=== PATIENT | female | born 1945 | race Caucasian/White ===

== ENCOUNTER 2017-03-13 22:08 | Inpatient (IN) | payer MEDICARE, OTHER ==
--- NOTE | 2017-03-13 22:36 | ED Physician Chart ---
Chief Complaint/HPI - Patient Information Date Seen:: 03/13/17 Time Seen:: 22:20 Chief Complaint:: crying episodes History of Present Illness:: Patient has been having crying episodes recently. She apparently feels somebody might steal her cigarettes. Patient complains of bilateral knee pain. She states she is fallen 71 time over the last 2 weeks Allergies:: Allergies Allergy/AdvReac Type Severity Reaction Status Date / Time Fish Containing Products Allergy Verified 03/13/17 22:13 Penicillins [PCN] Allergy Verified 03/13/17 22:13 Historian:: Patient Review:: Transfer documents Reviewed Review of Systems - Review of Systems General/Constitutional: No fever, No chills Skin: No skin lesions Head: No headache Eyes: No loss of vision ENT: No earache Neck: No neck pain Cardio Vascular: No chest pain, No palpitations Pulmonary: SOB GI: No nausea, No vomiting, No diarrhea G/U: No dysuria, No frequency Musculoskeletal: Bone or joint pain Endocrine: No polyuria, No polydipsia Psychiatric: Prior psych history Hematopoietic: No bruising Allergic/Immuno: No urticaria Neurological: No syncope, No focal symptoms Past Medical History - Past Medical History Past Medical History: HTN, DM, Other (severe sepsis; chronic bronchitis; status post urinary tract infection dementia; schizophrenia; or depression; insomnia; glaucoma; neuralgia) Family History: None Social History: Smoker, Other (states she only smokes 1 cigarette a day) Surgical History: None Psychiatricy History: Depression, Schizophrenia Family Medical History - Family Member Mother History Unknown: Yes Labs/Radiology/EKG Results - Lab Results Results: Laboratory Results - last 24 hr 03/13/17 03/13/17 03/13/17 22:37 22:37 22:37 WBC 3.4 L RBC 3.99 Hgb 11.2 L Hct 33.7 L MCV 84.4 MCH 28.2 MCHC Differential 33.4 RDW 14.2 Plt Count 170 MPV 6.8 Neutrophils % 70.1 Lymphocytes % 18.9 L Monocytes % 10.7 H Eosinophils % 0.1 Basophils % 0.2 Sodium 129 L Potassium 4.7 Chloride 97 L Carbon Dioxide 29.5 Anion Gap 7.2 BUN 26 H Creatinine 0.7 Est GFR ( Amer) TNP Est GFR (Non-Af Amer) TNP BUN/Creatinine Ratio 37.1 Glucose 219 H Whole Bld Lactic Acid 1.78 Calcium 9.2 Total Bilirubin 0.3 AST 13 ALT 16 Alkaline Phosphatase 73 Total Protein 6.6 Albumin 3.6 L Globulin 3.0 Albumin/Globulin Ratio 1.2 Triglycerides 72 Cholesterol 148 LDL Cholesterol Direct 99 HDL Cholesterol 45 - Radiology Results Results: CXR negative - EKG Interpretations Rate & Rhythm: NSR with rate of 87 [place]: normal Comments:: unifocal PVCs ED Septic Shock - . Is Septic Shock (SBP<90, OR Lactate>4 mmol\L) present?: No Reassessment (Disposition) - Reassessment Reassessment Condition:: Unchanged - Diagnosis Diagnosis:: Depression; contusion both knees - Patient Disposition Admitted to:: [facility] Admitting Medical Physician:: Marlon Liu Admitting Psych Physician:: Luna Henry Condition at Disposition:: Stable, Unchanged
[2017-03-13 22:47] LABS: % BASOPHILS 0.2 % (0.0-2.0); % EOSINOPHILS 0.1 % (0.0-5.0); % LYMPHOCYTES 18.9 % (20.0-50.0); % MONOCYTES 10.7 % (2.0-10.0); % NEUTROPHILS 70.1 % (40.0-80.0); HEMATOCRIT 33.7 % (35.0-45.0); HEMOGLOBIN 11.2 gm/dL (11.7-16.1); MEAN CELL VOLUME 84.4 fl (81-100); MEAN CORPUSCULAR HEMOGLOBIN 28.2 pg (27.0-31.0); MEAN CORPUSCULAR HGB CONC 33.4 pg (28.0-36.0); MEAN PLATELET VOLUME 6.8 fl; NEUTROPHILE ABSOLUTE 2.4 Th/cmm (1.8-8.0); PLATELET COUNT 170 Th/cmm (150-400); RED BLOOD COUNT 3.99 Mil/cmm (3.80-5.20); RED CELL DISTRIBUTION WIDTH 14.2 % (11.5-20.0)
[2017-03-13 22:51] LABS: WHITE BLOOD COUNT 3.4 Th/cmm (4.8-10.8)
[2017-03-13 23:07] LABS: ALB/GLOB RATIO 1.2 (1.0-1.8); ALKALINE PHOSPHATASE 73 U/L (34-104); ANION GAP 7.2 (7.0-16.0); BILIRUBIN,TOTAL 0.3 mg/dL (0.3-1.0); BUN - UREA NITROGEN 26 mg/dL (7-25); BUN/CREATININE RATIO 37.1; CALCIUM SERUM 9.2 mg/dL (8.6-10.3); CARBON DIOXIDE 29.5 mEq/L (21.0-31.0); CHLORIDE 97 mEq/L (98-107); CHOLESTEROL 148 mg/dL (<200); CREATININE - SERUM 0.7 mg/dL (0.6-1.2); GLUCOSE 219 mg/dL (70-105); POTASSIUM SERUM 4.7 mEq/L (3.5-5.1); SGOT 13 U/L (13-39); SGPT/ALT 16 U/L (7-52); SODIUM SERUM 129 mEq/L (136-145); TRIGLYCERIDES 72 mg/dL (<150)
[2017-03-14] MEDS ORDERED: Fleet Enema 135 mL RC PRN (00:37)
[2017-03-14] MEDS ORDERED: Magnesium Hydroxide (MOM) 30 mL UDC PO SCH (00:45)
[2017-03-14 00:54] VITALS: BP 130/64
--- NOTE | 2017-03-14 08:24 | Diagnostic Imaging Report ---
CHEST X-RAY: AP view INDICATION: COPD COMPARISON: None FINDINGS: Chronic lung changes are seen. No focal consolidation or effusions. Heart size is normal. There is mild tortuosity of the thoracic aorta. Degenerative changes of the spine are noted. IMPRESSION: Chronic lung changes with no focal consolidation identified.
[2017-03-14] MEDS ORDERED: Non-Formulary Item 1 EA (Cranberry [Cranberry] 450 MG) PO SCH (09:00)
[2017-03-14] MEDS: Multivitamin Tab PO SCH (09:21)
[2017-03-14] MEDS: Aspirin 81mg Chewable Tab PO SCH (09:22)
[2017-03-14] MEDS: Ferrous Sulfate 325 MG TAB PO SCH ×2 (09:22→17:15)
[2017-03-14] MEDS: Magnesium Hydroxide (MOM) 30 mL UDC PO SCH (09:27)
[2017-03-14] MEDS: Polyvinyl Alcohol Ophth Soln 15 mL Bottle EACH EYE SCH ×2 (10:00→17:16)
[2017-03-14] MEDS: Fluticasone Propionate 0.05mg/Actuation 16gm Nasal Spray NS SCH ×2 (10:00→17:16)
[2017-03-14] MEDS: Escitalopram Oxalate 5 mg Tab PO SCH (10:01)
--- NOTE | 2017-03-14 20:46 | Psychosocial Evaluation ---
DATE OF SERVICE: 03/14/2017 CHIEF COMPLAINT: Agitation and outburst. HISTORY OF PRESENT ILLNESS: The patient is a 71-year-old female who was transferred from [facility] because of increased agitation and increased irritability. The patient also has been confused and has been in irritable mood and angry mood at times. The patient also seems to be depressed. Chart reviewed and patient interviewed. The patient said that she has been living in a [facility] and she has been for several years. She said that she has 4 children, but she is not seeing them "because of court order." The patient was not able to elaborate on the reasons for not seeing her children and she was not able to elaborate on what court order that is stopping her from seeing her children. She seems to be anxious and depressed during talking about her children. The patient also has been at times agitated and restless. She has multiple somatic complaints including pain on her right knee and left shoulder. She also has been depressed because she has multiple medical problems and she said that she has issues with her heart and this is one of the reasons that she is not seeing her children. PAST PSYCHIATRIC HISTORY: The patient denies. PAST MEDICAL HISTORY: The patient has bronchial asthma, hypertension, as well as multiple pain in different areas of her body. She also said that she has heart issues, but she was not able to elaborate on what kind of heart problems. CHEMICAL DEPENDENCY HISTORY: The patient denies any alcohol or street drug use, but she said that she smokes only one cigarette a day. FAMILY PSYCHIATRIC HISTORY: The patient denies. SOCIAL HISTORY: The patient lives in [facility]. No known drug use. The patient is . No legal issues and no abuse issues. ALLERGIES: No known allergies. MENTAL STATUS EXAMINATION: The patient appears her stated age. Anxious. In a depressed mood. Sad affect. Thought processes are mainly goal directed. The patient gets agitated at times during the interview. The patient denies auditory or visual hallucinations, but she seems to be slightly confused and slightly paranoid during talking about her children. The patient is alert. The patient denies any suicidal or homicidal ideations. The patient is alert and oriented to time, place, person and situation. She did know where she lives and she did remember today's date, and the name of the president, and also where her children live, and also she remembered today's date and her birthdate. Poor insight and she does not know why she is in the hospital. Poor judgment and she was agitated and had outbursts. She seems to be of average intelligence based on her verbal ability. ASSESSMENT: PRIMARY DIAGNOSIS: Major depression, severe, single episode, with psychotic features. MEDICAL DIAGNOSIS: Hypertension, bronchial asthma. TREATMENT PLAN: We will start the patient on Lexapro 5 mg at bedtime. We will monitor her condition closely for further evaluation. ESTIMATED LENGTH OF STAY: 5-7 days. THE PATIENT'S STRENGTHS AND WEAKNESSES: The patient's strength is not clear at this time. Weaknesses: Her ineffective coping and poor impulse control. AFTER DISCHARGE PLAN: Outpatient treatment and followup as an outpatient and the patient will return to [facility]. CRITERIA FOR DISCHARGE: Will stabilize on psychotropic medications and will establish outpatient treatment plans. [facility]# [id number]
[2017-03-14] MEDS: INSULIN ASPART SLIDING SCALE 100 UNITS/ML UNIT SUBQ SCH (21:59)
[2017-03-15] MEDS: INSULIN ASPART SLIDING SCALE 100 UNITS/ML UNIT SUBQ SCH ×4 (06:43→20:40)
--- NOTE | 2017-03-15 07:53 | History and Physical ---
History of Present Illness - HPI Chief Complaint: psychosis HPI: 71 year old female who presents to [facility] ER from SNF for increased agitation noted by nursing staff. Patient presents with episodes of confusion, agitation which includes bouts of crying. Patient feels that someone is stealing her cigarettes. In addition she has been complaining of bilateral knee pain. She has been having increased episodes of crying as well. Patient had routine labwork in the Er which revealed Na+ 129 and elevation of her BUN Vital Signs: Last Vital Signs Temp 97.7 F 03/15/17 05:38 Pulse 88 03/15/17 05:38 Resp 20 03/15/17 05:38 BP 120/69 03/15/17 05:38 Pulse Ox 96 03/15/17 05:38 Past Medical History Cardiovascular: Report: HTN Pulmonary: Report: Bronchitis [employer]: Report: Other (insomnia, neuralgia) GI: Report: No Pertinent Hx Psych: Report: Depression, Schizophrenia Musculoskeletal: Report: No Pertinent Hx Infectious Disease: Report: Other (Sepsis) Renal/: Report: UTI Endocrine: Report: Diabetes Dermatology: Report: No Pertinent Hx Other History: Glaucoma - Past Surgical History Past Surgical History: No pertinent Hx Family Medical History - Family Member Mother History Unknown: Yes Social History Smoke: <1 pack per day (1 cigarette/day) Alcohol: None Drugs: None Lives: Snf - Medications Home Medications: Home Medication Medication Instructions Recorded Type Acetaminophen [Tylenol] 650 mg PO Q4HR PRN 03/13/17 History Aspirin [Aspirin Chewable] 81 mg PO DAILY 03/13/17 History Benazepril HCl 5 mg PO DAILY 03/13/17 History Bisacodyl [Dulcolax 10 Mg Supp] 10 mg RC DAILY PRN 03/13/17 History Calcium Carbonate [Oyster Shell 500 mg PO BID 03/13/17 History Calcium] Cranberry 450 mg PO BID 03/13/17 History Docusate Sodium [Colace] 100 mg PO DAILY 03/13/17 History Ferrous Sulfate [Iron] 325 mg PO BID 03/13/17 History Fleet Enema [Fleet Enema] 135 ml RC Q48H PRN 03/13/17 History Fluoxetine HCl [Prozac] 40 mg PO QAM 03/13/17 History Fluticasone Propionate Nasal 1 spr NS BID 03/13/17 History [Flonase] Fluticasone/Salmeterol [Advair Hfa] 2 puff IH BID 03/13/17 History Gabapentin 600 mg PO TID 03/13/17 History Glipizide 5 mg PO DAILY 03/13/17 History Ipratropium Bells [Atrovent Hfa] 2 puff INH Q6H 03/13/17 History Magnesium Hydroxide [Milk of 30 ml PO Q72H 03/13/17 History Magnesia] Metformin HCl [Glucophage] 1,000 mg PO BID 03/13/17 History Multivitamin [Multivitamins] 1 cap PO DAILY 03/13/17 History Olopatadine HCl [Pataday] 1 drop EACH EYE BID 03/13/17 History Polyvinyl Alcohol Ophth Soln 1 drop EACH EYE BID 03/13/17 History [Artificial Tears Ophth Soln] Risperidone [Risperdal] 1.5 mg PO HS 03/13/17 History Trazodone HCl 150 mg PO HS 03/13/17 History - Allergies Allergies/Adverse Reactions: Allergies Allergy/AdvReac Type Severity Reaction Status Date / Time Fish Containing Products Allergy Verified 03/13/17 22:13 Penicillins [PCN] Allergy Verified 03/13/17 22:13 Review of Systems - Review of Systems Constitutional: Report: No Significant Eyes: Report: No Significant ENT: Report: No Significant Respiratory: Report: No Significant Cardiovascular: Report: No Significant Gastrointestinal: Report: No Significant Genitourinary: Report: No Significant Musculoskeletal: Report: No Significant Skin: Report: No Significant Neurological: Report: No Significant Physical Exam - Physical Exam HEENT: Report: Ears Nose Throat within normal limits, Pharnyx within normal limits Neck: Report: Within normal limits Cardiovascular Systems: Report: +s1/s2 noted, Regular, Rate and Rhythm Respiratory: Report: Breath Sounds are within normal limits, Clear to Auscultation of lung dominguez Abdomen: Report: Non-tender to palpation Back: Report: Inspection of back is within normal limits. Extremities: Report: Non-tender to palpation. Skin: Report: Color of skin is within normal limits - Lab Results All Lab Results last 24 hours: Laboratory Last Values WBC 3.4 Th/cmm (4.8-10.8) L 03/13/17 22:37 RBC 3.99 Mil/cmm (3.80-5.20) 03/13/17 22:37 Hgb 11.2 gm/dL (11.7-16.1) L 03/13/17 22:37 Hct 33.7 % (35.0-45.0) L 03/13/17 22:37 MCV 84.4 fl (81-100) 03/13/17 22:37 MCH 28.2 pg (27.0-31.0) 03/13/17 22:37 MCHC Differential 33.4 pg (28.0-36.0) 03/13/17 22:37 RDW 14.2 % (11.5-20.0) 03/13/17 22:37 Plt Count 170 Th/cmm (150-400) 03/13/17 22:37 MPV 6.8 fl 03/13/17 22:37 Neutrophils % 70.1 % (40.0-80.0) 03/13/17 22:37 Lymphocytes % 18.9 % (20.0-50.0) L 03/13/17 22:37 Monocytes % 10.7 % (2.0-10.0) H 03/13/17 22:37 Eosinophils % 0.1 % (0.0-5.0) 03/13/17 22:37 Basophils % 0.2 % (0.0-2.0) 03/13/17 22:37 Sodium 129 mEq/L (136-145) L 03/13/17 22:37 Potassium 4.7 mEq/L (3.5-5.1) 03/13/17 22:37 Chloride 97 mEq/L (98-107) L 03/13/17 22:37 Carbon Dioxide 29.5 mEq/L (21.0-31.0) 03/13/17 22:37 Anion Gap 7.2 (7.0-16.0) 03/13/17 22:37 BUN 26 mg/dL (7-25) H 03/13/17 22:37 Creatinine 0.7 mg/dL (0.6-1.2) 03/13/17 22:37 Est GFR ( Amer) TNP 03/13/17 22:37 Est GFR (Non-Af Amer) TNP 03/13/17 22:37 BUN/Creatinine Ratio 37.1 03/13/17 22:37 Glucose 219 mg/dL (70-105) H 03/13/17 22:37 POC Glucose 141 MG/DL (70 - 105) H 03/15/17 06:05 Hemoglobin A1c % 6.7 % (4.0-6.0) H 03/13/17 22:37 Whole Bld Lactic Acid 1.78 mmol/L (0.60-1.99) 03/13/17 22:37 Calcium 9.2 mg/dL (8.6-10.3) 03/13/17 22:37 Total Bilirubin 0.3 mg/dL (0.3-1.0) 03/13/17 22:37 AST 13 U/L (13-39) 03/13/17 22:37 ALT 16 U/L (7-52) 03/13/17 22:37 Alkaline Phosphatase 73 U/L (34-104) 03/13/17 22:37 Total Protein 6.6 gm/dL (6.0-8.3) 03/13/17 22:37 Albumin 3.6 gm/dL (3.7-5.3) L 03/13/17 22:37 Globulin 3.0 gm/dL 03/13/17 22:37 Albumin/Globulin Ratio 1.2 (1.0-1.8) 03/13/17 22:37 Triglycerides 72 mg/dL (<150) 03/13/17 22:37 Cholesterol 148 mg/dL (<200) 03/13/17 22:37 LDL Cholesterol Direct 99 mg/dL (75-193) 03/13/17 22:37 HDL Cholesterol 45 mg/dL (23-92) 03/13/17 22:37 TSH 2.66 uIU/ml (0.34-5.60) 03/13/17 22:37 RPR NONREACTIVE (NONREACTIVE) 03/13/17 22:37 Laboratory Results - last 24 hr 03/14/17 03/14/17 03/14/17 09:20 16:31 21:54 POC Glucose 338 H 343 H 256 H 03/15/17 06:05 POC Glucose 141 H - Assessment Assessment: psychosis,dementia,schizophrenia,insomnia ... admit to geropsyche hyponatremia ... will order repeat BMP hypertension ... controlled. continue current medication. diabetes mellitus not controlled ... will continue SSI, accuhecks QID COPD ... will continue current inhalers s/p UTI ... will order UA if not already ordered by ER glaucoma ... continue current treatment neuralgia ... most likely peripheral diabetic neuropathy ... on neurontin - Plan Plan: psychosis,dementia,schizophrenia,insomnia ... admit to geropsyche hyponatremia ... will order repeat BMP hypertension ... controlled. continue current medication. diabetes mellitus not controlled ... will continue SSI, accuhecks QID COPD ... will continue current inhalers s/p UTI ... will order UA if not already ordered by ER glaucoma ... continue current treatment neuralgia ... most likely peripheral diabetic neuropathy ... on neurontin
[2017-03-15] MEDS: Ferrous Sulfate 325 MG TAB PO SCH ×2 (08:52→17:09)
[2017-03-15] MEDS: Aspirin 81mg Chewable Tab PO SCH (08:52)
[2017-03-15] MEDS: Multivitamin Tab PO SCH (08:52)
[2017-03-15] MEDS: Escitalopram Oxalate 5 mg Tab PO SCH (08:54)
[2017-03-15] MEDS: Fluticasone Propionate 0.05mg/Actuation 16gm Nasal Spray NS SCH ×2 (09:04→17:09)
[2017-03-15] MEDS: Polyvinyl Alcohol Ophth Soln 15 mL Bottle EACH EYE SCH ×2 (09:09→17:15)
[2017-03-15 10:35] LABS: ANION GAP 6.9 (7.0-16.0); BUN - UREA NITROGEN 26 mg/dL (7-25); BUN/CREATININE RATIO 37.1; CALCIUM SERUM 9.5 mg/dL (8.6-10.3); CARBON DIOXIDE 29.9 mEq/L (21.0-31.0); CHLORIDE 96 mEq/L (98-107); CREATININE - SERUM 0.7 mg/dL (0.6-1.2); GLUCOSE 375 mg/dL (70-105); POTASSIUM SERUM 4.8 mEq/L (3.5-5.1); SODIUM SERUM 128 mEq/L (136-145)
--- NOTE | 2017-03-15 22:20 | Progress Notes ---
DATE: 03/15/2017 The patient was seen, chart reviewed, and discussed with staff. The patient continues to be extremely irritable, agitated, confused, and disoriented. Continues to have very difficult time answering questions in a coherent manner. However, she has been compliant with her medications. No observed side effects. PLAN: The patient continues to be very confused and unpredictable, so that she will require ____ treatment. We will monitor the patient on a daily basis for her response to treatment and titrate meds as needed. [facility]# [id number]
[2017-03-16] MEDS: INSULIN ASPART SLIDING SCALE 100 UNITS/ML UNIT SUBQ SCH ×4 (06:34→21:24)
--- NOTE | 2017-03-16 08:01 | General Progress Note ---
Subjective - Review of Systems Service Date: 03/16/17 Subjective: Awake,Alert,Afebrile. No acute distress. Objective - Results Result Diagrams: 03/13/17 22:37 03/15/17 10:00 Recent Labs: Laboratory Last Values WBC 3.4 Th/cmm (4.8-10.8) L 03/13/17 22:37 RBC 3.99 Mil/cmm (3.80-5.20) 03/13/17 22:37 Hgb 11.2 gm/dL (11.7-16.1) L 03/13/17 22:37 Hct 33.7 % (35.0-45.0) L 03/13/17 22:37 MCV 84.4 fl (81-100) 03/13/17 22:37 MCH 28.2 pg (27.0-31.0) 03/13/17 22:37 MCHC Differential 33.4 pg (28.0-36.0) 03/13/17 22:37 RDW 14.2 % (11.5-20.0) 03/13/17 22:37 Plt Count 170 Th/cmm (150-400) 03/13/17 22:37 MPV 6.8 fl 03/13/17 22:37 Neutrophils % 70.1 % (40.0-80.0) 03/13/17 22:37 Lymphocytes % 18.9 % (20.0-50.0) L 03/13/17 22:37 Monocytes % 10.7 % (2.0-10.0) H 03/13/17 22:37 Eosinophils % 0.1 % (0.0-5.0) 03/13/17 22:37 Basophils % 0.2 % (0.0-2.0) 03/13/17 22:37 Sodium 128 mEq/L (136-145) L 03/15/17 10:00 Potassium 4.8 mEq/L (3.5-5.1) 03/15/17 10:00 Chloride 96 mEq/L (98-107) L 03/15/17 10:00 Carbon Dioxide 29.9 mEq/L (21.0-31.0) 03/15/17 10:00 Anion Gap 6.9 (7.0-16.0) L 03/15/17 10:00 BUN 26 mg/dL (7-25) H 03/15/17 10:00 Creatinine 0.7 mg/dL (0.6-1.2) 03/15/17 10:00 Est GFR ( Amer) TNP 03/15/17 10:00 Est GFR (Non-Af Amer) TNP 03/15/17 10:00 BUN/Creatinine Ratio 37.1 03/15/17 10:00 Glucose 375 mg/dL (70-105) H 03/15/17 10:00 POC Glucose 184 MG/DL (70 - 105) H 03/16/17 06:11 Hemoglobin A1c % 6.7 % (4.0-6.0) H 03/13/17 22:37 Whole Bld Lactic Acid 1.78 mmol/L (0.60-1.99) 03/13/17 22:37 Calcium 9.5 mg/dL (8.6-10.3) 03/15/17 10:00 Total Bilirubin 0.3 mg/dL (0.3-1.0) 03/13/17 22:37 AST 13 U/L (13-39) 03/13/17 22:37 ALT 16 U/L (7-52) 03/13/17 22:37 Alkaline Phosphatase 73 U/L (34-104) 03/13/17 22:37 Total Protein 6.6 gm/dL (6.0-8.3) 03/13/17 22:37 Albumin 3.6 gm/dL (3.7-5.3) L 03/13/17 22:37 Globulin 3.0 gm/dL 03/13/17 22:37 Albumin/Globulin Ratio 1.2 (1.0-1.8) 03/13/17 22:37 Triglycerides 72 mg/dL (<150) 03/13/17 22:37 Cholesterol 148 mg/dL (<200) 03/13/17 22:37 LDL Cholesterol Direct 99 mg/dL (75-193) 03/13/17 22:37 HDL Cholesterol 45 mg/dL (23-92) 03/13/17 22:37 TSH 2.66 uIU/ml (0.34-5.60) 03/13/17 22:37 RPR NONREACTIVE (NONREACTIVE) 03/13/17 22:37 - Physical Exam Vitals and I&O: Vital Signs Temp 97.8 F 03/16/17 07:02 Pulse 88 03/16/17 07:02 Resp 20 03/16/17 07:02 BP 132/74 03/16/17 07:02 Pulse Ox 97 03/16/17 07:02 Intake & Output 03/15/17 03/16/17 03/16/17 18:59 06:59 18:59 Intake Total 120 Balance 120 Intake: Oral 120 Other: # Voids 3 # Bowel Movements 1 Active Medications: Current Medications Acetaminophen (Tylenol) 650 mg PO Q4HR PRN PRN Reason: Pain or Fever >101 Stop: 05/13/17 00:36 Last Admin: 03/14/17 17:22 Dose: 650 mg Albuterol Sulfate (Albuterol 2.5mg/3ml Neb Ud) 2.5 mg HHN Q6HRT [facility] Stop: 05/13/17 12:59 Artificial Tears (Artificial Tears Ophth Soln) 1 drop EACH EYE BID REAL Stop: 05/13/17 08:59 Last Admin: 03/15/17 17:15 Dose: 1 drop Aspirin (Aspirin Chewable) 81 mg PO DAILY [facility] Stop: 05/13/17 08:59 Last Admin: 03/15/17 08:52 Dose: 81 mg Benazepril HCl (Lotensin) 5 mg PO DAILY [facility] Stop: 05/13/17 08:59 Last Admin: 03/15/17 08:53 Dose: 5 mg Bisacodyl (Dulcolax 10 Mg Supp) 10 mg RC DAILY PRN PRN Reason: Constipation Stop: 05/13/17 00:36 Budesonide (Pulmicort) 0.5 mg HHN BIDRT [facility] Stop: 05/13/17 08:59 Calcium Carbonate (Os-Ky) 500 mg PO BID REAL Stop: 05/13/17 08:59 Last Admin: 03/15/17 17:07 Dose: 500 mg Docusate Sodium (Colace) 100 mg PO DAILY REAL Stop: 05/13/17 08:59 Last Admin: 03/15/17 08:51 Dose: 100 mg Escitalopram Oxalate (Lexapro) 5 mg PO DAILY REAL PRN Reason: Protocol Stop: 05/13/17 08:59 Last Admin: 03/15/17 08:54 Dose: 5 mg Ferrous Sulfate (Iron) 325 mg PO BID REAL Stop: 05/13/17 08:59 Last Admin: 03/15/17 17:09 Dose: 325 mg Fluoxetine HCl (Prozac) 40 mg PO QAM REAL Stop: 05/13/17 08:59 Last Admin: 03/15/17 20:37 Dose: Not Given Fluticasone Propionate (Flonase) 1 spr NS BID REAL Stop: 05/13/17 08:59 Last Admin: 03/15/17 17:09 Dose: 1 spr Gabapentin (Neurontin) 600 mg PO TID REAL Stop: 05/13/17 08:59 Last Admin: 03/15/17 20:37 Dose: 600 mg Glipizide (Glucotrol) 5 mg PO DAILY [facility] Stop: 05/13/17 08:59 Last Admin: 03/15/17 08:55 Dose: 5 mg Insulin Aspart (Novolog Insulin Sliding Scale) 0 units SUBQ ACHS REAL PRN Reason: Protocol Stop: 05/13/17 20:59 Last Admin: 03/16/17 06:34 Dose: 2 units Ipratropium [place] (Atrovent Neb 0.5mg/2.5ml) 0.5 mg HHN Q6HRT [facility] Stop: 05/13/17 12:59 Ketotifen Fumarate (Zaditor 0.025% Oph Soln) 1 drop EACH EYE BID [facility] Stop: 05/13/17 08:59 Last Admin: 03/15/17 17:15 Dose: 1 drop Lorazepam (Ativan) 0.5 mg PO Q6H PRN; Protocol PRN Reason: Anxiety/Agitation Stop: 05/13/17 02:20 Magnesium Hydroxide (Milk Of Magnesia) 30 ml PO Q72H [facility] Stop: 05/13/17 08:59 Last Admin: 03/14/17 09:27 Dose: Not Given Metformin HCl (Glucophage) 1,000 mg PO BID REAL Stop: 05/13/17 08:59 Last Admin: 03/15/17 17:08 Dose: 1,000 mg Multivitamins/Vitamin C (Theragran) 1 tab PO DAILY REAL Stop: 05/13/17 08:59 Last Admin: 03/15/17 08:52 Dose: 1 tab Risperidone (Risperdal) 1.5 mg PO HS REAL PRN Reason: Protocol Stop: 05/13/17 20:59 Last Admin: 08/12/17 20:37 Dose: 1.5 mg Sodium Phosphate (Fleet Enema) 135 ml RC Q48H PRN PRN Reason: Constipation Stop: 05/13/17 00:36 Trazodone HCl (Desyrel) 150 mg PO HS REAL Stop: 05/13/17 20:59 Last Admin: 03/15/17 20:38 Dose: 150 mg Zolpidem Tartrate (Ambien) 5 mg PO HS PRN PRN Reason: Insomnia Stop: 05/13/17 02:20 Last Admin: 03/15/17 20:38 Dose: 5 mg General: Alert, Oriented x3, No acute distress HEENT: Atraumatic, PERRLA, EOMI Neck: Supple Cardiovascular: Regular rate, Normal S1, Normal S2 Lungs: Clear to auscultation Abdomen: Bowel sounds, Soft Extremities: no Clubbing, no Cyanosis, no Edema Assessment/Plan - Problem List Patient Problems: All Active Problems COPD (chronic obstructive pulmonary disease) (Acute) Dementia (Acute) F03.90 Diabetes mellitus (Acute) E11.9 Glaucoma (Acute) H40.9 Hypertension (Acute) I10 Hyponatremia (Acute) E87.1 Insomnia (Acute) G47.00 Neuralgia (Acute) M79.2 Psychosis (Acute) F29 Schizophrenia (Acute) F20.9 - Assessment Assessment: psychosis,dementia,schizophrenia,insomnia ... admit to geropsyche hyponatremia ... will order repeat BMP hypertension ... controlled. continue current medication. diabetes mellitus not controlled ... will continue SSI, accuhecks QID COPD ... will continue current inhalers s/p UTI ... will order UA if not already ordered by ER glaucoma ... continue current treatment neuralgia ... most likely peripheral diabetic neuropathy ... on neurontin - Plan Plan: psychosis,dementia,schizophrenia,insomnia ... admit to geropsyche hyponatremia ... will order repeat BMP hypertension ... controlled. continue current medication. diabetes mellitus not controlled ... will continue SSI, accuhecks QID COPD ... will continue current inhalers s/p UTI ... will order UA if not already ordered by ER glaucoma ... continue current treatment neuralgia ... most likely peripheral diabetic neuropathy ... on neurontin Nutritional Asmnt/Malnutr-PDOC - Dietary Evaluation Malnutrition Findings (Please click <Entered> for more info): Nutritional Asmnt/Malnutrition Start: 03/14/17 12: 32 Text: Status: Complete Freq: Document 03/14/17 18:06 [facility] (Rec: 03/14/17 18:13 [facility] [id number]) Nutritional Asmnt/Malnutrition Patient General Information Nutritional Screening High Risk Screening Diagnosis Depression (per ER report) Pertinent Medical Hx/Surgical Hx HTN, DM, severe sepsis, chronic bronchitis, s/p UTI, dementia, schizophrenia, depression, insomnia, glaucoma , nerualgia, depression Subjective Information Pt is a 71-year-old female from [facility] admitted with chief complaint of crying episodes. Pt was in the Dining Room, wheelchair bound. Pt is a fair historian. Pt appears well nourished with no signs of muscle or fat depletion. Pt reports food allergies to squash, fish, liver, and barroso beans, which causes her to break out in hives; FNS informed. RD informed pt on current diet and pt had no questions. Pt reports she intentionally lose 4#. Current Diet [facility] Boost GLucose Control at 1000 and 1400 Patient / S.O Can Pertinent Medications Oscal, Colace, Iron, Glipizide , Glucophage, Theragran Pertinent Labs (03/13) Na 129L, Glucose 219H, A1C 6.7H. (03/14) POC Glucose 338H-343H Nutritional Hx/Data Height 1.8 m Height (Calculated Centimeters) 180.3 Current Weight (lbs) 90.718 kg Weight (Calculated Kilograms) 90.7 Weight (Calculated Grams) 93535.5 Usual body Weight (lbs) 200 % Usual Body Weight 100 [place] Body Weight 155 % [place] Body Weight 129 Recent Weight Change Yes Weight Status Overweight GI Symptoms GI Symptoms None Food Allergies No Cultural/Ethnic/Protestant Belief No cultural or confucianism beliefs noted. Usual diet at home [facility] with diabetic snacks at 1000, 1400 x one month Skin Integrity/Comment: Darrell 15. Skin intact. Current %PO Good (75-100%) Estimated Nutritional Goals BEE in Kcals: Using Current wt Calories/Kcals/Kg Based on current wt 90.9 kg with consideration of wheelchair-bound status Kcals Calculated 5630-1464 kcals/day (20-25 kcals/kg) Protein: Using Current wt Protein g/kg: Based on current wt 90.9 kg with consideration of wheelchair-bound status Protein Calculated 91 gm/day (1 gm/kg) Fluid: ml 3816-3024 ml/day (1 ml/kcal) Nutritional Problem 1. Problem Problem Altered nutrition-related laboratory values related to Etiology possible inconsistent carbohydrate intake, DM as evidenced by Signs/Symptoms: admitting glucose 219 mg/dl and POC Glucose 338-343 mg/dl. Malnutrition Alert Protein-Calorie Malnutrition N/A Is there a minimum of two criteria No selected? Query Text:Check all the applicable criteria. A minimum of two criteria are recommended for diagnosis of either severe or non-severe malnutrition. Malnutrition Related to Morbid Obesity Malnutrition related to morbid obesity No Intervention/Recommendation Comments 1. Recommend CCHO-75 GM diet to better meet estimated nutritional needs. 2. Consider discontinuing Boost Glucose Control supplements due to good appetite and to control blood sugar levels. Expected Outcomes/Goals Expected Outcomes/Goals Blood glucose levels will trend towards desired parameters. Physician Parameters for PEM Serum Albumin (g/dl) 3.5 - 5.0 (Normal)
[2017-03-16] MEDS: Polyvinyl Alcohol Ophth Soln 15 mL Bottle EACH EYE SCH ×2 (08:57→17:22)
[2017-03-16] MEDS: Aspirin 81mg Chewable Tab PO SCH (09:00)
[2017-03-16] MEDS: Ferrous Sulfate 325 MG TAB PO SCH ×2 (09:00→17:23)
[2017-03-16] MEDS: Escitalopram Oxalate 5 mg Tab PO SCH (09:01)
[2017-03-16] MEDS: Multivitamin Tab PO SCH (09:01)
[2017-03-16] MEDS: Fluticasone Propionate 0.05mg/Actuation 16gm Nasal Spray NS SCH ×2 (09:03→17:23)
[2017-03-16] MEDS: Ipratropium Neb 0.5 mg/2.5 mL UD HHN SCH ×2 (12:36→19:35)
[2017-03-16] MEDS: Albuterol Nebulizer 2.5mg/3mL HHN SCH ×2 (12:36→19:35)
[2017-03-16] MEDS: Budesonide 0.5 Mg/2 mL Ud HHN SCH ×2 (12:36→19:35)
--- NOTE | 2017-03-16 21:43 | Progress Notes ---
DATE: 03/16/2017 SUBJECTIVE: The patient is a 71-year-old female transferred from [place] due to increased agitation, increased irritability, confusion, diagnosis of depression, intrusive, complaining of some pain. The patient came to the Emergency Room, noted to have more crying episodes, suspicious, multiple falls, not stable from a medical or psychiatric standpoint. On [id number], the patient intrusive, yelling loud upset, depressed, complaining of pain, some confusion noted, disoriented. The patient states she has no idea why she is here, though she does tell me that she lives in a board and care. ASSESSMENT: The patient unpredictable, not safe for discharge. We will monitor and followup. Continue to monitor and titrate medications. [facility]# [id number]
[2017-03-17] MEDS: Ipratropium Neb 0.5 mg/2.5 mL UD HHN SCH ×5 (01:38→21:27)
[2017-03-17] MEDS: Albuterol Nebulizer 2.5mg/3mL HHN SCH ×5 (01:38→21:27)
[2017-03-17] MEDS: INSULIN ASPART SLIDING SCALE 100 UNITS/ML UNIT SUBQ SCH ×4 (06:43→20:46)
[2017-03-17] MEDS: Budesonide 0.5 Mg/2 mL Ud HHN SCH ×2 (06:54→19:56)
--- NOTE | 2017-03-17 08:24 | General Progress Note ---
Subjective - Review of Systems Service Date: 03/17/17 Subjective: Patient complains of left shoulder and right knee pain. Patient also complaining of pain to the lower extremities. Objective - Results Result Diagrams: 03/13/17 22:37 03/15/17 10:00 Recent Labs: Laboratory Last Values WBC 3.4 Th/cmm (4.8-10.8) L 03/13/17 22:37 RBC 3.99 Mil/cmm (3.80-5.20) 03/13/17 22:37 Hgb 11.2 gm/dL (11.7-16.1) L 03/13/17 22:37 Hct 33.7 % (35.0-45.0) L 03/13/17 22:37 MCV 84.4 fl (81-100) 03/13/17 22:37 MCH 28.2 pg (27.0-31.0) 03/13/17 22:37 MCHC Differential 33.4 pg (28.0-36.0) 03/13/17 22:37 RDW 14.2 % (11.5-20.0) 03/13/17 22:37 Plt Count 170 Th/cmm (150-400) 03/13/17 22:37 MPV 6.8 fl 03/13/17 22:37 Neutrophils % 70.1 % (40.0-80.0) 03/13/17 22:37 Lymphocytes % 18.9 % (20.0-50.0) L 03/13/17 22:37 Monocytes % 10.7 % (2.0-10.0) H 03/13/17 22:37 Eosinophils % 0.1 % (0.0-5.0) 03/13/17 22:37 Basophils % 0.2 % (0.0-2.0) 03/13/17 22:37 Sodium 128 mEq/L (136-145) L 03/15/17 10:00 Potassium 4.8 mEq/L (3.5-5.1) 03/15/17 10:00 Chloride 96 mEq/L (98-107) L 03/15/17 10:00 Carbon Dioxide 29.9 mEq/L (21.0-31.0) 03/15/17 10:00 Anion Gap 6.9 (7.0-16.0) L 03/15/17 10:00 BUN 26 mg/dL (7-25) H 03/15/17 10:00 Creatinine 0.7 mg/dL (0.6-1.2) 03/15/17 10:00 Est GFR ( Amer) TNP 03/15/17 10:00 Est GFR (Non-Af Amer) TNP 03/15/17 10:00 BUN/Creatinine Ratio 37.1 03/15/17 10:00 Glucose 375 mg/dL (70-105) H 03/15/17 10:00 POC Glucose 122 MG/DL (70 - 105) H 03/17/17 06:33 Hemoglobin A1c % 6.7 % (4.0-6.0) H 03/13/17 22:37 Whole Bld Lactic Acid 1.78 mmol/L (0.60-1.99) 03/13/17 22:37 Calcium 9.5 mg/dL (8.6-10.3) 03/15/17 10:00 Total Bilirubin 0.3 mg/dL (0.3-1.0) 03/13/17 22:37 AST 13 U/L (13-39) 03/13/17 22:37 ALT 16 U/L (7-52) 03/13/17 22:37 Alkaline Phosphatase 73 U/L (34-104) 03/13/17 22:37 Total Protein 6.6 gm/dL (6.0-8.3) 03/13/17 22:37 Albumin 3.6 gm/dL (3.7-5.3) L 03/13/17 22:37 Globulin 3.0 gm/dL 03/13/17 22:37 Albumin/Globulin Ratio 1.2 (1.0-1.8) 03/13/17 22:37 Triglycerides 72 mg/dL (<150) 03/13/17 22:37 Cholesterol 148 mg/dL (<200) 03/13/17 22:37 LDL Cholesterol Direct 99 mg/dL (75-193) 03/13/17 22:37 HDL Cholesterol 45 mg/dL (23-92) 03/13/17 22:37 TSH 2.66 uIU/ml (0.34-5.60) 03/13/17 22:37 RPR NONREACTIVE (NONREACTIVE) 03/13/17 22:37 - Physical Exam Vitals and I&O: Vital Signs Temp 98.3 F 03/17/17 05:28 Pulse 95 03/17/17 06:56 Resp 18 03/17/17 06:56 BP 124/67 03/17/17 05:28 Pulse Ox 95 03/17/17 06:56 Intake & Output 03/16/17 03/17/17 03/17/17 18:59 06:59 18:59 Intake Total 2520 Balance 2520 Intake: Oral 2520 Other: # Voids 5 2 # Bowel Movements 1 0 Active Medications: Current Medications Acetaminophen (Tylenol) 650 mg PO Q4HR PRN PRN Reason: Pain or Fever >101 Stop: 05/13/17 00:36 Last Admin: 03/16/17 20:59 Dose: 650 mg Albuterol Sulfate (Albuterol 2.5mg/3ml Neb Ud) 2.5 mg HHN Q6HRT REAL Stop: 05/13/17 12:59 Last Admin: 03/17/17 06:53 Dose: 2.5 mg Artificial Tears (Artificial Tears Ophth Soln) 1 drop EACH EYE BID REAL Stop: 05/13/17 08:59 Last Admin: 03/16/17 17:22 Dose: 1 drop Aspirin (Aspirin Chewable) 81 mg PO DAILY REAL Stop: 05/13/17 08:59 Last Admin: 03/16/17 09:00 Dose: 81 mg Benazepril HCl (Lotensin) 5 mg PO DAILY REAL Stop: 05/13/17 08:59 Last Admin: 03/16/17 09:03 Dose: 5 mg Bisacodyl (Dulcolax 10 Mg Supp) 10 mg RC DAILY PRN PRN Reason: Constipation Stop: 05/13/17 00:36 Budesonide (Pulmicort) 0.5 mg HHN BIDRT REAL Stop: 05/13/17 08:59 Last Admin: 03/17/17 06:54 Dose: 0.5 mg Calcium Carbonate (Os-Ky) 500 mg PO BID REAL Stop: 05/13/17 08:59 Last Admin: 03/16/17 17:23 Dose: 500 mg Docusate Sodium (Colace) 100 mg PO DAILY [facility] Stop: 05/13/17 08:59 Last Admin: 03/16/17 09:03 Dose: Not Given Escitalopram Oxalate (Lexapro) 5 mg PO DAILY [facility] PRN Reason: Protocol Stop: 05/13/17 08:59 Last Admin: 03/16/17 09:01 Dose: 5 mg Ferrous Sulfate (Iron) 325 mg PO BID REAL Stop: 05/13/17 08:59 Last Admin: 03/16/17 17:23 Dose: 325 mg Fluoxetine HCl (Prozac) 40 mg PO QAM REAL Stop: 05/13/17 08:59 Last Admin: 03/16/17 08:58 Dose: 40 mg Fluticasone Propionate (Flonase) 1 spr NS BID REAL Stop: 05/13/17 08:59 Last Admin: 03/16/17 17:23 Dose: 1 spr Gabapentin (Neurontin) 600 mg PO TID [facility] Stop: 05/13/17 08:59 Last Admin: 03/16/17 21:00 Dose: 600 mg Glipizide (Glucotrol) 5 mg PO DAILY [facility] Stop: 05/13/17 08:59 Last Admin: 03/16/17 09:03 Dose: 5 mg Insulin Aspart (Novolog Insulin Sliding Scale) 0 units SUBQ ACHS [facility] PRN Reason: Protocol Stop: 05/13/17 20:59 Last Admin: 03/17/17 06:43 Dose: Not Given Ipratropium [place] (Atrovent Neb 0.5mg/2.5ml) 0.5 mg HHN Q6HRT [facility] Stop: 05/13/17 12:59 Last Admin: 03/17/17 06:53 Dose: 0.5 mg Ketotifen Fumarate (Zaditor 0.025% Ophth Soln) 1 drop EACH EYE BID [facility] Stop: 05/13/17 08:59 Last Admin: 03/16/17 17:23 Dose: 1 drop Lorazepam (Ativan) 0.5 mg PO Q6H PRN; Protocol PRN Reason: Anxiety/Agitation Stop: 05/13/17 02:20 Magnesium Hydroxide (Milk Of Magnesia) 30 ml PO Q72H [facility] Stop: 05/13/17 08:59 Last Admin: 03/14/17 09:27 Dose: Not Given Metformin HCl (Glucophage) 1,000 mg PO BID [facility] Stop: 05/13/17 08:59 Last Admin: 03/16/17 17:23 Dose: 1,000 mg Multivitamins/Vitamin C (Theragran) 1 tab PO DAILY REAL Stop: 05/13/17 08:59 Last Admin: 03/16/17 09:01 Dose: 1 tab Risperidone (Risperdal) 1.5 mg PO HS REAL PRN Reason: Protocol Stop: 05/13/17 20:59 Last Admin: 03/16/17 20:43 Dose: 1.5 mg Sodium Phosphate (Fleet Enema) 135 ml RC Q48H PRN PRN Reason: Constipation Stop: 05/13/17 00:36 Trazodone HCl (Desyrel) 150 mg PO HS REAL Stop: 05/13/17 20:59 Last Admin: 03/16/17 20:42 Dose: 150 mg Zolpidem Tartrate (Ambien) 5 mg PO HS PRN PRN Reason: Insomnia Stop: 05/13/17 02:20 Last Admin: 03/15/17 20:38 Dose: 5 mg General: Alert, Oriented x3, No acute distress HEENT: Atraumatic, PERRLA, EOMI Neck: Supple Cardiovascular: Regular rate, Normal S1, Normal S2 Lungs: Clear to auscultation Abdomen: Bowel sounds, Soft Extremities: no Clubbing, no Cyanosis, no Edema Assessment/Plan - Problem List Patient Problems: All Active Problems Arthralgia (Acute) M25.50 COPD (chronic obstructive pulmonary disease) (Acute) Dementia (Acute) F03.90 Diabetes mellitus (Acute) E11.9 Glaucoma (Acute) H40.9 Hypertension (Acute) I10 Hyponatremia (Acute) E87.1 Insomnia (Acute) G47.00 Neuralgia (Acute) M79.2 Psychosis (Acute) F29 Schizophrenia (Acute) F20.9 - Assessment Assessment: psychosis,dementia,schizophrenia,insomnia ... admit to geropsyche hyponatremia ... will order repeat BMP hypertension ... controlled. continue current medication. diabetes mellitus not controlled ... will continue SSI, accuhecks QID COPD ... will continue current inhalers s/p UTI ... will order UA if not already ordered by ER glaucoma ... continue current treatment neuralgia ... most likely peripheral diabetic neuropathy ... on neurontin - Plan Plan: psychosis,dementia,schizophrenia,insomnia ... admit to geropsyche hyponatremia ... will order repeat BMP hypertension ... controlled. continue current medication. diabetes mellitus not controlled ... will continue SSI, accuhecks QID COPD ... will continue current inhalers s/p UTI ... will order UA if not already ordered by ER glaucoma ... continue current treatment neuralgia ... most likely peripheral diabetic neuropathy ... on neurontin left shoulder and right knee pain ... will order xrays. will add tramadol for pain control. Nutritional Asmnt/Malnutr-PDOC - Dietary Evaluation Malnutrition Findings (Please click <Entered> for more info): Nutritional Asmnt/Malnutrition Start: 03/14/17 12: 32 Text: Status: Complete Freq: Document 03/14/17 18:06 [facility] (Rec: 03/14/17 18:13 [facility] [id number]) Nutritional Asmnt/Malnutrition Patient General Information Nutritional Screening High Risk Screening Diagnosis Depression (per ER report) Pertinent Medical Hx/Surgical Hx HTN, DM, severe sepsis, chronic bronchitis, s/p UTI, dementia, schizophrenia, depression, insomnia, glaucoma , nerualgia, depression Subjective Information Pt is a 71-year-old female from [facility] admitted with chief complaint of crying episodes. Pt was in the Dining Room, wheelchair bound. Pt is a fair historian. Pt appears well nourished with no signs of muscle or fat depletion. Pt reports food allergies to squash, fish, liver, and barroso beans, which causes her to break out in hives; FNS informed. RD informed pt on current diet and pt had no questions. Pt reports she intentionally lose 4#. Current Diet Order/ Nutrition Support [place] QUINTERO GLucose Control at 1000 and 1400 Patient / S.O Can Pertinent Medications Oscal, Colace, Iron, Glipizide , Glucophage, Theragran Pertinent Labs (03/13) Na 129L, Glucose 219H, A1C 6.7H. (03/14) POC Glucose 338H-343H Nutritional Hx/Data Height 1.8 m Height (Calculated Centimeters) 180.3 Current Weight (lbs) 90.718 kg Weight (Calculated Kilograms) 90.7 Weight (Calculated Grams) 04328.5 Usual body Weight (lbs) 200 % Usual Body Weight 100 [place] Body Weight 155 % [place] Body Weight 129 Recent Weight Change Yes Weight Status Overweight GI Symptoms GI Symptoms None Food Allergies No Cultural/Ethnic/Presybeterian Belief No cultural or episcopalian beliefs noted. Usual diet at home [facility] with diabetic snacks at 1000, 1400 x one month Skin Integrity/Comment: Darrell [place]. Skin intact. Current %PO Good (75-100%) Estimated Nutritional Goals BEE in Kcals: Using Current wt Calories/Kcals/Kg Based on current wt 90.9 kg with consideration of wheelchair-bound status Kcals Calculated 3276-3245 kcals/day (20-25 kcals/kg) Protein: Using Current wt Protein g/kg: Based on current wt 90.9 kg with consideration of wheelchair-bound status Protein Calculated 91 gm/day (1 gm/kg) Fluid: ml 0841-2636 ml/day (1 ml/kcal) Nutritional Problem 1. Problem Problem Altered nutrition-related laboratory values related to Etiology possible inconsistent carbohydrate intake, DM as evidenced by Signs/Symptoms: admitting glucose 219 mg/dl and POC Glucose 338-343 mg/dl. Malnutrition Alert Protein-Calorie Malnutrition N/A Is there a minimum of two criteria No selected? Query Text:Check all the applicable criteria. A minimum of two criteria are recommended for diagnosis of either severe or non-severe malnutrition. Malnutrition Related to Morbid Obesity Malnutrition related to morbid obesity No Intervention/Recommendation Comments 1. Recommend CCHO-75 GM diet to better meet estimated nutritional needs. 2. Consider discontinuing Boost Glucose Control supplements due to good appetite and to control blood sugar levels. Expected Outcomes/Goals Expected Outcomes/Goals Blood glucose levels will trend towards desired parameters. Physician Parameters for PEM Serum Albumin (g/dl) 3.5 - 5.0 (Normal)
[2017-03-17] MEDS: Ferrous Sulfate 325 MG TAB PO SCH ×2 (09:05→17:31)
[2017-03-17] MEDS: Multivitamin Tab PO SCH (09:05)
[2017-03-17] MEDS: Aspirin 81mg Chewable Tab PO SCH (09:05)
[2017-03-17] MEDS: Escitalopram Oxalate 5 mg Tab PO SCH (09:05)
[2017-03-17] MEDS: Fluticasone Propionate 0.05mg/Actuation 16gm Nasal Spray NS SCH (09:10)
[2017-03-17] MEDS: Magnesium Hydroxide (MOM) 30 mL UDC PO SCH (09:14)
[2017-03-17] MEDS: Polyvinyl Alcohol Ophth Soln 15 mL Bottle EACH EYE SCH (09:15)
--- NOTE | 2017-03-17 10:42 | Diagnostic Imaging Report ---
Right knee 2 views Indication: pain Comparison: none Findings: There are advanced degenerative changes of the right knee with advanced narrowing of the medial knee compartment. Large areas of osteophytic spurring and calcifications are seen greatest along the suprapatellar region. There is also 1.2 cm calcification, likely loose body seen inferior to the patella along the anterior knee joint. A moderate size knee effusion is noted. No evidence of an acute fracture. Atherosclerosis is noted. Osteopenia is noted. Chondrocalcinosis is noted. Impression: No evidence of an acute fracture. Advanced degenerative changes with advanced narrowing of the medial knee compartment and 1.2 cm calcification, likely loose body along the anterior knee joint located inferior to the patella. Moderate size knee effusion. Atherosclerotic vascular disease. Osteopenia. In the setting of trauma, if clinical symptoms persist and there is continued concern for an occult fracture, follow up exams in 5-7 days is suggested.
--- NOTE | 2017-03-17 10:43 | Diagnostic Imaging Report ---
Left shoulder 2 views Indication: pain Comparison: none Findings: Evaluation for dislocation is limited as transscapular Y views were not obtained. Mild/moderate degenerative changes are seen with mild hypertrophic bony spurring of the humeral head. No evidence of an acute fracture. No focal soft tissue swelling. Impression: [id number] degenerative changes. No evidence of an acute fracture. In the setting of trauma, if clinical symptoms persist and there is continued concern for an occult fracture, follow up exams in 5-7 days is suggested.
[2017-03-17 11:10] LABS: ANION GAP 7.6 (7.0-16.0); BUN - UREA NITROGEN 30 mg/dL (7-25); BUN/CREATININE RATIO 37.5; CALCIUM SERUM 9.6 mg/dL (8.6-10.3); CARBON DIOXIDE 31.3 mEq/L (21.0-31.0); CHLORIDE 97 mEq/L (98-107); CREATININE - SERUM 0.8 mg/dL (0.6-1.2); GLUCOSE 321 mg/dL (70-105); POTASSIUM SERUM 4.9 mEq/L (3.5-5.1); SODIUM SERUM 131 mEq/L (136-145)
--- NOTE | 2017-03-17 23:58 | Progress Notes ---
DATE: 03/17/2017 SUBJECTIVE: Chart reviewed and the patient interviewed. Also, discussed the patient's condition with the staff and reviewed records and labs. The patient is still agitated and is still in angry and in irritable mood. The patient also is still having severe anxiety and severe mood swings. The patient also is still restless and still needs lots of redirections. Otherwise, the patient is cooperative with her treatment and she has been compliant with taking her medications with no side effects of medications. ASSESSMENT: The patient is still psychotic and agitated. TREATMENT PLAN: We will continue to monitor behavior and condition closely. Also, continue to work on her agitation and poor impulse control and adjusting psychotropic medications. [facility]# [id number]
[2017-03-18] MEDS: Albuterol Nebulizer 2.5mg/3mL HHN SCH ×4 (01:00→20:01)
[2017-03-18] MEDS: Ipratropium Neb 0.5 mg/2.5 mL UD HHN SCH ×4 (01:00→20:01)
[2017-03-18] MEDS: INSULIN ASPART SLIDING SCALE 100 UNITS/ML UNIT SUBQ SCH ×4 (06:30→20:21)
[2017-03-18] MEDS: Budesonide 0.5 Mg/2 mL Ud HHN SCH (07:12)
--- NOTE | 2017-03-18 08:36 | General Progress Note ---
Subjective - Review of Systems Service Date: 03/18/17 Subjective: Patient complains of left shoulder and right knee pain. Patient also complaining of pain to the lower extremities. Objective - Results Result Diagrams: 03/13/17 22:37 03/17/17 10:08 Recent Labs: Laboratory Last Values WBC 3.4 Th/cmm (4.8-10.8) L 03/13/17 22:37 RBC 3.99 Mil/cmm (3.80-5.20) 03/13/17 22:37 Hgb 11.2 gm/dL (11.7-16.1) L 03/13/17 22:37 Hct 33.7 % (35.0-45.0) L 03/13/17 22:37 MCV 84.4 fl (81-100) 03/13/17 22:37 MCH 28.2 pg (27.0-31.0) 03/13/17 22:37 MCHC Differential 33.4 pg (28.0-36.0) 03/13/17 22:37 RDW 14.2 % (11.5-20.0) 03/13/17 22:37 Plt Count 170 Th/cmm (150-400) 03/13/17 22:37 MPV 6.8 fl 03/13/17 22:37 Neutrophils % 70.1 % (40.0-80.0) 03/13/17 22:37 Lymphocytes % 18.9 % (20.0-50.0) L 03/13/17 22:37 Monocytes % 10.7 % (2.0-10.0) H 03/13/17 22:37 Eosinophils % 0.1 % (0.0-5.0) 03/13/17 22:37 Basophils % 0.2 % (0.0-2.0) 03/13/17 22:37 Sodium 131 mEq/L (136-145) L 03/17/17 10:08 Potassium 4.9 mEq/L (3.5-5.1) 03/17/17 10:08 Chloride 97 mEq/L (98-107) L 03/17/17 10:08 Carbon Dioxide 31.3 mEq/L (21.0-31.0) H 03/17/17 10:08 Anion Gap 7.6 (7.0-16.0) 03/17/17 10:08 BUN 30 mg/dL (7-25) H 03/17/17 10:08 Creatinine 0.8 mg/dL (0.6-1.2) 03/17/17 10:08 Est GFR ( Amer) TNP 03/17/17 10:08 Est GFR (Non-Af Amer) TNP 03/17/17 10:08 BUN/Creatinine Ratio 37.5 03/17/17 10:08 Glucose 321 mg/dL (70-105) H 03/17/17 10:08 POC Glucose 130 MG/DL (70 - 105) H 03/18/17 06:18 Hemoglobin A1c % 6.7 % (4.0-6.0) H 03/13/17 22:37 Whole Bld Lactic Acid 1.78 mmol/L (0.60-1.99) 03/13/17 22:37 Uric Acid 4.8 mg/dL (2.3-6.6) 03/17/17 10:08 Calcium 9.6 mg/dL (8.6-10.3) 03/17/17 10:08 Total Bilirubin 0.3 mg/dL (0.3-1.0) 03/13/17 22:37 AST 13 U/L (13-39) 03/13/17 22:37 ALT 16 U/L (7-52) 03/13/17 22:37 Alkaline Phosphatase 73 U/L (34-104) 03/13/17 22:37 Total Protein 6.6 gm/dL (6.0-8.3) 03/13/17 22:37 Albumin 3.6 gm/dL (3.7-5.3) L 03/13/17 22:37 Globulin 3.0 gm/dL 03/13/17 22:37 Albumin/Globulin Ratio 1.2 (1.0-1.8) 03/13/17 22:37 Triglycerides 72 mg/dL (<150) 03/13/17 22:37 Cholesterol 148 mg/dL (<200) 03/13/17 22:37 LDL Cholesterol Direct 99 mg/dL (75-193) 03/13/17 22:37 HDL Cholesterol 45 mg/dL (23-92) 03/13/17 22:37 TSH 2.66 uIU/ml (0.34-5.60) 03/13/17 22:37 RPR NONREACTIVE (NONREACTIVE) 03/13/17 22:37 - Physical Exam Vitals and I&O: Vital Signs Temp 98.3 F 03/18/17 05:46 Pulse 102 03/18/17 07:12 Resp 18 03/18/17 07:12 BP 111/61 03/18/17 05:46 Pulse Ox 99 03/18/17 07:12 Intake & Output 03/17/17 03/18/17 03/18/17 18:59 06:59 18:59 Intake Total 700 300 Balance 700 300 Intake: Oral 700 300 Other: # Voids 4 2 # Bowel Movements 2 1 Active Medications: Current Medications Acetaminophen (Tylenol) 650 mg PO Q4HR PRN PRN Reason: Pain or Fever >101 Stop: 05/13/17 00:36 Last Admin: 03/17/17 22:20 Dose: 650 mg Albuterol Sulfate (Albuterol 2.5mg/3ml Neb Ud) 2.5 mg HHN Q6HRT [facility] Stop: 05/13/17 12:59 Last Admin: 03/18/17 07:10 Dose: 2.5 mg Artificial Tears (Artificial Tears Ophth Soln) 1 drop EACH EYE BID REAL Stop: 05/13/17 08:59 Last Admin: 03/17/17 09:15 Dose: 1 drop Aspirin (Aspirin Chewable) 81 mg PO DAILY [facility] Stop: 05/13/17 08:59 Last Admin: 03/17/17 09:05 Dose: 81 mg Benazepril HCl (Lotensin) 5 mg PO DAILY REAL Stop: 05/13/17 08:59 Last Admin: 03/17/17 09:06 Dose: 5 mg Bisacodyl (Dulcolax 10 Mg Supp) 10 mg RC DAILY PRN PRN Reason: Constipation Stop: 05/13/17 00:36 Budesonide (Pulmicort) 0.5 mg HHN BIDRT REAL Stop: 05/13/17 08:59 Last Admin: 03/18/17 07:12 Dose: 0.5 mg Calcium Carbonate (Os-Ky) 500 mg PO BID REAL Stop: 05/13/17 08:59 Last Admin: 03/17/17 17:31 Dose: 500 mg Docusate Sodium (Colace) 100 mg PO DAILY [facility] Stop: 05/13/17 08:59 Last Admin: 03/17/17 09:06 Dose: 100 mg Duloxetine HCl (Cymbalta) 30 mg PO DAILY REAL PRN Reason: Protocol Stop: 05/17/17 08:59 Ferrous Sulfate (Iron) 325 mg PO BID REAL Stop: 05/13/17 08:59 Last Admin: 03/17/17 17:31 Dose: 325 mg Fluoxetine HCl (Prozac) 40 mg PO QAM REAL Stop: 05/13/17 08:59 Last Admin: 03/17/17 09:05 Dose: 40 mg Fluticasone Propionate (Flonase) 1 spr NS BID REAL Stop: 05/13/17 08:59 Last Admin: 03/17/17 09:10 Dose: 1 spr Gabapentin (Neurontin) 600 mg PO TID REAL Stop: 05/13/17 08:59 Last Admin: 03/17/17 20:45 Dose: 600 mg Glipizide (Glucotrol) 5 mg PO DAILY REAL Stop: 05/13/17 08:59 Last Admin: 03/17/17 09:05 Dose: 5 mg Insulin Aspart (Novolog Insulin Sliding Scale) 0 units SUBQ ACHS REAL PRN Reason: Protocol Stop: 05/13/17 20:59 Last Admin: 03/18/17 06:30 Dose: Not Given Ipratropium [place] (Atrovent Neb 0.5mg/2.5ml) 0.5 mg HHN Q6HRT [facility] Stop: 05/13/17 12:59 Last Admin: 03/18/17 07:10 Dose: 0.5 mg Ketotifen Fumarate (Zaditor 0.025% [facility] Soln) 1 drop EACH EYE BID [facility] Stop: 05/13/17 08:59 Last Admin: 03/17/17 09:14 Dose: 1 drop Lorazepam (Ativan) 0.5 mg PO Q6H PRN; Protocol PRN Reason: Anxiety/Agitation Stop: 05/13/17 02:20 Magnesium Hydroxide (Milk Of Magnesia) 30 ml PO Q72H [facility] Stop: 05/13/17 08:59 Last Admin: 03/17/17 09:14 Dose: Not Given Metformin HCl (Glucophage) 1,000 mg PO BID [facility] Stop: 05/13/17 08:59 Last Admin: 03/17/17 17:31 Dose: 1,000 mg Multivitamins/Vitamin C (Theragran) 1 tab PO DAILY REAL Stop: 05/13/17 08:59 Last Admin: 03/17/17 09:05 Dose: 1 tab Risperidone (Risperdal) 1.5 mg PO HS REAL PRN Reason: Protocol Stop: 05/13/17 20:59 Last Admin: 03/17/17 20:45 Dose: 1.5 mg Sodium Phosphate (Fleet Enema) 135 ml RC Q48H PRN PRN Reason: Constipation Stop: 05/13/17 00:36 Tramadol HCl (Ultram) 50 mg PO Q6H PRN PRN Reason: arthralgia Stop: 05/16/17 08:23 Trazodone HCl (Desyrel) 150 mg PO HS REAL Stop: 05/13/17 20:59 Last Admin: 03/17/17 20:43 Dose: 150 mg Zolpidem Tartrate (Ambien) 5 mg PO HS PRN PRN Reason: Insomnia Stop: 05/13/17 02:20 Last Admin: 03/17/17 22:21 Dose: 5 mg General: Alert, Oriented x3, No acute distress HEENT: Atraumatic, PERRLA, EOMI Neck: Supple Cardiovascular: Regular rate, Normal S1, Normal S2 Lungs: Clear to auscultation Abdomen: Bowel sounds, Soft Extremities: no Clubbing, no Cyanosis, no Edema Assessment/Plan - Problem List Patient Problems: All Active Problems Arthralgia (Acute) M25.50 COPD (chronic obstructive pulmonary disease) (Acute) Dementia (Acute) F03.90 Diabetes mellitus (Acute) E11.9 Glaucoma (Acute) H40.9 Hypertension (Acute) I10 Hyponatremia (Acute) E87.1 Insomnia (Acute) G47.00 Neuralgia (Acute) M79.2 Psychosis (Acute) F29 Schizophrenia (Acute) F20.9 - Assessment Assessment: psychosis,dementia,schizophrenia,insomnia ... admit to geropsyche hyponatremia ... will order repeat BMP hypertension ... controlled. continue current medication. diabetes mellitus not controlled ... will continue SSI, accuhecks QID COPD ... will continue current inhalers s/p UTI ... will order UA if not already ordered by ER glaucoma ... continue current treatment neuralgia ... most likely peripheral diabetic neuropathy ... on neurontin - Plan Plan: psychosis,dementia,schizophrenia,insomnia ... admit to geropsyche hyponatremia ... improved Na now 131 hypertension ... controlled. continue current medication. diabetes mellitus not controlled ... will continue SSI, accuhecks QID COPD ... will continue current inhalers s/p UTI ... will order UA if not already ordered by ER glaucoma ... continue current treatment neuralgia ... most likely peripheral diabetic neuropathy ... on neurontin left shoulder and right knee pain ... will order xrays. will add tramadol for pain control. Nutritional Asmnt/Malnutr-PDOC - Dietary Evaluation Malnutrition Findings (Please click <Entered> for more info): Nutritional Asmnt/Malnutrition Start: 03/14/17 12: 32 Text: Status: Complete Freq: Document 03/14/17 18:06 [facility] (Rec: 03/14/17 18:13 [facility] [id number]) Nutritional Asmnt/Malnutrition Patient General Information Nutritional Screening High Risk Screening Diagnosis Depression (per ER report) Pertinent Medical Hx/Surgical Hx HTN, DM, severe sepsis, chronic bronchitis, s/p UTI, dementia, schizophrenia, depression, insomnia, glaucoma , nerualgia, depression Subjective Information Pt is a 71-year-old female from [facility] admitted with chief complaint of crying episodes. Pt was in the Dining Room, wheelchair bound. Pt is a fair historian. Pt appears well nourished with no signs of muscle or fat depletion. Pt reports food allergies to squash, fish, liver, and barroso beans, which causes her to break out in hives; FNS informed. RD informed pt on current diet and pt had no questions. Pt reports she intentionally lose 4#. Current Diet Order/ Nutrition Support CCHO, Boost GLucose Control at 1000 and 1400 Patient / S.O Can Pertinent Medications [place], Colace, Iron, Glipizide , Glucophage, Theragran Pertinent Labs (03/13) Na 129L, Glucose 219H, A1C 6.7H. (03/14) POC Glucose 338H-343H Nutritional Hx/Data Height 1.8 m Height (Calculated Centimeters) 180.3 Current Weight (lbs) 90.718 kg Weight (Calculated Kilograms) 90.7 Weight (Calculated Grams) 62098.5 Usual body Weight (lbs) 200 % Usual Body Weight 100 [place] Body Weight 155 % [place] Body Weight 129 Recent Weight Change Yes Weight Status Overweight GI Symptoms GI Symptoms None Food Allergies No Cultural/Ethnic/Samaritan Belief No cultural or sabianist beliefs noted. Usual diet at home CCHO with diabetic snacks at 1000, 1400 x one month Skin Integrity/Comment: Darrell Rebol[place]o. Skin intact. Current %PO Good (75-100%) Estimated Nutritional Goals BEE in Kcals: Using Current wt Calories/Kcals/Kg Based on current wt 90.9 kg with consideration of wheelchair-bound status Kcals Calculated 4268-0137 kcals/day (20-25 kcals/kg) Protein: Using Current wt Protein g/kg: Based on current wt 90.9 kg with consideration of wheelchair-bound status Protein Calculated 91 gm/day (1 gm/kg) Fluid: ml 8764-4976 ml/day (1 ml/kcal) Nutritional Problem 1. Problem Problem Altered nutrition-related laboratory values related to Etiology possible inconsistent carbohydrate intake, DM as evidenced by Signs/Symptoms: admitting glucose 219 mg/dl and POC Glucose 338-343 mg/dl. Malnutrition Alert Protein-Calorie Malnutrition N/A Is there a minimum of two criteria No selected? Query Text:Check all the applicable criteria. A minimum of two criteria are recommended for diagnosis of either severe or non-severe malnutrition. Malnutrition Related to Morbid Obesity Malnutrition related to morbid obesity No Intervention/Recommendation Comments 1. Recommend CCHO-75 GM diet to better meet estimated nutritional needs. 2. Consider discontinuing Boost Glucose Control supplements due to good appetite and to control blood sugar levels. Expected Outcomes/Goals Expected Outcomes/Goals Blood glucose levels will trend towards desired parameters. Physician Parameters for PEM Serum Albumin (g/dl) 3.5 - 5.0 (Normal)
[2017-03-18] MEDS: Multivitamin Tab PO SCH (09:35)
[2017-03-18] MEDS: Ferrous Sulfate 325 MG TAB PO SCH ×2 (09:35→17:56)
[2017-03-18] MEDS: Aspirin 81mg Chewable Tab PO SCH (09:35)
[2017-03-18] MEDS: Polyvinyl Alcohol Ophth Soln 15 mL Bottle EACH EYE SCH ×2 (09:37→17:57)
[2017-03-18] MEDS: Fluticasone Propionate 0.05mg/Actuation 16gm Nasal Spray NS SCH ×2 (09:37→17:57)
--- NOTE | 2017-03-18 19:25 | Progress Notes ---
DATE: 03/18/2017 SUBJECTIVE: Chart reviewed and the patient interviewed. Also discussed the patient's condition with the staff and reviewed records and labs. The patient is still severely depressed. The patient also is complaining of severe pain. She also is still saying that she cannot walk because of pain in her legs and also pain in her shoulder. Also, the patient is still at times demanding and needy and other times wants to be left alone. During interview, the patient is disheveled and depressed. She also is having poor eye contact and low tone and rate of speech. Also, she is feeling hopeless and helpless. ASSESSMENT: The patient is still depressed and is still high risk suicide. TREATMENT PLAN: We will continue monitoring her behavior and her condition closely. Also, continue to work on her ineffective coping. Also, we will discontinue Lexapro and we will start the patient on Cymbalta hopefully that will help with both depression as well as pain. Also, we will work her ineffective coping and will follow up. [facility]# [id number]
[2017-03-19] MEDS: Ipratropium Neb 0.5 mg/2.5 mL UD HHN SCH ×4 (01:00→19:48)
[2017-03-19] MEDS: Albuterol Nebulizer 2.5mg/3mL HHN SCH ×4 (01:00→19:48)
[2017-03-19] MEDS: INSULIN ASPART SLIDING SCALE 100 UNITS/ML UNIT SUBQ SCH ×3 (06:30→20:31)
[2017-03-19] MEDS: Budesonide 0.5 Mg/2 mL Ud HHN SCH ×2 (07:07→19:58)
--- NOTE | 2017-03-19 07:18 | Progress Notes ---
DATE: 03/19/2017 SUBJECTIVE: Chart reviewed and the patient interviewed. Also discussed the patient's condition with the staff and reviewed records and labs. The patient is still extremely depressed and she is still withdrawn. The patient also continues to complain of pain in her leg and on her arm. The patient also is still feeling hopeless and helpless and she is withdrawn and interacting minimally with others. The patient also wants to be left alone. MENTAL STATUS EXAM: The patient is disheveled. Depressed mood. Poor eye contact and low tone and rate of speech. ASSESSMENT: The patient is still severely depressed. TREATMENT PLAN: The patient started on Cymbalta 30 mg every day yesterday. We will continue same dose. Also, we will continue monitoring her behavior and her condition closely. Also, working on her ineffective coping and her hopeless feelings. [facility]# [id number]
--- NOTE | 2017-03-19 08:24 | General Progress Note ---
Subjective - Review of Systems Service Date: 03/19/17 Subjective: Patient complains of left shoulder and right knee pain. Patient also complaining of pain to the lower extremities. Objective - Results Result Diagrams: 03/13/17 22:37 03/17/17 10:08 Recent Labs: Laboratory Last Values WBC 3.4 Th/cmm (4.8-10.8) L 03/13/17 22:37 RBC 3.99 Mil/cmm (3.80-5.20) 03/13/17 22:37 Hgb 11.2 gm/dL (11.7-16.1) L 03/13/17 22:37 Hct 33.7 % (35.0-45.0) L 03/13/17 22:37 MCV 84.4 fl (81-100) 03/13/17 22:37 MCH 28.2 pg (27.0-31.0) 03/13/17 22:37 MCHC Differential 33.4 pg (28.0-36.0) 03/13/17 22:37 RDW 14.2 % (11.5-20.0) 03/13/17 22:37 Plt Count 170 Th/cmm (150-400) 03/13/17 22:37 MPV 6.8 fl 03/13/17 22:37 Neutrophils % 70.1 % (40.0-80.0) 03/13/17 22:37 Lymphocytes % 18.9 % (20.0-50.0) L 03/13/17 22:37 Monocytes % 10.7 % (2.0-10.0) H 03/13/17 22:37 Eosinophils % 0.1 % (0.0-5.0) 03/13/17 22:37 Basophils % 0.2 % (0.0-2.0) 03/13/17 22:37 Sodium 131 mEq/L (136-145) L 03/17/17 10:08 Potassium 4.9 mEq/L (3.5-5.1) 03/17/17 10:08 Chloride 97 mEq/L (98-107) L 03/17/17 10:08 Carbon Dioxide 31.3 mEq/L (21.0-31.0) H 03/17/17 10:08 Anion Gap 7.6 (7.0-16.0) 03/17/17 10:08 BUN 30 mg/dL (7-25) H 03/17/17 10:08 Creatinine 0.8 mg/dL (0.6-1.2) 03/17/17 10:08 Est GFR ( Amer) TNP 03/17/17 10:08 Est GFR (Non-Af Amer) TNP 03/17/17 10:08 BUN/Creatinine Ratio 37.5 03/17/17 10:08 Glucose 321 mg/dL (70-105) H 03/17/17 10:08 POC Glucose 118 MG/DL (70 - 105) H 03/19/17 06:06 Hemoglobin A1c % 6.7 % (4.0-6.0) H 03/13/17 22:37 Whole Bld Lactic Acid 1.78 mmol/L (0.60-1.99) 03/13/17 22:37 Uric Acid 4.8 mg/dL (2.3-6.6) 03/17/17 10:08 Calcium 9.6 mg/dL (8.6-10.3) 03/17/17 10:08 Total Bilirubin 0.3 mg/dL (0.3-1.0) 03/13/17 22:37 AST 13 U/L (13-39) 03/13/17 22:37 ALT 16 U/L (7-52) 03/13/17 22:37 Alkaline Phosphatase 73 U/L (34-104) 03/13/17 22:37 Total Protein 6.6 gm/dL (6.0-8.3) 03/13/17 22:37 Albumin 3.6 gm/dL (3.7-5.3) L 03/13/17 22:37 Globulin 3.0 gm/dL 03/13/17 22:37 Albumin/Globulin Ratio 1.2 (1.0-1.8) 03/13/17 22:37 Triglycerides 72 mg/dL (<150) 03/13/17 22:37 Cholesterol 148 mg/dL (<200) 03/13/17 22:37 LDL Cholesterol Direct 99 mg/dL (75-193) 03/13/17 22:37 HDL Cholesterol 45 mg/dL (23-92) 03/13/17 22:37 TSH 2.66 uIU/ml (0.34-5.60) 03/13/17 22:37 RPR NONREACTIVE (NONREACTIVE) 03/13/17 22:37 - Physical Exam Vitals and I&O: Vital Signs Temp 98.1 F 03/19/17 06:19 Pulse 86 03/19/17 07:24 Resp 18 03/19/17 07:24 BP 115/64 03/19/17 06:19 Pulse Ox 98 03/19/17 07:24 Intake & Output 03/18/17 03/19/17 03/19/17 18:59 06:59 18:59 Intake Total 1000 240 Balance 1000 240 Intake: Oral 1000 240 Other: # Voids 4 3 # Bowel Movements 1 0 Active Medications: Current Medications Acetaminophen (Tylenol) 650 mg PO Q4HR PRN PRN Reason: Pain or Fever >101 Stop: 05/13/17 00:36 Last Admin: 03/17/17 22:20 Dose: 650 mg Albuterol Sulfate (Albuterol 2.5mg/3ml Neb Ud) 2.5 mg HHN Q6HRT [facility] Stop: 05/13/17 12:59 Last Admin: 03/19/17 07:07 Dose: 2.5 mg Artificial Tears (Artificial Tears Ophth Soln) 1 drop EACH EYE BID REAL Stop: 05/13/17 08:59 Last Admin: 03/18/17 17:57 Dose: 1 drop Aspirin (Aspirin Chewable) 81 mg PO DAILY [facility] Stop: 05/13/17 08:59 Last Admin: 03/18/17 09:35 Dose: 81 mg Benazepril HCl (Lotensin) 5 mg PO DAILY [facility] Stop: 05/13/17 08:59 Last Admin: 03/18/17 09:35 Dose: Not Given Bisacodyl (Dulcolax 10 Mg Supp) 10 mg RC DAILY PRN PRN Reason: Constipation Stop: 05/13/17 00:36 Budesonide (Pulmicort) 0.5 mg HHN BIDRT REAL Stop: 05/13/17 08:59 Last Admin: 03/19/17 07:07 Dose: 0.5 mg Calcium Carbonate (Os-Ky) 500 mg PO BID [facility] Stop: 05/13/17 08:59 Last Admin: 03/18/17 18:02 Dose: 500 mg Docusate Sodium (Colace) 100 mg PO DAILY [facility] Stop: 05/13/17 08:59 Last Admin: 03/18/17 09:36 Dose: Not Given Duloxetine HCl (Cymbalta) 30 mg PO DAILY REAL PRN Reason: Protocol Stop: 05/17/17 08:59 Last Admin: 03/18/17 09:34 Dose: 30 mg Ferrous Sulfate (Iron) 325 mg PO BID REAL Stop: 05/13/17 08:59 Last Admin: 03/18/17 17:56 Dose: 325 mg Fluoxetine HCl (Prozac) 40 mg PO QAM REAL Stop: 05/13/17 08:59 Last Admin: 03/18/17 09:35 Dose: 40 mg Fluticasone Propionate (Flonase) 1 spr NS BID REAL Stop: 05/13/17 08:59 Last Admin: 03/18/17 17:57 Dose: 1 spr Gabapentin (Neurontin) 600 mg PO TID REAL Stop: 05/13/17 08:59 Last Admin: 03/18/17 20:19 Dose: 600 mg Glipizide (Glucotrol) 5 mg PO DAILY [facility] Stop: 05/13/17 08:59 Last Admin: 03/18/17 09:35 Dose: 5 mg Insulin Aspart (Novolog Insulin Sliding Scale) 0 units SUBQ ACHS REAL PRN Reason: Protocol Stop: 05/13/17 20:59 Last Admin: 03/19/17 06:30 Dose: Not Given Ipratropium [place] (Atrovent Neb 0.5mg/2.5ml) 0.5 mg HHN Q6HRT [facility] Stop: 05/13/17 12:59 Last Admin: 03/19/17 07:07 Dose: 0.5 mg Ketotifen Fumarate (Zaditor 0.025% Ophth Soln) 1 drop EACH EYE BID [facility] Stop: 05/13/17 08:59 Last Admin: 03/18/17 17:57 Dose: 1 drop Lorazepam (Ativan) 0.5 mg PO Q6H PRN PRN Reason: ANXIETY/AGITATION Stop: 05/18/17 07:55 Magnesium Hydroxide (Milk Of Magnesia) 30 ml PO Q72H [facility] Stop: 05/13/17 08:59 Last Admin: 03/17/17 09:14 Dose: Not Given Metformin HCl (Glucophage) 1,000 mg PO BID [facility] Stop: 05/13/17 08:59 Last Admin: 03/18/17 17:56 Dose: 1,000 mg Multivitamins/Vitamin C (Theragran) 1 tab PO DAILY REAL Stop: 05/13/17 08:59 Last Admin: 03/18/17 09:35 Dose: 1 tab Risperidone (Risperdal) 1.5 mg PO HS REAL PRN Reason: Protocol Stop: 05/13/17 20:59 Last Admin: 03/18/17 20:19 Dose: 1.5 mg Sodium Phosphate (Fleet Enema) 135 ml RC Q48H PRN PRN Reason: Constipation Stop: 05/13/17 00:36 Tramadol HCl (Ultram) 50 mg PO Q6H PRN PRN Reason: arthralgia Stop: 05/16/17 08:23 Last Admin: 03/18/17 20:19 Dose: 50 mg Trazodone HCl (Desyrel) 150 mg PO HS REAL Stop: 05/13/17 20:59 Last Admin: 03/18/17 20:18 Dose: 150 mg Zolpidem Tartrate (Ambien) 5 mg PO HS PRN PRN Reason: Insomnia Stop: 05/13/17 02:20 Last Admin: 03/17/17 22:21 Dose: 5 mg General: Alert, Oriented x3, No acute distress HEENT: Atraumatic, PERRLA, EOMI Neck: Supple Cardiovascular: Regular rate, Normal S1, Normal S2 Lungs: Clear to auscultation Abdomen: Bowel sounds, Soft Extremities: no Clubbing, no Cyanosis, no Edema Assessment/Plan - Problem List Patient Problems: All Active Problems Arthralgia (Acute) M25.50 COPD (chronic obstructive pulmonary disease) (Acute) Dementia (Acute) F03.90 Diabetes mellitus (Acute) E11.9 Glaucoma (Acute) H40.9 Hypertension (Acute) I10 Hyponatremia (Acute) E87.1 Insomnia (Acute) G47.00 Neuralgia (Acute) M79.2 Psychosis (Acute) F29 Schizophrenia (Acute) F20.9 - Assessment Assessment: psychosis,dementia,schizophrenia,insomnia ... admit to geropsyche hyponatremia ... will order repeat BMP hypertension ... controlled. continue current medication. diabetes mellitus not controlled ... will continue SSI, accuhecks QID COPD ... will continue current inhalers s/p UTI ... will order UA if not already ordered by ER glaucoma ... continue current treatment neuralgia ... most likely peripheral diabetic neuropathy ... on neurontin - Plan Plan: psychosis,dementia,schizophrenia,insomnia ... admit to geropsyche hyponatremia ... improved Na now 131 hypertension ... controlled. continue current medication. diabetes mellitus not controlled ... will continue SSI, accuhecks QID COPD ... will continue current inhalers s/p UTI ... will order UA if not already ordered by ER glaucoma ... continue current treatment neuralgia ... most likely peripheral diabetic neuropathy ... on neurontin left shoulder and right knee pain ... will order xrays. will add tramadol for pain control. RA and ERVIN still pending. Nutritional Asmnt/Malnutr-PDOC - Dietary Evaluation Malnutrition Findings (Please click <Entered> for more info): Nutritional Asmnt/Malnutrition Start: 03/14/17 12: 32 Text: Status: Complete Freq: Document 03/14/17 18:06 [facility] (Rec: 03/14/17 18:13 [facility] [id number]) Nutritional Asmnt/Malnutrition Patient General Information Nutritional Screening High Risk Screening Diagnosis Depression (per ER report) Pertinent Medical Hx/Surgical Hx HTN, DM, severe sepsis, chronic bronchitis, s/p UTI, dementia, schizophrenia, depression, insomnia, glaucoma , nerualgia, depression Subjective Information Pt is a 71-year-old female from [facility] admitted with chief complaint of crying episodes. Pt was in the Dining Room, wheelchair bound. Pt is a fair historian. Pt appears well nourished with no signs of muscle or fat depletion. Pt reports food allergies to squash, fish, liver, and barroso beans, which causes her to break out in hives; FNS informed. RD informed pt on current diet and pt had no questions. Pt reports she intentionally lose 4#. Current Diet Order/ Nutrition Support [facility], Boost GLucose Control at 1000 and 1400 Patient / S.O Can Pertinent Medications Oscal, Colace, Iron, Glipizide , Glucophage, Theragran Pertinent Labs (03/13) Na 129L, Glucose 219H, A1C 6.7H. (03/14) POC Glucose 338H-343H Nutritional Hx/Data Height 1.8 m Height (Calculated Centimeters) 180.3 Current Weight (lbs) 90.718 kg Weight (Calculated Kilograms) 90.7 Weight (Calculated Grams) 77397.5 Usual body Weight (lbs) 200 % Usual Body Weight 100 [place] Body Weight 155 % [place] Body Weight 129 Recent Weight Change Yes Weight Status Overweight GI Symptoms GI Symptoms None Food Allergies No Cultural/Ethnic/Islam Belief No cultural or voodoo beliefs noted. Usual diet at home CCHO with diabetic snacks at 1000, 1400 x one month Skin Integrity/Comment: Darrell 15. Skin intact. Current %PO Good (75-100%) Estimated Nutritional Goals BEE in Kcals: Using Current wt Calories/Kcals/Kg Based on current wt 90.9 kg with consideration of wheelchair-bound status Kcals Calculated 0333-8040 kcals/day (20-25 kcals/kg) Protein: Using Current wt Protein g/kg: Based on current wt 90.9 kg with consideration of wheelchair-bound status Protein Calculated 91 gm/day (1 gm/kg) Fluid: ml 9963-3055 ml/day (1 ml/kcal) Nutritional Problem 1. Problem Problem Altered nutrition-related laboratory values related to Etiology possible inconsistent carbohydrate intake, DM as evidenced by Signs/Symptoms: admitting glucose 219 mg/dl and POC Glucose 338-343 mg/dl. Malnutrition Alert Protein-Calorie Malnutrition N/A Is there a minimum of two criteria No selected? Query Text:Check all the applicable criteria. A minimum of two criteria are recommended for diagnosis of either severe or non-severe malnutrition. Malnutrition Related to Morbid Obesity Malnutrition related to morbid obesity No Intervention/Recommendation Comments 1. Recommend CCHO-75 GM diet to better meet estimated nutritional needs. 2. Consider discontinuing Boost Glucose Control supplements due to good appetite and to control blood sugar levels. Expected Outcomes/Goals Expected Outcomes/Goals Blood glucose levels will trend towards desired parameters. Physician Parameters for PEM Serum Albumin (g/dl) 3.5 - 5.0 (Normal)
[2017-03-19] MEDS: Aspirin 81mg Chewable Tab PO SCH (09:33)
[2017-03-19] MEDS: Multivitamin Tab PO SCH (09:36)
[2017-03-19] MEDS: Ferrous Sulfate 325 MG TAB PO SCH ×2 (09:37→18:12)
[2017-03-19] MEDS: Fluticasone Propionate 0.05mg/Actuation 16gm Nasal Spray NS SCH ×2 (09:38→18:11)
[2017-03-19] MEDS: Polyvinyl Alcohol Ophth Soln 15 mL Bottle EACH EYE SCH ×2 (09:38→18:11)
[2017-03-19 10:26] LABS: ANION GAP 8.8 (7.0-16.0); BUN - UREA NITROGEN 24 mg/dL (7-25); BUN/CREATININE RATIO 34.3; CALCIUM SERUM 9.4 mg/dL (8.6-10.3); CARBON DIOXIDE 30.6 mEq/L (21.0-31.0); CHLORIDE 97 mEq/L (98-107); CREATININE - SERUM 0.7 mg/dL (0.6-1.2); GLUCOSE 202 mg/dL (70-105); POTASSIUM SERUM 4.4 mEq/L (3.5-5.1); SODIUM SERUM 132 mEq/L (136-145)
[2017-03-20] MEDS: Albuterol Nebulizer 2.5mg/3mL HHN SCH ×4 (03:41→19:45)
[2017-03-20] MEDS: INSULIN ASPART SLIDING SCALE 100 UNITS/ML UNIT SUBQ SCH ×4 (06:34→20:18)
--- NOTE | 2017-03-20 08:19 | General Progress Note ---
Subjective - Review of Systems Service Date: 03/20/17 Subjective: Patient complains of left shoulder and right knee pain. Patient also complaining of pain to the lower extremities. Objective - Results Result Diagrams: 03/13/17 22:37 03/19/17 09:00 Recent Labs: Laboratory Last Values WBC 3.4 Th/cmm (4.8-10.8) L 03/13/17 22:37 RBC 3.99 Mil/cmm (3.80-5.20) 03/13/17 22:37 Hgb 11.2 gm/dL (11.7-16.1) L 03/13/17 22:37 Hct 33.7 % (35.0-45.0) L 03/13/17 22:37 MCV 84.4 fl (81-100) 03/13/17 22:37 MCH 28.2 pg (27.0-31.0) 03/13/17 22:37 MCHC Differential 33.4 pg (28.0-36.0) 03/13/17 22:37 RDW 14.2 % (11.5-20.0) 03/13/17 22:37 Plt Count 170 Th/cmm (150-400) 03/13/17 22:37 MPV 6.8 fl 03/13/17 22:37 Neutrophils % 70.1 % (40.0-80.0) 03/13/17 22:37 Lymphocytes % 18.9 % (20.0-50.0) L 03/13/17 22:37 Monocytes % 10.7 % (2.0-10.0) H 03/13/17 22:37 Eosinophils % 0.1 % (0.0-5.0) 03/13/17 22:37 Basophils % 0.2 % (0.0-2.0) 03/13/17 22:37 Sodium 132 mEq/L (136-145) L 03/19/17 09:00 Potassium 4.4 mEq/L (3.5-5.1) 03/19/17 09:00 Chloride 97 mEq/L (98-107) L 03/19/17 09:00 Carbon Dioxide 30.6 mEq/L (21.0-31.0) 03/19/17 09:00 Anion Gap 8.8 (7.0-16.0) 03/19/17 09:00 BUN 24 mg/dL (7-25) 03/19/17 09:00 Creatinine 0.7 mg/dL (0.6-1.2) 03/19/17 09:00 Est GFR ( Amer) TNP 03/19/17 09:00 Est GFR (Non-Af Amer) TNP 03/19/17 09:00 BUN/Creatinine Ratio 34.3 03/19/17 09:00 Glucose 202 mg/dL (70-105) H 03/19/17 09:00 POC Glucose 107 MG/DL (70 - 105) H 03/20/17 06:00 Hemoglobin A1c % 6.7 % (4.0-6.0) H 03/13/17 22:37 Whole Bld Lactic Acid 1.78 mmol/L (0.60-1.99) 03/13/17 22:37 Uric Acid 4.8 mg/dL (2.3-6.6) 03/17/17 10:08 Calcium 9.4 mg/dL (8.6-10.3) 03/19/17 09:00 Total Bilirubin 0.3 mg/dL (0.3-1.0) 03/13/17 22:37 AST 13 U/L (13-39) 03/13/17 22:37 ALT 16 U/L (7-52) 03/13/17 22:37 Alkaline Phosphatase 73 U/L (34-104) 03/13/17 22:37 Total Protein 6.6 gm/dL (6.0-8.3) 03/13/17 22:37 Albumin 3.6 gm/dL (3.7-5.3) L 03/13/17 22:37 Globulin 3.0 gm/dL 03/13/17 22:37 Albumin/Globulin Ratio 1.2 (1.0-1.8) 03/13/17 22:37 Triglycerides 72 mg/dL (<150) 03/13/17 22:37 Cholesterol 148 mg/dL (<200) 03/13/17 22:37 LDL Cholesterol Direct 99 mg/dL (75-193) 03/13/17 22:37 HDL Cholesterol 45 mg/dL (23-92) 03/13/17 22:37 TSH 2.66 uIU/ml (0.34-5.60) 03/13/17 22:37 Rheumatoid Factor 41.0 IU/mL (0.0-13.9) H 03/17/17 10:08 ERVIN Screen Negative 03/17/17 10:08 RPR NONREACTIVE (NONREACTIVE) 03/13/17 22:37 - Physical Exam Vitals and I&O: Vital Signs Temp 98.0 F 03/20/17 07:02 Pulse 92 03/20/17 07:02 Resp 18 03/20/17 07:02 BP 137/70 03/20/17 07:02 Pulse Ox 97 03/20/17 01:22 Intake & Output 03/19/17 03/20/17 03/20/17 18:59 06:59 18:59 Intake Total 800 120 Balance 800 120 Intake: Oral 800 120 Other: # Voids 4 3 # Bowel Movements 0 Active Medications: Current Medications Acetaminophen (Tylenol) 650 mg PO Q4HR PRN PRN Reason: Pain or Fever >101 Stop: 05/13/17 00:36 Last Admin: 03/17/17 22:20 Dose: 650 mg Albuterol Sulfate (Albuterol 2.5mg/3ml Neb Ud) 2.5 mg HHN Q6HRT [facility] Stop: 05/13/17 12:59 Last Admin: 03/20/17 03:41 Dose: Not Given Artificial Tears (Artificial Tears Oph Soln) 1 drop EACH EYE BID [facility] Stop: 05/13/17 08:59 Last Admin: 03/19/17 18:11 Dose: 1 drop Aspirin (Aspirin Chewable) 81 mg PO DAILY REAL Stop: 05/13/17 08:59 Last Admin: 03/19/17 09:33 Dose: 81 mg Benazepril HCl (Lotensin) 5 mg PO DAILY REAL Stop: 05/13/17 08:59 Last Admin: 03/19/17 09:33 Dose: 5 mg Bisacodyl (Dulcolax 10 Mg Supp) 10 mg RC DAILY PRN PRN Reason: Constipation Stop: 05/13/17 00:36 Budesonide (Pulmicort) 0.5 mg HHN BIDRT REAL Stop: 05/13/17 08:59 Last Admin: 03/19/17 19:58 Dose: 0.5 mg Calcium Carbonate (Os-Ky) 500 mg PO BID REAL Stop: 05/13/17 08:59 Last Admin: 03/19/17 18:12 Dose: 500 mg Docusate Sodium (Colace) 100 mg PO DAILY [facility] Stop: 05/13/17 08:59 Last Admin: 03/19/17 16:56 Dose: Not Given Duloxetine HCl (Cymbalta) 30 mg PO DAILY REAL PRN Reason: Protocol Stop: 05/17/17 08:59 Last Admin: 03/19/17 09:34 Dose: 30 mg Ferrous Sulfate (Iron) 325 mg PO BID REAL Stop: 05/13/17 08:59 Last Admin: 03/19/17 18:12 Dose: 325 mg Fluoxetine HCl (Prozac) 40 mg PO QAM REAL Stop: 05/13/17 08:59 Last Admin: 03/19/17 09:37 Dose: 40 mg Fluticasone Propionate (Flonase) 1 spr NS BID REAL Stop: 05/13/17 08:59 Last Admin: 03/19/17 18:11 Dose: 1 spr Gabapentin (Neurontin) 600 mg PO TID [facility] Stop: 05/13/17 08:59 Last Admin: 03/19/17 20:55 Dose: 600 mg Glipizide (Glucotrol) 5 mg PO DAILY [facility] Stop: 05/13/17 08:59 Last Admin: 03/19/17 09:36 Dose: 5 mg Insulin Aspart (Novolog Insulin Sliding Scale) 0 units SUBQ ACHS [facility] PRN Reason: Protocol Stop: 05/13/17 20:59 Last Admin: 03/20/17 06:34 Dose: Not Given Ipratropium [place] (Atrovent Neb 0.5mg/2.5ml) 0.5 mg HHN Q6HRT [facility] Stop: 05/13/17 12:59 Last Admin: 03/19/17 19:48 Dose: 0.5 mg Ketotifen Fumarate (Zaditor 0.025% Ophth Soln) 1 drop EACH EYE BID [facility] Stop: 05/13/17 08:59 Last Admin: 03/19/17 18:11 Dose: 1 drop Lorazepam (Ativan) 0.5 mg PO Q6H PRN PRN Reason: ANXIETY/AGITATION Stop: 05/18/17 07:55 Magnesium Hydroxide (Milk Of Magnesia) 30 ml PO Q72H [facility] Stop: 05/13/17 08:59 Last Admin: 03/17/17 09:14 Dose: Not Given Metformin HCl (Glucophage) 1,000 mg PO BID REAL Stop: 05/13/17 08:59 Last Admin: 03/19/17 18:12 Dose: 1,000 mg Multivitamins/Vitamin C (Theragran) 1 tab PO DAILY REAL Stop: 05/13/17 08:59 Last Admin: 03/19/17 09:36 Dose: 1 tab Risperidone (Risperdal) 1.5 mg PO HS REAL PRN Reason: Protocol Stop: 05/13/17 20:59 Last Admin: 03/19/17 20:57 Dose: 1.5 mg Sodium Phosphate (Fleet Enema) 135 ml RC Q48H PRN PRN Reason: Constipation Stop: 05/13/17 00:36 Tramadol HCl (Ultram) 50 mg PO Q6H PRN PRN Reason: arthralgia Stop: 05/16/17 08:23 Last Admin: 03/20/17 07:34 Dose: 50 mg Trazodone HCl (Desyrel) 150 mg PO HS REAL Stop: 05/13/17 20:59 Last Admin: 03/19/17 20:56 Dose: 150 mg Zolpidem Tartrate (Ambien) 5 mg PO HS PRN PRN Reason: Insomnia Stop: 05/13/17 02:20 Last Admin: 03/17/17 22:21 Dose: 5 mg General: Alert, Oriented x3, No acute distress HEENT: Atraumatic, PERRLA, EOMI Neck: Supple Cardiovascular: Regular rate, Normal S1, Normal S2 Lungs: Clear to auscultation Abdomen: Bowel sounds, Soft Extremities: no Clubbing, no Cyanosis, no Edema Assessment/Plan - Problem List Patient Problems: All Active Problems Arthralgia (Acute) M25.50 COPD (chronic obstructive pulmonary disease) (Acute) Dementia (Acute) F03.90 Diabetes mellitus (Acute) E11.9 Glaucoma (Acute) H40.9 Hypertension (Acute) I10 Hyponatremia (Acute) E87.1 Insomnia (Acute) G47.00 Neuralgia (Acute) M79.2 Psychosis (Acute) F29 Rheumatoid arthritis (Acute) M06.9 Schizophrenia (Acute) F20.9 - Assessment Assessment: psychosis,dementia,schizophrenia,insomnia ... admit to geropsyche hyponatremia ... will order repeat BMP hypertension ... controlled. continue current medication. diabetes mellitus not controlled ... will continue SSI, accuhecks QID COPD ... will continue current inhalers s/p UTI ... will order UA if not already ordered by ER glaucoma ... continue current treatment neuralgia ... most likely peripheral diabetic neuropathy ... on neurontin rheumatoid arthritis .... consistent with elevated RA factor. - Plan Plan: psychosis,dementia,schizophrenia,insomnia ... admit to geropsyche hyponatremia ... improved Na now 131 hypertension ... controlled. continue current medication. diabetes mellitus not controlled ... will continue SSI, accuhecks QID COPD ... will continue current inhalers s/p UTI ... will order UA if not already ordered by ER glaucoma ... continue current treatment neuralgia ... most likely peripheral diabetic neuropathy ... on neurontin left shoulder and right knee pain most likely Rheumatoid Arthritis ... will order xrays. will add tramadol for pain control. RA factor elevated. Nutritional Asmnt/Malnutr-PDOC - Dietary Evaluation Malnutrition Findings (Please click <Entered> for more info): Nutritional Asmnt/Malnutrition Start: 03/14/17 12: 32 Text: Status: Complete Freq: Document 03/14/17 18:06 [facility] (Rec: 03/14/17 18:13 [facility] [id number]) Nutritional Asmnt/Malnutrition Patient General Information Nutritional Screening High Risk Screening Diagnosis Depression (per ER report) Pertinent Medical Hx/Surgical Hx HTN, DM, severe sepsis, chronic bronchitis, s/p UTI, dementia, schizophrenia, depression, insomnia, glaucoma , nerualgia, depression Subjective Information Pt is a 71-year-old female from [facility] admitted with chief complaint of crying episodes. Pt was in the Dining Room, wheelchair bound. Pt is a fair historian. Pt appears well nourished with no signs of muscle or fat depletion. Pt reports food allergies to squash, fish, liver, and barroso beans, which causes her to break out in hives; FNS informed. RD informed pt on current diet and pt had no questions. Pt reports she intentionally lose 4#. Current [facility] GLucose Control at 1000 and 1400 Patient / S.O Can Pertinent Medications Oscal, Colace, Iron, Glipizide , Glucophage, Theragran Pertinent Labs (03/13) Na 129L, Glucose 219H, A1C 6.7H. (03/14) POC Glucose 338H-343H Nutritional Hx/Data Height 1.8 m Height (Calculated Centimeters) 180.3 Current Weight (lbs) 90.718 kg Weight (Calculated Kilograms) 90.7 Weight (Calculated Grams) 64390.5 Usual body Weight (lbs) 200 % Usual Body Weight 100 [place] Body Weight 155 % [place] Body Weight 129 Recent Weight Change Yes Weight Status Overweight GI Symptoms GI Symptoms None Food Allergies No Cultural/Ethnic/Jain Belief No cultural or shinto beliefs noted. Usual diet at home CCHO with diabetic snacks at 1000, 1400 x one month Skin Integrity/Comment: Darrell 15. Skin intact. Current %PO Good (75-100%) Estimated Nutritional Goals BEE in Kcals: Using Current wt Calories/Kcals/Kg Based on current wt 90.9 kg with consideration of wheelchair-bound status Kcals Calculated 1799-3744 kcals/day (20-25 kcals/kg) Protein: Using Current wt Protein g/kg: Based on current wt 90.9 kg with consideration of wheelchair-bound status Protein Calculated 91 gm/day (1 gm/kg) Fluid: ml 0090-1665 ml/day (1 ml/kcal) Nutritional Problem 1. Problem Problem Altered nutrition-related laboratory values related to Etiology possible inconsistent carbohydrate intake, DM as evidenced by Signs/Symptoms: admitting glucose 219 mg/dl and POC Glucose 338-343 mg/dl. Malnutrition Alert Protein-Calorie Malnutrition N/A Is there a minimum of two criteria No selected? Query Text:Check all the applicable criteria. A minimum of two criteria are recommended for diagnosis of either severe or non-severe malnutrition. Malnutrition Related to Morbid Obesity Malnutrition related to morbid obesity No Intervention/Recommendation Comments 1. Recommend CCHO-75 GM diet to better meet estimated nutritional needs. 2. Consider discontinuing Boost Glucose Control supplements due to good appetite and to control blood sugar levels. Expected Outcomes/Goals Expected Outcomes/Goals Blood glucose levels will trend towards desired parameters. Physician Parameters for PEM Serum Albumin (g/dl) 3.5 - 5.0 (Normal)
[2017-03-20] MEDS: Aspirin 81mg Chewable Tab PO SCH (08:40)
[2017-03-20] MEDS: Ferrous Sulfate 325 MG TAB PO SCH ×2 (08:41→17:32)
[2017-03-20] MEDS: Multivitamin Tab PO SCH (08:44)
[2017-03-20] MEDS: Polyvinyl Alcohol Ophth Soln 15 mL Bottle EACH EYE SCH ×2 (08:44→17:31)
[2017-03-20] MEDS: Magnesium Hydroxide (MOM) 30 mL UDC PO SCH (08:44)
[2017-03-20] MEDS: Budesonide 0.5 Mg/2 mL Ud HHN SCH ×2 (08:52→19:46)
[2017-03-20] MEDS: Ipratropium Neb 0.5 mg/2.5 mL UD HHN SCH ×3 (08:52→19:45)
[2017-03-20] MEDS: Fluticasone Propionate 0.05mg/Actuation 16gm Nasal Spray NS SCH ×2 (09:27→17:31)
--- NOTE | 2017-03-20 09:41 | Progress Notes ---
DATE: 03/20/2017 SUBJECTIVE: Chart reviewed and the patient interviewed. Also discussed the patient's condition with the staff and reviewed records and labs. The patient continued to be withdrawn and is still in a depressed mood. The patient also is still having episodes of yelling and screaming for no reason. She also wants to be left alone. The patient also is showing lack of motivation and lack of energy. Also, her interaction with others is minimum. During interview, the patient has poor eye contact and has low tone and rate of speech at times and labile and other times she gets anxious and loud. She is also guarded. She also seems to be preoccupied. ASSESSMENT: The patient is still depressed and psychotic. TREATMENT PLAN: We will continue Cymbalta same dose. Also, continue monitoring her behavior and her condition closely. Also, working with social media developer in regard to placement issue and also in regards to discharge plans. JOB# [id number]
[2017-03-21] MEDS: Albuterol Nebulizer 2.5mg/3mL HHN SCH ×4 (01:21→19:34)
[2017-03-21] MEDS: Ipratropium Neb 0.5 mg/2.5 mL UD HHN SCH ×4 (01:22→19:34)
[2017-03-21] MEDS: INSULIN ASPART SLIDING SCALE 100 UNITS/ML UNIT SUBQ SCH ×4 (06:40→21:43)
--- NOTE | 2017-03-21 08:22 | General Progress Note ---
Subjective - Review of Systems Service Date: 03/21/17 Subjective: Patient complains of left shoulder and right knee pain. complains of a rash Objective - Results Result Diagrams: 03/13/17 22:37 03/19/17 09:00 Recent Labs: Laboratory Last Values WBC 3.4 Th/cmm (4.8-10.8) L 03/13/17 22:37 RBC 3.99 Mil/cmm (3.80-5.20) 03/13/17 22:37 Hgb 11.2 gm/dL (11.7-16.1) L 03/13/17 22:37 Hct 33.7 % (35.0-45.0) L 03/13/17 22:37 MCV 84.4 fl (81-100) 03/13/17 22:37 MCH 28.2 pg (27.0-31.0) 03/13/17 22:37 MCHC Differential 33.4 pg (28.0-36.0) 03/13/17 22:37 RDW 14.2 % (11.5-20.0) 03/13/17 22:37 Plt Count 170 Th/cmm (150-400) 03/13/17 22:37 MPV 6.8 fl 03/13/17 22:37 Neutrophils % 70.1 % (40.0-80.0) 03/13/17 22:37 Lymphocytes % 18.9 % (20.0-50.0) L 03/13/17 22:37 Monocytes % 10.7 % (2.0-10.0) H 03/13/17 22:37 Eosinophils % 0.1 % (0.0-5.0) 03/13/17 22:37 Basophils % 0.2 % (0.0-2.0) 03/13/17 22:37 Sodium 132 mEq/L (136-145) L 03/19/17 09:00 Potassium 4.4 mEq/L (3.5-5.1) 03/19/17 09:00 Chloride 97 mEq/L (98-107) L 03/19/17 09:00 Carbon Dioxide 30.6 mEq/L (21.0-31.0) 03/19/17 09:00 Anion Gap 8.8 (7.0-16.0) 03/19/17 09:00 BUN 24 mg/dL (7-25) 03/19/17 09:00 Creatinine 0.7 mg/dL (0.6-1.2) 03/19/17 09:00 Est GFR ( Amer) TNP 03/19/17 09:00 Est GFR (Non-Af Amer) TNP 03/19/17 09:00 BUN/Creatinine Ratio 34.3 03/19/17 09:00 Glucose 202 mg/dL (70-105) H 03/19/17 09:00 POC Glucose 224 MG/DL (70 - 105) H 03/20/17 20:08 Hemoglobin A1c % 6.7 % (4.0-6.0) H 03/13/17 22:37 Whole Bld Lactic Acid 1.78 mmol/L (0.60-1.99) 03/13/17 22:37 Uric Acid 4.8 mg/dL (2.3-6.6) 03/17/17 10:08 Calcium 9.4 mg/dL (8.6-10.3) 03/19/17 09:00 Total Bilirubin 0.3 mg/dL (0.3-1.0) 03/13/17 22:37 AST 13 U/L (13-39) 03/13/17 22:37 ALT 16 U/L (7-52) 03/13/17 22:37 Alkaline Phosphatase 73 U/L (34-104) 03/13/17 22:37 Total Protein 6.6 gm/dL (6.0-8.3) 03/13/17 22:37 Albumin 3.6 gm/dL (3.7-5.3) L 03/13/17 22:37 Globulin 3.0 gm/dL 03/13/17 22:37 Albumin/Globulin Ratio 1.2 (1.0-1.8) 03/13/17 22:37 Triglycerides 72 mg/dL (<150) 03/13/17 22:37 Cholesterol 148 mg/dL (<200) 03/13/17 22:37 LDL Cholesterol Direct 99 mg/dL (75-193) 03/13/17 22:37 HDL Cholesterol 45 mg/dL (23-92) 03/13/17 22:37 TSH 2.66 uIU/ml (0.34-5.60) 03/13/17 22:37 Rheumatoid Factor 41.0 IU/mL (0.0-13.9) H 03/17/17 10:08 ERVIN Screen Negative 03/17/17 10:08 RPR NONREACTIVE (NONREACTIVE) 03/13/17 22:37 - Physical Exam Vitals and I&O: Vital Signs Temp 97.8 F 03/21/17 06:41 Pulse 62 03/21/17 06:41 Resp 18 03/21/17 06:41 BP 120/66 03/21/17 06:41 Pulse Ox 96 03/21/17 06:41 Intake & Output 03/20/17 03/21/17 03/21/17 18:59 06:59 18:59 Intake Total 1920 120 Balance 1920 120 Intake: Oral 1920 120 Other: # Voids 4 3 # Bowel Movements 0 1 Active Medications: Current Medications Acetaminophen (Tylenol) 650 mg PO Q4HR PRN PRN Reason: Pain or Fever >101 Stop: 05/13/17 00:36 Last Admin: 03/17/17 22:20 Dose: 650 mg Albuterol Sulfate (Albuterol 2.5mg/3ml Neb Ud) 2.5 mg HHN Q6HRT [facility] Stop: 05/13/17 12:59 Last Admin: 03/21/17 01:21 Dose: Not Given Artificial Tears (Artificial Tears Ophth Soln) 1 drop EACH EYE BID [facility] Stop: 05/13/17 08:59 Last Admin: 03/20/17 17:31 Dose: 1 drop Aspirin (Aspirin Chewable) 81 mg PO DAILY REAL Stop: 05/13/17 08:59 Last Admin: 03/20/17 08:40 Dose: 81 mg Benazepril HCl (Lotensin) 5 mg PO DAILY [facility] Stop: 05/13/17 08:59 Last Admin: 03/20/17 08:43 Dose: 5 mg Bisacodyl (Dulcolax 10 Mg Supp) 10 mg RC DAILY PRN PRN Reason: Constipation Stop: 05/13/17 00:36 Budesonide (Pulmicort) 0.5 mg HHN BIDRT [facility] Stop: 05/13/17 08:59 Last Admin: 03/20/17 19:46 Dose: 0.5 mg Calcium Carbonate (Os-Ky) 500 mg PO BID [facility] Stop: 05/13/17 08:59 Last Admin: 03/20/17 17:32 Dose: 500 mg Docusate Sodium (Colace) 100 mg PO DAILY REAL Stop: 05/13/17 08:59 Last Admin: 03/20/17 08:39 Dose: Not Given Duloxetine HCl (Cymbalta) 30 mg PO DAILY REAL PRN Reason: Protocol Stop: 05/17/17 08:59 Last Admin: 03/20/17 08:39 Dose: 30 mg Ferrous Sulfate (Iron) 325 mg PO BID REAL Stop: 05/13/17 08:59 Last Admin: 03/20/17 17:32 Dose: 325 mg Fluoxetine HCl (Prozac) 40 mg PO QAM REAL Stop: 05/13/17 08:59 Last Admin: 03/20/17 08:41 Dose: 40 mg Fluticasone Propionate (Flonase) 1 spr NS BID REAL Stop: 05/13/17 08:59 Last Admin: 03/20/17 17:31 Dose: 1 spr Gabapentin (Neurontin) 600 mg PO TID [facility] Stop: 05/13/17 08:59 Last Admin: 03/20/17 20:44 Dose: 600 mg Glipizide (Glucotrol) 5 mg PO DAILY [facility] Stop: 05/13/17 08:59 Last Admin: 03/20/17 08:39 Dose: 5 mg Insulin Aspart (Novolog Insulin Sliding Scale) 0 units SUBQ ACHS [facility] PRN Reason: Protocol Stop: 05/13/17 20:59 Last Admin: 03/21/17 06:40 Dose: 2 units Ipratropium [place] (Atrovent Neb 0.5mg/2.5ml) 0.5 mg HHN Q6HRT [facility] Stop: 05/13/17 12:59 Last Admin: 03/21/17 01:22 Dose: Not Given Ketotifen Fumarate (Zaditor 0.025% Ophth Soln) 1 drop EACH EYE BID [facility] Stop: 05/13/17 08:59 Last Admin: 03/20/17 17:31 Dose: 1 drop Lorazepam (Ativan) 0.5 mg PO Q6H PRN PRN Reason: ANXIETY/AGITATION Stop: 05/18/17 07:55 Magnesium Hydroxide (Milk Of Magnesia) 30 ml PO Q72H [facility] Stop: 05/13/17 08:59 Last Admin: 03/20/17 08:44 Dose: Not Given Metformin HCl (Glucophage) 1,000 mg PO BID REAL Stop: 05/13/17 08:59 Last Admin: 03/20/17 17:32 Dose: 1,000 mg Methylprednisolone (Medrol) 4 mg PO DAILY PRN PRN Reason: arthralgia Stop: 05/19/17 08:16 Multivitamins/Vitamin C (Theragran) 1 tab PO DAILY REAL Stop: 05/13/17 08:59 Last Admin: 03/20/17 08:44 Dose: 1 tab Risperidone (Risperdal) 1.5 mg PO HS REAL PRN Reason: Protocol Stop: 05/13/17 20:59 Last Admin: 03/20/17 20:44 Dose: 1.5 mg Sodium Phosphate (Fleet Enema) 135 ml RC Q48H PRN PRN Reason: Constipation Stop: 05/13/17 00:36 Tramadol HCl (Ultram) 50 mg PO Q6H PRN PRN Reason: arthralgia Stop: 05/16/17 08:23 Last Admin: 03/20/17 07:34 Dose: 50 mg Trazodone HCl (Desyrel) 150 mg PO HS REAL Stop: 05/13/17 20:59 Last Admin: 03/20/17 20:45 Dose: 150 mg Zolpidem Tartrate (Ambien) 5 mg PO HS PRN PRN Reason: Insomnia Stop: 05/13/17 02:20 Last Admin: 03/17/17 22:21 Dose: 5 mg General: Alert, Oriented x3, No acute distress HEENT: Atraumatic, PERRLA, EOMI Neck: Supple Cardiovascular: Regular rate, Normal S1, Normal S2 Lungs: Clear to auscultation Abdomen: Bowel sounds, Soft Extremities: no Clubbing, no Cyanosis, no Edema Skin: Rash (redness present) Assessment/Plan - Problem List Patient Problems: All Active Problems Arthralgia (Acute) M25.50 COPD (chronic obstructive pulmonary disease) (Acute) Dementia (Acute) F03.90 Dermatitis (Acute) L30.9 Diabetes mellitus (Acute) E11.9 Glaucoma (Acute) H40.9 Hypertension (Acute) I10 Hyponatremia (Acute) E87.1 Insomnia (Acute) G47.00 Neuralgia (Acute) M79.2 Psychosis (Acute) F29 Rheumatoid arthritis (Acute) M06.9 Schizophrenia (Acute) F20.9 - Assessment Assessment: psychosis,dementia,schizophrenia,insomnia ... admit to geropsyche hyponatremia ... will order repeat BMP hypertension ... controlled. continue current medication. diabetes mellitus not controlled ... will continue SSI, accuhecks QID COPD ... will continue current inhalers s/p UTI ... will order UA if not already ordered by ER glaucoma ... continue current treatment neuralgia ... most likely peripheral diabetic neuropathy ... on neurontin rheumatoid arthritis .... consistent with elevated RA factor. dermatitis ... will order calmoseptine - Plan Plan: psychosis,dementia,schizophrenia,insomnia ... admit to geropsyche hyponatremia ... improved Na now 132 ... will repeat bmp hypertension ... controlled. continue current medication. diabetes mellitus not controlled ... will continue SSI, accuhecks QID COPD ... will continue current inhalers s/p UTI ... will order UA if not already ordered by ER glaucoma ... continue current treatment neuralgia ... most likely peripheral diabetic neuropathy ... on neurontin left shoulder and right knee pain most likely Rheumatoid Arthritis ... will order xrays. will add tramadol for pain control. RA factor elevated. Nutritional Asmnt/Malnutr-PDOC - Dietary Evaluation Malnutrition Findings (Please click <Entered> for more info): Nutritional Asmnt/Malnutrition Start: 03/14/17 12: 32 Text: Status: Complete Freq: Document 03/14/17 18:06 [facility] (Rec: 03/14/17 18:13 [facility] [id number]) Nutritional Asmnt/Malnutrition Patient General Information Nutritional Screening High Risk Screening Diagnosis Depression (per ER report) Pertinent Medical Hx/Surgical Hx HTN, DM, severe sepsis, chronic bronchitis, s/p UTI, dementia, schizophrenia, depression, insomnia, glaucoma , nerualgia, depression Subjective Information Pt is a 71-year-old female from [facility] admitted with chief complaint of crying episodes. Pt was in the Dining Room, wheelchair bound. Pt is a fair historian. Pt appears well nourished with no signs of muscle or fat depletion. Pt reports food allergies to squash, fish, liver, and barroso beans, which causes her to break out in hives; FNS informed. RD informed pt on current diet and pt had no questions. Pt reports she intentionally lose 4#. Current Diet Order/ Nutrition Support CCHO, Boost GLucose Control at 1000 and 1400 Patient / S.O Can Pertinent Medications [place], Colace, Iron, Glipizide , Glucophage, Theragran Pertinent Labs (03/13) Na 129L, Glucose 219H, A1C 6.7H. (03/14) POC Glucose 338H-343H Nutritional Hx/Data Height 1.8 m Height (Calculated Centimeters) 180.3 Current Weight (lbs) 90.718 kg Weight (Calculated Kilograms) 90.7 Weight (Calculated Grams) 27392.5 Usual body Weight (lbs) 200 % Usual Body Weight 100 [place] Body Weight 155 % [place] Body Weight 129 Recent Weight Change Yes Weight Status Overweight GI Symptoms GI Symptoms None Food Allergies No Cultural/Ethnic/Yazdanism Belief No cultural or congregational beliefs noted. Usual diet at home CCHO with diabetic snacks at 1000, 1400 x one month Skin Integrity/Comment: Darrell 15. Skin intact. Current %PO Good (75-100%) Estimated Nutritional Goals BEE in Kcals: Using Current wt Calories/Kcals/Kg Based on current wt 90.9 kg with consideration of wheelchair-bound status Kcals Calculated 9569-9450 kcals/day (20-25 kcals/kg) Protein: Using Current wt Protein g/kg: Based on current wt 90.9 kg with consideration of wheelchair-bound status Protein Calculated 91 gm/day (1 gm/kg) Fluid: ml 2570-7334 ml/day (1 ml/kcal) Nutritional Problem 1. Problem Problem Altered nutrition-related laboratory values related to Etiology possible inconsistent carbohydrate intake, DM as evidenced by Signs/Symptoms: admitting glucose 219 mg/dl and POC Glucose 338-343 mg/dl. Malnutrition Alert Protein-Calorie Malnutrition N/A Is there a minimum of two criteria No selected? Query Text:Check all the applicable criteria. A minimum of two criteria are recommended for diagnosis of either severe or non-severe malnutrition. Malnutrition Related to Morbid Obesity Malnutrition related to morbid obesity No Intervention/Recommendation Comments 1. Recommend CCHO-75 GM diet to better meet estimated nutritional needs. 2. Consider discontinuing Boost Glucose Control supplements due to good appetite and to control blood sugar levels. Expected Outcomes/Goals Expected Outcomes/Goals Blood glucose levels will trend towards desired parameters. Physician Parameters for PEM Serum Albumin (g/dl) 3.5 - 5.0 (Normal)
[2017-03-21] MEDS: Budesonide 0.5 Mg/2 mL Ud HHN SCH ×2 (08:41→19:34)
[2017-03-21] MEDS: Multivitamin Tab PO SCH (09:13)
[2017-03-21] MEDS: Ferrous Sulfate 325 MG TAB PO SCH ×2 (09:13→17:03)
[2017-03-21] MEDS: Aspirin 81mg Chewable Tab PO SCH (09:14)
[2017-03-21] MEDS: Polyvinyl Alcohol Ophth Soln 15 mL Bottle EACH EYE SCH ×2 (09:15→17:04)
[2017-03-21] MEDS: Fluticasone Propionate 0.05mg/Actuation 16gm Nasal Spray NS SCH ×2 (09:15→17:04)
[2017-03-21 11:30] LABS: ANION GAP 8.7 (7.0-16.0); BUN - UREA NITROGEN 36 mg/dL (7-25); CALCIUM SERUM 9.7 mg/dL (8.6-10.3); CARBON DIOXIDE 30.5 mEq/L (21.0-31.0); CHLORIDE 99 mEq/L (98-107); CREATININE - SERUM 0.8 mg/dL (0.6-1.2); GLUCOSE 258 mg/dL (70-105); POTASSIUM SERUM 4.2 mEq/L (3.5-5.1); SODIUM SERUM 134 mEq/L (136-145)
--- NOTE | 2017-03-21 12:23 | Progress Notes ---
DATE: 03/21/2017 SUBJECTIVE: Chart reviewed and the patient interviewed. Also discussed the patient's condition with the staff and reviewed records and labs. The patient is still agitated and she is in angry and in irritable mood. The patient also is still having mood swings and anxiety. She also is still disheveled and personal hygiene is poor. The patient also is asking for pain medications and she is still complaining of pain from her knee and shoulder. Otherwise, the patient is compliant with taking her medications with no side effects of medications. During interview, the patient is disheveled. She is restless. Also, personal hygiene is still poor. She also seems to be preoccupied and responding. She also is still complaining of severe depression. ASSESSMENT: The patient is still psychotic and is still agitated. TREATMENT PLAN: The patient was started on Cymbalta a dose of 30 mg everyday. We will increase Cymbalta to 60 mg everyday and we will continue to follow up closely. [facility]# [id number]
[2017-03-22] MEDS: Albuterol Nebulizer 2.5mg/3mL HHN SCH ×4 (00:54→19:45)
[2017-03-22] MEDS: Ipratropium Neb 0.5 mg/2.5 mL UD HHN SCH ×4 (00:55→19:45)
--- NOTE | 2017-03-22 05:50 | General Progress Note ---
Subjective - Review of Systems Service Date: 03/22/17 Subjective: Patient complains of left shoulder and right knee pain. complains of a rash. Blood sugars elevated. Objective - Results Result Diagrams: 03/13/17 22:37 03/21/17 11:04 Recent Labs: Laboratory Last Values WBC 3.4 Th/cmm (4.8-10.8) L 03/13/17 22:37 RBC 3.99 Mil/cmm (3.80-5.20) 03/13/17 22:37 Hgb 11.2 gm/dL (11.7-16.1) L 03/13/17 22:37 Hct 33.7 % (35.0-45.0) L 03/13/17 22:37 MCV 84.4 fl (81-100) 03/13/17 22:37 MCH 28.2 pg (27.0-31.0) 03/13/17 22:37 MCHC Differential 33.4 pg (28.0-36.0) 03/13/17 22:37 RDW 14.2 % (11.5-20.0) 03/13/17 22:37 Plt Count 170 Th/cmm (150-400) 03/13/17 22:37 MPV 6.8 fl 03/13/17 22:37 Neutrophils % 70.1 % (40.0-80.0) 03/13/17 22:37 Lymphocytes % 18.9 % (20.0-50.0) L 03/13/17 22:37 Monocytes % 10.7 % (2.0-10.0) H 03/13/17 22:37 Eosinophils % 0.1 % (0.0-5.0) 03/13/17 22:37 Basophils % 0.2 % (0.0-2.0) 03/13/17 22:37 Sodium 134 mEq/L (136-145) L 03/21/17 11:04 Potassium 4.2 mEq/L (3.5-5.1) 03/21/17 11:04 Chloride 99 mEq/L (98-107) 03/21/17 11:04 Carbon Dioxide 30.5 mEq/L (21.0-31.0) 03/21/17 11:04 Anion Gap 8.7 (7.0-16.0) 03/21/17 11:04 BUN 36 mg/dL (7-25) H 03/21/17 11:04 Creatinine 0.8 mg/dL (0.6-1.2) 03/21/17 11:04 Est GFR ( Amer) TNP 03/21/17 11:04 Est GFR (Non-Af Amer) TNP 03/21/17 11:04 BUN/Creatinine Ratio 45.0 03/21/17 11:04 Glucose 258 mg/dL (70-105) H 03/21/17 11:04 POC Glucose 224 MG/DL (70 - 105) H 03/20/17 20:08 Hemoglobin A1c % 6.7 % (4.0-6.0) H 03/13/17 22:37 Whole Bld Lactic Acid 1.78 mmol/L (0.60-1.99) 03/13/17 22:37 Uric Acid 4.8 mg/dL (2.3-6.6) 03/17/17 10:08 Calcium 9.7 mg/dL (8.6-10.3) 03/21/17 11:04 Total Bilirubin 0.3 mg/dL (0.3-1.0) 03/13/17 22:37 AST 13 U/L (13-39) 03/13/17 22:37 ALT 16 U/L (7-52) 03/13/17 22:37 Alkaline Phosphatase 73 U/L (34-104) 03/13/17 22:37 Total Protein 6.6 gm/dL (6.0-8.3) 03/13/17 22:37 Albumin 3.6 gm/dL (3.7-5.3) L 03/13/17 22:37 Globulin 3.0 gm/dL 03/13/17 22:37 Albumin/Globulin Ratio 1.2 (1.0-1.8) 03/13/17 22:37 Triglycerides 72 mg/dL (<150) 03/13/17 22:37 Cholesterol 148 mg/dL (<200) 03/13/17 22:37 LDL Cholesterol Direct 99 mg/dL (75-193) 03/13/17 22:37 HDL Cholesterol 45 mg/dL (23-92) 03/13/17 22:37 TSH 2.66 uIU/ml (0.34-5.60) 03/13/17 22:37 Rheumatoid Factor 41.0 IU/mL (0.0-13.9) H 03/17/17 10:08 ERVIN Screen Negative 03/17/17 10:08 RPR NONREACTIVE (NONREACTIVE) 03/13/17 22:37 - Physical Exam Vitals and I&O: Vital Signs Temp 97.8 F 03/21/17 21:18 Pulse 85 03/22/17 00:55 Resp 17 03/22/17 00:55 BP 102/49 03/21/17 21:18 Pulse Ox 98 03/22/17 00:55 Intake & Output 03/21/17 03/21/17 03/22/17 06:59 18:59 06:59 Intake Total 120 900 Balance 120 900 Intake: Oral 120 900 Other: # Voids 3 3 # Bowel Movements 1 0 Stool Characteristics Soft Soft Formed Formed Active Medications: Current Medications Acetaminophen (Tylenol) 650 mg PO Q4HR PRN PRN Reason: Pain or Fever >101 Stop: 05/13/17 00:36 Last Admin: 03/21/17 13:43 Dose: 650 mg Albuterol Sulfate (Albuterol 2.5mg/3ml Neb Ud) 2.5 mg HHN Q6HRT [facility] Stop: 05/13/17 12:59 Last Admin: 03/22/17 00:54 Dose: Not Given Artificial Tears (Artificial Tears Ophth Soln) 1 drop EACH EYE BID [facility] Stop: 05/13/17 08:59 Last Admin: 03/21/17 17:04 Dose: 1 drop Aspirin (Aspirin Chewable) 81 mg PO DAILY [facility] Stop: 05/13/17 08:59 Last Admin: 03/21/17 09:14 Dose: 81 mg Benazepril HCl (Lotensin) 5 mg PO DAILY [facility] Stop: 05/13/17 08:59 Last Admin: 03/21/17 09:16 Dose: 5 mg Bisacodyl (Dulcolax 10 Mg Supp) 10 mg RC DAILY PRN PRN Reason: Constipation Stop: 05/13/17 00:36 Budesonide (Pulmicort) 0.5 mg HHN BIDRT [facility] Stop: 05/13/17 08:59 Last Admin: 03/21/17 19:34 Dose: 0.5 mg Calamine/Phenol (Calmoseptine) 1 appl TP DAILY PRN PRN Reason: infection Stop: 05/20/17 08:59 Calcium Carbonate (Os-Ky) 500 mg PO BID REAL Stop: 05/13/17 08:59 Last Admin: 03/21/17 17:03 Dose: 500 mg Docusate Sodium (Colace) 100 mg PO DAILY [facility] Stop: 05/13/17 08:59 Last Admin: 03/21/17 09:17 Dose: 100 mg Duloxetine HCl (Cymbalta) 60 mg PO DAILY REAL PRN Reason: Protocol Stop: 05/21/17 08:59 Ferrous Sulfate (Iron) 325 mg PO BID REAL Stop: 05/13/17 08:59 Last Admin: 03/21/17 17:03 Dose: 325 mg Fluoxetine HCl (Prozac) 40 mg PO QAM [facility] Stop: 05/13/17 08:59 Last Admin: 03/21/17 09:13 Dose: 40 mg Fluticasone Propionate (Flonase) 1 spr NS BID REAL Stop: 05/13/17 08:59 Last Admin: 03/21/17 17:04 Dose: 1 spr Gabapentin (Neurontin) 600 mg PO TID REAL Stop: 05/13/17 08:59 Last Admin: 03/21/17 21:41 Dose: 600 mg Glipizide (Glucotrol) 5 mg PO DAILY [facility] Stop: 05/13/17 08:59 Last Admin: 03/21/17 09:14 Dose: 5 mg Insulin Aspart (Novolog Insulin Sliding Scale) 0 units SUBQ ACHS REAL PRN Reason: Protocol Stop: 05/13/17 20:59 Last Admin: 03/21/17 21:43 Dose: 2 units Ipratropium [place] (Atrovent Neb 0.5mg/2.5ml) 0.5 mg HHN Q6HRT [facility] Stop: 05/13/17 12:59 Last Admin: 03/22/17 00:55 Dose: Not Given Ketotifen Fumarate (Zaditor 0.025% Ophth Soln) 1 drop EACH EYE BID [facility] Stop: 05/13/17 08:59 Last Admin: 03/21/17 17:04 Dose: 1 drop Lorazepam (Ativan) 0.5 mg PO Q6H PRN PRN Reason: ANXIETY/AGITATION Stop: 05/18/17 07:55 Magnesium Hydroxide (Milk Of Magnesia) 30 ml PO Q72H REAL Stop: 05/13/17 08:59 Last Admin: 03/20/17 08:44 Dose: Not Given Metformin HCl (Glucophage) 1,000 mg PO BID REAL Stop: 05/13/17 08:59 Last Admin: 03/21/17 17:03 Dose: 1,000 mg Methylprednisolone (Medrol) 4 mg PO DAILY PRN PRN Reason: arthralgia Stop: 05/19/17 08:16 Multivitamins/Vitamin C (Theragran) 1 tab PO DAILY [facility] Stop: 05/13/17 08:59 Last Admin: 03/21/17 09:13 Dose: 1 tab Risperidone (Risperdal) 1.5 mg PO HS REAL PRN Reason: Protocol Stop: 05/13/17 20:59 Last Admin: 03/21/17 21:41 Dose: 1.5 mg Sodium Phosphate (Fleet Enema) 135 ml RC Q48H PRN PRN Reason: Constipation Stop: 05/13/17 00:36 Tramadol HCl (Ultram) 50 mg PO Q6H PRN PRN Reason: arthralgia Stop: 05/16/17 08:23 Last Admin: 03/20/17 07:34 Dose: 50 mg Trazodone HCl (Desyrel) 150 mg PO HS REAL Stop: 05/13/17 20:59 Last Admin: 03/21/17 21:42 Dose: 150 mg Zolpidem Tartrate (Ambien) 5 mg PO HS PRN PRN Reason: Insomnia Stop: 05/13/17 02:20 Last Admin: 03/17/17 22:21 Dose: 5 mg General: Alert, Oriented x3, No acute distress HEENT: Atraumatic, PERRLA, EOMI Neck: Supple Cardiovascular: Regular rate, Normal S1, Normal S2 Lungs: Clear to auscultation Abdomen: Bowel sounds, Soft Extremities: no Clubbing, no Cyanosis, no Edema Skin: Rash (redness present) Assessment/Plan - Problem List Patient Problems: All Active Problems Arthralgia (Acute) M25.50 COPD (chronic obstructive pulmonary disease) (Acute) Dementia (Acute) F03.90 Dermatitis (Acute) L30.9 Diabetes mellitus (Acute) E11.9 Glaucoma (Acute) H40.9 Hypertension (Acute) I10 Hyponatremia (Acute) E87.1 Insomnia (Acute) G47.00 Neuralgia (Acute) M79.2 Psychosis (Acute) F29 Rheumatoid arthritis (Acute) M06.9 Schizophrenia (Acute) F20.9 - Assessment Assessment: psychosis,dementia,schizophrenia,insomnia ... admit to geropsyche hyponatremia ... will order repeat BMP hypertension ... controlled. continue current medication. diabetes mellitus not controlled ... will continue SSI, accuhecks QID. Will increase Glipizide from 5mg to 10mg. Continue Metformin 1000mg PO bID. COPD ... will continue current inhalers s/p UTI ... will order UA if not already ordered by ER glaucoma ... continue current treatment neuralgia ... most likely peripheral diabetic neuropathy ... on neurontin rheumatoid arthritis .... consistent with elevated RA factor. course of oral prednisone dermatitis ... will order calmoseptine - Plan Plan: psychosis,dementia,schizophrenia,insomnia ... admit to geropsyche hyponatremia ... will order repeat BMP hypertension ... controlled. continue current medication. diabetes mellitus not controlled ... will continue SSI, accuhecks QID. Will increase Glipizide from 5mg to 10mg. Continue Metformin 1000mg PO bID. COPD ... will continue current inhalers s/p UTI ... will order UA if not already ordered by ER glaucoma ... continue current treatment neuralgia ... most likely peripheral diabetic neuropathy ... on neurontin rheumatoid arthritis .... consistent with elevated RA factor. course of oral prednisone dermatitis ... will order calmoseptine Nutritional Asmnt/Malnutr-PDOC - Dietary Evaluation Malnutrition Findings (Please click <Entered> for more info): Nutritional Asmnt/Malnutrition Start: 03/14/17 12: 32 Text: Status: Complete Freq: Document 03/14/17 18:06 [facility] (Rec: 03/14/17 18:13 [facility] [id number]) Nutritional Asmnt/Malnutrition Patient General Information Nutritional Screening High Risk Screening Diagnosis Depression (per ER report) Pertinent Medical Hx/Surgical Hx HTN, DM, severe sepsis, chronic bronchitis, s/p UTI, dementia, schizophrenia, depression, insomnia, glaucoma , nerualgia, depression Subjective Information Pt is a 71-year-old female from [facility] admitted with chief complaint of crying episodes. Pt was in the Dining Room, wheelchair bound. Pt is a fair historian. Pt appears well nourished with no signs of muscle or fat depletion. Pt reports food allergies to squash, fish, liver, and barroso beans, which causes her to break out in hives; FNS informed. RD informed pt on current diet and pt had no questions. Pt reports she intentionally lose 4#. Current Diet Order/ Nutrition Support [facility], [facility] GLucose Control at 1000 and 1400 Patient / S.O Can Pertinent Medications Oscal, Colace, Iron, Glipizide , Glucophage, Theragran Pertinent Labs (03/13) Na 129L, Glucose 219H, A1C 6.7H. (03/14) POC Glucose 338H-343H Nutritional Hx/Data Height 1.8 m Height (Calculated Centimeters) 180.3 Current Weight (lbs) 90.718 kg Weight (Calculated Kilograms) 90.7 Weight (Calculated Grams) 53578.5 Usual body Weight (lbs) 200 % Usual Body Weight 100 [place] Body Weight 155 % Emerson Body Weight 129 Recent Weight Change Yes Weight Status Overweight GI Symptoms GI Symptoms None Food Allergies No Cultural/Ethnic/Jew Belief No cultural or sabianism beliefs noted. Usual diet at home CCHO with diabetic snacks at 1000, 1400 x one month Skin Integrity/Comment: Darrell 15. Skin intact. Current %PO Good (75-100%) Estimated Nutritional Goals BEE in Kcals: Using Current wt Calories/Kcals/Kg Based on current wt 90.9 kg with consideration of wheelchair-bound status Kcals Calculated 7408-7189 kcals/day (20-25 kcals/kg) Protein: Using Current wt Protein g/kg: Based on current wt 90.9 kg with consideration of wheelchair-bound status Protein Calculated 91 gm/day (1 gm/kg) Fluid: ml 5281-5190 ml/day (1 ml/kcal) Nutritional Problem 1. Problem Problem Altered nutrition-related laboratory values related to Etiology possible inconsistent carbohydrate intake, DM as evidenced by Signs/Symptoms: admitting glucose 219 mg/dl and POC Glucose 338-343 mg/dl. Malnutrition Alert Protein-Calorie Malnutrition N/A Is there a minimum of two criteria No selected? Query Text:Check all the applicable criteria. A minimum of two criteria are recommended for diagnosis of either severe or non-severe malnutrition. Malnutrition Related to Morbid Obesity Malnutrition related to morbid obesity No Intervention/Recommendation Comments 1. Recommend CCHO-75 GM diet to better meet estimated nutritional needs. 2. Consider discontinuing Boost Glucose Control supplements due to good appetite and to control blood sugar levels. Expected Outcomes/Goals Expected Outcomes/Goals Blood glucose levels will trend towards desired parameters. Physician Parameters for PEM Serum Albumin (g/dl) 3.5 - 5.0 (Normal)
[2017-03-22] MEDS: INSULIN ASPART SLIDING SCALE 100 UNITS/ML UNIT SUBQ SCH ×4 (06:36→21:19)
[2017-03-22] MEDS: Budesonide 0.5 Mg/2 mL Ud HHN SCH ×2 (07:09→19:55)
[2017-03-22] MEDS: Fluticasone Propionate 0.05mg/Actuation 16gm Nasal Spray NS SCH ×2 (08:27→16:11)
[2017-03-22] MEDS: Ferrous Sulfate 325 MG TAB PO SCH ×2 (08:28→16:10)
[2017-03-22] MEDS: Aspirin 81mg Chewable Tab PO SCH (08:29)
[2017-03-22] MEDS: Multivitamin Tab PO SCH (08:30)
[2017-03-22] MEDS: Polyvinyl Alcohol Ophth Soln 15 mL Bottle EACH EYE SCH ×2 (08:33→16:11)
--- NOTE | 2017-03-22 19:49 | Progress Notes ---
DATE: 03/22/2017 SUBJECTIVE: Chart reviewed and the patient interviewed. Also discussed the patient's condition with the staff and reviewed records and labs. The patient is still severely anxious and still has multiple somatic complaints. The patient also is still slightly confused and agitated. She also is still in a depressed mood. The patient also still tends to isolate herself and interacting minimally with others. She denies any suicidal or homicidal ideation. She also is still restless. ASSESSMENT: The patient is still depressed. TREATMENT PLAN: Continue monitoring her behavior and her condition closely. Also, continue to work on adjusting psychotropic medications and followup. JOB# [id number]
[2017-03-23] MEDS: INSULIN ASPART SLIDING SCALE 100 UNITS/ML UNIT SUBQ SCH ×4 (06:41→20:57)
--- NOTE | 2017-03-23 06:52 | General Progress Note ---
Subjective - Review of Systems Service Date: 03/23/17 Subjective: Patient complains of left shoulder and right knee pain. complains of a rash. Blood sugars elevated. Objective - Results Result Diagrams: 03/13/17 22:37 03/21/17 11:04 Recent Labs: Laboratory Last Values WBC 3.4 Th/cmm (4.8-10.8) L 03/13/17 22:37 RBC 3.99 Mil/cmm (3.80-5.20) 03/13/17 22:37 Hgb 11.2 gm/dL (11.7-16.1) L 03/13/17 22:37 Hct 33.7 % (35.0-45.0) L 03/13/17 22:37 MCV 84.4 fl (81-100) 03/13/17 22:37 MCH 28.2 pg (27.0-31.0) 03/13/17 22:37 MCHC Differential 33.4 pg (28.0-36.0) 03/13/17 22:37 RDW 14.2 % (11.5-20.0) 03/13/17 22:37 Plt Count 170 Th/cmm (150-400) 03/13/17 22:37 MPV 6.8 fl 03/13/17 22:37 Neutrophils % 70.1 % (40.0-80.0) 03/13/17 22:37 Lymphocytes % 18.9 % (20.0-50.0) L 03/13/17 22:37 Monocytes % 10.7 % (2.0-10.0) H 03/13/17 22:37 Eosinophils % 0.1 % (0.0-5.0) 03/13/17 22:37 Basophils % 0.2 % (0.0-2.0) 03/13/17 22:37 Sodium 134 mEq/L (136-145) L 03/21/17 11:04 Potassium 4.2 mEq/L (3.5-5.1) 03/21/17 11:04 Chloride 99 mEq/L (98-107) 03/21/17 11:04 Carbon Dioxide 30.5 mEq/L (21.0-31.0) 03/21/17 11:04 Anion Gap 8.7 (7.0-16.0) 03/21/17 11:04 BUN 36 mg/dL (7-25) H 03/21/17 11:04 Creatinine 0.8 mg/dL (0.6-1.2) 03/21/17 11:04 Est GFR ( Amer) TNP 03/21/17 11:04 Est GFR (Non-Af Amer) TNP 03/21/17 11:04 BUN/Creatinine Ratio 45.0 03/21/17 11:04 Glucose 258 mg/dL (70-105) H 03/21/17 11:04 POC Glucose 249 MG/DL (70 - 105) H 03/22/17 16:02 Hemoglobin A1c % 6.7 % (4.0-6.0) H 03/13/17 22:37 Whole Bld Lactic Acid 1.78 mmol/L (0.60-1.99) 03/13/17 22:37 Uric Acid 4.8 mg/dL (2.3-6.6) 03/17/17 10:08 Calcium 9.7 mg/dL (8.6-10.3) 03/21/17 11:04 Total Bilirubin 0.3 mg/dL (0.3-1.0) 03/13/17 22:37 AST 13 U/L (13-39) 03/13/17 22:37 ALT 16 U/L (7-52) 03/13/17 22:37 Alkaline Phosphatase 73 U/L (34-104) 03/13/17 22:37 Total Protein 6.6 gm/dL (6.0-8.3) 03/13/17 22:37 Albumin 3.6 gm/dL (3.7-5.3) L 03/13/17 22:37 Globulin 3.0 gm/dL 03/13/17 22:37 Albumin/Globulin Ratio 1.2 (1.0-1.8) 03/13/17 22:37 Triglycerides 72 mg/dL (<150) 03/13/17 22:37 Cholesterol 148 mg/dL (<200) 03/13/17 22:37 LDL Cholesterol Direct 99 mg/dL (75-193) 03/13/17 22:37 HDL Cholesterol 45 mg/dL (23-92) 03/13/17 22:37 TSH 2.66 uIU/ml (0.34-5.60) 03/13/17 22:37 Rheumatoid Factor 41.0 IU/mL (0.0-13.9) H 03/17/17 10:08 ERVIN Screen Negative 03/17/17 10:08 RPR NONREACTIVE (NONREACTIVE) 03/13/17 22:37 - Physical Exam Vitals and I&O: Vital Signs Temp 97.5 F 03/22/17 20:51 Pulse 98 03/22/17 22:29 Resp 18 03/22/17 22:29 BP 115/67 03/22/17 20:51 Pulse Ox 98 03/22/17 22:29 Intake & Output 03/22/17 03/22/17 03/23/17 06:59 18:59 06:59 Intake Total 800 Output Total 1 Balance -1 800 Intake: Oral 800 Output: Urine/Stool Mix 1 Other: # Voids 3 # Bowel Movements 1 Stool Characteristics Soft Soft Soft Formed Formed Formed Active Medications: Current Medications Acetaminophen (Tylenol) 650 mg PO Q4HR PRN PRN Reason: Pain or Fever >101 Stop: 05/13/17 00:36 Last Admin: 03/21/17 13:43 Dose: 650 mg Albuterol Sulfate (Albuterol 2.5mg/3ml Neb Ud) 2.5 mg HHN Q6HRT [facility] Stop: 05/13/17 12:59 Last Admin: 03/22/17 19:45 Dose: 2.5 mg Artificial Tears (Artificial Tears Ophth Soln) 1 drop EACH EYE BID REAL Stop: 05/13/17 08:59 Last Admin: 03/22/17 16:11 Dose: 1 drop Aspirin (Aspirin Chewable) 81 mg PO DAILY RAEL Stop: 05/13/17 08:59 Last Admin: 03/22/17 08:29 Dose: 81 mg Benazepril HCl (Lotensin) 5 mg PO DAILY REAL Stop: 05/13/17 08:59 Last Admin: 03/22/17 08:28 Dose: 5 mg Bisacodyl (Dulcolax 10 Mg Supp) 10 mg RC DAILY PRN PRN Reason: Constipation Stop: 05/13/17 00:36 Budesonide (Pulmicort) 0.5 mg HHN BIDRT REAL Stop: 05/13/17 08:59 Last Admin: 03/22/17 19:55 Dose: 0.5 mg Calamine/Phenol (Calmoseptine) 1 appl TP DAILY PRN PRN Reason: infection Stop: 05/20/17 08:59 Calcium Carbonate (Os-Ky) 500 mg PO BID REAL Stop: 05/13/17 08:59 Last Admin: 03/22/17 16:10 Dose: 500 mg Docusate Sodium (Colace) 100 mg PO DAILY REAL Stop: 05/13/17 08:59 Last Admin: 03/22/17 08:30 Dose: 100 mg Duloxetine HCl (Cymbalta) 60 mg PO DAILY REAL PRN Reason: Protocol Stop: 05/21/17 08:59 Last Admin: 03/22/17 08:30 Dose: 60 mg Ferrous Sulfate (Iron) 325 mg PO BID [facility] Stop: 05/13/17 08:59 Last Admin: 03/22/17 16:10 Dose: 325 mg Fluoxetine HCl (Prozac) 40 mg PO QAM REAL Stop: 05/13/17 08:59 Last Admin: 03/22/17 08:30 Dose: 40 mg Fluticasone Propionate (Flonase) 1 spr NS BID REAL Stop: 05/13/17 08:59 Last Admin: 03/22/17 16:11 Dose: 1 spr Gabapentin (Neurontin) 600 mg PO TID [facility] Stop: 05/13/17 08:59 Last Admin: 03/22/17 21:19 Dose: 600 mg Glipizide (Glucotrol) 10 mg PO DAILY [facility] Stop: 05/21/17 08:59 Last Admin: 03/22/17 08:38 Dose: 10 mg Insulin Aspart (Novolog Insulin Sliding Scale) 0 units SUBQ ACHS REAL PRN Reason: Protocol Stop: 05/13/17 20:59 Last Admin: 03/23/17 06:41 Dose: Not Given Ipratropium [place] (Atrovent Neb 0.5mg/2.5ml) 0.5 mg HHN Q6HRT [facility] Stop: 05/13/17 12:59 Last Admin: 03/22/17 19:45 Dose: 0.5 mg Ketotifen Fumarate (Zaditor 0.025% Ophth Soln) 1 drop EACH EYE BID [facility] Stop: 05/13/17 08:59 Last Admin: 03/22/17 16:11 Dose: 1 drop Lorazepam (Ativan) 0.5 mg PO Q6H PRN PRN Reason: ANXIETY/AGITATION Stop: 05/18/17 07:55 Magnesium Hydroxide (Milk Of Magnesia) 30 ml PO Q72H REAL Stop: 05/13/17 08:59 Last Admin: 03/20/17 08:44 Dose: Not Given Metformin HCl (Glucophage) 1,000 mg PO BID REAL Stop: 05/13/17 08:59 Last Admin: 03/22/17 16:10 Dose: 1,000 mg Methylprednisolone (Medrol) 4 mg PO DAILY PRN PRN Reason: arthralgia Stop: 05/19/17 08:16 Multivitamins/Vitamin C (Theragran) 1 tab PO DAILY REAL Stop: 05/13/17 08:59 Last Admin: 03/22/17 08:30 Dose: 1 tab Risperidone (Risperdal) 1.5 mg PO HS REAL PRN Reason: Protocol Stop: 05/13/17 20:59 Last Admin: 03/22/17 21:20 Dose: 1.5 mg Sodium Phosphate (Fleet Enema) 135 ml RC Q48H PRN PRN Reason: Constipation Stop: 05/13/17 00:36 Tramadol HCl (Ultram) 50 mg PO Q6H PRN PRN Reason: arthralgia Stop: 05/16/17 08:23 Last Admin: 03/22/17 06:07 Dose: 50 mg Trazodone HCl (Desyrel) 150 mg PO HS REAL Stop: 05/13/17 20:59 Last Admin: 03/22/17 21:21 Dose: 150 mg Zolpidem Tartrate (Ambien) 5 mg PO HS PRN PRN Reason: Insomnia Stop: 05/13/17 02:20 Last Admin: 03/17/17 22:21 Dose: 5 mg General: Alert, Oriented x3, No acute distress HEENT: Atraumatic, PERRLA, EOMI Neck: Supple Cardiovascular: Regular rate, Normal S1, Normal S2 Lungs: Clear to auscultation Abdomen: Bowel sounds, Soft Extremities: no Clubbing, no Cyanosis, no Edema Skin: Rash (redness present) Assessment/Plan - Problem List Patient Problems: All Active Problems Arthralgia (Acute) M25.50 COPD (chronic obstructive pulmonary disease) (Acute) Dementia (Acute) F03.90 Dermatitis (Acute) L30.9 Diabetes mellitus (Acute) E11.9 Glaucoma (Acute) H40.9 Hypertension (Acute) I10 Hyponatremia (Acute) E87.1 Insomnia (Acute) G47.00 Neuralgia (Acute) M79.2 Psychosis (Acute) F29 Rheumatoid arthritis (Acute) M06.9 Schizophrenia (Acute) F20.9 - Assessment Assessment: psychosis,dementia,schizophrenia,insomnia ... admit to geropsyche hyponatremia ... will order repeat BMP hypertension ... controlled. continue current medication. diabetes mellitus not controlled ... will continue SSI, accuhecks QID. Will increase Glipizide from 5mg to 10mg. Continue Metformin 1000mg PO bID. COPD ... will continue current inhalers s/p UTI ... will order UA if not already ordered by ER glaucoma ... continue current treatment neuralgia ... most likely peripheral diabetic neuropathy ... on neurontin rheumatoid arthritis .... consistent with elevated RA factor. course of oral prednisone dermatitis ... will order calmoseptine - Plan Plan: psychosis,dementia,schizophrenia,insomnia ... admit to geropsyche hyponatremia ... will order repeat BMP hypertension ... controlled. continue current medication. diabetes mellitus not controlled ... will continue SSI, accuhecks QID. Will increase Glipizide from 5mg to 10mg. Continue Metformin 1000mg PO bID. COPD ... will continue current inhalers s/p UTI ... will order UA if not already ordered by ER glaucoma ... continue current treatment neuralgia ... most likely peripheral diabetic neuropathy ... on neurontin rheumatoid arthritis .... consistent with elevated RA factor. course of oral prednisone dermatitis ... will order calmoseptine Nutritional Asmnt/Malnutr-PDOC - Dietary Evaluation Malnutrition Findings (Please click <Entered> for more info): Nutritional Asmnt/Malnutrition Start: 03/14/17 12: 32 Text: Status: Complete Freq: Document 03/14/17 18:06 [facility] (Rec: 03/14/17 18:13 [facility] [id number]) Nutritional Asmnt/Malnutrition Patient General Information Nutritional Screening High Risk Screening Diagnosis Depression (per ER report) Pertinent Medical Hx/Surgical Hx HTN, DM, severe sepsis, chronic bronchitis, s/p UTI, dementia, schizophrenia, depression, insomnia, glaucoma , nerualgia, depression Subjective Information Pt is a 71-year-old female from [facility] admitted with chief complaint of crying episodes. Pt was in the Dining Room, wheelchair bound. Pt is a fair historian. Pt appears well nourished with no signs of muscle or fat depletion. Pt reports food allergies to squash, fish, liver, and barroso beans, which causes her to break out in hives; FNS informed. RD informed pt on current diet and pt had no questions. Pt reports she intentionally lose 4#. Current Diet Order/ Nutrition Support [facility], Boost GLucose Control at 1000 and 1400 Patient / S.O Can Pertinent Medications [place], Colace, Iron, Glipizide , Glucophage, Theragran Pertinent Labs (03/13) Na 129L, Glucose 219H, A1C 6.7H. (03/14) POC Glucose 338H-343H Nutritional Hx/Data Height 1.8 m Height (Calculated Centimeters) 180.3 Current Weight (lbs) 90.718 kg Weight (Calculated Kilograms) 90.7 Weight (Calculated Grams) 05127.5 Usual body Weight (lbs) 200 % Usual Body Weight 100 [place] Body Weight 155 % [place] Body Weight 129 Recent Weight Change Yes Weight Status Overweight GI Symptoms GI Symptoms None Food Allergies No Cultural/Ethnic/Orthodox Belief No cultural or rastafari beliefs noted. Usual diet at home [facility] with diabetic snacks at 1000, 1400 x one month Skin Integrity/Comment: Darrell 15. Skin intact. Current %PO Good (75-100%) Estimated Nutritional Goals BEE in Kcals: Using Current wt Calories/Kcals/Kg Based on current wt 90.9 kg with consideration of wheelchair-bound status Kcals Calculated 9835-0934 kcals/day (20-25 kcals/kg) Protein: Using Current wt Protein g/kg: Based on current wt 90.9 kg with consideration of wheelchair-bound status Protein Calculated 91 gm/day (1 gm/kg) Fluid: ml 1239-5382 ml/day (1 ml/kcal) Nutritional Problem 1. Problem Problem Altered nutrition-related laboratory values related to Etiology possible inconsistent carbohydrate intake, DM as evidenced by Signs/Symptoms: admitting glucose 219 mg/dl and POC Glucose 338-343 mg/dl. Malnutrition Alert Protein-Calorie Malnutrition N/A Is there a minimum of two criteria No selected? Query Text:Check all the applicable criteria. A minimum of two criteria are recommended for diagnosis of either severe or non-severe malnutrition. Malnutrition Related to Morbid Obesity Malnutrition related to morbid obesity No Intervention/Recommendation Comments 1. Recommend CCHO-75 GM diet to better meet estimated nutritional needs. 2. Consider discontinuing Boost Glucose Control supplements due to good appetite and to control blood sugar levels. Expected Outcomes/Goals Expected Outcomes/Goals Blood glucose levels will trend towards desired parameters. Physician Parameters for PEM Serum Albumin (g/dl) 3.5 - 5.0 (Normal)
[2017-03-23] MEDS: Ipratropium Neb 0.5 mg/2.5 mL UD HHN SCH ×3 (07:06→19:17)
[2017-03-23] MEDS: Albuterol Nebulizer 2.5mg/3mL HHN SCH ×3 (07:06→19:17)
[2017-03-23] MEDS: Budesonide 0.5 Mg/2 mL Ud HHN SCH ×2 (07:14→19:17)
[2017-03-23] MEDS: Polyvinyl Alcohol Ophth Soln 15 mL Bottle EACH EYE SCH ×2 (09:06→16:32)
[2017-03-23] MEDS: Menthol/Zinc Oxide Oint 113gm Tube TP PRN (09:06)
[2017-03-23] MEDS: Fluticasone Propionate 0.05mg/Actuation 16gm Nasal Spray NS SCH ×2 (09:07→16:32)
[2017-03-23] MEDS: Aspirin 81mg Chewable Tab PO SCH (09:08)
[2017-03-23] MEDS: Multivitamin Tab PO SCH (09:10)
[2017-03-23] MEDS: Magnesium Hydroxide (MOM) 30 mL UDC PO SCH (09:10)
[2017-03-23] MEDS: Ferrous Sulfate 325 MG TAB PO SCH ×2 (09:11→16:29)
--- NOTE | 2017-03-23 19:33 | Progress Notes ---
DATE: 03/23/2017 SUBJECTIVE: Chart reviewed and the patient interviewed. Also discussed the patient's condition with the staff and reviewed records and labs. The patient continued to be extremely irritable and extremely anxious. She also is still in a depressed mood, but easier to redirect her. The patient still has multiple somatic complaints and she is still complaining of pain in right knee and left shoulder. The patient also is still confused, hopeless and helpless. Otherwise, the patient is cooperative with treatment and easier to redirect her. She also denies any side effects of Cymbalta. ASSESSMENT: The patient is still depressed and needs close monitoring. TREATMENT PLAN: Continue to monitor her behavior and her condition closely and continue to follow up. JOB# [id number]
[2017-03-24] MEDS: Albuterol Nebulizer 2.5mg/3mL HHN SCH ×4 (01:07→18:57)
[2017-03-24] MEDS: Ipratropium Neb 0.5 mg/2.5 mL UD HHN SCH ×4 (01:08→18:58)
[2017-03-24] MEDS: INSULIN ASPART SLIDING SCALE 100 UNITS/ML UNIT SUBQ SCH ×4 (06:54→20:58)
[2017-03-24] MEDS: Budesonide 0.5 Mg/2 mL Ud HHN SCH ×2 (07:23→18:58)
[2017-03-24] MEDS: Aspirin 81mg Chewable Tab PO SCH (08:13)
[2017-03-24] MEDS: Polyvinyl Alcohol Ophth Soln 15 mL Bottle EACH EYE SCH ×2 (08:13→17:06)
[2017-03-24] MEDS: Multivitamin Tab PO SCH (08:14)
[2017-03-24] MEDS: Ferrous Sulfate 325 MG TAB PO SCH ×2 (08:14→17:07)
[2017-03-24] MEDS: Fluticasone Propionate 0.05mg/Actuation 16gm Nasal Spray NS SCH (08:14)
--- NOTE | 2017-03-24 08:40 | General Progress Note ---
Subjective - Review of Systems Service Date: 03/24/17 Subjective: Patient complains of left shoulder and right knee pain. complains of a rash. Blood sugars better today Objective - Results Result Diagrams: 03/13/17 22:37 03/21/17 11:04 Recent Labs: Laboratory Last Values WBC 3.4 Th/cmm (4.8-10.8) L 03/13/17 22:37 RBC 3.99 Mil/cmm (3.80-5.20) 03/13/17 22:37 Hgb 11.2 gm/dL (11.7-16.1) L 03/13/17 22:37 Hct 33.7 % (35.0-45.0) L 03/13/17 22:37 MCV 84.4 fl (81-100) 03/13/17 22:37 MCH 28.2 pg (27.0-31.0) 03/13/17 22:37 MCHC Differential 33.4 pg (28.0-36.0) 03/13/17 22:37 RDW 14.2 % (11.5-20.0) 03/13/17 22:37 Plt Count 170 Th/cmm (150-400) 03/13/17 22:37 MPV 6.8 fl 03/13/17 22:37 Neutrophils % 70.1 % (40.0-80.0) 03/13/17 22:37 Lymphocytes % 18.9 % (20.0-50.0) L 03/13/17 22:37 Monocytes % 10.7 % (2.0-10.0) H 03/13/17 22:37 Eosinophils % 0.1 % (0.0-5.0) 03/13/17 22:37 Basophils % 0.2 % (0.0-2.0) 03/13/17 22:37 Sodium 134 mEq/L (136-145) L 03/21/17 11:04 Potassium 4.2 mEq/L (3.5-5.1) 03/21/17 11:04 Chloride 99 mEq/L (98-107) 03/21/17 11:04 Carbon Dioxide 30.5 mEq/L (21.0-31.0) 03/21/17 11:04 Anion Gap 8.7 (7.0-16.0) 03/21/17 11:04 BUN 36 mg/dL (7-25) H 03/21/17 11:04 Creatinine 0.8 mg/dL (0.6-1.2) 03/21/17 11:04 Est GFR ( Amer) TNP 03/21/17 11:04 Est GFR (Non-Af Amer) TNP 03/21/17 11:04 BUN/Creatinine Ratio 45.0 03/21/17 11:04 Glucose 258 mg/dL (70-105) H 03/21/17 11:04 POC Glucose 107 MG/DL (70 - 105) H 03/24/17 06:48 Hemoglobin A1c % 6.7 % (4.0-6.0) H 03/13/17 22:37 Whole Bld Lactic Acid 1.78 mmol/L (0.60-1.99) 03/13/17 22:37 Uric Acid 4.8 mg/dL (2.3-6.6) 03/17/17 10:08 Calcium 9.7 mg/dL (8.6-10.3) 03/21/17 11:04 Total Bilirubin 0.3 mg/dL (0.3-1.0) 03/13/17 22:37 AST 13 U/L (13-39) 03/13/17 22:37 ALT 16 U/L (7-52) 03/13/17 22:37 Alkaline Phosphatase 73 U/L (34-104) 03/13/17 22:37 Total Protein 6.6 gm/dL (6.0-8.3) 03/13/17 22:37 Albumin 3.6 gm/dL (3.7-5.3) L 03/13/17 22:37 Globulin 3.0 gm/dL 03/13/17 22:37 Albumin/Globulin Ratio 1.2 (1.0-1.8) 03/13/17 22:37 Triglycerides 72 mg/dL (<150) 03/13/17 22:37 Cholesterol 148 mg/dL (<200) 03/13/17 22:37 LDL Cholesterol Direct 99 mg/dL (75-193) 03/13/17 22:37 HDL Cholesterol 45 mg/dL (23-92) 03/13/17 22:37 TSH 2.66 uIU/ml (0.34-5.60) 03/13/17 22:37 Rheumatoid Factor 41.0 IU/mL (0.0-13.9) H 03/17/17 10:08 ERVIN Screen Negative 03/17/17 10:08 RPR NONREACTIVE (NONREACTIVE) 03/13/17 22:37 - Physical Exam Vitals and I&O: Vital Signs Temp 97.7 F 03/24/17 06:27 Pulse 97 03/24/17 08:12 Resp 16 03/24/17 07:44 BP 110/71 03/24/17 08:12 Pulse Ox 98 03/24/17 07:44 Intake & Output 03/23/17 03/24/17 03/24/17 18:59 06:59 18:59 Intake Total 1400 Balance 1400 Intake: Oral 1400 Other: # Voids 5 # Bowel Movements 0 Stool Characteristics Soft Formed Active Medications: Current Medications Acetaminophen (Tylenol) 650 mg PO Q4HR PRN PRN Reason: Pain or Fever >101 Stop: 05/13/17 00:36 Last Admin: 03/21/17 13:43 Dose: 650 mg Albuterol Sulfate (Albuterol 2.5mg/3ml Neb Ud) 2.5 mg HHN Q6HRT [facility] Stop: 05/13/17 12:59 Last Admin: 03/24/17 07:23 Dose: 2.5 mg Artificial Tears (Artificial Tears Ophth Soln) 1 drop EACH EYE BID [facility] Stop: 05/13/17 08:59 Last Admin: 03/24/17 08:13 Dose: 1 drop Aspirin (Aspirin Chewable) 81 mg PO DAILY [facility] Stop: 05/13/17 08:59 Last Admin: 03/24/17 08:13 Dose: 81 mg Benazepril HCl (Lotensin) 5 mg PO DAILY [facility] Stop: 05/13/17 08:59 Last Admin: 03/24/17 08:12 Dose: 5 mg Bisacodyl (Dulcolax 10 Mg Supp) 10 mg RC DAILY PRN PRN Reason: Constipation Stop: 05/13/17 00:36 Budesonide (Pulmicort) 0.5 mg HHN BIDRT [facility] Stop: 05/13/17 08:59 Last Admin: 03/24/17 07:23 Dose: 0.5 mg Calamine/Phenol (Calmoseptine) 1 appl TP DAILY PRN PRN Reason: infection Stop: 10/17/17 08:59 Last Admin: 03/23/17 09:06 Dose: 1 appl Calcium Carbonate (Os-Ky) 500 mg PO BID REAL Stop: 05/13/17 08:59 Last Admin: 03/24/17 08:14 Dose: 500 mg Docusate Sodium (Colace) 100 mg PO DAILY REAL Stop: 05/13/17 08:59 Last Admin: 03/24/17 08:13 Dose: 100 mg Duloxetine HCl (Cymbalta) 60 mg PO DAILY REAL PRN Reason: Protocol Stop: 05/21/17 08:59 Last Admin: 03/24/17 08:13 Dose: 60 mg Ferrous Sulfate (Iron) 325 mg PO BID [facility] Stop: 05/13/17 08:59 Last Admin: 03/24/17 08:14 Dose: 325 mg Fluoxetine HCl (Prozac) 40 mg PO QAM REAL Stop: 05/13/17 08:59 Last Admin: 03/24/17 08:12 Dose: 40 mg Fluticasone Propionate (Flonase) 1 spr NS BID REAL Stop: 05/13/17 08:59 Last Admin: 03/24/17 08:14 Dose: 1 spr Gabapentin (Neurontin) 600 mg PO TID REAL Stop: 05/13/17 08:59 Last Admin: 03/24/17 08:13 Dose: 600 mg Glipizide (Glucotrol) 10 mg PO DAILY [facility] Stop: 05/21/17 08:59 Last Admin: 03/24/17 08:13 Dose: 10 mg Insulin Aspart (Novolog Insulin Sliding Scale) 0 units SUBQ ACHS [facility] PRN Reason: Protocol Stop: 05/13/17 20:59 Last Admin: 03/24/17 06:54 Dose: Not Given Ipratropium [place] (Atrovent Neb 0.5mg/2.5ml) 0.5 mg HHN Q6HRT [facility] Stop: 05/13/17 12:59 Last Admin: 03/24/17 07:23 Dose: 0.5 mg Ketotifen Fumarate (Zaditor 0.025% Ophth Soln) 1 drop EACH EYE BID [facility] Stop: 05/13/17 08:59 Last Admin: 03/24/17 08:13 Dose: 1 drop Lorazepam (Ativan) 0.5 mg PO Q6H PRN PRN Reason: ANXIETY/AGITATION Stop: 05/18/17 07:55 Magnesium Hydroxide (Milk Of Magnesia) 30 ml PO Q72H REAL Stop: 05/13/17 08:59 Last Admin: 03/23/17 09:10 Dose: 30 ml Metformin HCl (Glucophage) 1,000 mg PO BID REAL Stop: 05/13/17 08:59 Last Admin: 03/24/17 08:12 Dose: 1,000 mg Methylprednisolone (Medrol) 4 mg PO DAILY PRN PRN Reason: arthralgia Stop: 05/19/17 08:16 Multivitamins/Vitamin C (Theragran) 1 tab PO DAILY REAL Stop: 05/13/17 08:59 Last Admin: 03/24/17 08:14 Dose: 1 tab Risperidone (Risperdal) 1.5 mg PO HS REAL PRN Reason: Protocol Stop: 05/13/17 20:59 Last Admin: 03/23/17 20:53 Dose: 1.5 mg Sodium Phosphate (Fleet Enema) 135 ml RC Q48H PRN PRN Reason: Constipation Stop: 05/13/17 00:36 Tramadol HCl (Ultram) 50 mg PO Q6H PRN PRN Reason: arthralgia Stop: 05/16/17 08:23 Last Admin: 03/23/17 20:55 Dose: 50 mg Trazodone HCl (Desyrel) 150 mg PO HS REAL Stop: 05/13/17 20:59 Last Admin: 03/23/17 20:55 Dose: 150 mg Zolpidem Tartrate (Ambien) 5 mg PO HS PRN PRN Reason: Insomnia Stop: 05/13/17 02:20 Last Admin: 03/17/17 22:21 Dose: 5 mg General: Alert, Oriented x3, No acute distress HEENT: Atraumatic, PERRLA, EOMI Neck: Supple Cardiovascular: Regular rate, Normal S1, Normal S2 Lungs: Clear to auscultation Abdomen: Bowel sounds, Soft Extremities: no Clubbing, no Cyanosis, no Edema Skin: Rash (redness present) Assessment/Plan - Problem List Patient Problems: All Active Problems Arthralgia (Acute) M25.50 COPD (chronic obstructive pulmonary disease) (Acute) Dementia (Acute) F03.90 Dermatitis (Acute) L30.9 Diabetes mellitus (Acute) E11.9 Glaucoma (Acute) H40.9 Hypertension (Acute) I10 Hyponatremia (Acute) E87.1 Insomnia (Acute) G47.00 Neuralgia (Acute) M79.2 Psychosis (Acute) F29 Rheumatoid arthritis (Acute) M06.9 Schizophrenia (Acute) F20.9 - Assessment Assessment: psychosis,dementia,schizophrenia,insomnia ... admit to geropsyche hyponatremia ... will order repeat BMP hypertension ... controlled. continue current medication. diabetes mellitus not controlled ... will continue SSI, accuhecks QID. Will increase Glipizide from 5mg to 10mg. Continue Metformin 1000mg PO bID. COPD ... will continue current inhalers s/p UTI ... will order UA if not already ordered by ER glaucoma ... continue current treatment neuralgia ... most likely peripheral diabetic neuropathy ... on neurontin rheumatoid arthritis .... consistent with elevated RA factor. course of oral prednisone dermatitis ... will order calmoseptine - Plan Plan: psychosis,dementia,schizophrenia,insomnia ... admit to geropsyche hyponatremia ... will order repeat BMP hypertension ... controlled. continue current medication. diabetes mellitus not controlled ... will continue SSI, accuhecks QID. Will increase Glipizide from 5mg to 10mg. Continue Metformin 1000mg PO bID. COPD ... will continue current inhalers s/p UTI ... will order UA if not already ordered by ER glaucoma ... continue current treatment neuralgia ... most likely peripheral diabetic neuropathy ... on neurontin rheumatoid arthritis .... consistent with elevated RA factor. course of oral prednisone dermatitis ... will order calmoseptine Nutritional Asmnt/Malnutr-PDOC - Dietary Evaluation Malnutrition Findings (Please click <Entered> for more info): Nutritional Asmnt/Malnutrition Start: 03/14/17 12: 32 Text: Status: Complete Freq: Document 03/14/17 18:06 [facility] (Rec: 03/14/17 18:13 [facility] [id number]) Nutritional Asmnt/Malnutrition Patient General Information Nutritional Screening High Risk Screening Diagnosis Depression (per ER report) Pertinent Medical Hx/Surgical Hx HTN, DM, severe sepsis, chronic bronchitis, s/p UTI, dementia, schizophrenia, depression, insomnia, glaucoma , nerualgia, depression Subjective Information Pt is a 71-year-old female from [facility] admitted with chief complaint of crying episodes. Pt was in the Dining Room, wheelchair bound. Pt is a fair historian. Pt appears well nourished with no signs of muscle or fat depletion. Pt reports food allergies to squash, fish, liver, and barroso beans, which causes her to break out in hives; FNS informed. RD informed pt on current diet and pt had no questions. Pt reports she intentionally lose 4#. Current Diet Order/ [facility], Boost GLucose Control at 1000 and 1400 Patient / S.O Can Pertinent Medications [place], Colace, Iron, Glipizide , Glucophage, Theragran Pertinent Labs (03/13) Na 129L, Glucose 219H, A1C 6.7H. (03/14) POC Glucose 338H-343H Nutritional Hx/Data Height 1.8 m Height (Calculated Centimeters) 180.3 Current Weight (lbs) 90.718 kg Weight (Calculated Kilograms) 90.7 Weight (Calculated Grams) 05236.5 Usual body Weight (lbs) 200 % Usual Body Weight 100 [place] Body Weight 155 % [place] Body Weight 129 Recent Weight Change Yes Weight Status Overweight GI Symptoms GI Symptoms None Food Allergies No Cultural/Ethnic/Yarsani Belief No cultural or pentecostal beliefs noted. Usual diet at home [facility] with diabetic snacks at 1000, 1400 x one month Skin Integrity/Comment: Darrell 15. Skin intact. Current %PO Good (75-100%) Estimated Nutritional Goals BEE in Kcals: Using Current wt Calories/Kcals/Kg Based on current wt 90.9 kg with consideration of wheelchair-bound status Kcals Calculated 6490-7326 kcals/day (20-25 kcals/kg) Protein: Using Current wt Protein g/kg: Based on current wt 90.9 kg with consideration of wheelchair-bound status Protein Calculated 91 gm/day (1 gm/kg) Fluid: ml 8095-9253 ml/day (1 ml/kcal) Nutritional Problem 1. Problem Problem Altered nutrition-related laboratory values related to Etiology possible inconsistent carbohydrate intake, DM as evidenced by Signs/Symptoms: admitting glucose 219 mg/dl and POC Glucose 338-343 mg/dl. Malnutrition Alert Protein-Calorie Malnutrition N/A Is there a minimum of two criteria No selected? Query Text:Check all the applicable criteria. A minimum of two criteria are recommended for diagnosis of either severe or non-severe malnutrition. Malnutrition Related to Morbid Obesity Malnutrition related to morbid obesity No Intervention/Recommendation Comments 1. Recommend CCHO-75 GM diet to better meet estimated nutritional needs. 2. Consider discontinuing Boost Glucose Control supplements due to good appetite and to control blood sugar levels. Expected Outcomes/Goals Expected Outcomes/Goals Blood glucose levels will trend towards desired parameters. Physician Parameters for PEM Serum Albumin (g/dl) 3.5 - 5.0 (Normal)
--- NOTE | 2017-03-25 01:42 | Progress Notes ---
DATE: 03/24/2017 COVERING FOR: Dr. Henry. Case was discussed with staff of the patient, reviewed records. This is a 71-year-old female who was admitted on 03/13/2017 because of agitation and psychosis. The patient is a poor historian, unable to make safe plan for self-care. She was in a convalescent hospital and has been for several years. She has four children, but she has not seen them because of court order. She has not been able to elaborate and the reasons for not seeing her children was an elaborate court order that is stopping her from seeing her children. She is anxious, depressed, talking about the children. She has been at times agitated and restless, multiple somatic complaints including pain. The patient was diagnosed with depression, single episode with psychotic features, and Dr. Henry ordered her to be on Cymbalta 60 mg daily, Prozac 40 mg daily, Risperdal 1.5 mg at bedtime with no side effects, no sedation, no nausea, no extrapyramidal symptoms, still depressed, overwhelmed. No side effects with the medication. No sedation. No nausea. We will continue to work with the patient in group therapy, milieu therapy, adjust the medication as needed. JOB# [id number]
[2017-03-25] MEDS: INSULIN ASPART SLIDING SCALE 100 UNITS/ML UNIT SUBQ SCH ×4 (06:36→20:48)
[2017-03-25] MEDS: Albuterol Nebulizer 2.5mg/3mL HHN SCH ×3 (06:44→19:03)
[2017-03-25] MEDS: Budesonide 0.5 Mg/2 mL Ud HHN SCH ×2 (06:44→19:03)
[2017-03-25] MEDS: Ipratropium Neb 0.5 mg/2.5 mL UD HHN SCH ×3 (06:44→19:03)
--- NOTE | 2017-03-25 08:20 | General Progress Note ---
Subjective - Review of Systems Service Date: 03/25/17 Subjective: No new complaints. Has chronic arthritis most likely due to Rheumatoid. Has been having coughing most likely d/t Chronic Bronchitis. wants cough syrup. Objective - Results Result Diagrams: 03/13/17 22:37 03/21/17 11:04 Recent Labs: Laboratory Last Values WBC 3.4 Th/cmm (4.8-10.8) L 03/13/17 22:37 RBC 3.99 Mil/cmm (3.80-5.20) 03/13/17 22:37 Hgb 11.2 gm/dL (11.7-16.1) L 03/13/17 22:37 Hct 33.7 % (35.0-45.0) L 03/13/17 22:37 MCV 84.4 fl (81-100) 03/13/17 22:37 MCH 28.2 pg (27.0-31.0) 03/13/17 22:37 MCHC Differential 33.4 pg (28.0-36.0) 03/13/17 22:37 RDW 14.2 % (11.5-20.0) 03/13/17 22:37 Plt Count 170 Th/cmm (150-400) 03/13/17 22:37 MPV 6.8 fl 03/13/17 22:37 Neutrophils % 70.1 % (40.0-80.0) 03/13/17 22:37 Lymphocytes % 18.9 % (20.0-50.0) L 03/13/17 22:37 Monocytes % 10.7 % (2.0-10.0) H 03/13/17 22:37 Eosinophils % 0.1 % (0.0-5.0) 03/13/17 22:37 Basophils % 0.2 % (0.0-2.0) 03/13/17 22:37 Sodium 134 mEq/L (136-145) L 03/21/17 11:04 Potassium 4.2 mEq/L (3.5-5.1) 03/21/17 11:04 Chloride 99 mEq/L (98-107) 03/21/17 11:04 Carbon Dioxide 30.5 mEq/L (21.0-31.0) 03/21/17 11:04 Anion Gap 8.7 (7.0-16.0) 03/21/17 11:04 BUN 36 mg/dL (7-25) H 03/21/17 11:04 Creatinine 0.8 mg/dL (0.6-1.2) 03/21/17 11:04 Est GFR ( Amer) TNP 03/21/17 11:04 Est GFR (Non-Af Amer) TNP 03/21/17 11:04 BUN/Creatinine Ratio 45.0 03/21/17 11:04 Glucose 258 mg/dL (70-105) H 03/21/17 11:04 POC Glucose 104 MG/DL (70 - 105) 03/25/17 06:05 Hemoglobin A1c % 6.7 % (4.0-6.0) H 03/13/17 22:37 Whole Bld Lactic Acid 1.78 mmol/L (0.60-1.99) 03/13/17 22:37 Uric Acid 4.8 mg/dL (2.3-6.6) 03/17/17 10:08 Calcium 9.7 mg/dL (8.6-10.3) 03/21/17 11:04 Total Bilirubin 0.3 mg/dL (0.3-1.0) 03/13/17 22:37 AST 13 U/L (13-39) 03/13/17 22:37 ALT 16 U/L (7-52) 03/13/17 22:37 Alkaline Phosphatase 73 U/L (34-104) 03/13/17 22:37 Total Protein 6.6 gm/dL (6.0-8.3) 03/13/17 22:37 Albumin 3.6 gm/dL (3.7-5.3) L 03/13/17 22:37 Globulin 3.0 gm/dL 03/13/17 22:37 Albumin/Globulin Ratio 1.2 (1.0-1.8) 03/13/17 22:37 Triglycerides 72 mg/dL (<150) 03/13/17 22:37 Cholesterol 148 mg/dL (<200) 03/13/17 22:37 LDL Cholesterol Direct 99 mg/dL (75-193) 03/13/17 22:37 HDL Cholesterol 45 mg/dL (23-92) 03/13/17 22:37 TSH 2.66 uIU/ml (0.34-5.60) 03/13/17 22:37 Rheumatoid Factor 41.0 IU/mL (0.0-13.9) H 03/17/17 10:08 ERVIN Screen Negative 03/17/17 10:08 RPR NONREACTIVE (NONREACTIVE) 03/13/17 22:37 - Physical Exam Vitals and I&O: Vital Signs Temp 98.5 F 03/25/17 06:29 Pulse 91 03/25/17 07:01 Resp 16 03/25/17 07:01 BP 121/65 03/25/17 06:29 Pulse Ox 100 03/25/17 07:01 Intake & Output 03/24/17 03/25/17 03/25/17 18:59 06:59 18:59 Intake Total 1800 240 Balance 1800 240 Intake: Oral 1800 240 Other: # Voids 4 3 # Bowel Movements 1 0 Stool Characteristics Soft Formed Active Medications: Current Medications Acetaminophen (Tylenol) 650 mg PO Q4HR PRN PRN Reason: Pain or Fever >101 Stop: 05/13/17 00:36 Last Admin: 03/21/17 13:43 Dose: 650 mg Albuterol Sulfate (Albuterol 2.5mg/3ml Neb Ud) 2.5 mg HHN Q6HRT [facility] Stop: 05/13/17 12:59 Last Admin: 03/25/17 06:44 Dose: 2.5 mg Artificial Tears (Artificial Tears Ophth Soln) 1 drop EACH EYE BID REAL Stop: 05/13/17 08:59 Last Admin: 03/24/17 17:06 Dose: 1 drop Aspirin (Aspirin Chewable) 81 mg PO DAILY REAL Stop: 05/13/17 08:59 Last Admin: 03/24/17 08:13 Dose: 81 mg Benazepril HCl (Lotensin) 5 mg PO DAILY REAL Stop: 05/13/17 08:59 Last Admin: 03/24/17 08:12 Dose: 5 mg Bisacodyl (Dulcolax 10 Mg Supp) 10 mg RC DAILY PRN PRN Reason: Constipation Stop: 05/13/17 00:36 Budesonide (Pulmicort) 0.5 mg HHN BIDRT REAL Stop: 05/13/17 08:59 Last Admin: 03/25/17 06:44 Dose: 0.5 mg Calamine/Phenol (Calmoseptine) 1 appl TP DAILY PRN PRN Reason: infection Stop: 05/20/17 08:59 Last Admin: 03/23/17 09:06 Dose: 1 appl Calcium Carbonate (Os-Ky) 500 mg PO BID REAL Stop: 05/13/17 08:59 Last Admin: 03/24/17 17:07 Dose: 500 mg Docusate Sodium (Colace) 100 mg PO DAILY REAL Stop: 05/13/17 08:59 Last Admin: 03/24/17 08:13 Dose: 100 mg Duloxetine HCl (Cymbalta) 60 mg PO DAILY REAL PRN Reason: Protocol Stop: 05/21/17 08:59 Last Admin: 03/24/17 08:13 Dose: 60 mg Ferrous Sulfate (Iron) 325 mg PO BID [facility] Stop: 05/13/17 08:59 Last Admin: 03/24/17 17:07 Dose: 325 mg Fluoxetine HCl (Prozac) 40 mg PO QAM REAL Stop: 05/13/17 08:59 Last Admin: 03/24/17 08:12 Dose: 40 mg Fluticasone Propionate (Flonase) 1 spr NS BID REAL Stop: 05/13/17 08:59 Last Admin: 03/24/17 08:14 Dose: 1 spr Gabapentin (Neurontin) 600 mg PO TID [facility] Stop: 05/13/17 08:59 Last Admin: 03/24/17 20:56 Dose: 600 mg Glipizide (Glucotrol) 10 mg PO DAILY [facility] Stop: 05/21/17 08:59 Last Admin: 03/24/17 08:13 Dose: 10 mg Insulin Aspart (Novolog Insulin Sliding Scale) 0 units SUBQ ACHS [facility] PRN Reason: Protocol Stop: 05/13/17 20:59 Last Admin: 03/25/17 06:36 Dose: Not Given Ipratropium [place] (Atrovent Neb 0.5mg/2.5ml) 0.5 mg HHN Q6HRT [facility] Stop: 05/13/17 12:59 Last Admin: 03/25/17 06:44 Dose: 0.5 mg Ketotifen Fumarate (Zaditor 0.025% Ophth Soln) 1 drop EACH EYE BID [facility] Stop: 05/13/17 08:59 Last Admin: 03/24/17 17:07 Dose: 1 drop Lorazepam (Ativan) 0.5 mg PO Q6H PRN PRN Reason: ANXIETY/AGITATION Stop: 05/18/17 07:55 Magnesium Hydroxide (Milk Of Magnesia) 30 ml PO Q72H REAL Stop: 05/13/17 08:59 Last Admin: 03/23/17 09:10 Dose: 30 ml Metformin HCl (Glucophage) 1,000 mg PO BID REAL Stop: 05/13/17 08:59 Last Admin: 03/24/17 17:07 Dose: 1,000 mg Methylprednisolone (Medrol) 4 mg PO DAILY PRN PRN Reason: arthralgia Stop: 05/19/17 08:16 Multivitamins/Vitamin C (Theragran) 1 tab PO DAILY REAL Stop: 05/13/17 08:59 Last Admin: 03/24/17 08:14 Dose: 1 tab Risperidone (Risperdal) 1.5 mg PO HS REAL PRN Reason: Protocol Stop: 05/13/17 20:59 Last Admin: 03/24/17 20:55 Dose: 1.5 mg Sodium Phosphate (Fleet Enema) 135 ml RC Q48H PRN PRN Reason: Constipation Stop: 05/13/17 00:36 Tramadol HCl (Ultram) 50 mg PO Q6H PRN PRN Reason: arthralgia Stop: 05/16/17 08:23 Last Admin: 03/23/17 20:55 Dose: 50 mg Trazodone HCl (Desyrel) 150 mg PO HS REAL Stop: 05/13/17 20:59 Last Admin: 03/24/17 20:55 Dose: 150 mg Zolpidem Tartrate (Ambien) 5 mg PO HS PRN PRN Reason: Insomnia Stop: 05/13/17 02:20 Last Admin: 03/17/17 22:21 Dose: 5 mg General: Alert, Oriented x3, No acute distress HEENT: Atraumatic, PERRLA, EOMI Neck: Supple Cardiovascular: Regular rate, Normal S1, Normal S2 Lungs: Clear to auscultation Abdomen: Bowel sounds, Soft Extremities: no Clubbing, no Cyanosis, no Edema Skin: Rash (redness present) Assessment/Plan - Problem List Patient Problems: All Active Problems Arthralgia (Acute) M25.50 COPD (chronic obstructive pulmonary disease) (Acute) Dementia (Acute) F03.90 Dermatitis (Acute) L30.9 Diabetes mellitus (Acute) E11.9 Glaucoma (Acute) H40.9 Hypertension (Acute) I10 Hyponatremia (Acute) E87.1 Insomnia (Acute) G47.00 Neuralgia (Acute) M79.2 Psychosis (Acute) F29 Rheumatoid arthritis (Acute) M06.9 Schizophrenia (Acute) F20.9 - Assessment Assessment: psychosis,dementia,schizophrenia,insomnia ... admit to geropsyche hyponatremia ... will order repeat BMP hypertension ... controlled. continue current medication. diabetes mellitus not controlled ... will continue SSI, accuhecks QID. Will increase Glipizide from 5mg to 10mg. Continue Metformin 1000mg PO bID. COPD ... will continue current inhalers, will add cough syrup. s/p UTI ... will order UA if not already ordered by ER glaucoma ... continue current treatment neuralgia ... most likely peripheral diabetic neuropathy ... on neurontin rheumatoid arthritis .... consistent with elevated RA factor. course of oral prednisone dermatitis ... will order calmoseptine - Plan Plan: psychosis,dementia,schizophrenia,insomnia ... admit to geropsyche hyponatremia ... will order repeat BMP hypertension ... controlled. continue current medication. diabetes mellitus not controlled ... will continue SSI, accuhecks QID. Will increase Glipizide from 5mg to 10mg. Continue Metformin 1000mg PO bID. COPD ... will continue current inhalers and will add promethazine with DM for cough. s/p UTI ... will order UA if not already ordered by ER glaucoma ... continue current treatment neuralgia ... most likely peripheral diabetic neuropathy ... on neurontin rheumatoid arthritis .... consistent with elevated RA factor. course of oral prednisone dermatitis ... will order calmoseptine Nutritional Asmnt/Malnutr-PDOC - Dietary Evaluation Malnutrition Findings (Please click <Entered> for more info): Nutritional Asmnt/Malnutrition Start: 03/14/17 12: 32 Text: Status: Complete Freq: Document 03/14/17 18:06 [facility] (Rec: 03/14/17 18:13 [facility] [id number]) Nutritional Asmnt/Malnutrition Patient General Information Nutritional Screening High Risk Screening Diagnosis Depression (per ER report) Pertinent Medical Hx/Surgical Hx HTN, DM, severe sepsis, chronic bronchitis, s/p UTI, dementia, schizophrenia, depression, insomnia, glaucoma , nerualgia, depression Subjective Information Pt is a 71-year-old female from [facility] admitted with chief complaint of crying episodes. Pt was in the Dining Room, wheelchair bound. Pt is a fair historian. Pt appears well nourished with no signs of muscle or fat depletion. Pt reports food allergies to squash, fish, liver, and barroso beans, which causes her to break out in hives; FNS informed. RD informed pt on current diet and pt had no questions. Pt reports she intentionally lose 4#. Current Diet Order/ Nutrition Support [facility], Boost GLucose Control at 1000 and 1400 Patient / S.O Can Pertinent Medications [place], Colace, Iron, Glipizide , Glucophage, Theragran Pertinent Labs (03/13) Na 129L, Glucose 219H, A1C 6.7H. (03/14) POC Glucose 338H-343H Nutritional Hx/Data Height 1.8 m Height (Calculated Centimeters) 180.3 Current Weight (lbs) 90.718 kg Weight (Calculated Kilograms) 90.7 Weight (Calculated Grams) 79795.5 Usual body Weight (lbs) 200 % Usual Body Weight 100 [place] Body Weight 155 % [place] Body Weight 129 Recent Weight Change Yes Weight Status Overweight GI Symptoms GI Symptoms None Food Allergies No Cultural/Ethnic/Mosque Belief No cultural or buddhism beliefs noted. Usual diet at home CCHO with diabetic snacks at 1000, 1400 x one month Skin Integrity/Comment: Darrell 15. Skin intact. Current %PO Good (75-100%) Estimated Nutritional Goals BEE in Kcals: Using Current wt Calories/Kcals/Kg Based on current wt 90.9 kg with consideration of wheelchair-bound status Kcals Calculated 9914-3363 kcals/day (20-25 kcals/kg) Protein: Using Current wt Protein g/kg: Based on current wt 90.9 kg with consideration of wheelchair-bound status Protein Calculated 91 gm/day (1 gm/kg) Fluid: ml 8917-3125 ml/day (1 ml/kcal) Nutritional Problem 1. Problem Problem Altered nutrition-related laboratory values related to Etiology possible inconsistent carbohydrate intake, DM as evidenced by Signs/Symptoms: admitting glucose 219 mg/dl and POC Glucose 338-343 mg/dl. Malnutrition Alert Protein-Calorie Malnutrition N/A Is there a minimum of two criteria No selected? Query Text:Check all the applicable criteria. A minimum of two criteria are recommended for diagnosis of either severe or non-severe malnutrition. Malnutrition Related to Morbid Obesity Malnutrition related to morbid obesity No Intervention/Recommendation Comments 1. Recommend CCHO-75 GM diet to better meet estimated nutritional needs. 2. Consider discontinuing Boost Glucose Control supplements due to good appetite and to control blood sugar levels. Expected Outcomes/Goals Expected Outcomes/Goals Blood glucose levels will trend towards desired parameters. Physician Parameters for PEM Serum Albumin (g/dl) 3.5 - 5.0 (Normal)
[2017-03-25] MEDS: Menthol/Zinc Oxide Oint 113gm Tube TP PRN (08:23)
[2017-03-25] MEDS: Polyvinyl Alcohol Ophth Soln 15 mL Bottle EACH EYE SCH ×2 (08:24→16:25)
[2017-03-25] MEDS: Fluticasone Propionate 0.05mg/Actuation 16gm Nasal Spray NS SCH ×2 (08:25→16:18)
[2017-03-25] MEDS: Ferrous Sulfate 325 MG TAB PO SCH ×2 (08:26→16:20)
[2017-03-25] MEDS: Multivitamin Tab PO SCH (08:27)
[2017-03-25] MEDS: Aspirin 81mg Chewable Tab PO SCH (08:31)
--- NOTE | 2017-03-25 15:24 | Progress Notes ---
DATE: 03/25/2017 Case was discussed with staff of the patient, reviewed records. The patient continues to look disheveled. Continues to appear to be depressed. Continues to be unable to make safe plan for self-care. Continues to have poor insight. She is unpredictable, impulsive. No side effects with the medication, no sedation, no nausea, no extrapyramidal symptoms. She is on Cymbalta 60 mg daily, Prozac 40 mg a day, Neurontin 600 mg 3 times a day and Risperdal 1.5 mg at bedtime, trazodone 150 mg at bedtime and we will continue to work with the patient in group therapy, milieu therapy, adjust the medication as needed. JOB# [id number]
[2017-03-26] MEDS: Ipratropium Neb 0.5 mg/2.5 mL UD HHN SCH ×4 (00:49→19:01)
[2017-03-26] MEDS: Albuterol Nebulizer 2.5mg/3mL HHN SCH ×4 (00:49→19:01)
[2017-03-26] MEDS: INSULIN ASPART SLIDING SCALE 100 UNITS/ML UNIT SUBQ SCH ×4 (06:31→20:18)
[2017-03-26] MEDS: Budesonide 0.5 Mg/2 mL Ud HHN SCH ×2 (07:08→19:01)
--- NOTE | 2017-03-26 08:11 | General Progress Note ---
Subjective - Review of Systems Service Date: 03/26/17 Subjective: No new complaints. Has chronic arthritis most likely due to Rheumatoid. Has been having coughing most likely d/t Chronic Bronchitis. wants cough syrup. Objective - Results Result Diagrams: 03/13/17 22:37 03/21/17 11:04 Recent Labs: Laboratory Last Values WBC 3.4 Th/cmm (4.8-10.8) L 03/13/17 22:37 RBC 3.99 Mil/cmm (3.80-5.20) 03/13/17 22:37 Hgb 11.2 gm/dL (11.7-16.1) L 03/13/17 22:37 Hct 33.7 % (35.0-45.0) L 03/13/17 22:37 MCV 84.4 fl (81-100) 03/13/17 22:37 MCH 28.2 pg (27.0-31.0) 03/13/17 22:37 MCHC Differential 33.4 pg (28.0-36.0) 03/13/17 22:37 RDW 14.2 % (11.5-20.0) 03/13/17 22:37 Plt Count 170 Th/cmm (150-400) 03/13/17 22:37 MPV 6.8 fl 03/13/17 22:37 Neutrophils % 70.1 % (40.0-80.0) 03/13/17 22:37 Lymphocytes % 18.9 % (20.0-50.0) L 03/13/17 22:37 Monocytes % 10.7 % (2.0-10.0) H 03/13/17 22:37 Eosinophils % 0.1 % (0.0-5.0) 03/13/17 22:37 Basophils % 0.2 % (0.0-2.0) 03/13/17 22:37 Sodium 134 mEq/L (136-145) L 03/21/17 11:04 Potassium 4.2 mEq/L (3.5-5.1) 03/21/17 11:04 Chloride 99 mEq/L (98-107) 03/21/17 11:04 Carbon Dioxide 30.5 mEq/L (21.0-31.0) 03/21/17 11:04 Anion Gap 8.7 (7.0-16.0) 03/21/17 11:04 BUN 36 mg/dL (7-25) H 03/21/17 11:04 Creatinine 0.8 mg/dL (0.6-1.2) 03/21/17 11:04 Est GFR ( Amer) TNP 03/21/17 11:04 Est GFR (Non-Af Amer) TNP 03/21/17 11:04 BUN/Creatinine Ratio 45.0 03/21/17 11:04 Glucose 258 mg/dL (70-105) H 03/21/17 11:04 POC Glucose 102 MG/DL (70 - 105) 03/26/17 06:26 Hemoglobin A1c % 6.7 % (4.0-6.0) H 03/13/17 22:37 Whole Bld Lactic Acid 1.78 mmol/L (0.60-1.99) 03/13/17 22:37 Uric Acid 4.8 mg/dL (2.3-6.6) 03/17/17 10:08 Calcium 9.7 mg/dL (8.6-10.3) 03/21/17 11:04 Total Bilirubin 0.3 mg/dL (0.3-1.0) 03/13/17 22:37 AST 13 U/L (13-39) 03/13/17 22:37 ALT 16 U/L (7-52) 03/13/17 22:37 Alkaline Phosphatase 73 U/L (34-104) 03/13/17 22:37 Total Protein 6.6 gm/dL (6.0-8.3) 03/13/17 22:37 Albumin 3.6 gm/dL (3.7-5.3) L 03/13/17 22:37 Globulin 3.0 gm/dL 03/13/17 22:37 Albumin/Globulin Ratio 1.2 (1.0-1.8) 03/13/17 22:37 Triglycerides 72 mg/dL (<150) 03/13/17 22:37 Cholesterol 148 mg/dL (<200) 03/13/17 22:37 LDL Cholesterol Direct 99 mg/dL (75-193) 03/13/17 22:37 HDL Cholesterol 45 mg/dL (23-92) 03/13/17 22:37 TSH 2.66 uIU/ml (0.34-5.60) 03/13/17 22:37 Rheumatoid Factor 41.0 IU/mL (0.0-13.9) H 03/17/17 10:08 ERVIN Screen Negative 03/17/17 10:08 RPR NONREACTIVE (NONREACTIVE) 03/13/17 22:37 - Physical Exam Vitals and I&O: Vital Signs Temp 97.6 F 03/26/17 05:13 Pulse 95 03/26/17 07:24 Resp 20 03/26/17 07:24 BP 117/64 03/26/17 05:13 Pulse Ox 96 03/26/17 07:24 Intake & Output 03/25/17 03/26/17 03/26/17 18:59 06:59 18:59 Intake Total 2200 Balance 2200 Intake: Oral 2200 Other: # Voids 4 3 # Bowel Movements 0 0 Stool Characteristics Soft Formed Active Medications: Current Medications Acetaminophen (Tylenol) 650 mg PO Q4HR PRN PRN Reason: Pain or Fever >101 Stop: 05/13/17 00:36 Last Admin: 03/21/17 13:43 Dose: 650 mg Albuterol Sulfate (Albuterol 2.5mg/3ml Neb Ud) 2.5 mg HHN Q6HRT [facility] Stop: 05/13/17 12:59 Last Admin: 03/26/17 07:08 Dose: 2.5 mg Artificial Tears (Artificial Tears Ophth Soln) 1 drop EACH EYE BID REAL Stop: 05/13/17 08:59 Last Admin: 03/25/17 16:25 Dose: 1 drop Aspirin (Aspirin Chewable) 81 mg PO DAILY REAL Stop: 05/13/17 08:59 Last Admin: 03/25/17 08:31 Dose: 81 mg Benazepril HCl (Lotensin) 5 mg PO DAILY REAL Stop: 05/13/17 08:59 Last Admin: 03/25/17 08:27 Dose: 5 mg Bisacodyl (Dulcolax 10 Mg Supp) 10 mg RC DAILY PRN PRN Reason: Constipation Stop: 05/13/17 00:36 Budesonide (Pulmicort) 0.5 mg HHN BIDRT REAL Stop: 05/13/17 08:59 Last Admin: 03/26/17 07:08 Dose: 0.5 mg Calamine/Phenol (Calmoseptine) 1 appl TP DAILY PRN PRN Reason: infection Stop: 05/20/17 08:59 Last Admin: 03/25/17 08:23 Dose: 1 appl Calcium Carbonate (Os-Ky) 500 mg PO BID REAL Stop: 05/13/17 08:59 Last Admin: 03/25/17 16:19 Dose: 500 mg Docusate Sodium (Colace) 100 mg PO DAILY REAL Stop: 05/13/17 08:59 Last Admin: 03/25/17 08:32 Dose: Not Given Duloxetine HCl (Cymbalta) 60 mg PO DAILY REAL PRN Reason: Protocol Stop: 05/21/17 08:59 Last Admin: 03/25/17 08:26 Dose: 60 mg Ferrous Sulfate (Iron) 325 mg PO BID [facility] Stop: 05/13/17 08:59 Last Admin: 03/25/17 16:20 Dose: 325 mg Fluoxetine HCl (Prozac) 40 mg PO QAM REAL Stop: 05/13/17 08:59 Last Admin: 03/25/17 08:26 Dose: 40 mg Fluticasone Propionate (Flonase) 1 spr NS BID REAL Stop: 05/13/17 08:59 Last Admin: 03/25/17 16:18 Dose: 1 spr Gabapentin (Neurontin) 600 mg PO TID [facility] Stop: 05/13/17 08:59 Last Admin: 03/25/17 20:45 Dose: 600 mg Glipizide (Glucotrol) 10 mg PO DAILY REAL Stop: 05/21/17 08:59 Last Admin: 03/25/17 08:31 Dose: 10 mg Insulin Aspart (Novolog Insulin Sliding Scale) 0 units SUBQ ACHS [facility] PRN Reason: Protocol Stop: 05/13/17 20:59 Last Admin: 03/26/17 06:31 Dose: Not Given Ipratropium [place] (Atrovent Neb 0.5mg/2.5ml) 0.5 mg HHN Q6HRT [facility] Stop: 05/13/17 12:59 Last Admin: 03/26/17 07:09 Dose: 0.5 mg Ketotifen Fumarate (Zaditor 0.025% Ophth Soln) 1 drop EACH EYE BID REAL Stop: 05/13/17 08:59 Last Admin: 03/25/17 16:20 Dose: 1 drop Lorazepam (Ativan) 0.5 mg PO Q6H PRN PRN Reason: ANXIETY/AGITATION Stop: 05/18/17 07:55 Magnesium Hydroxide (Milk Of Magnesia) 30 ml PO Q72H REAL Stop: 05/13/17 08:59 Last Admin: 03/23/17 09:10 Dose: 30 ml Metformin HCl (Glucophage) 1,000 mg PO BID REAL Stop: 05/13/17 08:59 Last Admin: 03/25/17 16:19 Dose: 1,000 mg Methylprednisolone (Medrol) 4 mg PO DAILY PRN PRN Reason: arthralgia Stop: 05/19/17 08:16 Multivitamins/Vitamin C (Theragran) 1 tab PO DAILY REAL Stop: 05/13/17 08:59 Last Admin: 03/25/17 08:27 Dose: 1 tab Promethazine HCl/Dextromethorphan (Phenergan Dm 6.25/15mg-5 Ml) 5 ml PO TID PRN PRN Reason: Cough Stop: 05/24/17 08:16 Risperidone (Risperdal) 1.5 mg PO HS REAL PRN Reason: Protocol Stop: 05/13/17 20:59 Last Admin: 03/25/17 20:44 Dose: 1.5 mg Sodium Phosphate (Fleet Enema) 135 ml RC Q48H PRN PRN Reason: Constipation Stop: 05/13/17 00:36 Tramadol HCl (Ultram) 50 mg PO Q6H PRN PRN Reason: arthralgia Stop: 05/16/17 08:23 Last Admin: 03/23/17 20:55 Dose: 50 mg Trazodone HCl (Desyrel) 150 mg PO HS REAL Stop: 05/13/17 20:59 Last Admin: 03/25/17 20:45 Dose: 150 mg Zolpidem Tartrate (Ambien) 5 mg PO HS PRN PRN Reason: Insomnia Stop: 05/13/17 02:20 Last Admin: 03/17/17 22:21 Dose: 5 mg General: Alert, Oriented x3, No acute distress HEENT: Atraumatic, PERRLA, EOMI Neck: Supple Cardiovascular: Regular rate, Normal S1, Normal S2 Lungs: Clear to auscultation Abdomen: Bowel sounds, Soft Extremities: no Clubbing, no Cyanosis, no Edema Skin: Rash (redness present) Assessment/Plan - Problem List Patient Problems: All Active Problems Arthralgia (Acute) M25.50 COPD (chronic obstructive pulmonary disease) (Acute) Dementia (Acute) F03.90 Dermatitis (Acute) L30.9 Diabetes mellitus (Acute) E11.9 Glaucoma (Acute) H40.9 Hypertension (Acute) I10 Hyponatremia (Acute) E87.1 Insomnia (Acute) G47.00 Neuralgia (Acute) M79.2 Psychosis (Acute) F29 Rheumatoid arthritis (Acute) M06.9 Schizophrenia (Acute) F20.9 - Assessment Assessment: psychosis,dementia,schizophrenia,insomnia ... admit to geropsyche hyponatremia ... will order repeat BMP hypertension ... controlled. continue current medication. diabetes mellitus not controlled ... will continue SSI, accuhecks QID. Will increase Glipizide from 5mg to 10mg. Continue Metformin 1000mg PO bID. COPD ... will continue current inhalers, will add cough syrup. s/p UTI ... will order UA if not already ordered by ER glaucoma ... continue current treatment neuralgia ... most likely peripheral diabetic neuropathy ... on neurontin rheumatoid arthritis .... consistent with elevated RA factor. course of oral prednisone dermatitis ... will order calmoseptine - Plan Plan: psychosis,dementia,schizophrenia,insomnia ... admit to geropsyche hyponatremia ... will order repeat BMP hypertension ... controlled. continue current medication. diabetes mellitus not controlled ... will continue SSI, accuhecks QID. Will increase Glipizide from 5mg to 10mg. Continue Metformin 1000mg PO bID. COPD ... will continue current inhalers and will add promethazine with DM for cough. s/p UTI ... will order UA if not already ordered by ER glaucoma ... continue current treatment neuralgia ... most likely peripheral diabetic neuropathy ... on neurontin rheumatoid arthritis .... consistent with elevated RA factor. course of oral prednisone dermatitis ... will order calmoseptine Nutritional Asmnt/Malnutr-PDOC - Dietary Evaluation Malnutrition Findings (Please click <Entered> for more info): Nutritional Asmnt/Malnutrition Start: 03/14/17 12: 32 Text: Status: Complete Freq: Document 03/14/17 18:06 [facility] (Rec: 03/14/17 18:13 [facility] [id number]) Nutritional Asmnt/Malnutrition Patient General Information Nutritional Screening High Risk Screening Diagnosis Depression (per ER report) Pertinent Medical Hx/Surgical Hx HTN, DM, severe sepsis, chronic bronchitis, s/p UTI, dementia, schizophrenia, depression, insomnia, glaucoma , nerualgia, depression Subjective Information Pt is a 71-year-old female from [facility] admitted with chief complaint of crying episodes. Pt was in the Dining Room, wheelchair bound. Pt is a fair historian. Pt appears well nourished with no signs of muscle or fat depletion. Pt reports food allergies to squash, fish, liver, and barroso beans, which causes her to break out in hives; FNS informed. RD informed pt on current diet and pt had no questions. Pt reports she intentionally lose 4#. Current Diet Order/ Nutrition Support CCHO, Boost GLucose Control at 1000 and 1400 Patient / S.O Can Pertinent Medications [place], Colace, Iron, Glipizide , Glucophage, Theragran Pertinent Labs (03/13) Na 129L, Glucose 219H, A1C 6.7H. (03/14) POC Glucose 338H-343H Nutritional Hx/Data Height 1.8 m Height (Calculated Centimeters) 180.3 Current Weight (lbs) 90.718 kg Weight (Calculated Kilograms) 90.7 Weight (Calculated Grams) 12593.5 Usual body Weight (lbs) 200 % Usual Body Weight 100 [place] Body Weight 155 % [place] Body Weight 129 Recent Weight Change Yes Weight Status Overweight GI Symptoms GI Symptoms None Food Allergies No Cultural/Ethnic/Yazidi Belief No cultural or sikhism beliefs noted. Usual diet at home CCHO with diabetic snacks at 1000, 1400 x one month Skin Integrity/Comment: Darrell 15. Skin intact. Current %PO Good (75-100%) Estimated Nutritional Goals BEE in Kcals: Using Current wt Calories/Kcals/Kg Based on current wt 90.9 kg with consideration of wheelchair-bound status Kcals Calculated 9390-6634 kcals/day (20-25 kcals/kg) Protein: Using Current wt Protein g/kg: Based on current wt 90.9 kg with consideration of wheelchair-bound status Protein Calculated 91 gm/day (1 gm/kg) Fluid: ml 3762-3160 ml/day (1 ml/kcal) Nutritional Problem 1. Problem Problem Altered nutrition-related laboratory values related to Etiology possible inconsistent carbohydrate intake, DM as evidenced by Signs/Symptoms: admitting glucose 219 mg/dl and POC Glucose 338-343 mg/dl. Malnutrition Alert Protein-Calorie Malnutrition N/A Is there a minimum of two criteria No selected? Query Text:Check all the applicable criteria. A minimum of two criteria are recommended for diagnosis of either severe or non-severe malnutrition. Malnutrition Related to Morbid Obesity Malnutrition related to morbid obesity No Intervention/Recommendation Comments 1. Recommend CCHO-75 GM diet to better meet estimated nutritional needs. 2. Consider discontinuing Boost Glucose Control supplements due to good appetite and to control blood sugar levels. Expected Outcomes/Goals Expected Outcomes/Goals Blood glucose levels will trend towards desired parameters. Physician Parameters for PEM Serum Albumin (g/dl) 3.5 - 5.0 (Normal)
[2017-03-26] MEDS: Multivitamin Tab PO SCH (08:38)
[2017-03-26] MEDS: Ferrous Sulfate 325 MG TAB PO SCH ×2 (08:39→16:38)
[2017-03-26] MEDS: Aspirin 81mg Chewable Tab PO SCH (08:41)
[2017-03-26] MEDS: Fluticasone Propionate 0.05mg/Actuation 16gm Nasal Spray NS SCH ×2 (08:42→16:37)
[2017-03-26] MEDS: Magnesium Hydroxide (MOM) 30 mL UDC PO SCH (08:42)
[2017-03-26] MEDS: Polyvinyl Alcohol Ophth Soln 15 mL Bottle EACH EYE SCH ×2 (08:42→16:39)
[2017-03-26] MEDS: Menthol/Zinc Oxide Oint 113gm Tube TP PRN (08:43)
--- NOTE | 2017-03-26 12:43 | Progress Notes ---
DATE: 03/26/2017 SUBJECTIVE: Chart reviewed and the patient interviewed. Also discussed the patient's condition with the staff and reviewed records and labs. The patient continued to have multiple somatic complaints. The patient also is still anxious and depressed and interacting minimally with others. She also still has episodes of irritability and anger, but less than before. She also is feeling hopeless and helpless. ASSESSMENT: The patient is still depressed and agitated. TREATMENT PLAN: We will continue monitoring her behavior and her condition closely. Also, continue working on adjusting psychotropic medications and followup. JOB# [id number]
[2017-03-27] MEDS: Albuterol Nebulizer 2.5mg/3mL HHN SCH ×4 (01:03→19:48)
[2017-03-27] MEDS: Ipratropium Neb 0.5 mg/2.5 mL UD HHN SCH ×4 (01:03→19:48)
[2017-03-27] MEDS: Budesonide 0.5 Mg/2 mL Ud HHN SCH ×2 (06:48→19:48)
[2017-03-27] MEDS: INSULIN ASPART SLIDING SCALE 100 UNITS/ML UNIT SUBQ SCH ×3 (06:49→21:23)
--- NOTE | 2017-03-27 08:05 | General Progress Note ---
Subjective - Review of Systems Service Date: 03/27/17 Subjective: No new complaints. Has chronic arthritis most likely due to Rheumatoid. Has been having coughing most likely d/t Chronic Bronchitis. wants cough syrup. Objective - Results Result Diagrams: 03/13/17 22:37 03/21/17 11:04 Recent Labs: Laboratory Last Values WBC 3.4 Th/cmm (4.8-10.8) L 03/13/17 22:37 RBC 3.99 Mil/cmm (3.80-5.20) 03/13/17 22:37 Hgb 11.2 gm/dL (11.7-16.1) L 03/13/17 22:37 Hct 33.7 % (35.0-45.0) L 03/13/17 22:37 MCV 84.4 fl (81-100) 03/13/17 22:37 MCH 28.2 pg (27.0-31.0) 03/13/17 22:37 MCHC Differential 33.4 pg (28.0-36.0) 03/13/17 22:37 RDW 14.2 % (11.5-20.0) 03/13/17 22:37 Plt Count 170 Th/cmm (150-400) 03/13/17 22:37 MPV 6.8 fl 03/13/17 22:37 Neutrophils % 70.1 % (40.0-80.0) 03/13/17 22:37 Lymphocytes % 18.9 % (20.0-50.0) L 03/13/17 22:37 Monocytes % 10.7 % (2.0-10.0) H 03/13/17 22:37 Eosinophils % 0.1 % (0.0-5.0) 03/13/17 22:37 Basophils % 0.2 % (0.0-2.0) 03/13/17 22:37 Sodium 134 mEq/L (136-145) L 03/21/17 11:04 Potassium 4.2 mEq/L (3.5-5.1) 03/21/17 11:04 Chloride 99 mEq/L (98-107) 03/21/17 11:04 Carbon Dioxide 30.5 mEq/L (21.0-31.0) 03/21/17 11:04 Anion Gap 8.7 (7.0-16.0) 03/21/17 11:04 BUN 36 mg/dL (7-25) H 03/21/17 11:04 Creatinine 0.8 mg/dL (0.6-1.2) 03/21/17 11:04 Est GFR ( Amer) TNP 03/21/17 11:04 Est GFR (Non-Af Amer) TNP 03/21/17 11:04 BUN/Creatinine Ratio 45.0 03/21/17 11:04 Glucose 258 mg/dL (70-105) H 03/21/17 11:04 POC Glucose 179 MG/DL (70 - 105) H 03/26/17 20:06 Hemoglobin A1c % 6.7 % (4.0-6.0) H 03/13/17 22:37 Whole Bld Lactic Acid 1.78 mmol/L (0.60-1.99) 03/13/17 22:37 Uric Acid 4.8 mg/dL (2.3-6.6) 03/17/17 10:08 Calcium 9.7 mg/dL (8.6-10.3) 03/21/17 11:04 Total Bilirubin 0.3 mg/dL (0.3-1.0) 03/13/17 22:37 AST 13 U/L (13-39) 03/13/17 22:37 ALT 16 U/L (7-52) 03/13/17 22:37 Alkaline Phosphatase 73 U/L (34-104) 03/13/17 22:37 Total Protein 6.6 gm/dL (6.0-8.3) 03/13/17 22:37 Albumin 3.6 gm/dL (3.7-5.3) L 03/13/17 22:37 Globulin 3.0 gm/dL 03/13/17 22:37 Albumin/Globulin Ratio 1.2 (1.0-1.8) 03/13/17 22:37 Triglycerides 72 mg/dL (<150) 03/13/17 22:37 Cholesterol 148 mg/dL (<200) 03/13/17 22:37 LDL Cholesterol Direct 99 mg/dL (75-193) 03/13/17 22:37 HDL Cholesterol 45 mg/dL (23-92) 03/13/17 22:37 TSH 2.66 uIU/ml (0.34-5.60) 03/13/17 22:37 Rheumatoid Factor 41.0 IU/mL (0.0-13.9) H 03/17/17 10:08 ERVIN Screen Negative 03/17/17 10:08 RPR NONREACTIVE (NONREACTIVE) 03/13/17 22:37 - Physical Exam Vitals and I&O: Vital Signs Temp 97.4 F 03/27/17 06:45 Pulse 90 03/27/17 06:56 Resp 20 03/27/17 06:56 BP 128/67 03/27/17 06:45 Pulse Ox 97 03/27/17 06:56 Intake & Output 03/26/17 03/27/17 03/27/17 18:59 06:59 18:59 Intake Total 1200 120 Balance 1200 120 Intake: Oral 1200 120 Other: # Voids 3 # Bowel Movements 1 Active Medications: Current Medications Acetaminophen (Tylenol) 650 mg PO Q4HR PRN PRN Reason: Pain or Fever >101 Stop: 05/13/17 00:36 Last Admin: 03/21/17 13:43 Dose: 650 mg Albuterol Sulfate (Albuterol 2.5mg/3ml Neb Ud) 2.5 mg HHN Q6HRT [facility] Stop: 05/13/17 12:59 Last Admin: 03/27/17 06:48 Dose: 2.5 mg Artificial Tears (Artificial Tears Ophth Soln) 1 drop EACH EYE BID [facility] Stop: 05/13/17 08:59 Last Admin: 03/26/17 16:39 Dose: 1 drop Aspirin (Aspirin Chewable) 81 mg PO DAILY [facility] Stop: 05/13/17 08:59 Last Admin: 03/26/17 08:41 Dose: 81 mg Benazepril HCl (Lotensin) 5 mg PO DAILY REAL Stop: 05/13/17 08:59 Last Admin: 03/26/17 08:49 Dose: 5 mg Bisacodyl (Dulcolax 10 Mg Supp) 10 mg RC DAILY PRN PRN Reason: Constipation Stop: 05/13/17 00:36 Budesonide (Pulmicort) 0.5 mg HHN BIDRT [facility] Stop: 05/13/17 08:59 Last Admin: 03/27/17 06:48 Dose: 0.5 mg Calamine/Phenol (Calmoseptine) 1 appl TP DAILY PRN PRN Reason: infection Stop: 05/20/17 08:59 Last Admin: 03/26/17 08:43 Dose: 1 appl Calcium Carbonate (Os-Ky) 500 mg PO BID [facility] Stop: 05/13/17 08:59 Last Admin: 03/26/17 16:38 Dose: 500 mg Docusate Sodium (Colace) 100 mg PO DAILY [facility] Stop: 05/13/17 08:59 Last Admin: 03/26/17 08:42 Dose: Not Given Duloxetine HCl (Cymbalta) 60 mg PO DAILY [facility] PRN Reason: Protocol Stop: 05/21/17 08:59 Last Admin: 03/26/17 08:39 Dose: 60 mg Ferrous Sulfate (Iron) 325 mg PO BID [facility] Stop: 05/13/17 08:59 Last Admin: 03/26/17 16:38 Dose: 325 mg Fluoxetine HCl (Prozac) 40 mg PO QAM [facility] Stop: 05/13/17 08:59 Last Admin: 03/26/17 08:40 Dose: 40 mg Fluticasone Propionate (Flonase) 1 spr NS BID [facility] Stop: 05/13/17 08:59 Last Admin: 03/26/17 16:37 Dose: 1 spr Gabapentin (Neurontin) 600 mg PO TID [facility] Stop: 05/13/17 08:59 Last Admin: 03/26/17 20:30 Dose: 600 mg Glipizide (Glucotrol) 10 mg PO DAILY [facility] Stop: 05/21/17 08:59 Last Admin: 03/26/17 08:41 Dose: 10 mg Insulin Aspart (Novolog Insulin Sliding Scale) 0 units SUBQ ACHS [facility] PRN Reason: Protocol Stop: 05/13/17 20:59 Last Admin: 03/27/17 06:49 Dose: Not Given Ipratropium [place] (Atrovent Neb 0.5mg/2.5ml) 0.5 mg HHN Q6HRT [facility] Stop: 05/13/17 12:59 Last Admin: 03/27/17 06:48 Dose: 0.5 mg Ketotifen Fumarate (Zaditor 0.025% Ophth Soln) 1 drop EACH EYE BID [facility] Stop: 05/13/17 08:59 Last Admin: 03/26/17 16:39 Dose: 1 drop Lorazepam (Ativan) 0.5 mg PO Q6H PRN PRN Reason: ANXIETY/AGITATION Stop: 05/18/17 07:55 Magnesium Hydroxide (Milk Of Magnesia) 30 ml PO Q72H REAL Stop: 05/13/17 08:59 Last Admin: 03/26/17 08:42 Dose: Not Given Metformin HCl (Glucophage) 1,000 mg PO BID REAL Stop: 05/13/17 08:59 Last Admin: 03/26/17 16:38 Dose: 1,000 mg Methylprednisolone (Medrol) 4 mg PO DAILY PRN PRN Reason: arthralgia Stop: 05/19/17 08:16 Multivitamins/Vitamin C (Theragran) 1 tab PO DAILY REAL Stop: 05/13/17 08:59 Last Admin: 03/26/17 08:38 Dose: 1 tab Promethazine HCl/Dextromethorphan (Phenergan Dm 6.25/15mg-5 Ml) 5 ml PO TID PRN PRN Reason: Cough Stop: 05/24/17 08:16 Risperidone (Risperdal) 1.5 mg PO HS REAL PRN Reason: Protocol Stop: 05/13/17 20:59 Last Admin: 03/26/17 20:30 Dose: 1.5 mg Sodium Phosphate (Fleet Enema) 135 ml RC Q48H PRN PRN Reason: Constipation Stop: 05/13/17 00:36 Tramadol HCl (Ultram) 50 mg PO Q6H PRN PRN Reason: arthralgia Stop: 05/16/17 08:23 Last Admin: 03/23/17 20:55 Dose: 50 mg Trazodone HCl (Desyrel) 150 mg PO HS REAL Stop: 05/13/17 20:59 Last Admin: 03/26/17 20:30 Dose: 150 mg Zolpidem Tartrate (Ambien) 5 mg PO HS PRN PRN Reason: Insomnia Stop: 05/13/17 02:20 Last Admin: 03/17/17 22:21 Dose: 5 mg General: Alert, Oriented x3, No acute distress HEENT: Atraumatic, PERRLA, EOMI Neck: Supple Cardiovascular: Regular rate, Normal S1, Normal S2 Lungs: Clear to auscultation Abdomen: Bowel sounds, Soft Extremities: no Clubbing, no Cyanosis, no Edema Skin: Rash (redness present) Assessment/Plan - Problem List Patient Problems: All Active Problems Arthralgia (Acute) M25.50 COPD (chronic obstructive pulmonary disease) (Acute) Dementia (Acute) F03.90 Dermatitis (Acute) L30.9 Diabetes mellitus (Acute) E11.9 Glaucoma (Acute) H40.9 Hypertension (Acute) I10 Hyponatremia (Acute) E87.1 Insomnia (Acute) G47.00 Neuralgia (Acute) M79.2 Psychosis (Acute) F29 Rheumatoid arthritis (Acute) M06.9 Schizophrenia (Acute) F20.9 - Assessment Assessment: psychosis,dementia,schizophrenia,insomnia ... admit to geropsyche hyponatremia ... will order repeat BMP hypertension ... controlled. continue current medication. diabetes mellitus not controlled ... will continue SSI, accuhecks QID. Will increase Glipizide from 5mg to 10mg. Continue Metformin 1000mg PO bID. COPD ... will continue current inhalers, will add cough syrup. s/p UTI ... will order UA if not already ordered by ER glaucoma ... continue current treatment neuralgia ... most likely peripheral diabetic neuropathy ... on neurontin rheumatoid arthritis .... consistent with elevated RA factor. course of oral prednisone dermatitis ... will order calmoseptine - Plan Plan: psychosis,dementia,schizophrenia,insomnia ... admit to geropsyche hyponatremia ... will order repeat BMP hypertension ... controlled. continue current medication. diabetes mellitus not controlled ... will continue SSI, accuhecks QID. Will increase Glipizide from 5mg to 10mg. Continue Metformin 1000mg PO bID. COPD ... will continue current inhalers and will add promethazine with DM for cough. s/p UTI ... will order UA if not already ordered by ER glaucoma ... continue current treatment neuralgia ... most likely peripheral diabetic neuropathy ... on neurontin rheumatoid arthritis .... consistent with elevated RA factor. course of oral prednisone dermatitis ... will order calmoseptine Nutritional Asmnt/Malnutr-PDOC - Dietary Evaluation Malnutrition Findings (Please click <Entered> for more info): Nutritional Asmnt/Malnutrition Start: 03/14/17 12: 32 Text: Status: Complete Freq: Document 03/14/17 18:06 [facility] (Rec: 03/14/17 18:13 [facility] [id number]) Nutritional Asmnt/Malnutrition Patient General Information Nutritional Screening High Risk Screening Diagnosis Depression (per ER report) Pertinent Medical Hx/Surgical Hx HTN, DM, severe sepsis, chronic bronchitis, s/p UTI, dementia, schizophrenia, depression, insomnia, glaucoma , nerualgia, depression Subjective Information Pt is a 71-year-old female from [facility] admitted with chief complaint of crying episodes. Pt was in the Dining Room, wheelchair bound. Pt is a fair historian. Pt appears well nourished with no signs of muscle or fat depletion. Pt reports food allergies to squash, fish, liver, and barroso beans, which causes her to break out in hives; FNS informed. RD informed pt on current diet and pt had no questions. Pt reports she intentionally lose 4#. Current Diet Order/ Nutrition Support CCHO, Boost GLucose Control at 1000 and 1400 Patient / S.O Can Pertinent Medications [place], Colace, Iron, Glipizide , Glucophage, Theragran Pertinent Labs (03/13) Na 129L, Glucose 219H, A1C 6.7H. (03/14) POC Glucose 338H-343H Nutritional Hx/Data Height 1.8 m Height (Calculated Centimeters) 180.3 Current Weight (lbs) 90.718 kg Weight (Calculated Kilograms) 90.7 Weight (Calculated Grams) 93063.5 Usual body Weight (lbs) 200 % Usual Body Weight 100 [place] Body Weight 155 % [place] Body Weight 129 Recent Weight Change Yes Weight Status Overweight GI Symptoms GI Symptoms None Food Allergies No Cultural/Ethnic/Jain Belief No cultural or presybeterian beliefs noted. Usual diet at home CCHO with diabetic snacks at 1000, 1400 x one month Skin Integrity/Comment: Darrell 15. Skin intact. Current %PO Good (75-100%) Estimated Nutritional Goals BEE in Kcals: Using Current wt Calories/Kcals/Kg Based on current wt 90.9 kg with consideration of wheelchair-bound status Kcals Calculated 0346-6899 kcals/day (20-25 kcals/kg) Protein: Using Current wt Protein g/kg: Based on current wt 90.9 kg with consideration of wheelchair-bound status Protein Calculated 91 gm/day (1 gm/kg) Fluid: ml 2763-8907 ml/day (1 ml/kcal) Nutritional Problem 1. Problem Problem Altered nutrition-related laboratory values related to Etiology possible inconsistent carbohydrate intake, DM as evidenced by Signs/Symptoms: admitting glucose 219 mg/dl and POC Glucose 338-343 mg/dl. Malnutrition Alert Protein-Calorie Malnutrition N/A Is there a minimum of two criteria No selected? Query Text:Check all the applicable criteria. A minimum of two criteria are recommended for diagnosis of either severe or non-severe malnutrition. Malnutrition Related to Morbid Obesity Malnutrition related to morbid obesity No Intervention/Recommendation Comments 1. Recommend CCHO-75 GM diet to better meet estimated nutritional needs. 2. Consider discontinuing Boost Glucose Control supplements due to good appetite and to control blood sugar levels. Expected Outcomes/Goals Expected Outcomes/Goals Blood glucose levels will trend towards desired parameters. Physician Parameters for PEM Serum Albumin (g/dl) 3.5 - 5.0 (Normal)
[2017-03-27] MEDS: Fluticasone Propionate 0.05mg/Actuation 16gm Nasal Spray NS SCH ×2 (08:13→16:15)
[2017-03-27] MEDS: Aspirin 81mg Chewable Tab PO SCH (08:13)
[2017-03-27] MEDS: Ferrous Sulfate 325 MG TAB PO SCH ×2 (08:16→16:15)
[2017-03-27] MEDS: Polyvinyl Alcohol Ophth Soln 15 mL Bottle EACH EYE SCH ×2 (08:17→16:16)
[2017-03-27] MEDS: Multivitamin Tab PO SCH (08:17)
[2017-03-27] MEDS: Menthol/Zinc Oxide Oint 113gm Tube TP PRN (08:17)
[2017-03-27] MEDS: Promethazine DM 6.25/15mg-5mL 5 ML SYR PO PRN ×2 (13:38→21:22)
[2017-03-28] MEDS: Albuterol Nebulizer 2.5mg/3mL HHN SCH ×4 (00:58→18:50)
[2017-03-28] MEDS: Ipratropium Neb 0.5 mg/2.5 mL UD HHN SCH ×4 (00:59→18:50)
--- NOTE | 2017-03-28 04:40 | Progress Notes ---
DATE: 03/26/[address] Henry. Case was discussed with staff of the patient, reviewed records. This is a well-known case to me as I had seen her a few days ago covering for Dr. Henry. The patient continues to have multiple somatic complaints. She complains of anxiety and depression. She is, however, now in the group and interacting more, continues to be, however, depressed at times. She is compliant with the medication with no side effects, no sedation and no nausea. The staff reports that she is medication seeking more for pain medications. She is on Cymbalta that was increased to ____ daily on 03/22/2017, with no side effects, no sedation and no nausea. We may have to increase the dose and we will continue to work with the patient in group therapy, milieu therapy and adjust the medication as needed. JOB# [id number]
[2017-03-28] MEDS: INSULIN ASPART SLIDING SCALE 100 UNITS/ML UNIT SUBQ SCH ×5 (06:47→20:02)
[2017-03-28] MEDS: Budesonide 0.5 Mg/2 mL Ud HHN SCH ×2 (07:01→18:50)
--- NOTE | 2017-03-28 08:03 | General Progress Note ---
Subjective - Review of Systems Service Date: 03/28/17 Subjective: No new complaints. . Objective - Results Result Diagrams: 03/13/17 22:37 03/21/17 11:04 Recent Labs: Laboratory Last Values WBC 3.4 Th/cmm (4.8-10.8) L 03/13/17 22:37 RBC 3.99 Mil/cmm (3.80-5.20) 03/13/17 22:37 Hgb 11.2 gm/dL (11.7-16.1) L 03/13/17 22:37 Hct 33.7 % (35.0-45.0) L 03/13/17 22:37 MCV 84.4 fl (81-100) 03/13/17 22:37 MCH 28.2 pg (27.0-31.0) 03/13/17 22:37 MCHC Differential 33.4 pg (28.0-36.0) 03/13/17 22:37 RDW 14.2 % (11.5-20.0) 03/13/17 22:37 Plt Count 170 Th/cmm (150-400) 03/13/17 22:37 MPV 6.8 fl 03/13/17 22:37 Neutrophils % 70.1 % (40.0-80.0) 03/13/17 22:37 Lymphocytes % 18.9 % (20.0-50.0) L 03/13/17 22:37 Monocytes % 10.7 % (2.0-10.0) H 03/13/17 22:37 Eosinophils % 0.1 % (0.0-5.0) 03/13/17 22:37 Basophils % 0.2 % (0.0-2.0) 03/13/17 22:37 Sodium 134 mEq/L (136-145) L 03/21/17 11:04 Potassium 4.2 mEq/L (3.5-5.1) 03/21/17 11:04 Chloride 99 mEq/L (98-107) 03/21/17 11:04 Carbon Dioxide 30.5 mEq/L (21.0-31.0) 03/21/17 11:04 Anion Gap 8.7 (7.0-16.0) 03/21/17 11:04 BUN 36 mg/dL (7-25) H 03/21/17 11:04 Creatinine 0.8 mg/dL (0.6-1.2) 03/21/17 11:04 Est GFR ( Amer) TNP 03/21/17 11:04 Est GFR (Non-Af Amer) TNP 03/21/17 11:04 BUN/Creatinine Ratio 45.0 03/21/17 11:04 Glucose 258 mg/dL (70-105) H 03/21/17 11:04 POC Glucose 134 MG/DL (70 - 105) H 03/28/17 06:01 Hemoglobin A1c % 6.7 % (4.0-6.0) H 03/13/17 22:37 Whole Bld Lactic Acid 1.78 mmol/L (0.60-1.99) 03/13/17 22:37 Uric Acid 4.8 mg/dL (2.3-6.6) 03/17/17 10:08 Calcium 9.7 mg/dL (8.6-10.3) 03/21/17 11:04 Total Bilirubin 0.3 mg/dL (0.3-1.0) 03/13/17 22:37 AST 13 U/L (13-39) 03/13/17 22:37 ALT 16 U/L (7-52) 03/13/17 22:37 Alkaline Phosphatase 73 U/L (34-104) 03/13/17 22:37 Total Protein 6.6 gm/dL (6.0-8.3) 03/13/17 22:37 Albumin 3.6 gm/dL (3.7-5.3) L 03/13/17 22:37 Globulin 3.0 gm/dL 03/13/17 22:37 Albumin/Globulin Ratio 1.2 (1.0-1.8) 03/13/17 22:37 Triglycerides 72 mg/dL (<150) 03/13/17 22:37 Cholesterol 148 mg/dL (<200) 03/13/17 22:37 LDL Cholesterol Direct 99 mg/dL (75-193) 03/13/17 22:37 HDL Cholesterol 45 mg/dL (23-92) 03/13/17 22:37 TSH 2.66 uIU/ml (0.34-5.60) 03/13/17 22:37 Rheumatoid Factor 41.0 IU/mL (0.0-13.9) H 03/17/17 10:08 ERVIN Screen Negative 03/17/17 10:08 RPR NONREACTIVE (NONREACTIVE) 03/13/17 22:37 - Physical Exam Vitals and I&O: Vital Signs Temp 97.9 F 03/27/17 18:17 Pulse 92 03/28/17 07:16 Resp 18 03/28/17 07:16 BP 110/59 03/27/17 18:17 Pulse Ox 98 03/28/17 07:16 Intake & Output 03/27/17 03/28/17 03/28/17 18:59 06:59 18:59 Intake Total 800 Balance 800 Intake: Oral 800 Other: # Voids 2 # Bowel Movements 1 Stool Characteristics Soft Formed Active Medications: Current Medications Acetaminophen (Tylenol) 650 mg PO Q4HR PRN PRN Reason: Pain or Fever >101 Stop: 05/13/17 00:36 Last Admin: 03/21/17 13:43 Dose: 650 mg Albuterol Sulfate (Albuterol 2.5mg/3ml Neb Ud) 2.5 mg HHN Q6HRT [facility] Stop: 05/13/17 12:59 Last Admin: 03/28/17 07:01 Dose: 2.5 mg Artificial Tears (Artificial Tears Ophth Soln) 1 drop EACH EYE BID [facility] Stop: 05/13/17 08:59 Last Admin: 03/27/17 16:16 Dose: 1 drop Aspirin (Aspirin Chewable) 81 mg PO DAILY [facility] Stop: 05/13/17 08:59 Last Admin: 03/27/17 08:13 Dose: 81 mg Benazepril HCl (Lotensin) 5 mg PO DAILY [facility] Stop: 05/13/17 08:59 Last Admin: 03/27/17 08:14 Dose: 5 mg Bisacodyl (Dulcolax 10 Mg Supp) 10 mg RC DAILY PRN PRN Reason: Constipation Stop: 05/13/17 00:36 Budesonide (Pulmicort) 0.5 mg HHN BIDRT [facility] Stop: 05/13/17 08:59 Last Admin: 03/28/17 07:01 Dose: 0.5 mg Calamine/Phenol (Calmoseptine) 1 appl TP DAILY PRN PRN Reason: infection Stop: 05/20/17 08:59 Last Admin: 03/27/17 08:17 Dose: 1 appl Calcium Carbonate (Os-Ky) 500 mg PO BID REAL Stop: 05/13/17 08:59 Last Admin: 03/27/17 16:15 Dose: 500 mg Docusate Sodium (Colace) 100 mg PO DAILY REAL Stop: 05/13/17 08:59 Last Admin: 03/27/17 08:27 Dose: Not Given Duloxetine HCl (Cymbalta) 60 mg PO DAILY [facility] PRN Reason: Protocol Stop: 05/21/17 08:59 Last Admin: 03/27/17 08:16 Dose: 60 mg Ferrous Sulfate (Iron) 325 mg PO BID REAL Stop: 05/13/17 08:59 Last Admin: 03/27/17 16:15 Dose: 325 mg Fluoxetine HCl (Prozac) 40 mg PO QAM [facility] Stop: 05/13/17 08:59 Last Admin: 03/27/17 08:16 Dose: 40 mg Fluticasone Propionate (Flonase) 1 spr NS BID REAL Stop: 05/13/17 08:59 Last Admin: 03/27/17 16:15 Dose: 1 spr Gabapentin (Neurontin) 600 mg PO TID REAL Stop: 05/13/17 08:59 Last Admin: 03/27/17 21:22 Dose: 600 mg Glipizide (Glucotrol) 10 mg PO DAILY [facility] Stop: 05/21/17 08:59 Last Admin: 03/27/17 08:16 Dose: 10 mg Insulin Aspart (Novolog Insulin Sliding Scale) 0 units SUBQ ACHS REAL PRN Reason: Protocol Stop: 05/13/17 20:59 Last Admin: 03/28/17 06:47 Dose: Not Given Ipratropium [place] (Atrovent Neb 0.5mg/2.5ml) 0.5 mg HHN Q6HRT [facility] Stop: 05/13/17 12:59 Last Admin: 03/28/17 07:01 Dose: 0.5 mg Ketotifen Fumarate (Zaditor 0.025% Ophth Soln) 1 drop EACH EYE BID [facility] Stop: 05/13/17 08:59 Last Admin: 03/27/17 16:15 Dose: 1 drop Lorazepam (Ativan) 0.5 mg PO Q6H PRN PRN Reason: ANXIETY/AGITATION Stop: 05/18/17 07:55 Magnesium Hydroxide (Milk Of Magnesia) 30 ml PO Q72H REAL Stop: 05/13/17 08:59 Last Admin: 03/26/17 08:42 Dose: Not Given Metformin HCl (Glucophage) 1,000 mg PO BID REAL Stop: 05/13/17 08:59 Last Admin: 03/27/17 16:15 Dose: 1,000 mg Methylprednisolone (Medrol) 4 mg PO DAILY PRN PRN Reason: arthralgia Stop: 05/19/17 08:16 Multivitamins/Vitamin C (Theragran) 1 tab PO DAILY REAL Stop: 05/13/17 08:59 Last Admin: 03/27/17 08:17 Dose: 1 tab Promethazine HCl/Dextromethorphan (Phenergan Dm 6.25/15mg-5 Ml) 5 ml PO TID PRN PRN Reason: Cough Stop: 05/24/17 08:16 Last Admin: 03/27/17 21:22 Dose: 5 ml Risperidone (Risperdal) 1.5 mg PO HS REAL PRN Reason: Protocol Stop: 05/13/17 20:59 Last Admin: 03/27/17 21:22 Dose: 1.5 mg Sodium Phosphate (Fleet Enema) 135 ml RC Q48H PRN PRN Reason: Constipation Stop: 05/13/17 00:36 Tramadol HCl (Ultram) 50 mg PO Q6H PRN PRN Reason: arthralgia Stop: 05/16/17 08:23 Last Admin: 03/23/17 20:55 Dose: 50 mg Trazodone HCl (Desyrel) 150 mg PO HS REAL Stop: 05/13/17 20:59 Last Admin: 03/27/17 21:21 Dose: 150 mg Zolpidem Tartrate (Ambien) 5 mg PO HS PRN PRN Reason: Insomnia Stop: 05/13/17 02:20 Last Admin: 03/17/17 22:21 Dose: 5 mg General: Alert, Oriented x3, No acute distress HEENT: Atraumatic, PERRLA, EOMI Neck: Supple Cardiovascular: Regular rate, Normal S1, Normal S2 Lungs: Clear to auscultation Abdomen: Bowel sounds, Soft Extremities: no Clubbing, no Cyanosis, no Edema Skin: Rash (redness present) Assessment/Plan - Problem List Patient Problems: All Active Problems Arthralgia (Acute) M25.50 COPD (chronic obstructive pulmonary disease) (Acute) Dementia (Acute) F03.90 Dermatitis (Acute) L30.9 Diabetes mellitus (Acute) E11.9 Glaucoma (Acute) H40.9 Hypertension (Acute) I10 Hyponatremia (Acute) E87.1 Insomnia (Acute) G47.00 Neuralgia (Acute) M79.2 Psychosis (Acute) F29 Rheumatoid arthritis (Acute) M06.9 Schizophrenia (Acute) F20.9 - Assessment Assessment: psychosis,dementia,schizophrenia,insomnia ... admit to geropsyche hyponatremia ... will order repeat BMP hypertension ... controlled. continue current medication. diabetes mellitus not controlled ... will continue SSI, accuhecks QID. Will increase Glipizide from 5mg to 10mg. Continue Metformin 1000mg PO bID. COPD ... will continue current inhalers, will add cough syrup. s/p UTI ... will order UA if not already ordered by ER glaucoma ... continue current treatment neuralgia ... most likely peripheral diabetic neuropathy ... on neurontin rheumatoid arthritis .... consistent with elevated RA factor. course of oral prednisone dermatitis ... will order calmoseptine - Plan Plan: psychosis,dementia,schizophrenia,insomnia ... admit to geropsyche hyponatremia ... will order repeat BMP hypertension ... controlled. continue current medication. diabetes mellitus not controlled ... will continue SSI, accuhecks QID. Will increase Glipizide from 5mg to 10mg. Continue Metformin 1000mg PO bID. COPD ... will continue current inhalers and will add promethazine with DM for cough. s/p UTI ... will order UA if not already ordered by ER glaucoma ... continue current treatment neuralgia ... most likely peripheral diabetic neuropathy ... on neurontin rheumatoid arthritis .... consistent with elevated RA factor. course of oral prednisone dermatitis ... will order calmoseptine Nutritional Asmnt/Malnutr-PDOC - Dietary Evaluation Malnutrition Findings (Please click <Entered> for more info): Nutritional Asmnt/Malnutrition Start: 03/14/17 12: 32 Text: Status: Complete Freq: Document 03/14/17 18:06 MARGARITA (Rec: 03/14/17 18:13 [facility] [id number]) Nutritional Asmnt/Malnutrition Patient General Information Nutritional Screening High Risk Screening Diagnosis Depression (per ER report) Pertinent Medical Hx/Surgical Hx HTN, DM, severe sepsis, chronic bronchitis, s/p UTI, dementia, schizophrenia, depression, insomnia, glaucoma , nerualgia, depression Subjective Information Pt is a 71-year-old female from [facility] admitted with chief complaint of crying episodes. Pt was in the Dining Room, wheelchair bound. Pt is a fair historian. Pt appears well nourished with no signs of muscle or fat depletion. Pt reports food allergies to squash, fish, liver, and barroso beans, which causes her to break out in hives; FNS informed. RD informed pt on current diet and pt had no questions. Pt reports she intentionally lose 4#. Current Diet [facility]/ [facility] Boost GLucose Control at 1000 and 1400 Patient / S.O Can Pertinent Medications [place], Colace, Iron, Glipizide , Glucophage, Theragran Pertinent Labs (03/13) Na 129L, Glucose 219H, A1C 6.7H. (03/14) POC Glucose 338H-343H Nutritional Hx/Data Height 1.8 m Height (Calculated Centimeters) 180.3 Current Weight (lbs) 90.718 kg Weight (Calculated Kilograms) 90.7 Weight (Calculated Grams) 35220.5 Usual body Weight (lbs) 200 % Usual Body Weight 100 [place] Body Weight 155 % [place] Body Weight 129 Recent Weight Change Yes Weight Status Overweight GI Symptoms GI Symptoms None Food Allergies No Cultural/Ethnic/Church Belief No cultural or cheondoism beliefs noted. Usual diet at home CCHO with diabetic snacks at 1000, 1400 x one month Skin Integrity/Comment: Darrell 15. Skin intact. Current %PO Good (75-100%) Estimated Nutritional Goals BEE in Kcals: Using Current wt Calories/Kcals/Kg Based on current wt 90.9 kg with consideration of wheelchair-bound status Kcals Calculated 7332-1360 kcals/day (20-25 kcals/kg) Protein: Using Current wt Protein g/kg: Based on current wt 90.9 kg with consideration of wheelchair-bound status Protein Calculated 91 gm/day (1 gm/kg) Fluid: ml 5334-5362 ml/day (1 ml/kcal) Nutritional Problem 1. Problem Problem Altered nutrition-related laboratory values related to Etiology possible inconsistent carbohydrate intake, DM as evidenced by Signs/Symptoms: admitting glucose 219 mg/dl and POC Glucose 338-343 mg/dl. Malnutrition Alert Protein-Calorie Malnutrition N/A Is there a minimum of two criteria No selected? Query Text:Check all the applicable criteria. A minimum of two criteria are recommended for diagnosis of either severe or non-severe malnutrition. Malnutrition Related to Morbid Obesity Malnutrition related to morbid obesity No Intervention/Recommendation Comments 1. Recommend CCHO-75 GM diet to better meet estimated nutritional needs. 2. Consider discontinuing Boost Glucose Control supplements due to good appetite and to control blood sugar levels. Expected Outcomes/Goals Expected Outcomes/Goals Blood glucose levels will trend towards desired parameters. Physician Parameters for PEM Serum Albumin (g/dl) 3.5 - 5.0 (Normal)
[2017-03-28] MEDS: Ferrous Sulfate 325 MG TAB PO SCH ×2 (08:24→16:40)
[2017-03-28] MEDS: Fluticasone Propionate 0.05mg/Actuation 16gm Nasal Spray NS SCH ×2 (08:26→16:40)
[2017-03-28] MEDS: Multivitamin Tab PO SCH (08:27)
[2017-03-28] MEDS: Polyvinyl Alcohol Ophth Soln 15 mL Bottle EACH EYE SCH ×2 (08:28→16:40)
[2017-03-28] MEDS: Aspirin 81mg Chewable Tab PO SCH (08:29)
[2017-03-28] MEDS: Promethazine DM 6.25/15mg-5mL 5 ML SYR PO PRN (08:43)
[2017-03-29] MEDS: INSULIN ASPART SLIDING SCALE 100 UNITS/ML UNIT SUBQ SCH ×4 (06:30→20:22)
--- NOTE | 2017-03-29 06:43 | General Progress Note ---
Subjective - Review of Systems Service Date: 03/29/17 Subjective: No new complaints. . Objective - Results Result Diagrams: 03/13/17 22:37 03/21/17 11:04 Recent Labs: Laboratory Last Values WBC 3.4 Th/cmm (4.8-10.8) L 03/13/17 22:37 RBC 3.99 Mil/cmm (3.80-5.20) 03/13/17 22:37 Hgb 11.2 gm/dL (11.7-16.1) L 03/13/17 22:37 Hct 33.7 % (35.0-45.0) L 03/13/17 22:37 MCV 84.4 fl (81-100) 03/13/17 22:37 MCH 28.2 pg (27.0-31.0) 03/13/17 22:37 MCHC Differential 33.4 pg (28.0-36.0) 03/13/17 22:37 RDW 14.2 % (11.5-20.0) 03/13/17 22:37 Plt Count 170 Th/cmm (150-400) 03/13/17 22:37 MPV 6.8 fl 03/13/17 22:37 Neutrophils % 70.1 % (40.0-80.0) 03/13/17 22:37 Lymphocytes % 18.9 % (20.0-50.0) L 03/13/17 22:37 Monocytes % 10.7 % (2.0-10.0) H 03/13/17 22:37 Eosinophils % 0.1 % (0.0-5.0) 03/13/17 22:37 Basophils % 0.2 % (0.0-2.0) 03/13/17 22:37 Sodium 134 mEq/L (136-145) L 03/21/17 11:04 Potassium 4.2 mEq/L (3.5-5.1) 03/21/17 11:04 Chloride 99 mEq/L (98-107) 03/21/17 11:04 Carbon Dioxide 30.5 mEq/L (21.0-31.0) 03/21/17 11:04 Anion Gap 8.7 (7.0-16.0) 03/21/17 11:04 BUN 36 mg/dL (7-25) H 03/21/17 11:04 Creatinine 0.8 mg/dL (0.6-1.2) 03/21/17 11:04 Est GFR ( Amer) TNP 03/21/17 11:04 Est GFR (Non-Af Amer) TNP 03/21/17 11:04 BUN/Creatinine Ratio 45.0 03/21/17 11:04 Glucose 258 mg/dL (70-105) H 03/21/17 11:04 POC Glucose 121 MG/DL (70 - 105) H 03/29/17 06:19 Hemoglobin A1c % 6.7 % (4.0-6.0) H 03/13/17 22:37 Whole Bld Lactic Acid 1.78 mmol/L (0.60-1.99) 03/13/17 22:37 Uric Acid 4.8 mg/dL (2.3-6.6) 03/17/17 10:08 Calcium 9.7 mg/dL (8.6-10.3) 03/21/17 11:04 Total Bilirubin 0.3 mg/dL (0.3-1.0) 03/13/17 22:37 AST 13 U/L (13-39) 03/13/17 22:37 ALT 16 U/L (7-52) 03/13/17 22:37 Alkaline Phosphatase 73 U/L (34-104) 03/13/17 22:37 Total Protein 6.6 gm/dL (6.0-8.3) 03/13/17 22:37 Albumin 3.6 gm/dL (3.7-5.3) L 03/13/17 22:37 Globulin 3.0 gm/dL 03/13/17 22:37 Albumin/Globulin Ratio 1.2 (1.0-1.8) 03/13/17 22:37 Triglycerides 72 mg/dL (<150) 03/13/17 22:37 Cholesterol 148 mg/dL (<200) 03/13/17 22:37 LDL Cholesterol Direct 99 mg/dL (75-193) 03/13/17 22:37 HDL Cholesterol 45 mg/dL (23-92) 03/13/17 22:37 TSH 2.66 uIU/ml (0.34-5.60) 03/13/17 22:37 Rheumatoid Factor 41.0 IU/mL (0.0-13.9) H 03/17/17 10:08 ERVIN Screen Negative 03/17/17 10:08 RPR NONREACTIVE (NONREACTIVE) 03/13/17 22:37 - Physical Exam Vitals and I&O: Vital Signs Temp 98 F 03/28/17 20:25 Pulse 99 03/28/17 20:25 Resp 18 03/28/17 20:25 BP 103/62 03/28/17 20:25 Pulse Ox 96 03/28/17 20:25 Intake & Output 03/28/17 03/28/17 03/29/17 06:59 18:59 06:59 Intake Total 1200 240 Balance 1200 240 Intake: Oral 1200 240 Other: # Voids 1 # Bowel Movements 1 Stool Characteristics Soft Soft Formed Formed Active Medications: Current Medications Acetaminophen (Tylenol) 650 mg PO Q4HR PRN PRN Reason: Pain or Fever >101 Stop: 05/13/17 00:36 Last Admin: 03/21/17 13:43 Dose: 650 mg Albuterol Sulfate (Albuterol 2.5mg/3ml Neb Ud) 2.5 mg HHN Q6HRT [facility] Stop: 05/13/17 12:59 Last Admin: 03/28/17 18:50 Dose: 2.5 mg Artificial Tears (Artificial Tears Ophth Soln) 1 drop EACH EYE BID [facility] Stop: 05/13/17 08:59 Last Admin: 03/28/17 16:40 Dose: 1 drop Aspirin (Aspirin Chewable) 81 mg PO DAILY [facility] Stop: 05/13/17 08:59 Last Admin: 03/28/17 08:29 Dose: 81 mg Benazepril HCl (Lotensin) 5 mg PO DAILY [facility] Stop: 05/13/17 08:59 Last Admin: 03/28/17 08:29 Dose: Not Given Bisacodyl (Dulcolax 10 Mg Supp) 10 mg RC DAILY PRN PRN Reason: Constipation Stop: 05/13/17 00:36 Budesonide (Pulmicort) 0.5 mg HHN BIDRT [facility] Stop: 05/13/17 08:59 Last Admin: 03/28/17 18:50 Dose: 0.5 mg Calamine/Phenol (Calmoseptine) 1 appl TP DAILY PRN PRN Reason: infection Stop: 05/20/17 08:59 Last Admin: 03/27/17 08:17 Dose: 1 appl Calcium Carbonate (Os-Ky) 500 mg PO BID [facility] Stop: 05/13/17 08:59 Last Admin: 03/28/17 16:39 Dose: 500 mg Docusate Sodium (Colace) 100 mg PO DAILY [facility] Stop: 05/13/17 08:59 Last Admin: 03/28/17 08:31 Dose: Not Given Duloxetine HCl (Cymbalta) 60 mg PO DAILY [facility] PRN Reason: Protocol Stop: 05/21/17 08:59 Last Admin: 03/28/17 08:24 Dose: 60 mg Ferrous Sulfate (Iron) 325 mg PO BID [facility] Stop: 05/13/17 08:59 Last Admin: 03/28/17 16:40 Dose: 325 mg Fluoxetine HCl (Prozac) 40 mg PO QAM [facility] Stop: 05/13/17 08:59 Last Admin: 03/28/17 08:26 Dose: 40 mg Fluticasone Propionate (Flonase) 1 spr NS BID REAL Stop: 05/13/17 08:59 Last Admin: 03/28/17 16:40 Dose: 1 spr Gabapentin (Neurontin) 600 mg PO TID [facility] Stop: 05/13/17 08:59 Last Admin: 03/28/17 20:16 Dose: 600 mg Glipizide (Glucotrol) 10 mg PO DAILY [facility] Stop: 05/21/17 08:59 Last Admin: 03/28/17 08:26 Dose: 10 mg Insulin Aspart (Novolog Insulin Sliding Scale) 0 units SUBQ ACHS [facility] PRN Reason: Protocol Stop: 05/13/17 20:59 Last Admin: 03/29/17 06:30 Dose: Not Given Ipratropium [place] (Atrovent Neb 0.5mg/2.5ml) 0.5 mg HHN Q6HRT [facility] Stop: 05/13/17 12:59 Last Admin: 03/28/17 18:50 Dose: 0.5 mg Ketotifen Fumarate (Zaditor 0.025% Ophth Soln) 1 drop EACH EYE BID [facility] Stop: 05/13/17 08:59 Last Admin: 03/28/17 16:40 Dose: 1 drop Lorazepam (Ativan) 0.5 mg PO Q6H PRN PRN Reason: ANXIETY/AGITATION Stop: 05/18/17 07:55 Magnesium Hydroxide (Milk Of Magnesia) 30 ml PO Q72H REAL Stop: 05/13/17 08:59 Last Admin: 03/26/17 08:42 Dose: Not Given Metformin HCl (Glucophage) 1,000 mg PO BID REAL Stop: 05/13/17 08:59 Last Admin: 03/28/17 16:39 Dose: 1,000 mg Methylprednisolone (Medrol) 4 mg PO DAILY PRN PRN Reason: arthralgia Stop: 05/19/17 08:16 Multivitamins/Vitamin C (Theragran) 1 tab PO DAILY REAL Stop: 05/13/17 08:59 Last Admin: 03/28/17 08:27 Dose: 1 tab Promethazine HCl/Dextromethorphan (Phenergan Dm 6.25/15mg-5 Ml) 5 ml PO TID PRN PRN Reason: Cough Stop: 05/24/17 08:16 Last Admin: 03/28/17 08:43 Dose: 5 ml Risperidone (Risperdal) 1.5 mg PO HS REAL PRN Reason: Protocol Stop: 05/13/17 20:59 Last Admin: 03/28/17 20:16 Dose: 1.5 mg Sodium Phosphate (Fleet Enema) 135 ml RC Q48H PRN PRN Reason: Constipation Stop: 05/13/17 00:36 Tramadol HCl (Ultram) 50 mg PO Q6H PRN PRN Reason: arthralgia Stop: 05/16/17 08:23 Last Admin: 03/23/17 20:55 Dose: 50 mg Trazodone HCl (Desyrel) 150 mg PO HS REAL Stop: 05/13/17 20:59 Last Admin: 03/28/17 20:16 Dose: 150 mg Zolpidem Tartrate (Ambien) 5 mg PO HS PRN PRN Reason: Insomnia Stop: 05/13/17 02:20 Last Admin: 03/17/17 22:21 Dose: 5 mg General: Alert, Oriented x3, No acute distress HEENT: Atraumatic, PERRLA, EOMI Neck: Supple Cardiovascular: Regular rate, Normal S1, Normal S2 Lungs: Clear to auscultation Abdomen: Bowel sounds, Soft Extremities: no Clubbing, no Cyanosis, no Edema Skin: Rash (redness present) Assessment/Plan - Problem List Patient Problems: All Active Problems Arthralgia (Acute) M25.50 COPD (chronic obstructive pulmonary disease) (Acute) Dementia (Acute) F03.90 Dermatitis (Acute) L30.9 Diabetes mellitus (Acute) E11.9 Glaucoma (Acute) H40.9 Hypertension (Acute) I10 Hyponatremia (Acute) E87.1 Insomnia (Acute) G47.00 Neuralgia (Acute) M79.2 Psychosis (Acute) F29 Rheumatoid arthritis (Acute) M06.9 Schizophrenia (Acute) F20.9 - Assessment Assessment: psychosis,dementia,schizophrenia,insomnia ... admit to geropsyche hyponatremia ... will order repeat BMP hypertension ... controlled. continue current medication. diabetes mellitus not controlled ... will continue SSI, accuhecks QID. Will increase Glipizide from 5mg to 10mg. Continue Metformin 1000mg PO bID. COPD ... will continue current inhalers, will add cough syrup. s/p UTI ... will order UA if not already ordered by ER glaucoma ... continue current treatment neuralgia ... most likely peripheral diabetic neuropathy ... on neurontin rheumatoid arthritis .... consistent with elevated RA factor. course of oral prednisone dermatitis ... will order calmoseptine - Plan Plan: psychosis,dementia,schizophrenia,insomnia ... admit to geropsyche hyponatremia ... will order repeat BMP hypertension ... controlled. continue current medication. diabetes mellitus not controlled ... will continue SSI, accuhecks QID. Will increase Glipizide from 5mg to 10mg. Continue Metformin 1000mg PO bID. COPD ... will continue current inhalers and will add promethazine with DM for cough. s/p UTI ... will order UA if not already ordered by ER glaucoma ... continue current treatment neuralgia ... most likely peripheral diabetic neuropathy ... on neurontin rheumatoid arthritis .... consistent with elevated RA factor. course of oral prednisone dermatitis ... will order calmoseptine Nutritional Asmnt/Malnutr-PDOC - Dietary Evaluation Malnutrition Findings (Please click <Entered> for more info): Nutritional Asmnt/Malnutrition Start: 03/14/17 12: 32 Text: Status: Complete Freq: Document 03/14/17 18:06 [facility] (Rec: 03/14/17 18:13 [facility] [id number]) Nutritional Asmnt/Malnutrition Patient General Information Nutritional Screening High Risk Screening Diagnosis Depression (per ER report) Pertinent Medical Hx/Surgical Hx HTN, DM, severe sepsis, chronic bronchitis, s/p UTI, dementia, schizophrenia, depression, insomnia, glaucoma , nerualgia, depression Subjective Information Pt is a 71-year-old female from [facility] admitted with chief complaint of crying episodes. Pt was in the Dining Room, wheelchair bound. Pt is a fair historian. Pt appears well nourished with no signs of muscle or fat depletion. Pt reports food allergies to squash, fish, liver, and barroso beans, which causes her to break out in hives; FNS informed. RD informed pt on current diet and pt had no questions. Pt reports she intentionally lose 4#. Current Diet Order/ [facility], Boost GLucose Control at 1000 and 1400 Patient / S.O Can Pertinent Medications Oscal, Colace, Iron, Glipizide , Glucophage, Theragran Pertinent Labs (03/13) Na 129L, Glucose 219H, A1C 6.7H. (03/14) POC Glucose 338H-343H Nutritional Hx/Data Height 1.8 m Height (Calculated Centimeters) 180.3 Current Weight (lbs) 90.718 kg Weight (Calculated Kilograms) 90.7 Weight (Calculated Grams) 69346.5 Usual body Weight (lbs) 200 % Usual Body Weight 100 [place] Body Weight 155 % [place] Body Weight 129 Recent Weight Change Yes Weight Status Overweight GI Symptoms GI Symptoms None Food Allergies No Cultural/Ethnic/Druze Belief No cultural or yarsani beliefs noted. Usual diet at home CCHO with diabetic snacks at 1000, 1400 x one month Skin Integrity/Comment: Darrell 15. Skin intact. Current %PO Good (75-100%) Estimated Nutritional Goals BEE in Kcals: Using Current wt Calories/Kcals/Kg Based on current wt 90.9 kg with consideration of wheelchair-bound status Kcals Calculated 1021-8780 kcals/day (20-25 kcals/kg) Protein: Using Current wt Protein g/kg: Based on current wt 90.9 kg with consideration of wheelchair-bound status Protein Calculated 91 gm/day (1 gm/kg) Fluid: ml 6277-5129 ml/day (1 ml/kcal) Nutritional Problem 1. Problem Problem Altered nutrition-related laboratory values related to Etiology possible inconsistent carbohydrate intake, DM as evidenced by Signs/Symptoms: admitting glucose 219 mg/dl and POC Glucose 338-343 mg/dl. Malnutrition Alert Protein-Calorie Malnutrition N/A Is there a minimum of two criteria No selected? Query Text:Check all the applicable criteria. A minimum of two criteria are recommended for diagnosis of either severe or non-severe malnutrition. Malnutrition Related to Morbid Obesity Malnutrition related to morbid obesity No Intervention/Recommendation Comments 1. Recommend CCHO-75 GM diet to better meet estimated nutritional needs. 2. Consider discontinuing Boost Glucose Control supplements due to good appetite and to control blood sugar levels. Expected Outcomes/Goals Expected Outcomes/Goals Blood glucose levels will trend towards desired parameters. Physician Parameters for PEM Serum Albumin (g/dl) 3.5 - 5.0 (Normal)
[2017-03-29] MEDS: Ipratropium Neb 0.5 mg/2.5 mL UD HHN SCH ×3 (07:25→19:36)
[2017-03-29] MEDS: Albuterol Nebulizer 2.5mg/3mL HHN SCH ×3 (07:25→19:36)
[2017-03-29] MEDS: Budesonide 0.5 Mg/2 mL Ud HHN SCH ×2 (07:26→19:37)
[2017-03-29] MEDS: Magnesium Hydroxide (MOM) 30 mL UDC PO SCH (08:19)
[2017-03-29] MEDS: Polyvinyl Alcohol Ophth Soln 15 mL Bottle EACH EYE SCH ×2 (08:26→17:25)
[2017-03-29] MEDS: Fluticasone Propionate 0.05mg/Actuation 16gm Nasal Spray NS SCH ×2 (08:27→17:25)
[2017-03-29] MEDS: Ferrous Sulfate 325 MG TAB PO SCH ×2 (08:28→17:25)
[2017-03-29] MEDS: Aspirin 81mg Chewable Tab PO SCH (08:29)
[2017-03-29] MEDS: Multivitamin Tab PO SCH (08:30)
[2017-03-29] MEDS: Promethazine DM 6.25/15mg-5mL 5 ML SYR PO PRN ×2 (10:14→20:48)
--- NOTE | 2017-03-29 11:08 | Progress Notes ---
DATE: Covering for Dr. Henry. Case was discussed with staff of the patient, reviewed records. The patient continues to have multiple somatic complaints. Continues to be anxious, depressed, hopeless, ____ stability, anger, but she has shown some progress. She is more visible on the unit. She is sleeping better, eating better. She is compliant with the medication with no side effects. No sedation, no nausea, no extrapyramidal symptoms. She is on Cymbalta 60 mg daily ____ 03/22/2017 and Prozac 60 mg a day and Neurontin 600 mg 3 times a day, Risperdal 1.5 mg at bedtime, trazodone 150 mg at bedtime with no side effects, no sedation, no nausea, no extrapyramidal symptoms. We will continue to work with the patient in group therapy, milieu therapy, and adjust medication as needed. JOB# [id number]
[2017-03-30] MEDS: Albuterol Nebulizer 2.5mg/3mL HHN SCH ×4 (00:37→19:28)
[2017-03-30] MEDS: Ipratropium Neb 0.5 mg/2.5 mL UD HHN SCH ×4 (00:38→19:28)
--- NOTE | 2017-03-30 03:08 | Progress Notes ---
DATE: 03/29/2017 COVERING FOR: Dr. Henry. Case was discussed with staff of the patient, reviewed records. The patient continues to look disheveled, disorganized, internally preoccupied, and needing redirection. Continues to have poor insight. She is sleeping better, eating better. She continues to appear to be depressed. No side effects with the medication, no sedation, no nausea, no extrapyramidal symptoms. We will continue the patient in group therapy, milieu therapy, and adjust the medication as needed. JOB# [id number]
[2017-03-30] MEDS: INSULIN ASPART SLIDING SCALE 100 UNITS/ML UNIT SUBQ SCH ×4 (06:52→20:11)
[2017-03-30] MEDS: Budesonide 0.5 Mg/2 mL Ud HHN SCH ×2 (07:26→19:28)
--- NOTE | 2017-03-30 07:27 | General Progress Note ---
Subjective - Review of Systems Service Date: 03/30/17 Subjective: Awake, alert, afebrile Objective - Results Result Diagrams: 03/13/17 22:37 03/21/17 11:04 Recent Labs: Laboratory Last Values WBC 3.4 Th/cmm (4.8-10.8) L 03/13/17 22:37 RBC 3.99 Mil/cmm (3.80-5.20) 03/13/17 22:37 Hgb 11.2 gm/dL (11.7-16.1) L 03/13/17 22:37 Hct 33.7 % (35.0-45.0) L 03/13/17 22:37 MCV 84.4 fl (81-100) 03/13/17 22:37 MCH 28.2 pg (27.0-31.0) 03/13/17 22:37 MCHC Differential 33.4 pg (28.0-36.0) 03/13/17 22:37 RDW 14.2 % (11.5-20.0) 03/13/17 22:37 Plt Count 170 Th/cmm (150-400) 03/13/17 22:37 MPV 6.8 fl 03/13/17 22:37 Neutrophils % 70.1 % (40.0-80.0) 03/13/17 22:37 Lymphocytes % 18.9 % (20.0-50.0) L 03/13/17 22:37 Monocytes % 10.7 % (2.0-10.0) H 03/13/17 22:37 Eosinophils % 0.1 % (0.0-5.0) 03/13/17 22:37 Basophils % 0.2 % (0.0-2.0) 03/13/17 22:37 Sodium 134 mEq/L (136-145) L 03/21/17 11:04 Potassium 4.2 mEq/L (3.5-5.1) 03/21/17 11:04 Chloride 99 mEq/L (98-107) 03/21/17 11:04 Carbon Dioxide 30.5 mEq/L (21.0-31.0) 03/21/17 11:04 Anion Gap 8.7 (7.0-16.0) 03/21/17 11:04 BUN 36 mg/dL (7-25) H 03/21/17 11:04 Creatinine 0.8 mg/dL (0.6-1.2) 03/21/17 11:04 Est GFR ( Amer) TNP 03/21/17 11:04 Est GFR (Non-Af Amer) TNP 03/21/17 11:04 BUN/Creatinine Ratio 45.0 03/21/17 11:04 Glucose 258 mg/dL (70-105) H 03/21/17 11:04 POC Glucose 121 MG/DL (70 - 105) H 03/29/17 06:19 Hemoglobin A1c % 6.7 % (4.0-6.0) H 03/13/17 22:37 Whole Bld Lactic Acid 1.78 mmol/L (0.60-1.99) 03/13/17 22:37 Uric Acid 4.8 mg/dL (2.3-6.6) 03/17/17 10:08 Calcium 9.7 mg/dL (8.6-10.3) 03/21/17 11:04 Total Bilirubin 0.3 mg/dL (0.3-1.0) 03/13/17 22:37 AST 13 U/L (13-39) 03/13/17 22:37 ALT 16 U/L (7-52) 03/13/17 22:37 Alkaline Phosphatase 73 U/L (34-104) 03/13/17 22:37 Total Protein 6.6 gm/dL (6.0-8.3) 03/13/17 22:37 Albumin 3.6 gm/dL (3.7-5.3) L 03/13/17 22:37 Globulin 3.0 gm/dL 03/13/17 22:37 Albumin/Globulin Ratio 1.2 (1.0-1.8) 03/13/17 22:37 Triglycerides 72 mg/dL (<150) 03/13/17 22:37 Cholesterol 148 mg/dL (<200) 03/13/17 22:37 LDL Cholesterol Direct 99 mg/dL (75-193) 03/13/17 22:37 HDL Cholesterol 45 mg/dL (23-92) 03/13/17 22:37 TSH 2.66 uIU/ml (0.34-5.60) 03/13/17 22:37 Rheumatoid Factor 41.0 IU/mL (0.0-13.9) H 03/17/17 10:08 ERVIN Screen Negative 03/17/17 10:08 RPR NONREACTIVE (NONREACTIVE) 03/13/17 22:37 - Physical Exam Vitals and I&O: Vital Signs Temp 98.1 F 03/30/17 06:32 Pulse 84 03/30/17 06:32 Resp 18 03/30/17 06:32 BP 138/72 03/30/17 06:32 Pulse Ox 96 03/30/17 06:32 Intake & Output 03/29/17 03/30/17 03/30/17 18:59 06:59 18:59 Intake Total 2400 120 Balance 2400 120 Intake: Oral 2400 120 Other: # Voids 4 3 # Bowel Movements 0 Active Medications: Current Medications Acetaminophen (Tylenol) 650 mg PO Q4HR PRN PRN Reason: Pain or Fever >101 Stop: 05/13/17 00:36 Last Admin: 03/21/17 13:43 Dose: 650 mg Albuterol Sulfate (Albuterol 2.5mg/3ml Neb Ud) 2.5 mg HHN Q6HRT [facility] Stop: 05/13/17 12:59 Last Admin: 03/30/17 00:37 Dose: 2.5 mg Artificial Tears (Artificial Tears Ophth Soln) 1 drop EACH EYE BID [facility] Stop: 05/13/17 08:59 Last Admin: 03/29/17 17:25 Dose: 1 drop Aspirin (Aspirin Chewable) 81 mg PO DAILY [facility] Stop: 05/13/17 08:59 Last Admin: 03/29/17 08:29 Dose: 81 mg Benazepril HCl (Lotensin) 5 mg PO DAILY [facility] Stop: 05/13/17 08:59 Last Admin: 03/29/17 08:28 Dose: 5 mg Bisacodyl (Dulcolax 10 Mg Supp) 10 mg RC DAILY PRN PRN Reason: Constipation Stop: 05/13/17 00:36 Budesonide (Pulmicort) 0.5 mg HHN BIDRT [facility] Stop: 05/13/17 08:59 Last Admin: 03/29/17 19:37 Dose: 0.5 mg Calamine/Phenol (Calmoseptine) 1 appl TP DAILY PRN PRN Reason: infection Stop: 05/20/17 08:59 Last Admin: 03/27/17 08:17 Dose: 1 appl Calcium Carbonate (Os-Ky) 500 mg PO BID [facility] Stop: 05/13/17 08:59 Last Admin: 03/29/17 17:25 Dose: 500 mg Docusate Sodium (Colace) 100 mg PO DAILY [facility] Stop: 05/13/17 08:59 Last Admin: 03/29/17 08:19 Dose: Not Given Duloxetine HCl (Cymbalta) 60 mg PO DAILY [facility] PRN Reason: Protocol Stop: 05/21/17 08:59 Last Admin: 03/29/17 08:29 Dose: 60 mg Ferrous Sulfate (Iron) 325 mg PO BID [facility] Stop: 05/13/17 08:59 Last Admin: 03/29/17 17:25 Dose: 325 mg Fluoxetine HCl (Prozac) 40 mg PO QAM [facility] Stop: 05/13/17 08:59 Last Admin: 03/29/17 08:29 Dose: 40 mg Fluticasone Propionate (Flonase) 1 spr NS BID [facility] Stop: 05/13/17 08:59 Last Admin: 03/29/17 17:25 Dose: 1 spr Gabapentin (Neurontin) 600 mg PO TID [facility] Stop: 05/13/17 08:59 Last Admin: 03/29/17 20:19 Dose: 600 mg Glipizide (Glucotrol) 10 mg PO DAILY [facility] Stop: 05/21/17 08:59 Last Admin: 03/29/17 08:27 Dose: 10 mg Insulin Aspart (Novolog Insulin Sliding Scale) 0 units SUBQ ACHS [facility] PRN Reason: Protocol Stop: 05/13/17 20:59 Last Admin: 03/30/17 06:52 Dose: Not Given Ipratropium Free Soil (Atrovent Neb 0.5mg/2.5ml) 0.5 mg HHN Q6HRT [facility] Stop: 05/13/17 12:59 Last Admin: 03/30/17 00:38 Dose: 0.5 mg Ketotifen Fumarate (Zaditor 0.025% Ophth Soln) 1 drop EACH EYE BID [facility] Stop: 05/13/17 08:59 Last Admin: 03/29/17 17:25 Dose: 1 drop Lorazepam (Ativan) 0.5 mg PO Q6H PRN PRN Reason: ANXIETY/AGITATION Stop: 05/18/17 07:55 Magnesium Hydroxide (Milk Of Magnesia) 30 ml PO Q72H [facility] Stop: 05/13/17 08:59 Last Admin: 03/29/17 08:19 Dose: Not Given Metformin HCl (Glucophage) 1,000 mg PO BID [facility] Stop: 05/13/17 08:59 Last Admin: 03/29/17 17:25 Dose: 1,000 mg Methylprednisolone (Medrol) 4 mg PO DAILY PRN PRN Reason: arthralgia Stop: 05/19/17 08:16 Multivitamins/Vitamin C (Theragran) 1 tab PO DAILY [facility] Stop: 05/13/17 08:59 Last Admin: 03/29/17 08:30 Dose: 1 tab Promethazine HCl/Dextromethorphan (Phenergan Dm 6.25/15mg-5 Ml) 5 ml PO TID PRN PRN Reason: Cough Stop: 05/24/17 08:16 Last Admin: 03/29/17 20:48 Dose: 5 ml Risperidone (Risperdal) 1.5 mg PO HS REAL PRN Reason: Protocol Stop: 05/13/17 20:59 Last Admin: 03/29/17 20:19 Dose: 1.5 mg Sodium Phosphate (Fleet Enema) 135 ml RC Q48H PRN PRN Reason: Constipation Stop: 05/13/17 00:36 Tramadol HCl (Ultram) 50 mg PO Q6H PRN PRN Reason: arthralgia Stop: 05/16/17 08:23 Last Admin: 03/23/17 20:55 Dose: 50 mg Trazodone HCl (Desyrel) 150 mg PO HS REAL Stop: 05/13/17 20:59 Last Admin: 03/29/17 20:19 Dose: 150 mg Zolpidem Tartrate (Ambien) 5 mg PO HS PRN PRN Reason: Insomnia Stop: 05/13/17 02:20 Last Admin: 03/17/17 22:21 Dose: 5 mg General: Alert, Oriented x3, No acute distress HEENT: Atraumatic, PERRLA, EOMI Neck: Supple Cardiovascular: Regular rate, Normal S1, Normal S2 Lungs: Clear to auscultation Abdomen: Bowel sounds, Soft Extremities: no Clubbing, no Cyanosis, no Edema Skin: Rash (redness present) Assessment/Plan - Problem List Patient Problems: All Active Problems Arthralgia (Acute) M25.50 COPD (chronic obstructive pulmonary disease) (Acute) Dementia (Acute) F03.90 Dermatitis (Acute) L30.9 Diabetes mellitus (Acute) E11.9 Glaucoma (Acute) H40.9 Hypertension (Acute) I10 Hyponatremia (Acute) E87.1 Insomnia (Acute) G47.00 Neuralgia (Acute) M79.2 Psychosis (Acute) F29 Rheumatoid arthritis (Acute) M06.9 Schizophrenia (Acute) F20.9 - Assessment Assessment: psychosis,dementia,schizophrenia,insomnia ... admit to geropsyche hyponatremia ... will order repeat BMP hypertension ... controlled. continue current medication. diabetes mellitus not controlled ... will continue SSI, accuhecks QID. Will increase Glipizide from 5mg to 10mg. Continue Metformin 1000mg PO bID. COPD ... will continue current inhalers, will add cough syrup. s/p UTI ... will order UA if not already ordered by ER glaucoma ... continue current treatment neuralgia ... most likely peripheral diabetic neuropathy ... on neurontin rheumatoid arthritis .... consistent with elevated RA factor. course of oral prednisone dermatitis ... will order calmoseptine - Plan Plan: psychosis,dementia,schizophrenia,insomnia ... admit to geropsyche hyponatremia ... will order repeat BMP hypertension ... controlled. continue current medication. diabetes mellitus not controlled ... will continue SSI, accuhecks QID. Will increase Glipizide from 5mg to 10mg. Continue Metformin 1000mg PO bID. COPD ... will continue current inhalers and will add promethazine with DM for cough. s/p UTI ... will order UA if not already ordered by ER glaucoma ... continue current treatment neuralgia ... most likely peripheral diabetic neuropathy ... on neurontin rheumatoid arthritis .... consistent with elevated RA factor. course of oral prednisone dermatitis ... will order calmoseptine Nutritional Asmnt/Malnutr-PDOC - Dietary Evaluation Malnutrition Findings (Please click <Entered> for more info): Nutritional Asmnt/Malnutrition Start: 03/14/17 12: 32 Text: Status: Complete Freq: Document 03/14/17 18:06 [facility] (Rec: 03/14/17 18:13 [facility] [id number]) Nutritional Asmnt/Malnutrition Patient General Information Nutritional Screening High Risk Screening Diagnosis Depression (per ER report) Pertinent Medical Hx/Surgical Hx HTN, DM, severe sepsis, chronic bronchitis, s/p UTI, dementia, schizophrenia, depression, insomnia, glaucoma , nerualgia, depression Subjective Information Pt is a 71-year-old female from [facility] admitted with chief complaint of crying episodes. Pt was in the Dining Room, wheelchair bound. Pt is a fair historian. Pt appears well nourished with no signs of muscle or fat depletion. Pt reports food allergies to squash, fish, liver, and barroso beans, which causes her to break out in hives; FNS informed. RD informed pt on current diet and pt had no questions. Pt reports she intentionally lose 4#. Current Diet Order/ Nutrition Support CCHO, Boost GLucose Control at 1000 and 1400 Patient / S.O Can Pertinent Medications Oscal, Colace, Iron, Glipizide , Glucophage, Theragran Pertinent Labs (03/13) Na 129L, Glucose 219H, A1C 6.7H. (03/14) POC Glucose 338H-343H Nutritional Hx/Data Height 1.8 m Height (Calculated Centimeters) 180.3 Current Weight (lbs) 90.718 kg Weight (Calculated Kilograms) 90.7 Weight (Calculated Grams) 33753.5 Usual body Weight (lbs) 200 % Usual Body Weight 100 [place] Body Weight 155 % [place] Body Weight 129 Recent Weight Change Yes Weight Status Overweight GI Symptoms GI Symptoms None Food Allergies No Cultural/Ethnic/Voodoo Belief No cultural or sabianism beliefs noted. Usual diet at home CCHO with diabetic snacks at 1000, 1400 x one month Skin Integrity/Comment: Darrell 15. Skin intact. Current %PO Good (75-100%) Estimated Nutritional Goals BEE in Kcals: Using Current wt Calories/Kcals/Kg Based on current wt 90.9 kg with consideration of wheelchair-bound status Kcals Calculated 7271-1237 kcals/day (20-25 kcals/kg) Protein: Using Current wt Protein g/kg: Based on current wt 90.9 kg with consideration of wheelchair-bound status Protein Calculated 91 gm/day (1 gm/kg) Fluid: ml 8853-7164 ml/day (1 ml/kcal) Nutritional Problem 1. Problem Problem Altered nutrition-related laboratory values related to Etiology possible inconsistent carbohydrate intake, DM as evidenced by Signs/Symptoms: admitting glucose 219 mg/dl and POC Glucose 338-343 mg/dl. Malnutrition Alert Protein-Calorie Malnutrition N/A Is there a minimum of two criteria No selected? Query Text:Check all the applicable criteria. A minimum of two criteria are recommended for diagnosis of either severe or non-severe malnutrition. Malnutrition Related to Morbid Obesity Malnutrition related to morbid obesity No Intervention/Recommendation Comments 1. Recommend CCHO-75 GM diet to better meet estimated nutritional needs. 2. Consider discontinuing Boost Glucose Control supplements due to good appetite and to control blood sugar levels. Expected Outcomes/Goals Expected Outcomes/Goals Blood glucose levels will trend towards desired parameters. Physician Parameters for PEM Serum Albumin (g/dl) 3.5 - 5.0 (Normal)
[2017-03-30] MEDS: methylPREDNISolone 4 MG TAB PO PRN (07:37)
[2017-03-30] MEDS: Aspirin 81mg Chewable Tab PO SCH (08:30)
[2017-03-30] MEDS: Polyvinyl Alcohol Ophth Soln 15 mL Bottle EACH EYE SCH ×2 (08:30→16:43)
[2017-03-30] MEDS: Ferrous Sulfate 325 MG TAB PO SCH ×2 (08:30→16:44)
[2017-03-30] MEDS: Fluticasone Propionate 0.05mg/Actuation 16gm Nasal Spray NS SCH ×2 (08:30→16:44)
[2017-03-30] MEDS: Multivitamin Tab PO SCH (08:31)
--- NOTE | 2017-03-30 19:31 | Progress Notes ---
DATE: 03/30/2017 Case was discussed with staff of the patient, reviewed records. The patient continues to be unpredictable, impulsive, looking disheveled. Continues to have poor insight. Unable to make safe plan for her self-care. She has been compliant with the medication with no side effects, no sedation, no nausea, no extrapyramidal symptoms. She is on both Prozac and ____ with no side effects, no sedation, no nausea, no extrapyramidal symptoms. Also, she is also on Risperdal 1.5 mg at bedtime, working with discharge plan. We will continue the patient in group therapy, milieu therapy, adjust medication as needed. JOB# [id number]
[2017-03-30] MEDS: Promethazine DM 6.25/15mg-5mL 5 ML SYR PO PRN (20:35)
[2017-03-31] MEDS: Ipratropium Neb 0.5 mg/2.5 mL UD HHN SCH ×4 (00:57→19:04)
[2017-03-31] MEDS: Albuterol Nebulizer 2.5mg/3mL HHN SCH ×4 (00:57→19:04)
[2017-03-31] MEDS: Budesonide 0.5 Mg/2 mL Ud HHN SCH ×2 (06:58→19:04)
--- NOTE | 2017-03-31 08:06 | General Progress Note ---
Subjective - Review of Systems Service Date: 03/31/17 Subjective: Awake, alert, afebrile Objective - Results Result Diagrams: 03/13/17 22:37 03/21/17 11:04 Recent Labs: Laboratory Last Values WBC 3.4 Th/cmm (4.8-10.8) L 03/13/17 22:37 RBC 3.99 Mil/cmm (3.80-5.20) 03/13/17 22:37 Hgb 11.2 gm/dL (11.7-16.1) L 03/13/17 22:37 Hct 33.7 % (35.0-45.0) L 03/13/17 22:37 MCV 84.4 fl (81-100) 03/13/17 22:37 MCH 28.2 pg (27.0-31.0) 03/13/17 22:37 MCHC Differential 33.4 pg (28.0-36.0) 03/13/17 22:37 RDW 14.2 % (11.5-20.0) 03/13/17 22:37 Plt Count 170 Th/cmm (150-400) 03/13/17 22:37 MPV 6.8 fl 03/13/17 22:37 Neutrophils % 70.1 % (40.0-80.0) 03/13/17 22:37 Lymphocytes % 18.9 % (20.0-50.0) L 03/13/17 22:37 Monocytes % 10.7 % (2.0-10.0) H 03/13/17 22:37 Eosinophils % 0.1 % (0.0-5.0) 03/13/17 22:37 Basophils % 0.2 % (0.0-2.0) 03/13/17 22:37 Sodium 134 mEq/L (136-145) L 03/21/17 11:04 Potassium 4.2 mEq/L (3.5-5.1) 03/21/17 11:04 Chloride 99 mEq/L (98-107) 03/21/17 11:04 Carbon Dioxide 30.5 mEq/L (21.0-31.0) 03/21/17 11:04 Anion Gap 8.7 (7.0-16.0) 03/21/17 11:04 BUN 36 mg/dL (7-25) H 03/21/17 11:04 Creatinine 0.8 mg/dL (0.6-1.2) 03/21/17 11:04 Est GFR ( Amer) TNP 03/21/17 11:04 Est GFR (Non-Af Amer) TNP 03/21/17 11:04 BUN/Creatinine Ratio 45.0 03/21/17 11:04 Glucose 258 mg/dL (70-105) H 03/21/17 11:04 POC Glucose 121 MG/DL (70 - 105) H 03/29/17 06:19 Hemoglobin A1c % 6.7 % (4.0-6.0) H 03/13/17 22:37 Whole Bld Lactic Acid 1.78 mmol/L (0.60-1.99) 03/13/17 22:37 Uric Acid 4.8 mg/dL (2.3-6.6) 03/17/17 10:08 Calcium 9.7 mg/dL (8.6-10.3) 03/21/17 11:04 Total Bilirubin 0.3 mg/dL (0.3-1.0) 03/13/17 22:37 AST 13 U/L (13-39) 03/13/17 22:37 ALT 16 U/L (7-52) 03/13/17 22:37 Alkaline Phosphatase 73 U/L (34-104) 03/13/17 22:37 Total Protein 6.6 gm/dL (6.0-8.3) 03/13/17 22:37 Albumin 3.6 gm/dL (3.7-5.3) L 03/13/17 22:37 Globulin 3.0 gm/dL 03/13/17 22:37 Albumin/Globulin Ratio 1.2 (1.0-1.8) 03/13/17 22:37 Triglycerides 72 mg/dL (<150) 03/13/17 22:37 Cholesterol 148 mg/dL (<200) 03/13/17 22:37 LDL Cholesterol Direct 99 mg/dL (75-193) 03/13/17 22:37 HDL Cholesterol 45 mg/dL (23-92) 03/13/17 22:37 TSH 2.66 uIU/ml (0.34-5.60) 03/13/17 22:37 Rheumatoid Factor 41.0 IU/mL (0.0-13.9) H 03/17/17 10:08 ERVIN Screen Negative 03/17/17 10:08 RPR NONREACTIVE (NONREACTIVE) 03/13/17 22:37 - Physical Exam Vitals and I&O: Vital Signs Temp 97.8 F 03/31/17 06:21 Pulse 95 03/31/17 07:01 Resp 16 03/31/17 07:01 BP 140/62 03/31/17 06:21 Pulse Ox 99 03/31/17 07:01 Intake & Output 03/30/17 03/31/17 03/31/17 18:59 06:59 18:59 Intake Total 120 Balance 120 Intake: Oral 120 Other: # Voids 3 # Bowel Movements 0 Active Medications: Current Medications Acetaminophen (Tylenol) 650 mg PO Q4HR PRN PRN Reason: Pain or Fever >101 Stop: 05/13/17 00:36 Last Admin: 03/30/17 07:37 Dose: 650 mg Albuterol Sulfate (Albuterol 2.5mg/3ml Neb Ud) 2.5 mg HHN Q6HRT [facility] Stop: 05/13/17 12:59 Last Admin: 03/31/17 06:58 Dose: 2.5 mg Artificial Tears (Artificial Tears Ophth Soln) 1 drop EACH EYE BID [facility] Stop: 05/13/17 08:59 Last Admin: 03/30/17 16:43 Dose: 1 drop Aspirin (Aspirin Chewable) 81 mg PO DAILY [facility] Stop: 05/13/17 08:59 Last Admin: 03/30/17 08:30 Dose: 81 mg Benazepril HCl (Lotensin) 5 mg PO DAILY [facility] Stop: 05/13/17 08:59 Last Admin: 03/30/17 08:31 Dose: 5 mg Bisacodyl (Dulcolax 10 Mg Supp) 10 mg RC DAILY PRN PRN Reason: Constipation Stop: 05/13/17 00:36 Budesonide (Pulmicort) 0.5 mg HHN BIDRT [facility] Stop: 05/13/17 08:59 Last Admin: 03/31/17 06:58 Dose: 0.5 mg Calamine/Phenol (Calmoseptine) 1 appl TP DAILY PRN PRN Reason: infection Stop: 05/20/17 08:59 Last Admin: 03/27/17 08:17 Dose: 1 appl Calcium Carbonate (Os-Ky) 500 mg PO BID [facility] Stop: 05/13/17 08:59 Last Admin: 03/30/17 16:44 Dose: 500 mg Docusate Sodium (Colace) 100 mg PO DAILY REAL Stop: 05/13/17 08:59 Last Admin: 03/30/17 08:30 Dose: 100 mg Duloxetine HCl (Cymbalta) 60 mg PO DAILY REAL PRN Reason: Protocol Stop: 05/21/17 08:59 Last Admin: 03/30/17 08:31 Dose: 60 mg Ferrous Sulfate (Iron) 325 mg PO BID [facility] Stop: 05/13/17 08:59 Last Admin: 03/30/17 16:44 Dose: 325 mg Fluoxetine HCl (Prozac) 40 mg PO QAM [facility] Stop: 05/13/17 08:59 Last Admin: 03/30/17 08:31 Dose: 40 mg Fluticasone Propionate (Flonase) 1 spr NS BID REAL Stop: 05/13/17 08:59 Last Admin: 03/30/17 16:44 Dose: 1 spr Gabapentin (Neurontin) 600 mg PO TID [facility] Stop: 05/13/17 08:59 Last Admin: 03/30/17 20:29 Dose: 600 mg Glipizide (Glucotrol) 10 mg PO DAILY [facility] Stop: 05/21/17 08:59 Last Admin: 03/30/17 08:30 Dose: 10 mg Insulin Aspart (Novolog Insulin Sliding Scale) 0 units SUBQ ACHS REAL PRN Reason: Protocol Stop: 05/13/17 20:59 Last Admin: 03/30/17 20:11 Dose: 2 units Ipratropium [place] (Atrovent Neb 0.5mg/2.5ml) 0.5 mg HHN Q6HRT [facility] Stop: 05/13/17 12:59 Last Admin: 03/31/17 06:58 Dose: 0.5 mg Ketotifen Fumarate (Zaditor 0.025% Ophth Soln) 1 drop EACH EYE BID [facility] Stop: 05/13/17 08:59 Last Admin: 03/30/17 16:44 Dose: 1 drop Lorazepam (Ativan) 0.5 mg PO Q6H PRN PRN Reason: ANXIETY/AGITATION Stop: 05/18/17 07:55 Last Admin: 03/30/17 16:44 Dose: 0.5 mg Magnesium Hydroxide (Milk Of Magnesia) 30 ml PO Q72H REAL Stop: 05/13/17 08:59 Last Admin: 03/29/17 08:19 Dose: Not Given Metformin HCl (Glucophage) 1,000 mg PO BID REAL Stop: 05/13/17 08:59 Last Admin: 03/30/17 16:44 Dose: 1,000 mg Methylprednisolone (Medrol) 4 mg PO DAILY PRN PRN Reason: arthralgia Stop: 05/19/17 08:16 Last Admin: 03/30/17 07:37 Dose: 4 mg Multivitamins/Vitamin C (Theragran) 1 tab PO DAILY REAL Stop: 05/13/17 08:59 Last Admin: 03/30/17 08:31 Dose: 1 tab Promethazine HCl/Dextromethorphan (Phenergan Dm 6.25/15mg-5 Ml) 5 ml PO TID PRN PRN Reason: Cough Stop: 05/24/17 08:16 Last Admin: 03/30/17 20:35 Dose: 5 ml Risperidone (Risperdal) 1.5 mg PO HS REAL PRN Reason: Protocol Stop: 05/13/17 20:59 Last Admin: 03/30/17 20:29 Dose: 1.5 mg Sodium Phosphate (Fleet Enema) 135 ml RC Q48H PRN PRN Reason: Constipation Stop: 05/13/17 00:36 Tramadol HCl (Ultram) 50 mg PO Q6H PRN PRN Reason: arthralgia Stop: 05/16/17 08:23 Last Admin: 03/23/17 20:55 Dose: 50 mg Trazodone HCl (Desyrel) 150 mg PO HS REAL Stop: 05/13/17 20:59 Last Admin: 03/30/17 20:29 Dose: 150 mg Zolpidem Tartrate (Ambien) 5 mg PO HS PRN PRN Reason: Insomnia Stop: 05/13/17 02:20 Last Admin: 03/17/17 22:21 Dose: 5 mg General: Alert, Oriented x3, No acute distress HEENT: Atraumatic, PERRLA, EOMI Neck: Supple Cardiovascular: Regular rate, Normal S1, Normal S2 Lungs: Clear to auscultation Abdomen: Bowel sounds, Soft Extremities: no Clubbing, no Cyanosis, no Edema Skin: Rash (redness present) Assessment/Plan - Problem List Patient Problems: All Active Problems Arthralgia (Acute) M25.50 COPD (chronic obstructive pulmonary disease) (Acute) Dementia (Acute) F03.90 Dermatitis (Acute) L30.9 Diabetes mellitus (Acute) E11.9 Glaucoma (Acute) H40.9 Hypertension (Acute) I10 Hyponatremia (Acute) E87.1 Insomnia (Acute) G47.00 Neuralgia (Acute) M79.2 Psychosis (Acute) F29 Rheumatoid arthritis (Acute) M06.9 Schizophrenia (Acute) F20.9 - Assessment Assessment: psychosis,dementia,schizophrenia,insomnia ... admit to geropsyche hyponatremia ... will order repeat BMP hypertension ... controlled. continue current medication. diabetes mellitus not controlled ... will continue SSI, accuhecks QID. Will increase Glipizide from 5mg to 10mg. Continue Metformin 1000mg PO bID. COPD ... will continue current inhalers, will add cough syrup. s/p UTI ... will order UA if not already ordered by ER glaucoma ... continue current treatment neuralgia ... most likely peripheral diabetic neuropathy ... on neurontin rheumatoid arthritis .... consistent with elevated RA factor. course of oral prednisone dermatitis ... will order calmoseptine - Plan Plan: psychosis,dementia,schizophrenia,insomnia ... admit to geropsyche hyponatremia ... will order repeat BMP hypertension ... controlled. continue current medication. diabetes mellitus not controlled ... will continue SSI, accuhecks QID. Will increase Glipizide from 5mg to 10mg. Continue Metformin 1000mg PO bID. COPD ... will continue current inhalers and will add promethazine with DM for cough. s/p UTI ... will order UA if not already ordered by ER glaucoma ... continue current treatment neuralgia ... most likely peripheral diabetic neuropathy ... on neurontin rheumatoid arthritis .... consistent with elevated RA factor. course of oral prednisone dermatitis ... will order calmoseptine Nutritional Asmnt/Malnutr-PDOC - Dietary Evaluation Malnutrition Findings (Please click <Entered> for more info): Nutritional Asmnt/Malnutrition Start: 03/14/17 12: 32 Text: Status: Complete Freq: Document 03/14/17 18:06 [facility] (Rec: 03/14/17 18:13 [facility] [id number]) Nutritional Asmnt/Malnutrition Patient General Information Nutritional Screening High Risk Screening Diagnosis Depression (per ER report) Pertinent Medical Hx/Surgical Hx HTN, DM, severe sepsis, chronic bronchitis, s/p UTI, dementia, schizophrenia, depression, insomnia, glaucoma , nerualgia, depression Subjective Information Pt is a 71-year-old female from [place] admitted with chief complaint of crying episodes. Pt was in the Dining Room, wheelchair bound. Pt is a fair historian. Pt appears well nourished with no signs of muscle or fat depletion. Pt reports food allergies to squash, fish, liver, and barroso beans, which causes her to break out in hives; FNS informed. RD informed pt on current diet and pt had no questions. Pt reports she intentionally lose 4#. Current Diet Order/ Nutrition [facility], Boost GLucose Control at 1000 and 1400 Patient / S.O Can Pertinent Medications [place], Colace, Iron, Glipizide , Glucophage, Theragran Pertinent Labs (03/13) Na 129L, Glucose 219H, A1C 6.7H. (03/14) POC Glucose 338H-343H Nutritional Hx/Data Height 1.8 m Height (Calculated Centimeters) 180.3 Current Weight (lbs) 90.718 kg Weight (Calculated Kilograms) 90.7 Weight (Calculated Grams) 99960.5 Usual body Weight (lbs) 200 % Usual Body Weight 100 [place] Body Weight 155 % [place] Body Weight 129 Recent Weight Change Yes Weight Status Overweight GI Symptoms GI Symptoms None Food Allergies No Cultural/Ethnic/Scientology Belief No cultural or methodist beliefs noted. Usual diet at home CCHO with diabetic snacks at 1000, 1400 x one month Skin Integrity/Comment: Darrell 15. Skin intact. Current %PO Good (75-100%) Estimated Nutritional Goals BEE in Kcals: Using Current wt Calories/Kcals/Kg Based on current wt 90.9 kg with consideration of wheelchair-bound status Kcals Calculated 1341-7668 kcals/day (20-25 kcals/kg) Protein: Using Current wt Protein g/kg: Based on current wt 90.9 kg with consideration of wheelchair-bound status Protein Calculated 91 gm/day (1 gm/kg) Fluid: ml 9167-2411 ml/day (1 ml/kcal) Nutritional Problem 1. Problem Problem Altered nutrition-related laboratory values related to Etiology possible inconsistent carbohydrate intake, DM as evidenced by Signs/Symptoms: admitting glucose 219 mg/dl and POC Glucose 338-343 mg/dl. Malnutrition Alert Protein-Calorie Malnutrition N/A Is there a minimum of two criteria No selected? Query Text:Check all the applicable criteria. A minimum of two criteria are recommended for diagnosis of either severe or non-severe malnutrition. Malnutrition Related to Morbid Obesity Malnutrition related to morbid obesity No Intervention/Recommendation Comments 1. Recommend CCHO-75 GM diet to better meet estimated nutritional needs. 2. Consider discontinuing Boost Glucose Control supplements due to good appetite and to control blood sugar levels. Expected Outcomes/Goals Expected Outcomes/Goals Blood glucose levels will trend towards desired parameters. Physician Parameters for PEM Serum Albumin (g/dl) 3.5 - 5.0 (Normal)
[2017-03-31] MEDS: Promethazine DM 6.25/15mg-5mL 5 ML SYR PO PRN ×2 (09:32→22:07)
[2017-03-31] MEDS: Ferrous Sulfate 325 MG TAB PO SCH ×2 (09:32→17:41)
[2017-03-31] MEDS: methylPREDNISolone 4 MG TAB PO PRN (09:33)
[2017-03-31] MEDS: Aspirin 81mg Chewable Tab PO SCH (09:33)
[2017-03-31] MEDS: Multivitamin Tab PO SCH (09:35)
[2017-03-31] MEDS: Fluticasone Propionate 0.05mg/Actuation 16gm Nasal Spray NS SCH ×2 (10:30→17:30)
[2017-03-31] MEDS: Polyvinyl Alcohol Ophth Soln 15 mL Bottle EACH EYE SCH ×2 (10:30→17:31)
[2017-03-31] MEDS: INSULIN ASPART SLIDING SCALE 100 UNITS/ML UNIT SUBQ SCH ×4 (17:26→21:09)
[2017-04-01] MEDS: Albuterol Nebulizer 2.5mg/3mL HHN SCH ×3 (00:19→14:04)
[2017-04-01] MEDS: Ipratropium Neb 0.5 mg/2.5 mL UD HHN SCH ×3 (00:20→14:05)
--- NOTE | 2017-04-01 04:16 | Progress Notes ---
DATE: 03/31/2017 Case was discussed with staff of the patient, reviewed records. The patient is doing well, sleeping well, eating well. No suicidal ideation. No homicidal ideation. No paranoia. She did have an x-ray of the right knee 2-views and it shows no evidence of acute fracture, advanced degenerative changes and advanced narrowing of the medial knee compartment, calcification and moderate-sized knee effusion, atherosclerotic vascular disease, osteopenia for which I will be consulting, I will leave that decision up to Dr. Liu. I asked the staff to call him today to make a decision on this prior to discharge. As I was planning to discharge her today, but I would have to get Dr. Liu to get ____. Meanwhile the patient denies any intent to harm herself or anyone, denies any auditory or visual hallucination or paranoia, no side effects. We will continue to work with the patient in group therapy, milieu therapy, adjust medication as needed. JOB# [id number]
[2017-04-01] MEDS: Budesonide 0.5 Mg/2 mL Ud HHN SCH (07:48)
--- NOTE | 2017-04-01 09:23 | General Progress Note ---
Subjective - Review of Systems Service Date: 04/01/17 Subjective: Awake, alert, afebrile Objective - Results Result Diagrams: 03/13/17 22:37 03/21/17 11:04 Recent Labs: Laboratory Last Values WBC 3.4 Th/cmm (4.8-10.8) L 03/13/17 22:37 RBC 3.99 Mil/cmm (3.80-5.20) 03/13/17 22:37 Hgb 11.2 gm/dL (11.7-16.1) L 03/13/17 22:37 Hct 33.7 % (35.0-45.0) L 03/13/17 22:37 MCV 84.4 fl (81-100) 03/13/17 22:37 MCH 28.2 pg (27.0-31.0) 03/13/17 22:37 MCHC Differential 33.4 pg (28.0-36.0) 03/13/17 22:37 RDW 14.2 % (11.5-20.0) 03/13/17 22:37 Plt Count 170 Th/cmm (150-400) 03/13/17 22:37 MPV 6.8 fl 03/13/17 22:37 Neutrophils % 70.1 % (40.0-80.0) 03/13/17 22:37 Lymphocytes % 18.9 % (20.0-50.0) L 03/13/17 22:37 Monocytes % 10.7 % (2.0-10.0) H 03/13/17 22:37 Eosinophils % 0.1 % (0.0-5.0) 03/13/17 22:37 Basophils % 0.2 % (0.0-2.0) 03/13/17 22:37 Sodium 134 mEq/L (136-145) L 03/21/17 11:04 Potassium 4.2 mEq/L (3.5-5.1) 03/21/17 11:04 Chloride 99 mEq/L (98-107) 03/21/17 11:04 Carbon Dioxide 30.5 mEq/L (21.0-31.0) 03/21/17 11:04 Anion Gap 8.7 (7.0-16.0) 03/21/17 11:04 BUN 36 mg/dL (7-25) H 03/21/17 11:04 Creatinine 0.8 mg/dL (0.6-1.2) 03/21/17 11:04 Est GFR ( Amer) TNP 03/21/17 11:04 Est GFR (Non-Af Amer) TNP 03/21/17 11:04 BUN/Creatinine Ratio 45.0 03/21/17 11:04 Glucose 258 mg/dL (70-105) H 03/21/17 11:04 POC Glucose 95 MG/DL (70 - 105) 04/01/17 06:27 Hemoglobin A1c % 6.7 % (4.0-6.0) H 03/13/17 22:37 Whole Bld Lactic Acid 1.78 mmol/L (0.60-1.99) 03/13/17 22:37 Uric Acid 4.8 mg/dL (2.3-6.6) 03/17/17 10:08 Calcium 9.7 mg/dL (8.6-10.3) 03/21/17 11:04 Total Bilirubin 0.3 mg/dL (0.3-1.0) 03/13/17 22:37 AST 13 U/L (13-39) 03/13/17 22:37 ALT 16 U/L (7-52) 03/13/17 22:37 Alkaline Phosphatase 73 U/L (34-104) 03/13/17 22:37 Total Protein 6.6 gm/dL (6.0-8.3) 03/13/17 22:37 Albumin 3.6 gm/dL (3.7-5.3) L 03/13/17 22:37 Globulin 3.0 gm/dL 03/13/17 22:37 Albumin/Globulin Ratio 1.2 (1.0-1.8) 03/13/17 22:37 Triglycerides 72 mg/dL (<150) 03/13/17 22:37 Cholesterol 148 mg/dL (<200) 03/13/17 22:37 LDL Cholesterol Direct 99 mg/dL (75-193) 03/13/17 22:37 HDL Cholesterol 45 mg/dL (23-92) 03/13/17 22:37 TSH 2.66 uIU/ml (0.34-5.60) 03/13/17 22:37 Rheumatoid Factor 41.0 IU/mL (0.0-13.9) H 03/17/17 10:08 ERVIN Screen Negative 03/17/17 10:08 RPR NONREACTIVE (NONREACTIVE) 03/13/17 22:37 - Physical Exam Vitals and I&O: Vital Signs Temp 98.2 F 04/01/17 06:21 Pulse 95 04/01/17 07:30 Resp 14 04/01/17 07:30 BP 131/69 04/01/17 06:21 Pulse Ox 97 04/01/17 07:30 Intake & Output 03/31/17 04/01/17 04/01/17 18:59 06:59 18:59 Intake Total 600 Balance 600 Intake: Oral 600 Other: # Voids 2 # Bowel Movements 1 Active Medications: Current Medications Acetaminophen (Tylenol) 650 mg PO Q4HR PRN PRN Reason: Pain or Fever >101 Stop: 05/13/17 00:36 Last Admin: 03/30/17 07:37 Dose: 650 mg Albuterol Sulfate (Albuterol 2.5mg/3ml Neb Ud) 2.5 mg HHN Q6HRT [facility] Stop: 05/13/17 12:59 Last Admin: 04/01/17 07:48 Dose: 2.5 mg Artificial Tears (Artificial Tears Ophth Soln) 1 drop EACH EYE BID [facility] Stop: 05/13/17 08:59 Last Admin: 03/31/17 17:31 Dose: 1 drop Aspirin (Aspirin Chewable) 81 mg PO DAILY [facility] Stop: 05/13/17 08:59 Last Admin: 03/31/17 09:33 Dose: 81 mg Benazepril HCl (Lotensin) 5 mg PO DAILY REAL Stop: 05/13/17 08:59 Last Admin: 03/31/17 09:33 Dose: 5 mg Bisacodyl (Dulcolax 10 Mg Supp) 10 mg RC DAILY PRN PRN Reason: Constipation Stop: 05/13/17 00:36 Budesonide (Pulmicort) 0.5 mg HHN BIDRT [facility] Stop: 05/13/17 08:59 Last Admin: 04/01/17 07:48 Dose: 0.5 mg Calamine/Phenol (Calmoseptine) 1 appl TP DAILY PRN PRN Reason: infection Stop: 05/20/17 08:59 Last Admin: 03/27/17 08:17 Dose: 1 appl Calcium Carbonate (Os-Ky) 500 mg PO BID [facility] Stop: 05/13/17 08:59 Last Admin: 03/31/17 17:41 Dose: 500 mg Docusate Sodium (Colace) 100 mg PO DAILY REAL Stop: 05/13/17 08:59 Last Admin: 03/31/17 17:27 Dose: Not Given Duloxetine HCl (Cymbalta) 60 mg PO DAILY [facility] PRN Reason: Protocol Stop: 05/21/17 08:59 Last Admin: 03/31/17 09:33 Dose: 60 mg Ferrous Sulfate (Iron) 325 mg PO BID [facility] Stop: 05/13/17 08:59 Last Admin: 03/31/17 17:41 Dose: 325 mg Fluoxetine HCl (Prozac) 40 mg PO QAM [facility] Stop: 05/13/17 08:59 Last Admin: 03/31/17 09:33 Dose: 40 mg Fluticasone Propionate (Flonase) 1 spr NS BID REAL Stop: 05/13/17 08:59 Last Admin: 03/31/17 17:30 Dose: 1 spr Gabapentin (Neurontin) 600 mg PO TID [facility] Stop: 05/13/17 08:59 Last Admin: 03/31/17 20:45 Dose: 600 mg Glipizide (Glucotrol) 10 mg PO DAILY [facility] Stop: 05/21/17 08:59 Last Admin: 03/31/17 09:33 Dose: 10 mg Insulin Aspart (Novolog Insulin Sliding Scale) 0 units SUBQ ACHS REAL PRN Reason: Protocol Stop: 05/13/17 20:59 Last Admin: 03/31/17 21:09 Dose: 4 units Ipratropium [place] (Atrovent Neb 0.5mg/2.5ml) 0.5 mg HHN Q6HRT [facility] Stop: 05/13/17 12:59 Last Admin: 04/01/17 07:48 Dose: 0.5 mg Ketotifen Fumarate (Zaditor 0.025% Ophth Soln) 1 drop EACH EYE BID [facility] Stop: 05/13/17 08:59 Last Admin: 03/31/17 17:31 Dose: 1 drop Lorazepam (Ativan) 0.5 mg PO Q6H PRN PRN Reason: ANXIETY/AGITATION Stop: 05/18/17 07:55 Last Admin: 03/30/17 16:44 Dose: 0.5 mg Magnesium Hydroxide (Milk Of Magnesia) 30 ml PO Q72H REAL Stop: 05/13/17 08:59 Last Admin: 03/29/17 08:19 Dose: Not Given Metformin HCl (Glucophage) 1,000 mg PO BID REAL Stop: 05/13/17 08:59 Last Admin: 03/31/17 17:41 Dose: 1,000 mg Methylprednisolone (Medrol) 4 mg PO DAILY PRN PRN Reason: arthralgia Stop: 05/19/17 08:16 Last Admin: 03/31/17 09:33 Dose: 4 mg Multivitamins/Vitamin C (Theragran) 1 tab PO DAILY REAL Stop: 05/13/17 08:59 Last Admin: 03/31/17 09:35 Dose: 1 tab Promethazine HCl/Dextromethorphan (Phenergan Dm 6.25/15mg-5 Ml) 5 ml PO TID PRN PRN Reason: Cough Stop: 05/24/17 08:16 Last Admin: 03/31/17 22:07 Dose: 5 ml Risperidone (Risperdal) 1.5 mg PO HS REAL PRN Reason: Protocol Stop: 05/13/17 20:59 Last Admin: 03/31/17 20:44 Dose: 1.5 mg Sodium Phosphate (Fleet Enema) 135 ml RC Q48H PRN PRN Reason: Constipation Stop: 05/13/17 00:36 Tramadol HCl (Ultram) 50 mg PO Q6H PRN PRN Reason: arthralgia Stop: 05/16/17 08:23 Last Admin: 03/31/17 09:35 Dose: 50 mg Trazodone HCl (Desyrel) 150 mg PO HS REAL Stop: 05/13/17 20:59 Last Admin: 03/31/17 20:45 Dose: 150 mg Zolpidem Tartrate (Ambien) 5 mg PO HS PRN PRN Reason: Insomnia Stop: 05/13/17 02:20 Last Admin: 03/17/17 22:21 Dose: 5 mg General: Alert, Oriented x3, No acute distress HEENT: Atraumatic, PERRLA, EOMI Neck: Supple Cardiovascular: Regular rate, Normal S1, Normal S2 Lungs: Clear to auscultation Abdomen: Bowel sounds, Soft Extremities: no Clubbing, no Cyanosis, no Edema Skin: Rash (redness present) Assessment/Plan - Problem List Patient Problems: All Active Problems Arthralgia (Acute) M25.50 COPD (chronic obstructive pulmonary disease) (Acute) Dementia (Acute) F03.90 Dermatitis (Acute) L30.9 Diabetes mellitus (Acute) E11.9 Glaucoma (Acute) H40.9 Hypertension (Acute) I10 Hyponatremia (Acute) E87.1 Insomnia (Acute) G47.00 Neuralgia (Acute) M79.2 Psychosis (Acute) F29 Rheumatoid arthritis (Acute) M06.9 Schizophrenia (Acute) F20.9 - Assessment Assessment: psychosis,dementia,schizophrenia,insomnia ... admit to geropsyche hyponatremia ... will order repeat BMP hypertension ... controlled. continue current medication. diabetes mellitus not controlled ... will continue SSI, accuhecks QID. Will increase Glipizide from 5mg to 10mg. Continue Metformin 1000mg PO bID. COPD ... will continue current inhalers, will add cough syrup. s/p UTI ... will order UA if not already ordered by ER glaucoma ... continue current treatment neuralgia ... most likely peripheral diabetic neuropathy ... on neurontin rheumatoid arthritis .... consistent with elevated RA factor. course of oral prednisone. May be follow up with ortho as outpatient. dermatitis ... will order calmoseptine - Plan Plan: psychosis,dementia,schizophrenia,insomnia ... admit to geropsyche hyponatremia ... will order repeat BMP hypertension ... controlled. continue current medication. diabetes mellitus not controlled ... will continue SSI, accuhecks QID. Will increase Glipizide from 5mg to 10mg. Continue Metformin 1000mg PO bID. COPD ... will continue current inhalers and will add promethazine with DM for cough. s/p UTI ... will order UA if not already ordered by ER glaucoma ... continue current treatment neuralgia ... most likely peripheral diabetic neuropathy ... on neurontin rheumatoid arthritis .... consistent with elevated RA factor. course of oral prednisone dermatitis ... will order calmoseptine Nutritional Asmnt/Malnutr-PDOC - Dietary Evaluation Malnutrition Findings (Please click <Entered> for more info): Nutritional Asmnt/Malnutrition Start: 03/14/17 12: 32 Text: Status: Complete Freq: Document 03/14/17 18:06 [facility] (Rec: 03/14/17 18:13 [facility] [id number]) Nutritional Asmnt/Malnutrition Patient General Information Nutritional Screening High Risk Screening Diagnosis Depression (per ER report) Pertinent Medical Hx/Surgical Hx HTN, DM, severe sepsis, chronic bronchitis, s/p UTI, dementia, schizophrenia, depression, insomnia, glaucoma , nerualgia, depression Subjective Information Pt is a 71-year-old female from [facility] admitted with chief complaint of crying episodes. Pt was in the Dining Room, wheelchair bound. Pt is a fair historian. Pt appears well nourished with no signs of muscle or fat depletion. Pt reports food allergies to squash, fish, liver, and barroso beans, which causes her to break out in hives; FNS informed. RD informed pt on current diet and pt had no questions. Pt reports she intentionally lose 4#. Current Diet Order/ Nutrition Support [facility], Boost GLucose Control at 1000 and 1400 Patient / S.O Can Pertinent Medications [place], Colace, Iron, Glipizide , Glucophage, Theragran Pertinent Labs (03/13) Na 129L, Glucose 219H, A1C 6.7H. (03/14) POC Glucose 338H-343H Nutritional Hx/Data Height 1.8 m Height (Calculated Centimeters) 180.3 Current Weight (lbs) 90.718 kg Weight (Calculated Kilograms) 90.7 Weight (Calculated Grams) 68848.5 Usual body Weight (lbs) 200 % Usual Body Weight 100 [place] Body Weight 155 % [place] Body Weight 129 Recent Weight Change Yes Weight Status Overweight GI Symptoms GI Symptoms None Food Allergies No Cultural/Ethnic/Yazidism Belief No cultural or alevism beliefs noted. Usual diet at home [facility] with diabetic snacks at 1000, 1400 x one month Skin Integrity/Comment: Darrell Rebolledo. Skin intact. Current %PO Good (75-100%) Estimated Nutritional Goals BEE in Kcals: Using Current wt Calories/Kcals/Kg Based on current wt 90.9 kg with consideration of wheelchair-bound status Kcals Calculated 7047-1432 kcals/day (20-25 kcals/kg) Protein: Using Current wt Protein g/kg: Based on current wt 90.9 kg with consideration of wheelchair-bound status Protein Calculated 91 gm/day (1 gm/kg) Fluid: ml 7791-9242 ml/day (1 ml/kcal) Nutritional Problem 1. Problem Problem Altered nutrition-related laboratory values related to Etiology possible inconsistent carbohydrate intake, DM as evidenced by Signs/Symptoms: admitting glucose 219 mg/dl and POC Glucose 338-343 mg/dl. Malnutrition Alert Protein-Calorie Malnutrition N/A Is there a minimum of two criteria No selected? Query Text:Check all the applicable criteria. A minimum of two criteria are recommended for diagnosis of either severe or non-severe malnutrition. Malnutrition Related to Morbid Obesity Malnutrition related to morbid obesity No Intervention/Recommendation Comments 1. Recommend CCHO-75 GM diet to better meet estimated nutritional needs. 2. Consider discontinuing Boost Glucose Control supplements due to good appetite and to control blood sugar levels. Expected Outcomes/Goals Expected Outcomes/Goals Blood glucose levels will trend towards desired parameters. Physician Parameters for PEM Serum Albumin (g/dl) 3.5 - 5.0 (Normal)
[2017-04-01] MEDS: Aspirin 81mg Chewable Tab PO SCH (09:42)
[2017-04-01] MEDS: Ferrous Sulfate 325 MG TAB PO SCH (09:42)
[2017-04-01] MEDS: Multivitamin Tab PO SCH (09:42)
[2017-04-01] MEDS: Fluticasone Propionate 0.05mg/Actuation 16gm Nasal Spray NS SCH (09:44)
[2017-04-01] MEDS: Polyvinyl Alcohol Ophth Soln 15 mL Bottle EACH EYE SCH (09:44)
[2017-04-01] MEDS: Magnesium Hydroxide (MOM) 30 mL UDC PO SCH (09:45)
--- NOTE | 2017-04-02 00:12 | Progress Notes ---
DATE: 04/01/2017 Case was discussed with staff of the patient, reviewed records. The patient is much better, sleeping well, eating well. She has seen Dr. Liu regarding the effusion in her left knee and her family Dr. Liu felt that it is a chronic thing but she could still get discharged and follow up as an outpatient. The patient no longer meets criteria for inpatient treatment. She denies any current intent to harm herself or anybody. She denies any auditory or visual hallucination or paranoia. Denies any side effect. The [facility] be [facility] a [facility]. JOB# [id number]
== END 2017-04-01 14:45 | disposition home or self-care (01) | DRG 885 ==
LOC: ER 22:08 → GERO 23:45
PROVIDERS: ADMIT Psychiatry & Neurology Psychiatry; ATTEND Psychiatry & Neurology Psychiatry
DX: F33.3 Major depressive disorder, recurrent, severe with psychotic symptoms (principal); E11.42 Type 2 diabetes mellitus with diabetic polyneuropathy; F03.90 Unspecified dementia, unspecified severity, without behavioral disturbance, psychotic disturbance, mood disturbance, and anxiety; E87.1 Hypo-osmolality and hyponatremia; E11.65 Type 2 diabetes mellitus with hyperglycemia; I10 Essential (primary) hypertension; J44.9 Chronic obstructive pulmonary disease, unspecified; H40.9 Unspecified glaucoma; L30.9 Dermatitis, unspecified; G47.00 Insomnia, unspecified; M06.9 Rheumatoid arthritis, unspecified; F17.210 Nicotine dependence, cigarettes, uncomplicated; S80.02XA Contusion of left knee, initial encounter; S80.01XA Contusion of right knee, initial encounter; Z79.899 Other long term (current) drug therapy; Z88.0 Allergy status to penicillin; Z91.013 Allergy to seafood
CPT/HCPCS: 36415-UA; 71010-TC; 73030-TC-LT; 73560-TC-RT; 80048-TC; 80053-TC; 80061-TC; 82948-90; 83036-90; 83605; 84443-TC; 84550-TC; 85025-TC; 86038-90; 86430-90; 86592-TC; 90779; 90899; 93005; 94760; G0410; J1815; J7509; J7613; Z7610

== ENCOUNTER 2017-07-16 20:58 | Inpatient (IN) | payer MEDICARE, OTHER ==
--- NOTE | 2017-07-16 21:33 | ED Physician Chart ---
ED Chief Complaint/HPI - Patient Information Date Seen:: 07/16/17 Time Seen:: 21:00 Chief Complaint:: Agitation History of Present Illness:: onset x 3 days of hostile behavior and agitation; no report of SIs, trauma, H/As , neck pain, C/P, SOB, Abd. Pain, A/N/V/D/c, fever, chills, or urinary s/s Allergies:: Allergies Allergy/AdvReac Type Severity Reaction Status Date / Time Fish Containing Products Allergy Verified 07/16/17 21:05 Penicillins [PCN] Allergy Verified 07/16/17 21:05 Vitals:: Vital Signs - 8 hr 07/16/17 21:00 Temp 98.2 F HR 96 RR 18 BP 130/56 O2 Sat % 97 Historian:: Patient, EMS Review:: Nurse's Note Reviewed, Old Chart Reviewed, EMS run form Reviewed ED Review of Systems - Review of Systems General/Constitutional: No fever, No chills, No weight loss, No weakness, No diaphoresis, No edema, No loss of appetite Skin: No skin lesions, No rash, No bruising Head: No headache, No light-headedness Eyes: No loss of vision, No pain, No diplopia ENT: No earache, No nasal drainage, No sore throat, No tinnitus Neck: No neck pain, No swelling, No thyromegaly, No stiffness, No mass noted Cardio Vascular: No chest pain, No palpitations, No PND, No orthopnea, No edema Pulmonary: No SOB, No cough, No sputum, No wheezing GI: No nausea, No vomiting, No diarrhea, No pain, No melena, No hematochezia, No constipation, No hematemesis G/U: No dysuria, No frequency, No hematuria, No nacturia Search Analyst: No vaginal discharge, No abnormal vaginal bleed, No contraction Musculoskeletal: No bone or joint pain, No back pain, No muscle pain Endocrine: No polyuria, No polydipsia Psychiatric: Prior psych history, Depression, Anxiety, No suicidal ideation, No homicidal ideation, Auditory hallucination, No visual hallucination Hematopoietic: No bruising, No lymphadenopathy Allergic/Immuno: No urticaria, No angioedema Neurological: No syncope, No focal symptoms, No weakness, No paresthesia, No headache, No seizure, No dizziness, No confusion, No vertigo ED Past Medical History - Past Medical History Obtainable: Yes Past Medical History: HTN, DM, Arthritis, Dementia Family History: Diabetes Melitus, HTN Social History: Non Smoker, No Alcohol, No Drug Use, Single, Care Facility Surgical History: None Psychiatricy History: Depression, Schizophrenia, Bipolar, Dementia Medication: Reviewed Family Medical History - Family Member Mother History Unknown: Yes ED Physical Exam - Physical Examination General/Constitutional: Awake, Well-developed, well-nourished, Alert, No distress, GCS 15, Non-toxic appearing, Ambulatory Head: Atraumatic Eyes: Lids, conjuctiva normal, PERRL, EOMI Skin: Nl inspection, No rash, No skin lesions, No ecchymosis, Well hydrated, No lymphadenopathy ENMT: External ears, nose nl, TM canals nl, Nasal exam nl, Lips, teeth, gums nl , Oropharynx nl, Tonsils nl Neck: Nontender, Full ROM w/o pain, No JVD, No nuchal rigidity, No bruit, No mass, No stridor Respiratory: Nl effort/Exclusion, Clear to Auscultation, No Wheeze/Rhonchi/Rales Cardio Vascular: RRR, No murmur, gallop, rubs, NL S1 S2, Carotid/Femoral/Distal pulses equal bilaterally GI: No tenderness/rebounding/guarding, No organomegaly, No hernia, Normal BS's, Nondistended, No mass/bruits, No McBurney tenderness : No CVA tenderness Extremities: No tenderness or effusion, Full ROM, normal strength in all extremities, No edema, Normal digits & nails Neuro/Psych: DTR's symmetric, Normal sensory exam, Normal motor strength, Normal gait, No focal deficits Other Neuro/Psych comments:: + Psychomotor Agitation; Mood/Affect: Labile; no SIs; Disoriented and confused Misc: Normal back, No paraspinal tenderness ED Labs/Radiology/EKG Results - EKG Interpretations Rate & Rhythm: ST Comments:: non-specific st-t changes ED Septic Shock - . Is Septic Shock (SBP<90, OR Lactate>4 mmol\L) present?: No - <6hrs of presentation: Vital Signs: Vital Signs - 8 hr 07/16/17 21:00 Temp 98.2 F HR 96 RR 18 BP 130/56 O2 Sat % 97 ED Reassessment (Disposition) - Reassessment Reassessment Condition:: Improved - Diagnosis Diagnosis:: Agitation; Psychomotor Agitation; Dementia; Psychosis; Bipolar Disorder - Aftercare/Follow up Instructions Aftercare/Follow-Up Instructions:: Counseled pt regarding lab results/diagnosis & need follow up, Counseled pt & family regarding lab results/diagnosis & need follow up - Patient Disposition Discharge/Transfer:: Acute Care w/in this hosp Admitted to:: [facility] Condition at Disposition:: Stable, Improved
[2017-07-16 22:02] LABS: % BASOPHILS 0.1 % (0.0-2.0); % EOSINOPHILS 0.3 % (0.0-5.0); % LYMPHOCYTES 14.9 % (20.0-50.0); % MONOCYTES 8.4 % (2.0-10.0); % NEUTROPHILS 76.3 % (40.0-80.0); HEMOGLOBIN 13.3 gm/dL (12-16); LYMPHOCYTE ABSOLUTE 0.7 Th/cmm (1.5-3.0); MEAN CELL VOLUME 83.5 fl (81-100); MEAN CORPUSCULAR HEMOGLOBIN 28.6 pg (27.0-31.0); MEAN CORPUSCULAR HGB CONC 34.2 pg (28.0-36.0); MEAN PLATELET VOLUME 6.8 fl; MONOCYTE ABSOLUTE 0.4 Th/cmm (0.3-1.0); NEUTROPHILE ABSOLUTE 3.3 Th/cmm (1.8-8.0); PLATELET COUNT 170 Th/cmm (150-400); RED BLOOD COUNT 4.66 Mil/cmm (3.80-5.20); RED CELL DISTRIBUTION WIDTH 14.6 % (11.5-20.0)
[2017-07-16 22:03] LABS: WHITE BLOOD COUNT 4.4 Th/cmm (4.8-10.8)
[2017-07-16 22:04] LABS: HEMATOCRIT 38.9 % (41.0-60)
[2017-07-16 22:23] LABS: ALB/GLOB RATIO 1.3 (1.0-1.8); ALBUMIN 3.8 gm/dL (3.7-5.3); ALKALINE PHOSPHATASE 72 U/L (34-104); ANION GAP 8.8 (7.0-16.0); BILIRUBIN,TOTAL 0.4 mg/dL (0.3-1.0); BUN - UREA NITROGEN 22 mg/dL (7-25); CALCIUM SERUM 9.5 mg/dL (8.6-10.3); CARBON DIOXIDE 28.7 mEq/L (21.0-31.0); CHLORIDE 93 mEq/L (98-107); CREATININE - SERUM 0.7 mg/dL (0.6-1.2); GLUCOSE 291 mg/dL (70-105); POTASSIUM SERUM 4.5 mEq/L (3.5-5.1); SGOT 14 U/L (13-39); SGPT/ALT 17 U/L (7-52); SODIUM SERUM 126 mEq/L (136-145); TOTAL PROTEIN,SERUM 6.7 gm/dL (6.0-8.3)
[2017-07-17 00:14] VITALS: BP 120/69
[2017-07-17] MEDS ORDERED: Magnesium Hydroxide (MOM) 30 mL UDC PO PRN (00:18)
[2017-07-17] MEDS ORDERED: Fleet Enema 135 mL RC PRN (00:18)
[2017-07-17] MEDS ORDERED: methylPREDNISolone 4 MG TAB PO PRN (00:18)
[2017-07-17] MEDS ORDERED: Albuterol/Ipratropium Neb 3 ML AERS HHN PRN ×2 (00:18→09:44)
[2017-07-17] MEDS ORDERED: NAPROXEN SODIUM 550 MG PO SCH (09:00)
[2017-07-17] MEDS ORDERED: Non-Formulary Item 1 EA (Cranberry [Cranberry] 400 MG) PO SCH (09:00)
[2017-07-17] MEDS ORDERED: Non-Formulary Item 1 EA (Duloxetine Hcl [Cymbalta] 60 MG) PO SCH (09:00)
--- NOTE | 2017-07-17 09:38 | History and Physical ---
History of Present Illness - HPI Chief Complaint: I feel hot and I will go home HPI: 71-year-old resident of prison brought into emergency room at [facility] for evaluation of increasing agitation. The patient was worked up in the emergency room and subsequently admitted to geropsychiatric unit for psychiatry disorder exacerbation. Patient complaining of productive cough congestion or shortness of breath. She does have a history of COPD. She still smokes. Patient denies any fever, chills, chest pain, nausea, vomiting, headache, seizure, syncopal episode, weight loss. 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 GI: Report: Diverticulosis, GERD, Gastritis Psych: Report: Other (Dementia and psychotic disorder) Musculoskeletal: Report: Osteoarthritis, Muscle Atrophy, Weakness (Right lower extremity.) Rheumatologic: Report: No pertinent Hx Infectious Disease: Report: No Pertinent Hx Renal/: Report: No Pertinent Hx Endocrine: Report: Diabetes, Osteoporosis Dermatology: Report: No Pertinent Hx - Past Surgical History Past Surgical History: No pertinent Hx Family Medical History - Family Member Mother History Unknown: Yes Ethnicity: Hx Family Cancer: No Hx Family Coronary Artery Disease: No Hx Family Congestive Heart Failure: No Hx Family Hypertension: Yes Hx Family Stroke: No Hx Family Diabetes: Yes Hx Family Seizures: No Hx Family Dementia: Yes Hx Family AIDS: No Hx Family HIV: No Hx Family COPD: No Social History Smoke: 1 pack per day Alcohol: None Drugs: None Lives: Detention Domestic Violence: Negative Health Maintenance Health Maintenance: Cholesterol, Tetanus, Influenza Vaccine, Pneumococcal Vaccine - Medications Home Medications: Home Medication Medication Instructions Recorded Type Acetaminophen [Tylenol] 650 mg PO Q4HR PRN 07/16/17 History Albuterol/Ipratropium Neb [Duoneb 3 ml HHN Q6HR PRN 07/16/17 History Neb] Ascorbic Acid [Vitamin C] 500 mg PO DAILY 07/16/17 History Aspirin [Aspirin Chewable] 81 mg PO DAILY 07/16/17 History Bisacodyl [Dulcolax 10 Mg Supp] 10 mg RC DAILY PRN 07/16/17 History Budesonide [Pulmicort] 0.5 mg IH BID 07/16/17 History Cranberry 400 mg PO DAILY 07/16/17 History Dextran 70/Hypromellose/Pf 1 each EACH EYE BID 07/16/17 History [Artificial Tears Drops] Docusate Sodium [Colace] 100 mg PO DAILY 07/16/17 History Duloxetine HCl [Cymbalta] 60 mg PO DAILY 07/16/17 History Ferrous Sulfate [Iron] 325 mg PO BID 07/16/17 History Fleet Enema [Fleet Enema] 135 ml RC Q48H PRN 07/16/17 History Fluticasone Propionate Nasal 1 spr NS DAILY 07/16/17 History [Flonase] Gabapentin [Neurontin] 600 mg PO TID 07/16/17 History Glipizide [Glucotrol] 10 mg PO QDAC 07/16/17 History Guaifenesin/Dextromethorphan 5 ml PO TID PRN 07/16/17 History [Ultra Tuss Safe Syrup] Ibuprofen 400 mg PO BID 07/16/17 History Lorazepam [Ativan] 0.5 mg PO Q6H PRN 07/16/17 History Magnesium Hydroxide [Milk of 30 ml PO HS PRN 07/16/17 History Magnesia] Multivitamin with Minerals 1 tab PO DAILY 07/16/17 History [Multivitamins with Minerals] Naproxen Sodium 550 mg PO BID 07/16/17 History Olopatadine HCl [Pataday] 1 drop EACH EYE DAILY 07/16/17 History Tramadol HCl [Ultram] 50 mg PO Q6H PRN 07/16/17 History Trazodone HCl 150 mg PO HS 07/16/17 History Zinc Sulfate 220 mg PO DAILY 07/16/17 History methylPREDNISolone [Medrol] 4 mg PO DAILY PRN 07/16/17 History - Allergies Allergies/Adverse Reactions: Allergies Allergy/AdvReac Type Severity Reaction Status Date / Time Fish Containing Products Allergy Verified 07/16/17 21:05 Penicillins [PCN] Allergy Verified 07/16/17 21:05 Review of Systems - Review of Systems Constitutional: Report: No Significant Eyes: Report: No Significant ENT: Report: No Significant Respiratory: Report: Cough, Shortness of Breath, Sputum, Wheezing Cardiovascular: Report: No Significant Gastrointestinal: Report: No Significant Genitourinary: Report: No Significant Musculoskeletal: Report: Arm Pain, Back Pain, Leg Pain Skin: Report: No Significant Neurological: Report: Weakness (right lower extremity) Physical Exam - Physical Exam HEENT: Report: Other (normocephalic/atraumatic, extraocular muscles are intact, pupils equal with normal right and left, upper and lower dentures noted. Posterior pharynx is congested) Neck: Report: Within normal limits Cardiovascular Systems: Report: +s1/s2 noted, Regular, Rate and Rhythm, Systolic Murmur, No JVD Present Respiratory: Report: Wheezing Abdomen: Report: Non-tender to palpation, Guarding Back: Report: Inspection of back is within normal limits. Extremities: Report: Non-tender to palpation. (right lower extremity weakness due to osteoarthritis involving hip and knee present) - Assessment Assessment: COPD exacerbation. Psychotic disorder exacerbation. Diabetes mellitus. Hypertension. DJD. Hyponatremia. Osteoporosis. Fall risk Dementia. Debility. Declining self-care mobility. - Plan Plan: Oxygen. Nebulizer treatment. PO Antibiotics. Steroid. Follow-up lab. Workup for hyponatremia. Psychiatric medication and management different psychiatrist. Follow lab. Appropriate home medicine reconciliation. General nursing care. Fall precautions. Continue other medication. Care plan reviewed and discussed with staff.
[2017-07-17] MEDS: Fluticasone Propionate 0.05mg/Actuation 16gm Nasal Spray NS SCH (10:48)
[2017-07-17] MEDS: Ferrous Sulfate 325 MG TAB PO SCH ×2 (10:48→17:14)
[2017-07-17] MEDS: Aspirin 81mg Chewable Tab PO SCH (10:48)
[2017-07-17] MEDS: Multivitamin w/ Minerals Tab PO SCH (10:49)
--- NOTE | 2017-07-17 11:06 | Psychosocial Evaluation ---
DATE OF SERVICE: 07/16/2017 THE PATIENT'S AGE: 71. SEX: Female. PHYSICIAN: Dr. Henry. CHIEF COMPLAINT: Agitation and irritability. HISTORY OF PRESENT ILLNESS: The patient is a 71-year-old female who was transferred from [facility]. The patient has been agitated and has been in irritable mood. The patient also has been suspicious and paranoid. The patient also has been uncooperative with the staff in the senior living. Chart reviewed and the patient interviewed. Also discussed the patient's condition with the staff and reviewed records and labs. The patient is a confused and is in irritable mood. When I asked the patient about where she lives, her answer is "I want to go home." She also was restless and she was seems to be responding to stimuli and talking to imaginary people when I was talking to her. PAST PSYCHIATRIC HISTORY: The patient has history of what seems to be dementia and psychosis. PAST MEDICAL HISTORY: The patient has a history of bronchial asthma. SOCIAL HISTORY: The patient lives in [facility]. The patient said that she has 4 children, but she is not in touch with them. She is almost tearful while telling me about her children. She also said that she smokes 1 pack a day, but she denies any alcohol or street drug use. ALLERGIES: Penicillin. MENTAL STATUS EXAMINATION: The patient appears older than her stated age. Disheveled. Flat affect. In a depressed mood at times and other times, the patient is agitated and irritable. The patient's thought processes are circumstantial with occasional flight of ideas. The patient is alert and oriented to the situation, but not to place, person. Impaired immediate and recent memories, but intact remote memories. Poor insight and poor judgment. DICTATION ENDS HERE [facility]# [id number]
[2017-07-17] MEDS: Albuterol/Ipratropium Neb 3 ML AERS HHN SCH ×2 (13:28→19:21)
[2017-07-17] MEDS: Budesonide 0.5 Mg/2 mL Ud HHN SCH ×2 (13:28→19:21)
[2017-07-17] MEDS: INSULIN ASPART SLIDING SCALE 100 UNITS/ML UNIT SUBQ SCH ×3 (13:44→22:01)
[2017-07-17 13:51] LABS: A1C % 7.1 % (4.0-6.0)
[2017-07-17] MEDS: Polyvinyl Alcohol Ophth Soln 15 mL Bottle EACH EYE SCH (18:29)
[2017-07-18] MEDS: Albuterol/Ipratropium Neb 3 ML AERS HHN SCH ×4 (00:29→20:18)
[2017-07-18] MEDS: INSULIN ASPART SLIDING SCALE 100 UNITS/ML UNIT SUBQ SCH ×5 (06:39→22:05)
[2017-07-18 06:40] LABS: % BASOPHILS 0.1 % (0.0-2.0); % LYMPHOCYTES 11.5 % (20.0-50.0); % MONOCYTES 5.5 % (2.0-10.0); % NEUTROPHILS 82.9 % (40.0-80.0); HEMATOCRIT 40.6 % (41.0-60); HEMOGLOBIN 13.6 gm/dL (12-16); LYMPHOCYTE ABSOLUTE 0.5 Th/cmm (1.5-3.0); MEAN CELL VOLUME 84.7 fl (81-100); MEAN CORPUSCULAR HEMOGLOBIN 28.5 pg (27.0-31.0); MEAN CORPUSCULAR HGB CONC 33.6 pg (28.0-36.0); MEAN PLATELET VOLUME 7.4 fl; MONOCYTE ABSOLUTE 0.2 Th/cmm (0.3-1.0); NEUTROPHILE ABSOLUTE 3.6 Th/cmm (1.8-8.0); PLATELET COUNT 163 Th/cmm (150-400); RED BLOOD COUNT 4.79 Mil/cmm (3.80-5.20); RED CELL DISTRIBUTION WIDTH 14.2 % (11.5-20.0); WHITE BLOOD COUNT 4.3 Th/cmm (4.8-10.8)
[2017-07-18 07:10] LABS: ANION GAP 10.2 (7.0-16.0); BUN - UREA NITROGEN 22 mg/dL (7-25); CALCIUM SERUM 9.6 mg/dL (8.6-10.3); CARBON DIOXIDE 31.3 mEq/L (21.0-31.0); CHLORIDE 97 mEq/L (98-107); CREATININE - SERUM 0.8 mg/dL (0.6-1.2); GLUCOSE 264 mg/dL (70-105); POTASSIUM SERUM 4.5 mEq/L (3.5-5.1); SODIUM SERUM 134 mEq/L (136-145)
[2017-07-18] MEDS: Budesonide 0.5 Mg/2 mL Ud HHN SCH ×2 (08:31→20:18)
[2017-07-18] MEDS: Multivitamin w/ Minerals Tab PO SCH (08:55)
[2017-07-18] MEDS: Ferrous Sulfate 325 MG TAB PO SCH ×2 (08:56→17:07)
[2017-07-18] MEDS: Aspirin 81mg Chewable Tab PO SCH (08:56)
[2017-07-18] MEDS: Fluticasone Propionate 0.05mg/Actuation 16gm Nasal Spray NS SCH (12:21)
[2017-07-18] MEDS: Polyvinyl Alcohol Ophth Soln 15 mL Bottle EACH EYE SCH ×2 (12:22→17:07)
--- NOTE | 2017-07-18 18:35 | General Progress Note ---
Subjective - Review of Systems Subjective: Patient is seen and examined. Patient still coughs. Patient is refusing breathing treatment. Patient denies any chest pain, abdominal pain, nausea, vomiting, headache, seizure, syncopal episode. Objective - Results Result Diagrams: 07/18/17 05:50 07/18/17 05:50 Recent Labs: Laboratory Last Values WBC 4.3 Th/cmm (4.8-10.8) L 07/18/17 05:50 RBC 4.79 Mil/cmm (3.80-5.20) 07/18/17 05:50 Hgb 13.6 gm/dL (12-16) 07/18/17 05:50 Hct 40.6 % (41.0-60) L 07/18/17 05:50 MCV 84.7 fl (81-100) 07/18/17 05:50 MCH 28.5 pg (27.0-31.0) 07/18/17 05:50 MCHC Differential 33.6 pg (28.0-36.0) 07/18/17 05:50 RDW 14.2 % (11.5-20.0) 07/18/17 05:50 Plt Count 163 Th/cmm (150-400) 07/18/17 05:50 MPV 7.4 fl 07/18/17 05:50 Neutrophils % 82.9 % (40.0-80.0) H 07/18/17 05:50 Lymphocytes % 11.5 % (20.0-50.0) L 07/18/17 05:50 Monocytes % 5.5 % (2.0-10.0) 07/18/17 05:50 Eosinophils % 0.0 % (0.0-5.0) 07/18/17 05:50 Basophils % 0.1 % (0.0-2.0) 07/18/17 05:50 Sodium 134 mEq/L (136-145) L 07/18/17 05:50 Potassium 4.5 mEq/L (3.5-5.1) 07/18/17 05:50 Chloride 97 mEq/L (98-107) L 07/18/17 05:50 Carbon Dioxide 31.3 mEq/L (21.0-31.0) H 07/18/17 05:50 Anion Gap 10.2 (7.0-16.0) 07/18/17 05:50 BUN 22 mg/dL (7-25) 07/18/17 05:50 Creatinine 0.8 mg/dL (0.6-1.2) 07/18/17 05:50 Est GFR ( Amer) TNP 07/18/17 05:50 Est GFR (Non-Af Amer) TNP 07/18/17 05:50 BUN/Creatinine Ratio 27.5 07/18/17 05:50 Glucose 264 mg/dL (70-105) H 07/18/17 05:50 POC Glucose 250 MG/DL (70 - 105) H 07/18/17 06:14 Hemoglobin A1c % 7.1 % (4.0-6.0) H 07/16/17 21:59 Uric Acid 3.7 mg/dL (2.3-6.6) 07/17/17 10:00 Calcium 9.6 mg/dL (8.6-10.3) 07/18/17 05:50 Total Bilirubin 0.4 mg/dL (0.3-1.0) 07/16/17 21:57 AST 14 U/L (13-39) 07/16/17 21:57 ALT 17 U/L (7-52) 07/16/17 21:57 Alkaline Phosphatase 72 U/L (34-104) 07/16/17 21:57 Total Protein 6.7 gm/dL (6.0-8.3) 07/16/17 21:57 Albumin 3.8 gm/dL (3.7-5.3) 07/16/17 21:57 Globulin 2.9 gm/dL 07/16/17 21:57 Albumin/Globulin Ratio 1.3 (1.0-1.8) 07/16/17 21:57 TSH 1.66 uIU/ml (0.34-5.60) 07/16/17 21:57 RPR NONREACTIVE (NONREACTIVE) 07/16/17 21:57 - Physical Exam Vitals and I&O: Vital Signs Temp 98.3 F 07/18/17 17:49 Pulse 85 07/18/17 17:49 Resp 20 07/18/17 17:49 BP 142/68 07/18/17 17:49 Pulse Ox 96 07/18/17 13:37 Active Medications: Current Medications Acetaminophen (Tylenol) 650 mg PO Q4HR PRN PRN Reason: Mild Pain or Fever >101 Stop: 09/15/17 00:17 Last Admin: 07/18/17 08:55 Dose: 650 mg Albuterol/Ipratropium (Duoneb Neb) 3 ml HHN Q6HRT REAL Stop: 09/15/17 12:59 Last Admin: 07/18/17 13:37 Dose: 3 ml Albuterol/Ipratropium (Duoneb Neb) 3 ml HHN Q2HR PRN PRN Reason: Shortness of Breath Stop: 09/15/17 00:17 Artificial Tears (Artificial Tears Ophth Soln) 1 drop EACH EYE BID REAL Stop: 09/15/17 16:59 Last Admin: 07/18/17 17:07 Dose: 1 drop Ascorbic Acid (Vitamin C) 500 mg PO DAILY [facility] Stop: 09/15/17 08:59 Last Admin: 07/18/17 08:56 Dose: 500 mg Aspirin (Aspirin Chewable) 81 mg PO DAILY [facility] Stop: 09/15/17 08:59 Last Admin: 07/18/17 08:56 Dose: 81 mg Bisacodyl (Dulcolax 10 Mg Supp) 10 mg RC DAILY PRN PRN Reason: Constipation Stop: 09/15/17 00:17 Budesonide (Pulmicort) 0.5 mg HHN BID [facility] Stop: 09/15/17 08:59 Last Admin: 07/18/17 08:31 Dose: 0.5 mg Docusate Sodium (Colace) 100 mg PO DAILY [facility] Stop: 09/15/17 08:59 Last Admin: 07/18/17 12:21 Dose: Not Given Duloxetine HCl (Cymbalta) 60 mg PO DAILY [facility] Stop: 09/16/17 08:59 Last Admin: 07/18/17 08:56 Dose: 60 mg Ferrous Sulfate (Iron) 325 mg PO BID [facility] Stop: 09/15/17 08:59 Last Admin: 07/18/17 17:07 Dose: 325 mg Fluticasone Propionate (Flonase) 1 spr NS DAILY [facility] Stop: 09/15/17 08:59 Last Admin: 07/18/17 12:21 Dose: Not Given Gabapentin (Neurontin) 600 mg PO TID REAL Stop: 09/15/17 08:59 Last Admin: 07/18/17 13:34 Dose: 600 mg Glipizide (Glucotrol) 10 mg PO QDAC [facility] Stop: 09/15/17 07:29 Last Admin: 07/18/17 06:38 Dose: 10 mg Guaifenesin/Dextromethorphan (Robitussin Dm) 5 ml PO TID PRN PRN Reason: Cough Stop: 09/15/17 00:17 Insulin Aspart (Novolog Insulin Sliding Scale) 0 units SUBQ ACHS REAL PRN Reason: Protocol Stop: 09/15/17 11:29 Last Admin: 07/18/17 18:14 Dose: 12 units Ketotifen Fumarate (Zaditor 0.025% Ophth Soln) 1 drop EACH EYE DAILY [facility] Stop: 09/16/17 08:59 Last Admin: 07/18/17 12:21 Dose: Not Given Lorazepam (Ativan) 0.5 mg PO Q6H PRN; Protocol PRN Reason: Anxiety Stop: 09/15/17 00:17 Last Admin: 07/18/17 13:34 Dose: 0.5 mg Magnesium Hydroxide (Milk Of Magnesia) 30 ml PO HS PRN PRN Reason: Constipation Stop: 09/15/17 00:17 Naproxen (Naprosyn) 500 mg PO BID [facility] Stop: 09/15/17 16:59 Last Admin: 07/18/17 17:07 Dose: 500 mg Prednisone (Deltasone) 30 mg PO BID [facility] Stop: 07/21/17 16:59 Last Admin: 07/18/17 17:07 Dose: 30 mg Sodium Phosphate (Fleet Enema) 135 ml RC Q48H PRN PRN Reason: Constipation Stop: 09/15/17 00:17 Tramadol HCl (Ultram) 50 mg PO Q6H PRN PRN Reason: Pain (Moderate) Stop: 09/15/17 00:17 Trazodone HCl (Desyrel) 150 mg PO HS REAL Stop: 09/15/17 20:59 Last Admin: 07/17/17 22:01 Dose: 150 mg Zolpidem Tartrate (Ambien) 5 mg PO HS PRN PRN Reason: Insomnia Stop: 09/15/17 02:00 General: Alert, Cooperative, No acute distress HEENT: Atraumatic, PERRLA, EOMI, Other (dentures present.) Neck: Supple, JVD Cardiovascular: Regular rate, Normal S1, Normal S2 Lungs: Normal air movement, Other (diffuse expiratory wheezing throughout.) Abdomen: Bowel sounds, Soft, Other (no guarding no rigidity) Extremities: Other (diffuse osteoarthritic changes.) Neurological: Normal speech, Sensation intact, Cranial nerves 3-12 NL, Other ( decrease pot of both lower extremity more on right than left.) Assessment/Plan - Problem List Patient Problems: All Active Problems Arthralgia (Acute) M25.50 COPD (chronic obstructive pulmonary disease) (Acute) Dementia (Acute) F03.90 Dermatitis (Acute) L30.9 Diabetes mellitus (Acute) E11.9 Glaucoma (Acute) H40.9 Hypertension (Acute) I10 Hyponatremia (Acute) E87.1 Insomnia (Acute) G47.00 Neuralgia (Acute) M79.2 Psychosis (Acute) F29 Rheumatoid arthritis (Acute) M06.9 Schizophrenia (Acute) F20.9 - Assessment Assessment: COPD exacerbation. Psychotic disorder exacerbation. Diabetes mellitus. Hypertension. DJD. Hyponatremia. Osteoporosis. Fall risk Dementia. Debility. Declining self-care mobility. - Plan Plan: Oxygen. Nebulizer treatment. PO Antibiotics. Steroid. Follow-up lab. Psychiatric medication and management defer to psychiatrist. Follow lab. Appropriate home medicine reconciliation. General nursing care. Fall precautions. Continue other medication. Care plan reviewed and discussed with staff. Nutritional Asmnt/Malnutr-PDOC - Dietary Evaluation Malnutrition Findings (Please click <Entered> for more info): Nutritional Asmnt/Malnutrition Start: 07/18/17 14: 21 Text: Status: Complete Freq: Document 07/18/17 14:21 LCHENG (Rec: 07/18/17 14:32 HEN [email or web address]) Nutritional Asmnt/Malnutrition Patient General Information Nutritional Screening High Risk Pertinent Medical Hx/Surgical Hx Htn, COPD, dementia, diverticulosis, GERD, Gastritis, psychotic disorder, osteoarthritis, muscle atrophy, weakness, DM Subjective Information Pt from SNF seen sitting in wheelchair during the time of visit. Pt stated she would like diabetic diet d/t DM, and reported her food preference. Per H&P, pt smoked 1 pack per day. Pertinent Medications Vit C, colace, Iron, glucotrol , novolog Pertinent Labs 07/18 Na 134L, K 4.5, Cl 97L, Glu 264, POC 250-348 since adm 07/16 A1C 7.1 Nutritional Hx/Data Height 1.8 m Height (Calculated Centimeters) 180.3 Current Weight (lbs) 90.718 kg Weight (Calculated Kilograms) 90.7 Weight (Calculated Grams) 17799.5 [place] Body Weight 155 % [place] Body Weight 129 Body Mass Index (BMI) 27.8 Weight Status Overweight GI Symptoms GI Symptoms None Last BM N/A Difficult in: None Skin Integrity/Comment: dryness Nutritional Problem 1. Problem Problem altered nutrition related lab values Etiology hx of DM Signs/Symptoms: Glu 264, POC 250-348, A1C 7.1 Malnutrition Alert Protein-Calorie Malnutrition N/A Is there a minimum of two criteria No selected? Query Text:Check all the applicable criteria. A minimum of two criteria are recommended for diagnosis of either severe or non-severe malnutrition. Intervention/Recommendation Comments 1. Recommend [facility] diet d/t DM and per pt requested. RN made aware. 2. Notified diet therapist and updated diet profile 3. Monitor PO intake, wt weekly, labs and skin integrity 4. F/U as moderate risk in 3-5 days, 07/21-07/23 Expected Outcomes/Goals Expected Outcomes/Goals 1. PO intake to meet at least 75% of nutritional needs. 2. Wt stability, skin to remain intact, labs to improve .
[2017-07-19] MEDS: Albuterol/Ipratropium Neb 3 ML AERS HHN SCH ×4 (01:50→20:25)
[2017-07-19] MEDS: INSULIN ASPART SLIDING SCALE 100 UNITS/ML UNIT SUBQ SCH ×4 (06:43→21:00)
[2017-07-19] MEDS: Polyvinyl Alcohol Ophth Soln 15 mL Bottle EACH EYE SCH ×2 (08:11→17:39)
[2017-07-19] MEDS: Aspirin 81mg Chewable Tab PO SCH (08:11)
[2017-07-19] MEDS: Guaifenesin DM 10 ML UDC PO PRN (08:12)
[2017-07-19] MEDS: Multivitamin w/ Minerals Tab PO SCH (08:12)
[2017-07-19] MEDS: Ferrous Sulfate 325 MG TAB PO SCH ×2 (08:12→17:38)
[2017-07-19] MEDS: Fluticasone Propionate 0.05mg/Actuation 16gm Nasal Spray NS SCH (08:16)
[2017-07-19] MEDS: Budesonide 0.5 Mg/2 mL Ud HHN SCH ×2 (08:45→20:25)
--- NOTE | 2017-07-19 15:58 | General Progress Note ---
Subjective - Review of Systems Subjective: Patient is seen and examined. Patient says while breathing is better today. Patient denies any chest pain, abdominal pain, nausea, vomiting, headache, seizure, syncopal episode. Objective - Results Result Diagrams: 07/18/17 05:50 07/18/17 05:50 Recent Labs: Laboratory Last Values WBC 4.3 Th/cmm (4.8-10.8) L 07/18/17 05:50 RBC 4.79 Mil/cmm (3.80-5.20) 07/18/17 05:50 Hgb 13.6 gm/dL (-16) 07/18/17 05:50 Hct 40.6 % (41.0-60) L 07/18/17 05:50 MCV 84.7 fl (81-100) 07/18/17 05:50 MCH 28.5 pg (27.0-31.0) 07/18/17 05:50 MCHC Differential 33.6 pg (28.0-36.0) 07/18/17 05:50 RDW 14.2 % (11.5-20.0) 07/18/17 05:50 Plt Count 163 Th/cmm (150-400) 07/18/17 05:50 MPV 7.4 fl 07/18/17 05:50 Neutrophils % 82.9 % (40.0-80.0) H 07/18/17 05:50 Lymphocytes % 11.5 % (20.0-50.0) L 07/18/17 05:50 Monocytes % 5.5 % (2.0-10.0) 07/18/17 05:50 Eosinophils % 0.0 % (0.0-5.0) 07/18/17 05:50 Basophils % 0.1 % (0.0-2.0) 07/18/17 05:50 Sodium 134 mEq/L (136-145) L 07/18/17 05:50 Potassium 4.5 mEq/L (3.5-5.1) 07/18/17 05:50 Chloride 97 mEq/L (98-107) L 07/18/17 05:50 Carbon Dioxide 31.3 mEq/L (21.0-31.0) H 07/18/17 05:50 Anion Gap 10.2 (7.0-16.0) 07/18/17 05:50 BUN 22 mg/dL (7-25) 07/18/17 05:50 Creatinine 0.8 mg/dL (0.6-1.2) 07/18/17 05:50 Est GFR ( Amer) TNP 07/18/17 05:50 Est GFR (Non-Af Amer) TNP 07/18/17 05:50 BUN/Creatinine Ratio 27.5 07/18/17 05:50 Glucose 600 mg/dL (70-105) H* 07/18/17 17:59 POC Glucose 250 MG/DL (70 - 105) H 07/18/17 06:14 Hemoglobin A1c % 7.1 % (4.0-6.0) H 07/16/17 21:59 Plasma/Ser Osmolality 291 mOsmol/kg (280-301) 07/17/17 10:00 Uric Acid 3.7 mg/dL (2.3-6.6) 07/17/17 10:00 Calcium 9.6 mg/dL (8.6-10.3) 07/18/17 05:50 Total Bilirubin 0.4 mg/dL (0.3-1.0) 07/16/17 21:57 AST 14 U/L (13-39) 07/16/17 21:57 ALT 17 U/L (7-52) 07/16/17 21:57 Alkaline Phosphatase 72 U/L (34-104) 07/16/17 21:57 Total Protein 6.7 gm/dL (6.0-8.3) 07/16/17 21:57 Albumin 3.8 gm/dL (3.7-5.3) 07/16/17 21:57 Globulin 2.9 gm/dL 07/16/17 21:57 Albumin/Globulin Ratio 1.3 (1.0-1.8) 07/16/17 21:57 TSH 1.66 uIU/ml (0.34-5.60) 07/16/17 21:57 RPR NONREACTIVE (NONREACTIVE) 07/16/17 21:57 HIV 1&2 Antibody Screen NEGATIVE (NEG) 07/19/17 07:29 - Physical Exam Vitals and I&O: Vital Signs Temp 98.3 F 07/18/17 17:49 Pulse 89 07/19/17 13:22 Resp 18 07/19/17 13:22 BP 142/68 07/18/17 17:49 Pulse Ox 95 07/19/17 13:22 Active Medications: Current Medications Acetaminophen (Tylenol) 650 mg PO Q4HR PRN PRN Reason: Mild Pain or Fever >101 Stop: 09/15/17 00:17 Last Admin: 07/18/17 08:55 Dose: 650 mg Albuterol/Ipratropium (Duoneb Neb) 3 ml HHN Q6HRT REAL Stop: 09/15/17 12:59 Last Admin: 07/19/17 13:16 Dose: 3 ml Albuterol/Ipratropium (Duoneb Neb) 3 ml HHN Q2HR PRN PRN Reason: Shortness of Breath Stop: 09/15/17 00:17 Artificial Tears (Artificial Tears Ophth Soln) 1 drop EACH EYE BID REAL Stop: 09/15/17 16:59 Last Admin: 07/19/17 08:11 Dose: 1 drop Ascorbic Acid (Vitamin C) 500 mg PO DAILY [facility] Stop: 09/15/17 08:59 Last Admin: 07/19/17 08:12 Dose: 500 mg Aspirin (Aspirin Chewable) 81 mg PO DAILY [facility] Stop: 09/15/17 08:59 Last Admin: 07/19/17 08:11 Dose: 81 mg Bisacodyl (Dulcolax 10 Mg Supp) 10 mg RC DAILY PRN PRN Reason: Constipation Stop: 09/15/17 00:17 Budesonide (Pulmicort) 0.5 mg HHN BID REAL Stop: 09/15/17 08:59 Last Admin: 07/19/17 08:45 Dose: 0.5 mg Docusate Sodium (Colace) 100 mg PO DAILY [facility] Stop: 09/15/17 08:59 Last Admin: 07/19/17 08:12 Dose: 100 mg Duloxetine HCl (Cymbalta) 60 mg PO DAILY [facility] Stop: 09/16/17 08:59 Last Admin: 07/19/17 08:11 Dose: 60 mg Ferrous Sulfate (Iron) 325 mg PO BID [facility] Stop: 09/15/17 08:59 Last Admin: 07/19/17 08:12 Dose: 325 mg Fluticasone Propionate (Flonase) 1 spr NS DAILY [facility] Stop: 09/15/17 08:59 Last Admin: 07/19/17 08:16 Dose: Not Given Gabapentin (Neurontin) 600 mg PO TID [facility] Stop: 09/15/17 08:59 Last Admin: 07/19/17 15:00 Dose: 600 mg Glipizide (Glucotrol) 10 mg PO QDAC REAL Stop: 09/15/17 07:29 Last Admin: 07/19/17 06:40 Dose: 10 mg Guaifenesin/Dextromethorphan (Robitussin Dm) 5 ml PO TID PRN PRN Reason: Cough Stop: 09/15/17 00:17 Last Admin: 07/19/17 08:12 Dose: 5 ml Insulin Aspart (Novolog Insulin Sliding Scale) 0 units SUBQ ACHS REAL PRN Reason: Protocol Stop: 09/15/17 11:29 Last Admin: 07/19/17 12:01 Dose: 6 units Ketotifen Fumarate (Zaditor 0.025% Ophth Soln) 1 drop EACH EYE DAILY [facility] Stop: 09/16/17 08:59 Last Admin: 07/19/17 08:11 Dose: 1 drop Lorazepam (Ativan) 0.5 mg PO Q6H PRN; Protocol PRN Reason: Anxiety Stop: 09/15/17 00:17 Last Admin: 07/18/17 13:34 Dose: 0.5 mg Magnesium Hydroxide (Milk Of Magnesia) 30 ml PO HS PRN PRN Reason: Constipation Stop: 09/15/17 00:17 Naproxen (Naprosyn) 500 mg PO BID [facility] Stop: 09/15/17 16:59 Last Admin: 07/19/17 08:12 Dose: 500 mg Prednisone (Deltasone) 30 mg PO BID [facility] Stop: 07/21/17 16:59 Last Admin: 07/19/17 08:11 Dose: 30 mg Sodium Phosphate (Fleet Enema) 135 ml RC Q48H PRN PRN Reason: Constipation Stop: 09/15/17 00:17 Tramadol HCl (Ultram) 50 mg PO Q6H PRN PRN Reason: Pain (Moderate) Stop: 09/15/17 00:17 Trazodone HCl (Desyrel) 150 mg PO HS [facility] Stop: 09/15/17 20:59 Last Admin: 07/18/17 20:44 Dose: 150 mg Zolpidem Tartrate (Ambien) 5 mg PO HS PRN PRN Reason: Insomnia Stop: 09/15/17 02:00 General: Alert, Cooperative, No acute distress HEENT: Atraumatic, PERRLA, EOMI, Other (dentures present.) Neck: Supple, JVD Cardiovascular: Regular rate, Normal S1, Normal S2 Lungs: Normal air movement, Other (diffuse expiratory wheezing throughout.) Abdomen: Bowel sounds, Soft, Other (no guarding no rigidity) Extremities: Other (diffuse osteoarthritic changes.) Neurological: Normal speech, Sensation intact, Cranial nerves 3-12 NL, Other ( decrease pot of both lower extremity more on right than left.) Assessment/Plan - Problem List Patient Problems: All Active Problems Arthralgia (Acute) M25.50 COPD (chronic obstructive pulmonary disease) (Acute) Dementia (Acute) F03.90 Dermatitis (Acute) L30.9 Diabetes mellitus (Acute) E11.9 Glaucoma (Acute) H40.9 Hypertension (Acute) I10 Hyponatremia (Acute) E87.1 Insomnia (Acute) G47.00 Neuralgia (Acute) M79.2 Psychosis (Acute) F29 Rheumatoid arthritis (Acute) M06.9 Schizophrenia (Acute) F20.9 - Assessment Assessment: COPD exacerbation. Psychiatric disorder exacerbation. Diabetes mellitus. Hypertension. DJD. Osteoporosis. Fall risk Dementia. Debility. Declining self-care mobility. - Plan Plan: Oxygen. Nebulizer treatment. PO Antibiotics. Steroid. Add basal insulin. Diabetes management. Follow-up lab. Psychiatric medication and management defer to psychiatrist. Follow lab. Appropriate home medicine reconciliation. General nursing care. Fall precautions. Diabetes management. Continue other medication. Care plan reviewed and discussed with staff. Nutritional Asmnt/Malnutr-PDOC - Dietary Evaluation Malnutrition Findings (Please click <Entered> for more info): Nutritional Asmnt/Malnutrition Start: 07/18/17 14: 21 Text: Status: Complete Freq: Document 07/18/17 14:21 SPENCER (Rec: 07/18/17 14:32 LELAND [email or web address]) Nutritional Asmnt/Malnutrition Patient General Information Nutritional Screening High Risk Pertinent Medical Hx/Surgical Hx Htn, COPD, dementia, diverticulosis, GERD, Gastritis, psychotic disorder, osteoarthritis, muscle atrophy, weakness, DM Subjective Information Pt from SNF seen sitting in wheelchair during the time of visit. Pt stated she would like diabetic diet d/t DM, and reported her food preference. Per H&P, pt smoked 1 pack per day. Pertinent Medications Vit C, colace, Iron, glucotrol , novolog Pertinent Labs 07/18 Na 134L, K 4.5, Cl 97L, Glu 264, POC 250-348 since adm 07/16 A1C 7.1 Nutritional Hx/Data Height 1.8 m Height (Calculated Centimeters) 180.3 Current Weight (lbs) 90.718 kg Weight (Calculated Kilograms) 90.7 Weight (Calculated Grams) 40445.5 [place] Body Weight 155 % [place] Body Weight 129 Body Mass Index (BMI) 27.8 Weight Status Overweight GI Symptoms GI Symptoms None Last BM N/A Difficult in: None Skin Integrity/Comment: dryness Nutritional Problem 1. Problem Problem altered nutrition related lab values Etiology hx of DM Signs/Symptoms: Glu 264, POC 250-348, A1C 7.1 Malnutrition Alert Protein-Calorie Malnutrition N/A Is there a minimum of two criteria No selected? Query Text:Check all the applicable criteria. A minimum of two criteria are recommended for diagnosis of either severe or non-severe malnutrition. Intervention/Recommendation Comments 1. Recommend [facility] diet d/t DM and per pt requested. RN made aware. 2. Notified meter changes records clerk and updated diet profile 3. Monitor PO intake, wt weekly, labs and skin integrity 4. F/U as moderate risk in 3-5 days, 07/21-07/23 Expected Outcomes/Goals Expected Outcomes/Goals 1. PO intake to meet at least 75% of nutritional needs. 2. Wt stability, skin to remain intact, labs to improve .
--- NOTE | 2017-07-19 16:15 | Progress Notes ---
DATE: 07/18/2017 SUBJECTIVE: Chart reviewed and the patient interviewed. Also discussed the patient's condition with the staff, and reviewed records and labs. The patient is anxious and she is complaining of "pain in my knee." The patient said that her left knee has been bothering her. The patient seems to be slightly irritable and she is still agitated. She also needs lots of redirections. Otherwise, the patient is compliant with taking her medications and she denies any side effects of medications. ASSESSMENT: The patient is still agitated, psychotic, and depressed. TREATMENT PLAN: We will continue to monitor her behavior and her condition closely. Also, continue to adjust psychotropic medications and will continue to follow up. LABS: No new labs available for review. JOB# [id number]
[2017-07-19] MEDS: Insulin Detemir 100 units/mL 10mL Vial SUBQ SCH (21:00)
[2017-07-20] MEDS: Albuterol/Ipratropium Neb 3 ML AERS HHN SCH ×4 (01:41→19:50)
--- NOTE | 2017-07-20 05:32 | Progress Notes ---
DATE: 07/19/[address] Henry. SUBJECTIVE: The patient was seen and evaluated. The patient's chart reviewed. The patient is a 71-year-old female who has been transferred here from [facility]. She was observed to be in irritable mood, agitated, suspicious and paranoid. In the hospital course, the patient's regimen include vitamin C, aspirin, simvastatin and Cymbalta 60 mg. No complications. Gabapentin 600 mg p.o. t.i.d. Nursing staff is reporting the patient is seen to be anxious, unpredictable. Today, on [id number] evaluation, the patient is calm in her room. She reports no side effects of medications. She is adamant that she wants to go home. MENTAL STATUS EXAMINATION: Depressed, anxious. ASSESSMENT AND PLAN: The patient is a 71-year-old female with a history of depression, unable to formulate a safe plan outside the structured environment. We will continue with the Cymbalta to target the patient's underlying severe anxiety and depression. Due to the patient's active severe anxiety and depression, she is unable to formulate a safe plan outside the structured environment. JOB# [id number]
[2017-07-20] MEDS: Guaifenesin DM 10 ML UDC PO PRN (06:45)
[2017-07-20] MEDS: INSULIN ASPART SLIDING SCALE 100 UNITS/ML UNIT SUBQ SCH ×4 (07:23→20:23)
[2017-07-20] MEDS: Budesonide 0.5 Mg/2 mL Ud HHN SCH ×2 (08:07→19:50)
[2017-07-20] MEDS: Multivitamin w/ Minerals Tab PO SCH (09:18)
[2017-07-20] MEDS: Ferrous Sulfate 325 MG TAB PO SCH ×2 (09:19→17:26)
[2017-07-20] MEDS: Fluticasone Propionate 0.05mg/Actuation 16gm Nasal Spray NS SCH (09:19)
[2017-07-20] MEDS: Polyvinyl Alcohol Ophth Soln 15 mL Bottle EACH EYE SCH ×2 (09:19→17:26)
[2017-07-20] MEDS: Aspirin 81mg Chewable Tab PO SCH (09:19)
[2017-07-20 10:11] LABS: HEP B CORE AB TOTAL Positive (Negative); HEP B SURFACE AB QL Reactive; HEP B SURFACE AG QL Negative (Negative); HEP C ANTIBODY 0.1 s/co ratio (0.0-0.9)
[2017-07-20 10:11] LABS: HEP B CORE AB TOTAL Positive (Negative); HEP B SURFACE AB QL Reactive; HEP B SURFACE AG QL Negative (Negative); HEP C ANTIBODY 0.1 s/co ratio (0.0-0.9)
--- NOTE | 2017-07-20 17:04 | General Progress Note ---
Subjective - Review of Systems Subjective: Patient is seen and examined. Patient denies any chest pain, abdominal pain, nausea, vomiting, headache, seizure, syncopal episode. Objective - Results Result Diagrams: 07/18/17 05:50 07/18/17 05:50 Recent Labs: Laboratory Last Values WBC 4.3 Th/cmm (4.8-10.8) L 07/18/17 05:50 RBC 4.79 Mil/cmm (3.80-5.20) 07/18/17 05:50 Hgb 13.6 gm/dL (-16) 07/18/17 05:50 Hct 40.6 % (41.0-60) L 07/18/17 05:50 MCV 84.7 fl (81-100) 07/18/17 05:50 MCH 28.5 pg (27.0-31.0) 07/18/17 05:50 MCHC Differential 33.6 pg (28.0-36.0) 07/18/17 05:50 RDW 14.2 % (11.5-20.0) 07/18/17 05:50 Plt Count 163 Th/cmm (150-400) 07/18/17 05:50 MPV 7.4 fl 07/18/17 05:50 Neutrophils % 82.9 % (40.0-80.0) H 07/18/17 05:50 Lymphocytes % 11.5 % (20.0-50.0) L 07/18/17 05:50 Monocytes % 5.5 % (2.0-10.0) 07/18/17 05:50 Eosinophils % 0.0 % (0.0-5.0) 07/18/17 05:50 Basophils % 0.1 % (0.0-2.0) 07/18/17 05:50 Sodium 134 mEq/L (136-145) L 07/18/17 05:50 Potassium 4.5 mEq/L (3.5-5.1) 07/18/17 05:50 Chloride 97 mEq/L (98-107) L 07/18/17 05:50 Carbon Dioxide 31.3 mEq/L (21.0-31.0) H 07/18/17 05:50 Anion Gap 10.2 (7.0-16.0) 07/18/17 05:50 BUN 22 mg/dL (7-25) 07/18/17 05:50 Creatinine 0.8 mg/dL (0.6-1.2) 07/18/17 05:50 Est GFR ( Amer) TNP 07/18/17 05:50 Est GFR (Non-Af Amer) TNP 07/18/17 05:50 BUN/Creatinine Ratio 27.5 07/18/17 05:50 Glucose 445 mg/dL (70-105) H 07/19/17 22:06 POC Glucose 474 MG/DL (70 - 105) H* 07/20/17 16:36 Hemoglobin A1c % 7.1 % (4.0-6.0) H 07/16/17 21:59 Plasma/Ser Osmolality 291 mOsmol/kg (280-301) 07/17/17 10:00 Uric Acid 3.7 mg/dL (2.3-6.6) 07/17/17 10:00 Calcium 9.6 mg/dL (8.6-10.3) 07/18/17 05:50 Total Bilirubin 0.4 mg/dL (0.3-1.0) 07/16/17 21:57 AST 14 U/L (13-39) 07/16/17 21:57 ALT 17 U/L (7-52) 07/16/17 21:57 Alkaline Phosphatase 72 U/L (34-104) 07/16/17 21:57 Total Protein 6.7 gm/dL (6.0-8.3) 07/16/17 21:57 Albumin 3.8 gm/dL (3.7-5.3) 07/16/17 21:57 Globulin 2.9 gm/dL 07/16/17 21:57 Albumin/Globulin Ratio 1.3 (1.0-1.8) 07/16/17 21:57 TSH 1.66 uIU/ml (0.34-5.60) 07/16/17 21:57 RPR NONREACTIVE (NONREACTIVE) 07/16/17 21:57 Hep Bs Antigen Negative (Negative) 07/19/17 07:37 Hep Bs Antibody Reactive 07/19/17 07:37 Hep B Core Total Ab Positive (Negative) H 07/19/17 07:37 Hepatitis C Antibody 0.1 s/co ratio (0.0-0.9) 07/19/17 07:37 HIV 1&2 Antibody Screen NEGATIVE (NEG) 07/19/17 07:29 - Physical Exam Vitals and I&O: Vital Signs Temp 97.8 F 07/19/17 20:00 Pulse 83 07/20/17 13:58 Resp 18 07/20/17 13:58 BP 148/85 07/19/17 20:00 Pulse Ox 94 07/20/17 13:58 Active Medications: Current Medications Acetaminophen (Tylenol) 650 mg PO Q4HR PRN PRN Reason: Mild Pain or Fever >101 Stop: 09/15/17 00:17 Last Admin: 07/18/17 08:55 Dose: 650 mg Albuterol/Ipratropium (Duoneb Neb) 3 ml HHN Q6HRT REAL Stop: 09/15/17 12:59 Last Admin: 07/20/17 13:43 Dose: 3 ml Albuterol/Ipratropium (Duoneb Neb) 3 ml HHN Q2HR PRN PRN Reason: Shortness of Breath Stop: 09/15/17 00:17 Artificial Tears (Artificial Tears Ophth Soln) 1 drop EACH EYE BID REAL Stop: 09/15/17 16:59 Last Admin: 07/20/17 09:19 Dose: 1 drop Ascorbic Acid (Vitamin C) 500 mg PO DAILY REAL Stop: 09/15/17 08:59 Last Admin: 07/20/17 09:19 Dose: 500 mg Aspirin (Aspirin Chewable) 81 mg PO DAILY REAL Stop: 09/15/17 08:59 Last Admin: 07/20/17 09:19 Dose: 81 mg Bisacodyl (Dulcolax 10 Mg Supp) 10 mg RC DAILY PRN PRN Reason: Constipation Stop: 09/15/17 00:17 Budesonide (Pulmicort) 0.5 mg HHN BID REAL Stop: 09/15/17 08:59 Last Admin: 07/20/17 08:07 Dose: 0.5 mg Docusate Sodium (Colace) 100 mg PO DAILY REAL Stop: 09/15/17 08:59 Last Admin: 07/20/17 09:19 Dose: 100 mg Duloxetine HCl (Cymbalta) 60 mg PO DAILY REAL Stop: 09/16/17 08:59 Last Admin: 07/20/17 09:19 Dose: 60 mg Ferrous Sulfate (Iron) 325 mg PO BID REAL Stop: 09/15/17 08:59 Last Admin: 07/20/17 09:19 Dose: 325 mg Fluticasone Propionate (Flonase) 1 spr NS DAILY REAL Stop: 09/15/17 08:59 Last Admin: 07/20/17 09:19 Dose: 1 spr Gabapentin (Neurontin) 600 mg PO TID REAL Stop: 09/15/17 08:59 Last Admin: 07/20/17 14:24 Dose: 600 mg Glipizide (Glucotrol) 10 mg PO QDAC REAL Stop: 09/15/17 07:29 Last Admin: 07/20/17 06:54 Dose: 10 mg Guaifenesin/Dextromethorphan (Robitussin Dm) 5 ml PO TID PRN PRN Reason: Cough Stop: 09/15/17 00:17 Last Admin: 07/20/17 06:45 Dose: 5 ml Insulin Aspart (Novolog Insulin Sliding Scale) 0 units SUBQ ACHS REAL PRN Reason: Protocol Stop: 09/15/17 11:29 Last Admin: 07/20/17 11:57 Dose: 10 units Insulin Detemir (Levemir Insulin) 10 units SUBQ HS REAL PRN Reason: Protocol Stop: 09/17/17 20:59 Last Admin: 07/19/17 21:00 Dose: 10 units Ketotifen Fumarate (Zaditor 0.025% Oph Soln) 1 drop EACH EYE DAILY REAL Stop: 09/16/17 08:59 Last Admin: 07/20/17 09:19 Dose: 1 drop Lorazepam (Ativan) 0.5 mg PO Q6H PRN; Protocol PRN Reason: Anxiety Stop: 09/15/17 00:17 Last Admin: 07/20/17 09:19 Dose: 0.5 mg Magnesium Hydroxide (Milk Of Magnesia) 30 ml PO HS PRN PRN Reason: Constipation Stop: 09/15/17 00:17 Naproxen (Naprosyn) 500 mg PO BID REAL Stop: 09/15/17 16:59 Last Admin: 07/20/17 09:18 Dose: 500 mg Prednisone (Deltasone) 30 mg PO BID REAL Stop: 07/21/17 16:59 Last Admin: 07/20/17 09:19 Dose: 30 mg Sodium Phosphate (Fleet Enema) 135 ml RC Q48H PRN PRN Reason: Constipation Stop: 09/15/17 00:17 Tramadol HCl (Ultram) 50 mg PO Q6H PRN PRN Reason: Pain (Moderate) Stop: 09/15/17 00:17 Trazodone HCl (Desyrel) 150 mg PO HS REAL Stop: 09/15/17 20:59 Last Admin: 07/19/17 20:59 Dose: 150 mg Zolpidem Tartrate (Ambien) 5 mg PO HS PRN PRN Reason: Insomnia Stop: 09/15/17 02:00 General: Alert, Cooperative, No acute distress HEENT: Atraumatic, PERRLA, EOMI, Other (dentures present.) Neck: Supple, JVD Cardiovascular: Regular rate, Normal S1, Normal S2 Lungs: Normal air movement, Other (diffuse expiratory wheezing throughout.) Abdomen: Bowel sounds, Soft, Other (no guarding no rigidity) Extremities: Other (diffuse osteoarthritic changes.) Neurological: Normal speech, Sensation intact, Cranial nerves 3-12 NL, Other ( decrease pot of both lower extremity more on right than left.) Assessment/Plan - Problem List Patient Problems: All Active Problems Arthralgia (Acute) M25.50 COPD (chronic obstructive pulmonary disease) (Acute) Dementia (Acute) F03.90 Dermatitis (Acute) L30.9 Diabetes mellitus (Acute) E11.9 Glaucoma (Acute) H40.9 Hypertension (Acute) I10 Hyponatremia (Acute) E87.1 Insomnia (Acute) G47.00 Neuralgia (Acute) M79.2 Psychosis (Acute) F29 Rheumatoid arthritis (Acute) M06.9 Schizophrenia (Acute) F20.9 - Assessment Assessment: COPD exacerbation. Psychiatric disorder exacerbation. Diabetes mellitus. Hypertension. DJD. Osteoporosis. Fall risk Dementia. Debility. Declining self-care mobility. - Plan Plan: Oxygen. Nebulizer treatment. PO Antibiotics. Steroid. Basal insulin. Diabetes management. Follow-up lab. Psychiatric medication and management defer to psychiatrist. Follow lab. Appropriate home medicine reconciliation. General nursing care. Fall precautions. Diabetes management. Continue other medication. Care plan reviewed and discussed with staff. Nutritional Asmnt/Malnutr-PDOC - Dietary Evaluation Malnutrition Findings (Please click <Entered> for more info): Nutritional Asmnt/Malnutrition Start: 07/18/17 14: 21 Text: Status: Complete Freq: Document 07/18/17 14:21 LEISACLIFTON (Rec: 07/18/17 14:32 LEISACLIFTON [email or web address]) Nutritional Asmnt/Malnutrition Patient General Information Nutritional Screening High Risk Pertinent Medical Hx/Surgical Hx Htn, COPD, dementia, diverticulosis, GERD, Gastritis, psychotic disorder, osteoarthritis, muscle atrophy, weakness, DM Subjective Information Pt from SNF seen sitting in wheelchair during the time of visit. Pt stated she would like diabetic diet d/t DM, and reported her food preference. Per H&P, pt smoked 1 pack per day. Pertinent Medications Vit C, colace, Iron, glucotrol , novolog Pertinent Labs 07/18 Na 134L, K 4.5, Cl 97L, Glu 264, POC 250-348 since adm 07/16 A1C 7.1 Nutritional Hx/Data Height 1.8 m Height (Calculated Centimeters) 180.3 Current Weight (lbs) 90.718 kg Weight (Calculated Kilograms) 90.7 Weight (Calculated Grams) 91067.5 [place] Body Weight 155 % [place] Body Weight 129 Body Mass Index (BMI) 27.8 Weight Status Overweight GI Symptoms GI Symptoms None Last BM N/A Difficult in: None Skin Integrity/Comment: dryness Nutritional Problem 1. Problem Problem altered nutrition related lab values Etiology hx of DM Signs/Symptoms: Glu 264, POC 250-348, A1C 7.1 Malnutrition Alert Protein-Calorie Malnutrition N/A Is there a minimum of two criteria No selected? Query Text:Check all the applicable criteria. A minimum of two criteria are recommended for diagnosis of either severe or non-severe malnutrition. Intervention/Recommendation Comments 1. Recommend [facility] diet d/t DM and per pt requested. RN made aware. 2. Notified registered dietetic technician and updated diet profile 3. Monitor PO intake, wt weekly, labs and skin integrity 4. F/U as moderate risk in 3-5 days, 07/21-07/23 Expected Outcomes/Goals Expected Outcomes/Goals 1. PO intake to meet at least 75% of nutritional needs. 2. Wt stability, skin to remain intact, labs to improve .
[2017-07-20] MEDS: Insulin Detemir 100 units/mL 10mL Vial SUBQ SCH (20:22)
[2017-07-21] MEDS: Albuterol/Ipratropium Neb 3 ML AERS HHN SCH ×4 (01:33→20:12)
[2017-07-21] MEDS: INSULIN ASPART SLIDING SCALE 100 UNITS/ML UNIT SUBQ SCH ×4 (06:32→21:22)
[2017-07-21] MEDS: Budesonide 0.5 Mg/2 mL Ud HHN SCH ×2 (06:42→20:12)
--- NOTE | 2017-07-21 07:57 | Progress Notes ---
DATE: SUBJECTIVE: The patient was seen and evaluated. The patient's chart reviewed. Overnight, nursing staff reported mostly she is in the outside little more visible, but observed to be ____ irritable with minimal things. Today on [id number] evaluation, the patient is in her room, eating pancakes, a little more calm. No side effects to medication reported by the patient. MENTAL STATUS EXAMINATION: Depressed, anxious and poor insight, judgment, and impulse control. ASSESSMENT AND PLAN: A 71-year-old female with a history of depression, unable to formulate a safe plan outside the structured environment. We will continue with the primary psychiatrist's treatment plan and goals which include Cymbalta to target the patient's underlying severe anxiety and depression. JOB# [id number]
[2017-07-21] MEDS: Ferrous Sulfate 325 MG TAB PO SCH ×2 (08:42→16:28)
[2017-07-21] MEDS: Aspirin 81mg Chewable Tab PO SCH (08:42)
[2017-07-21] MEDS: Fluticasone Propionate 0.05mg/Actuation 16gm Nasal Spray NS SCH (08:43)
[2017-07-21] MEDS: Multivitamin w/ Minerals Tab PO SCH (08:43)
[2017-07-21] MEDS: Polyvinyl Alcohol Ophth Soln 15 mL Bottle EACH EYE SCH ×2 (08:44→18:17)
--- NOTE | 2017-07-21 09:26 | General Progress Note ---
Subjective - Review of Systems Subjective: Patient is seen and examined. Patient denies any chest pain, abdominal pain, nausea, vomiting, headache, seizure, syncopal episode. Patient is asking for more coffie. Objective - Results Result Diagrams: 07/18/17 05:50 07/18/17 05:50 Recent Labs: Laboratory Last Values WBC 4.3 Th/cmm (4.8-10.8) L 07/18/17 05:50 RBC 4.79 Mil/cmm (3.80-5.20) 07/18/17 05:50 Hgb 13.6 gm/dL (-16) 07/18/17 05:50 Hct 40.6 % (41.0-60) L 07/18/17 05:50 MCV 84.7 fl (81-100) 07/18/17 05:50 MCH 28.5 pg (27.0-31.0) 07/18/17 05:50 MCHC Differential 33.6 pg (28.0-36.0) 07/18/17 05:50 RDW 14.2 % (11.5-20.0) 07/18/17 05:50 Plt Count 163 Th/cmm (150-400) 07/18/17 05:50 MPV 7.4 fl 07/18/17 05:50 Neutrophils % 82.9 % (40.0-80.0) H 07/18/17 05:50 Lymphocytes % 11.5 % (20.0-50.0) L 07/18/17 05:50 Monocytes % 5.5 % (2.0-10.0) 07/18/17 05:50 Eosinophils % 0.0 % (0.0-5.0) 07/18/17 05:50 Basophils % 0.1 % (0.0-2.0) 07/18/17 05:50 Sodium 134 mEq/L (136-145) L 07/18/17 05:50 Potassium 4.5 mEq/L (3.5-5.1) 07/18/17 05:50 Chloride 97 mEq/L (98-107) L 07/18/17 05:50 Carbon Dioxide 31.3 mEq/L (21.0-31.0) H 07/18/17 05:50 Anion Gap 10.2 (7.0-16.0) 07/18/17 05:50 BUN 22 mg/dL (7-25) 07/18/17 05:50 Creatinine 0.8 mg/dL (0.6-1.2) 07/18/17 05:50 Est GFR ( Amer) TNP 07/18/17 05:50 Est GFR (Non-Af Amer) TNP 07/18/17 05:50 BUN/Creatinine Ratio 27.5 07/18/17 05:50 Glucose 445 mg/dL (70-105) H 07/19/17 22:06 POC Glucose 311 MG/DL (70 - 105) H 07/21/17 06:19 Hemoglobin A1c % 7.1 % (4.0-6.0) H 07/16/17 21:59 Plasma/Ser Osmolality 291 mOsmol/kg (280-301) 07/17/17 10:00 Uric Acid 3.7 mg/dL (2.3-6.6) 07/17/17 10:00 Calcium 9.6 mg/dL (8.6-10.3) 07/18/17 05:50 Total Bilirubin 0.4 mg/dL (0.3-1.0) 07/16/17 21:57 AST 14 U/L (13-39) 07/16/17 21:57 ALT 17 U/L (7-52) 07/16/17 21:57 Alkaline Phosphatase 72 U/L (34-104) 07/16/17 21:57 Total Protein 6.7 gm/dL (6.0-8.3) 07/16/17 21:57 Albumin 3.8 gm/dL (3.7-5.3) 07/16/17 21:57 Globulin 2.9 gm/dL 07/16/17 21:57 Albumin/Globulin Ratio 1.3 (1.0-1.8) 07/16/17 21:57 TSH 1.66 uIU/ml (0.34-5.60) 07/16/17 21:57 RPR NONREACTIVE (NONREACTIVE) 07/16/17 21:57 Hep Bs Antigen Negative (Negative) 07/19/17 07:37 Hep Bs Antibody Reactive 07/19/17 07:37 Hep B Core Total Ab Positive (Negative) H 07/19/17 07:37 Hepatitis C Antibody 0.1 s/co ratio (0.0-0.9) 07/19/17 07:37 HIV 1&2 Antibody Screen NEGATIVE (NEG) 07/19/17 07:29 - Physical Exam Vitals and I&O: Vital Signs Temp 98.8 F 07/21/17 06:00 Pulse 112 07/21/17 07:05 Resp 16 07/21/17 07:05 BP 150/93 07/21/17 06:00 Pulse Ox 95 07/21/17 07:05 Intake & Output 07/20/17 07/21/17 07/21/17 18:59 06:59 18:59 Intake Total 1200 Balance 1200 Intake: Oral 1200 Other: # Voids 3 # Bowel Movements 1 Active Medications: Current Medications Acetaminophen (Tylenol) 650 mg PO Q4HR PRN PRN Reason: Mild Pain or Fever >101 Stop: 09/15/17 00:17 Last Admin: 07/18/17 08:55 Dose: 650 mg Albuterol/Ipratropium (Duoneb Neb) 3 ml HHN Q6HRT [facility] Stop: 09/15/17 12:59 Last Admin: 07/21/17 06:42 Dose: 3 ml Albuterol/Ipratropium (Duoneb Neb) 3 ml HHN Q2HR PRN PRN Reason: Shortness of Breath Stop: 09/15/17 00:17 Artificial Tears (Artificial Tears Ophth Soln) 1 drop EACH EYE BID [facility] Stop: 09/15/17 16:59 Last Admin: 07/21/17 08:44 Dose: 1 drop Ascorbic Acid (Vitamin C) 500 mg PO DAILY [facility] Stop: 09/15/17 08:59 Last Admin: 07/21/17 08:42 Dose: 500 mg Aspirin (Aspirin Chewable) 81 mg PO DAILY [facility] Stop: 09/15/17 08:59 Last Admin: 07/21/17 08:42 Dose: 81 mg Bisacodyl (Dulcolax 10 Mg Supp) 10 mg RC DAILY PRN PRN Reason: Constipation Stop: 09/15/17 00:17 Budesonide (Pulmicort) 0.5 mg HHN BID [facility] Stop: 09/15/17 08:59 Last Admin: 07/21/17 06:42 Dose: 0.5 mg Docusate Sodium (Colace) 100 mg PO DAILY [facility] Stop: 09/15/17 08:59 Last Admin: 07/21/17 08:42 Dose: 100 mg Duloxetine HCl (Cymbalta) 60 mg PO BID [facility] Stop: 09/19/17 08:59 Ferrous Sulfate (Iron) 325 mg PO BID REAL Stop: 09/15/17 08:59 Last Admin: 07/21/17 08:42 Dose: 325 mg Fluticasone Propionate (Flonase) 1 spr NS DAILY REAL Stop: 09/15/17 08:59 Last Admin: 07/21/17 08:43 Dose: 1 spr Gabapentin (Neurontin) 600 mg PO TID REAL Stop: 09/15/17 08:59 Last Admin: 07/21/17 08:55 Dose: 600 mg Glipizide (Glucotrol) 10 mg PO QDAC [facility] Stop: 09/15/17 07:29 Last Admin: 07/21/17 06:33 Dose: 10 mg Guaifenesin (Mucinex) 600 mg PO Q12HR PRN PRN Reason: Cough or Congestion Stop: 09/19/17 09:18 Guaifenesin/Dextromethorphan (Robitussin Dm) 5 ml PO TID PRN PRN Reason: Cough Stop: 09/15/17 00:17 Last Admin: 07/20/17 06:45 Dose: 5 ml Insulin Aspart (Novolog Insulin Sliding Scale) 0 units SUBQ ACHS REAL PRN Reason: Protocol Stop: 09/15/17 11:29 Last Admin: 07/21/17 06:32 Dose: 8 units Insulin Detemir (Levemir Insulin) 10 units SUBQ HS REAL PRN Reason: Protocol Stop: 09/17/17 20:59 Last Admin: 07/20/17 20:22 Dose: 10 units Ketotifen Fumarate (Zaditor 0.025% Ophth Soln) 1 drop EACH EYE DAILY [facility] Stop: 09/16/17 08:59 Last Admin: 07/20/17 09:19 Dose: 1 drop Lorazepam (Ativan) 0.5 mg PO Q6H PRN; Protocol PRN Reason: Anxiety Stop: 09/15/17 00:17 Last Admin: 07/20/17 17:27 Dose: 0.5 mg Magnesium Hydroxide (Milk Of Magnesia) 30 ml PO HS PRN PRN Reason: Constipation Stop: 02/12/18 00:17 Naproxen (Naprosyn) 500 mg PO BID REAL Stop: 09/15/17 16:59 Last Admin: 07/21/17 08:42 Dose: 500 mg Prednisone (Deltasone) 10 mg PO BID REAL Stop: 09/19/17 16:59 Sodium Phosphate (Fleet Enema) 135 ml RC Q48H PRN PRN Reason: Constipation Stop: 09/15/17 00:17 Tramadol HCl (Ultram) 50 mg PO Q6H PRN PRN Reason: Pain (Moderate) Stop: 09/15/17 00:17 Trazodone HCl (Desyrel) 150 mg PO HS REAL Stop: 09/15/17 20:59 Last Admin: 07/20/17 20:22 Dose: 150 mg Zolpidem Tartrate (Ambien) 5 mg PO HS PRN PRN Reason: Insomnia Stop: 09/15/17 02:00 General: Alert, Cooperative, No acute distress HEENT: Atraumatic, PERRLA, EOMI, Other (dentures present.) Neck: Supple, JVD Cardiovascular: Regular rate, Normal S1, Normal S2 Lungs: Normal air movement, Other (diffuse expiratory wheezing throughout.) Abdomen: Bowel sounds, Soft, Other (no guarding no rigidity) Extremities: Other (diffuse osteoarthritic changes.) Neurological: Normal speech, Sensation intact, Cranial nerves 3-12 NL, Other ( decrease pot of both lower extremity more on right than left.) Assessment/Plan - Problem List Patient Problems: All Active Problems Arthralgia (Acute) M25.50 COPD (chronic obstructive pulmonary disease) (Acute) Dementia (Acute) F03.90 Dermatitis (Acute) L30.9 Diabetes mellitus (Acute) E11.9 Glaucoma (Acute) H40.9 Hypertension (Acute) I10 Hyponatremia (Acute) E87.1 Insomnia (Acute) G47.00 Neuralgia (Acute) M79.2 Psychosis (Acute) F29 Rheumatoid arthritis (Acute) M06.9 Schizophrenia (Acute) F20.9 - Assessment Assessment: COPD exacerbation. Psychiatric disorder exacerbation. Diabetes mellitus. Hypertension. DJD. Osteoporosis. Fall risk Dementia. Debility. Declining self-care mobility. - Plan Plan: Oxygen. Nebulizer treatment. PO Antibiotics. Decrease po Steroid. Basal insulin. Add Humabid. Diabetes management. Follow-up lab. Psychiatric medication and management defer to psychiatrist. Follow lab. Appropriate home medicine reconciliation. General nursing care. Fall precautions. Continue other medication. Care plan reviewed and discussed with staff. Nutritional Asmnt/Malnutr-PDOC - Dietary Evaluation Malnutrition Findings (Please click <Entered> for more info): Nutritional Asmnt/Malnutrition Start: 07/18/17 14: 21 Text: Status: Complete Freq: Document 07/18/17 14:21 SPENCERG (Rec: 07/18/17 14:32 LCLELANDG [email or web address]) Nutritional Asmnt/Malnutrition Patient General Information Nutritional Screening High Risk Pertinent Medical Hx/Surgical Hx Htn, COPD, dementia, diverticulosis, GERD, Gastritis, psychotic disorder, osteoarthritis, muscle atrophy, weakness, DM Subjective Information Pt from SNF seen sitting in wheelchair during the time of visit. Pt stated she would like diabetic diet d/t DM, and reported her food preference. Per H&P, pt smoked 1 pack per day. Pertinent Medications Vit C, colace, Iron, glucotrol , novolog Pertinent Labs 07/18 Na 134L, K 4.5, Cl 97L, Glu 264, POC 250-348 since adm 07/16 A1C 7.1 Nutritional Hx/Data Height 1.8 m Height (Calculated Centimeters) 180.3 Current Weight (lbs) 90.718 kg Weight (Calculated Kilograms) 90.7 Weight (Calculated Grams) 38689.5 [place] Body Weight 155 % [place] Body Weight 129 Body Mass Index (BMI) 27.8 Weight Status Overweight GI Symptoms GI Symptoms None Last BM N/A Difficult in: None Skin Integrity/Comment: dryness Nutritional Problem 1. Problem Problem altered nutrition related lab values Etiology hx of DM Signs/Symptoms: Glu 264, POC 250-348, A1C 7.1 Malnutrition Alert Protein-Calorie Malnutrition N/A Is there a minimum of two criteria No selected? Query Text:Check all the applicable criteria. A minimum of two criteria are recommended for diagnosis of either severe or non-severe malnutrition. Intervention/Recommendation Comments 1. Recommend [facility] [place] diet d/t DM and per pt requested. RN made aware. 2. Notified dietary manager and updated diet profile 3. Monitor PO intake, wt weekly, labs and skin integrity 4. F/U as moderate risk in 3-5 days, 07/21-07/23 Expected Outcomes/Goals Expected Outcomes/Goals 1. PO intake to meet at least 75% of nutritional needs. 2. Wt stability, skin to remain intact, labs to improve .
--- NOTE | 2017-07-21 12:07 | Progress Notes ---
DATE: SUBJECTIVE: Chart reviewed and the patient interviewed. I also discussed the patient's condition with the staff and I reviewed records and labs. The patient still has episodes of yelling and screaming. The patient also is resisting care. She also wants to be left alone. The patient is still complaining of pain "in my left side." Otherwise, the patient is working on her irritability. She also seems to be slightly more cooperative. MENTAL STATUS: The patient is a agitated and is disheveled. She seems to be preoccupied. Also, she seems to be depressed. ASSESSMENT: The patient is still depressed and psychotic. TREATMENT PLAN: Continue to monitor her behavior and her condition closely. Also, we will increase Cymbalta to 60 mg twice a day and we will continue to followup closely. [facility]# [id number]
[2017-07-21] MEDS ORDERED: INSULIN ASPART, RECOMBINANT 100 UNITS/ML SUBQ ONE (19:11)
[2017-07-21] MEDS: Insulin Detemir 100 units/mL 10mL Vial SUBQ SCH (21:22)
[2017-07-22] MEDS: Albuterol/Ipratropium Neb 3 ML AERS HHN SCH ×4 (01:23→21:11)
[2017-07-22] MEDS: INSULIN ASPART SLIDING SCALE 100 UNITS/ML UNIT SUBQ SCH ×4 (06:50→21:21)
[2017-07-22] MEDS: Budesonide 0.5 Mg/2 mL Ud HHN SCH ×2 (06:57→21:11)
[2017-07-22] MEDS: Polyvinyl Alcohol Ophth Soln 15 mL Bottle EACH EYE SCH ×2 (09:14→16:37)
[2017-07-22] MEDS: Fluticasone Propionate 0.05mg/Actuation 16gm Nasal Spray NS SCH (09:14)
[2017-07-22] MEDS: Ferrous Sulfate 325 MG TAB PO SCH ×2 (09:15→16:37)
[2017-07-22] MEDS: Multivitamin w/ Minerals Tab PO SCH (09:15)
[2017-07-22] MEDS: Aspirin 81mg Chewable Tab PO SCH (09:15)
--- NOTE | 2017-07-22 09:17 | General Progress Note ---
Subjective - Review of Systems Subjective: Patient is seen and examined. Patient denies any chest pain, abdominal pain, nausea, vomiting, headache, seizure, syncopal episode. This am blood sugar is acceptable. Objective - Results Result Diagrams: 07/18/17 05:50 07/18/17 05:50 Recent Labs: Laboratory Last Values WBC 4.3 Th/cmm (4.8-10.8) L 07/18/17 05:50 RBC 4.79 Mil/cmm (3.80-5.20) 07/18/17 05:50 Hgb 13.6 gm/dL (-16) 07/18/17 05:50 Hct 40.6 % (41.0-60) L 07/18/17 05:50 MCV 84.7 fl (81-100) 07/18/17 05:50 MCH 28.5 pg (27.0-31.0) 07/18/17 05:50 MCHC Differential 33.6 pg (28.0-36.0) 07/18/17 05:50 RDW 14.2 % (11.5-20.0) 07/18/17 05:50 Plt Count 163 Th/cmm (150-400) 07/18/17 05:50 MPV 7.4 fl 07/18/17 05:50 Neutrophils % 82.9 % (40.0-80.0) H 07/18/17 05:50 Lymphocytes % 11.5 % (20.0-50.0) L 07/18/17 05:50 Monocytes % 5.5 % (2.0-10.0) 07/18/17 05:50 Eosinophils % 0.0 % (0.0-5.0) 07/18/17 05:50 Basophils % 0.1 % (0.0-2.0) 07/18/17 05:50 Sodium 134 mEq/L (136-145) L 07/18/17 05:50 Potassium 4.5 mEq/L (3.5-5.1) 07/18/17 05:50 Chloride 97 mEq/L (98-107) L 07/18/17 05:50 Carbon Dioxide 31.3 mEq/L (21.0-31.0) H 07/18/17 05:50 Anion Gap 10.2 (7.0-16.0) 07/18/17 05:50 BUN 22 mg/dL (7-25) 07/18/17 05:50 Creatinine 0.8 mg/dL (0.6-1.2) 07/18/17 05:50 Est GFR ( Amer) TNP 07/18/17 05:50 Est GFR (Non-Af Amer) TNP 07/18/17 05:50 BUN/Creatinine Ratio 27.5 07/18/17 05:50 Glucose 445 mg/dL (70-105) H 07/19/17 22:06 POC Glucose 177 MG/DL (70 - 105) H 07/22/17 05:55 Hemoglobin A1c % 7.1 % (4.0-6.0) H 07/16/17 21:59 Plasma/Ser Osmolality 291 mOsmol/kg (280-301) 07/17/17 10:00 Uric Acid 3.7 mg/dL (2.3-6.6) 07/17/17 10:00 Calcium 9.6 mg/dL (8.6-10.3) 07/18/17 05:50 Total Bilirubin 0.4 mg/dL (0.3-1.0) 07/16/17 21:57 AST 14 U/L (13-39) 07/16/17 21:57 ALT 17 U/L (7-52) 07/16/17 21:57 Alkaline Phosphatase 72 U/L (34-104) 07/16/17 21:57 Total Protein 6.7 gm/dL (6.0-8.3) 07/16/17 21:57 Albumin 3.8 gm/dL (3.7-5.3) 07/16/17 21:57 Globulin 2.9 gm/dL 07/16/17 21:57 Albumin/Globulin Ratio 1.3 (1.0-1.8) 07/16/17 21:57 TSH 1.66 uIU/ml (0.34-5.60) 07/16/17 21:57 RPR NONREACTIVE (NONREACTIVE) 07/16/17 21:57 Hep Bs Antigen Negative (Negative) 07/19/17 07:37 Hep Bs Antibody Reactive 07/19/17 07:37 Hep B Core Total Ab Positive (Negative) H 07/19/17 07:37 Hepatitis C Antibody 0.1 s/co ratio (0.0-0.9) 07/19/17 07:37 HIV 1&2 Antibody Screen NEGATIVE (NEG) 07/19/17 07:29 - Physical Exam Vitals and I&O: Vital Signs Temp 96.8 F 07/22/17 05:49 Pulse 89 07/22/17 06:58 Resp 18 07/22/17 06:58 BP 152/87 07/22/17 05:49 Pulse Ox 99 07/22/17 06:58 Intake & Output 07/21/17 07/22/17 07/22/17 18:59 06:59 18:59 Intake Total 1500 480 Balance 1500 480 Intake: Oral 1500 480 Other: # Voids 4 2 # Bowel Movements 1 2 Active Medications: Current Medications Acetaminophen (Tylenol) 650 mg PO Q4HR PRN PRN Reason: Mild Pain or Fever >101 Stop: 09/15/17 00:17 Last Admin: 07/18/17 08:55 Dose: 650 mg Albuterol/Ipratropium (Duoneb Neb) 3 ml HHN Q6HRT [facility] Stop: 09/15/17 12:59 Last Admin: 07/22/17 06:57 Dose: 3 ml Albuterol/Ipratropium (Duoneb Neb) 3 ml HHN Q2HR PRN PRN Reason: Shortness of Breath Stop: 09/15/17 00:17 Artificial Tears (Artificial Tears Ophth Soln) 1 drop EACH EYE BID [facility] Stop: 09/15/17 16:59 Last Admin: 07/21/17 18:17 Dose: 1 drop Ascorbic Acid (Vitamin C) 500 mg PO DAILY [facility] Stop: 09/15/17 08:59 Last Admin: 07/21/17 08:42 Dose: 500 mg Aspirin (Aspirin Chewable) 81 mg PO DAILY [facility] Stop: 09/15/17 08:59 Last Admin: 07/21/17 08:42 Dose: 81 mg Bisacodyl (Dulcolax 10 Mg Supp) 10 mg RC DAILY PRN PRN Reason: Constipation Stop: 09/15/17 00:17 Budesonide (Pulmicort) 0.5 mg HHN BID [facility] Stop: 09/15/17 08:59 Last Admin: 07/22/17 06:57 Dose: 0.5 mg Docusate Sodium (Colace) 100 mg PO DAILY [facility] Stop: 09/15/17 08:59 Last Admin: 07/21/17 08:42 Dose: 100 mg Duloxetine HCl (Cymbalta) 60 mg PO BID REAL Stop: 09/19/17 08:59 Ferrous Sulfate (Iron) 325 mg PO BID REAL Stop: 09/15/17 08:59 Last Admin: 07/21/17 16:28 Dose: 325 mg Fluticasone Propionate (Flonase) 1 spr NS DAILY REAL Stop: 09/15/17 08:59 Last Admin: 07/21/17 08:43 Dose: 1 spr Gabapentin (Neurontin) 600 mg PO TID REAL Stop: 09/15/17 08:59 Last Admin: 07/21/17 21:11 Dose: 600 mg Glipizide (Glucotrol) 10 mg PO QDAC [facility] Stop: 09/15/17 07:29 Last Admin: 07/22/17 06:50 Dose: 10 mg Guaifenesin (Mucinex) 600 mg PO Q12HR PRN PRN Reason: Cough or Congestion Stop: 09/19/17 09:18 Guaifenesin/Dextromethorphan (Robitussin Dm) 5 ml PO TID PRN PRN Reason: Cough Stop: 09/15/17 00:17 Last Admin: 07/20/17 06:45 Dose: 5 ml Insulin Aspart (Novolog Insulin Sliding Scale) 0 units SUBQ ACHS REAL PRN Reason: Protocol Stop: 09/15/17 11:29 Last Admin: 07/22/17 06:50 Dose: 2 units Insulin Detemir (Levemir Insulin) 10 units SUBQ HS REAL PRN Reason: Protocol Stop: 09/17/17 20:59 Last Admin: 07/21/17 21:22 Dose: 10 units Ketotifen Fumarate (Zaditor 0.025% Ophth Soln) 1 drop EACH EYE DAILY [facility] Stop: 09/16/17 08:59 Last Admin: 07/21/17 09:36 Dose: 1 drop Lorazepam (Ativan) 0.5 mg PO Q6H PRN; Protocol PRN Reason: Anxiety Stop: 09/15/17 00:17 Last Admin: 07/20/17 17:27 Dose: 0.5 mg Magnesium Hydroxide (Milk Of Magnesia) 30 ml PO HS PRN PRN Reason: Constipation Stop: 09/15/17 00:17 Naproxen (Naprosyn) 500 mg PO BID REAL Stop: 09/15/17 16:59 Last Admin: 07/21/17 16:28 Dose: 500 mg Prednisone (Deltasone) 10 mg PO BID REAL Stop: 09/19/17 16:59 Last Admin: 07/21/17 16:28 Dose: 10 mg Sodium Phosphate (Fleet Enema) 135 ml RC Q48H PRN PRN Reason: Constipation Stop: 09/15/17 00:17 Tramadol HCl (Ultram) 50 mg PO Q6H PRN PRN Reason: Pain (Moderate) Stop: 09/15/17 00:17 Trazodone HCl (Desyrel) 150 mg PO HS REAL Stop: 09/15/17 20:59 Last Admin: 07/21/17 21:11 Dose: 150 mg Zolpidem Tartrate (Ambien) 5 mg PO HS PRN PRN Reason: Insomnia Stop: 09/15/17 02:00 General: Alert, Cooperative, No acute distress HEENT: Atraumatic, PERRLA, EOMI, Other (dentures present.) Neck: Supple, JVD Cardiovascular: Regular rate, Normal S1, Normal S2 Lungs: Normal air movement, Other (diffuse expiratory wheezing throughout.) Abdomen: Bowel sounds, Soft, Other (no guarding no rigidity) Extremities: Other (diffuse osteoarthritic changes.) Neurological: Normal speech, Sensation intact, Cranial nerves 3-12 NL, Other ( decrease pot of both lower extremity more on right than left.) Assessment/Plan - Problem List Patient Problems: All Active Problems Arthralgia (Acute) M25.50 COPD (chronic obstructive pulmonary disease) (Acute) Dementia (Acute) F03.90 Dermatitis (Acute) L30.9 Diabetes mellitus (Acute) E11.9 Glaucoma (Acute) H40.9 Hypertension (Acute) I10 Hyponatremia (Acute) E87.1 Insomnia (Acute) G47.00 Neuralgia (Acute) M79.2 Psychosis (Acute) F29 Rheumatoid arthritis (Acute) M06.9 Schizophrenia (Acute) F20.9 - Assessment Assessment: COPD exacerbation. Psychiatric disorder exacerbation. Diabetes mellitus. Hypertension. DJD. Osteoporosis. Fall risk Dementia. Debility. Declining self-care mobility. - Plan Plan: Oxygen. Nebulizer treatment. PO Antibiotics. po Steroid. Basal insulin incresae does.. Add Humabid. Diabetes management. Follow-up lab. Psychiatric medication and management defer to psychiatrist. Follow lab. Appropriate home medicine reconciliation. General nursing care. Fall precautions. Continue other medication. Care plan reviewed and discussed with staff. Nutritional Asmnt/Malnutr-PDOC - Dietary Evaluation Malnutrition Findings (Please click <Entered> for more info): Nutritional Asmnt/Malnutrition Start: 07/18/17 14: 21 Text: Status: Complete Freq: Document 07/18/17 14:21 LCHENG (Rec: 07/18/17 14:32 HEN [email or web address]) Nutritional Asmnt/Malnutrition Patient General Information Nutritional Screening High Risk Pertinent Medical Hx/Surgical Hx Htn, COPD, dementia, diverticulosis, GERD, Gastritis, psychotic disorder, osteoarthritis, muscle atrophy, weakness, DM Subjective Information Pt from SNF seen sitting in wheelchair during the time of visit. Pt stated she would like diabetic diet d/t DM, and reported her food preference. Per H&P, pt smoked 1 pack per day. Pertinent Medications Vit C, colace, Iron, glucotrol , novolog Pertinent Labs 07/18 Na 134L, K 4.5, Cl 97L, Glu 264, POC 250-348 since adm 07/16 A1C 7.1 Nutritional Hx/Data Height 1.8 m Height (Calculated Centimeters) 180.3 Current Weight (lbs) 90.718 kg Weight (Calculated Kilograms) 90.7 Weight (Calculated Grams) 40361.5 [place] Body Weight 155 % [place] Body Weight 129 Body Mass Index (BMI) 27.8 Weight Status Overweight GI Symptoms GI Symptoms None Last BM N/A Difficult in: None Skin Integrity/Comment: dryness Nutritional Problem 1. Problem Problem altered nutrition related lab values Etiology hx of DM Signs/Symptoms: Glu 264, POC 250-348, A1C 7.1 Malnutrition Alert Protein-Calorie Malnutrition N/A Is there a minimum of two criteria No selected? Query Text:Check all the applicable criteria. A minimum of two criteria are recommended for diagnosis of either severe or non-severe malnutrition. Intervention/Recommendation Comments 1. Recommend [facility] diet d/t DM and per pt requested. RN made aware. 2. Notified public health dietitian and updated diet profile 3. Monitor PO intake, wt weekly, labs and skin integrity 4. F/U as moderate risk in 3-5 days, 07/21-07/23 Expected Outcomes/Goals Expected Outcomes/Goals 1. PO intake to meet at least 75% of nutritional needs. 2. Wt stability, skin to remain intact, labs to improve .
[2017-07-22] MEDS: Insulin Detemir 100 units/mL 10mL Vial SUBQ SCH (21:20)
--- NOTE | 2017-07-23 00:43 | Progress Notes ---
DATE: 07/22/2017 SUBJECTIVE: Chart reviewed and the patient interviewed. Also, discussed the patient's condition with the staff and reviewed records and labs. The patient's affect is slightly brighter. The patient also has high blood pressure and her diet changed. The patient also is still focused on her smoking and at that time, the patient is still demanding and irritable and agitated. She also is still easily agitated, but easier to follow directions. ASSESSMENT: The patient is still psychotic, but showing some improvement. TREATMENT PLAN: We will continue to monitor her behavior and her condition closely. Also, continue to work on her poor impulse control and her agitation and will continue to follow up. JOB# [id number]
[2017-07-23] MEDS: Albuterol/Ipratropium Neb 3 ML AERS HHN SCH ×4 (01:23→20:11)
[2017-07-23] MEDS: INSULIN ASPART SLIDING SCALE 100 UNITS/ML UNIT SUBQ SCH ×4 (06:58→23:40)
[2017-07-23] MEDS: Budesonide 0.5 Mg/2 mL Ud HHN SCH ×2 (08:45→20:11)
[2017-07-23] MEDS: Ferrous Sulfate 325 MG TAB PO SCH ×2 (10:16→16:41)
[2017-07-23] MEDS: Aspirin 81mg Chewable Tab PO SCH (10:16)
[2017-07-23] MEDS: Fluticasone Propionate 0.05mg/Actuation 16gm Nasal Spray NS SCH (10:17)
[2017-07-23] MEDS: Polyvinyl Alcohol Ophth Soln 15 mL Bottle EACH EYE SCH ×2 (10:18→17:14)
[2017-07-23] MEDS: Multivitamin w/ Minerals Tab PO SCH (10:20)
--- NOTE | 2017-07-23 10:26 | General Progress Note ---
Subjective - Review of Systems Subjective: Patient is seen and examined. Patient denies any chest pain, abdominal pain, nausea, vomiting, headache, seizure, syncopal episode. Patient's blood sugar are still high. Objective - Results Result Diagrams: 07/18/17 05:50 07/18/17 05:50 Recent Labs: Laboratory Last Values WBC 4.3 Th/cmm (4.8-10.8) L 07/18/17 05:50 RBC 4.79 Mil/cmm (3.80-5.20) 07/18/17 05:50 Hgb 13.6 gm/dL (-16) 07/18/17 05:50 Hct 40.6 % (41.0-60) L 07/18/17 05:50 MCV 84.7 fl (81-100) 07/18/17 05:50 MCH 28.5 pg (27.0-31.0) 07/18/17 05:50 MCHC Differential 33.6 pg (28.0-36.0) 07/18/17 05:50 RDW 14.2 % (11.5-20.0) 07/18/17 05:50 Plt Count 163 Th/cmm (150-400) 07/18/17 05:50 MPV 7.4 fl 07/18/17 05:50 Neutrophils % 82.9 % (40.0-80.0) H 07/18/17 05:50 Lymphocytes % 11.5 % (20.0-50.0) L 07/18/17 05:50 Monocytes % 5.5 % (2.0-10.0) 07/18/17 05:50 Eosinophils % 0.0 % (0.0-5.0) 07/18/17 05:50 Basophils % 0.1 % (0.0-2.0) 07/18/17 05:50 Sodium 134 mEq/L (136-145) L 07/18/17 05:50 Potassium 4.5 mEq/L (3.5-5.1) 07/18/17 05:50 Chloride 97 mEq/L (98-107) L 07/18/17 05:50 Carbon Dioxide 31.3 mEq/L (21.0-31.0) H 07/18/17 05:50 Anion Gap 10.2 (7.0-16.0) 07/18/17 05:50 BUN 22 mg/dL (7-25) 07/18/17 05:50 Creatinine 0.8 mg/dL (0.6-1.2) 07/18/17 05:50 Est GFR ( Amer) TNP 07/18/17 05:50 Est GFR (Non-Af Amer) TNP 07/18/17 05:50 BUN/Creatinine Ratio 27.5 07/18/17 05:50 Glucose 445 mg/dL (70-105) H 07/19/17 22:06 POC Glucose 404 MG/DL (70 - 105) H 07/22/17 20:06 Hemoglobin A1c % 7.1 % (4.0-6.0) H 07/16/17 21:59 Plasma/Ser Osmolality 291 mOsmol/kg (280-301) 07/17/17 10:00 Uric Acid 3.7 mg/dL (2.3-6.6) 07/17/17 10:00 Calcium 9.6 mg/dL (8.6-10.3) 07/18/17 05:50 Total Bilirubin 0.4 mg/dL (0.3-1.0) 07/16/17 21:57 AST 14 U/L (13-39) 07/16/17 21:57 ALT 17 U/L (7-52) 07/16/17 21:57 Alkaline Phosphatase 72 U/L (34-104) 07/16/17 21:57 Total Protein 6.7 gm/dL (6.0-8.3) 07/16/17 21:57 Albumin 3.8 gm/dL (3.7-5.3) 07/16/17 21:57 Globulin 2.9 gm/dL 07/16/17 21:57 Albumin/Globulin Ratio 1.3 (1.0-1.8) 07/16/17 21:57 TSH 1.66 uIU/ml (0.34-5.60) 07/16/17 21:57 RPR NONREACTIVE (NONREACTIVE) 07/16/17 21:57 Hep Bs Antigen Negative (Negative) 07/19/17 07:37 Hep Bs Antibody Reactive 07/19/17 07:37 Hep B Core Total Ab Positive (Negative) H 07/19/17 07:37 Hepatitis C Antibody 0.1 s/co ratio (0.0-0.9) 07/19/17 07:37 HIV 1&2 Antibody Screen NEGATIVE (NEG) 07/19/17 07:37 - Physical Exam Vitals and I&O: Vital Signs Temp 99 F 07/22/17 22:48 Pulse 89 07/23/17 08:53 Resp 18 07/23/17 08:53 BP 116/68 07/22/17 22:48 Pulse Ox 97 07/23/17 08:53 Intake & Output 07/22/17 07/23/17 07/23/17 18:59 06:59 18:59 Other: # Voids 3 # Bowel Movements 2 Stool Characteristics Formed Formed Active Medications: Current Medications Acetaminophen (Tylenol) 650 mg PO Q4HR PRN PRN Reason: Mild Pain or Fever >101 Stop: 09/15/17 00:17 Last Admin: 07/18/17 08:55 Dose: 650 mg Albuterol/Ipratropium (Duoneb Neb) 3 ml HHN Q6HRT [facility] Stop: 09/15/17 12:59 Last Admin: 07/23/17 08:45 Dose: 3 ml Albuterol/Ipratropium (Duoneb Neb) 3 ml HHN Q2HR PRN PRN Reason: Shortness of Breath Stop: 09/15/17 00:17 Aripiprazole (Abilify) 5 mg PO DAILY REAL PRN Reason: Protocol Stop: 09/21/17 08:59 Artificial Tears (Artificial Tears Ophth Soln) 1 drop EACH EYE BID [facility] Stop: 09/15/17 16:59 Last Admin: 07/23/17 10:18 Dose: 1 drop Ascorbic Acid (Vitamin C) 500 mg PO DAILY [facility] Stop: 09/15/17 08:59 Last Admin: 07/23/17 10:17 Dose: 500 mg Aspirin (Aspirin Chewable) 81 mg PO DAILY [facility] Stop: 09/15/17 08:59 Last Admin: 07/23/17 10:16 Dose: 81 mg Bisacodyl (Dulcolax 10 Mg Supp) 10 mg RC DAILY PRN PRN Reason: Constipation Stop: 09/15/17 00:17 Budesonide (Pulmicort) 0.5 mg HHN BID [facility] Stop: 09/15/17 08:59 Last Admin: 07/23/17 08:45 Dose: 0.5 mg Docusate Sodium (Colace) 100 mg PO DAILY [facility] Stop: 09/15/17 08:59 Last Admin: 07/23/17 10:17 Dose: 100 mg Duloxetine HCl (Cymbalta) 60 mg PO BID [facility] Stop: 09/19/17 08:59 Ferrous Sulfate (Iron) 325 mg PO BID [facility] Stop: 09/15/17 08:59 Last Admin: 07/23/17 10:16 Dose: 325 mg Fluticasone Propionate (Flonase) 1 spr NS DAILY REAL Stop: 09/15/17 08:59 Last Admin: 07/23/17 10:17 Dose: 1 spr Gabapentin (Neurontin) 600 mg PO TID [facility] Stop: 09/15/17 08:59 Last Admin: 07/23/17 10:17 Dose: 600 mg Glipizide (Glucotrol) 10 mg PO QDAC [facility] Stop: 09/15/17 07:29 Last Admin: 07/23/17 06:58 Dose: 10 mg Guaifenesin (Mucinex) 600 mg PO Q12HR PRN PRN Reason: Cough or Congestion Stop: 09/19/17 09:18 Guaifenesin/Dextromethorphan (Robitussin Dm) 5 ml PO TID PRN PRN Reason: Cough Stop: 09/15/17 00:17 Last Admin: 07/20/17 06:45 Dose: 5 ml Insulin Aspart (Novolog Insulin Sliding Scale) 0 units SUBQ ACHS REAL PRN Reason: Protocol Stop: 09/15/17 11:29 Last Admin: 07/23/17 06:58 Dose: 6 units Insulin Detemir (Levemir Insulin) 10 units SUBQ HS REAL PRN Reason: Protocol Stop: 09/17/17 20:59 Last Admin: 07/22/17 21:20 Dose: 10 units Ketotifen Fumarate (Zaditor 0.025% Ophth Soln) 1 drop EACH EYE DAILY [facility] Stop: 09/16/17 08:59 Last Admin: 07/23/17 10:18 Dose: 1 drop Lorazepam (Ativan) 0.5 mg PO Q6H PRN; Protocol PRN Reason: Anxiety Stop: 09/15/17 00:17 Last Admin: 07/22/17 21:56 Dose: 0.5 mg Magnesium Hydroxide (Milk Of Magnesia) 30 ml PO HS PRN PRN Reason: Constipation Stop: 09/15/17 00:17 Naproxen (Naprosyn) 500 mg PO BID REAL Stop: 09/15/17 16:59 Last Admin: 07/23/17 10:17 Dose: 500 mg Prednisone (Deltasone) 10 mg PO BID REAL Stop: 09/19/17 16:59 Last Admin: 07/23/17 10:16 Dose: 10 mg Sodium Phosphate (Fleet Enema) 135 ml RC Q48H PRN PRN Reason: Constipation Stop: 09/15/17 00:17 Tramadol HCl (Ultram) 50 mg PO Q6H PRN PRN Reason: Pain (Moderate) Stop: 09/15/17 00:17 Trazodone HCl (Desyrel) 150 mg PO HS REAL Stop: 09/15/17 20:59 Last Admin: 07/22/17 20:26 Dose: 150 mg Zolpidem Tartrate (Ambien) 5 mg PO HS PRN PRN Reason: Insomnia Stop: 09/15/17 02:00 Last Admin: 07/22/17 21:56 Dose: 5 mg General: Alert, Cooperative, No acute distress HEENT: Atraumatic, PERRLA, EOMI, Other (dentures present.) Neck: Supple, JVD Cardiovascular: Regular rate, Normal S1, Normal S2 Lungs: Normal air movement, Other (diffuse expiratory wheezing throughout.) Abdomen: Bowel sounds, Soft, Other (no guarding no rigidity) Extremities: Other (diffuse osteoarthritic changes involving major and minor joints) Neurological: Normal speech, Sensation intact, Cranial nerves 3-12 NL, Other ( decrease pot of both lower extremity more on right than left.) Assessment/Plan - Problem List Patient Problems: All Active Problems Arthralgia (Acute) M25.50 COPD (chronic obstructive pulmonary disease) (Acute) Dementia (Acute) F03.90 Dermatitis (Acute) L30.9 Diabetes mellitus (Acute) E11.9 Glaucoma (Acute) H40.9 Hypertension (Acute) I10 Hyponatremia (Acute) E87.1 Insomnia (Acute) G47.00 Neuralgia (Acute) M79.2 Psychosis (Acute) F29 Rheumatoid arthritis (Acute) M06.9 Schizophrenia (Acute) F20.9 - Assessment Assessment: COPD exacerbation. Psychiatric disorder exacerbation. Diabetes mellitus with elevated blood sugar. Hypertension. DJD. Osteoporosis. Fall risk Dementia. Debility. Declining self-care mobility. - Plan Plan: Oxygen. Nebulizer treatment. PO Antibiotics. po Steroid. Basal insulin dose will be increased to 14 units at bedtime. Humabid. Diabetes management. Follow-up lab. Psychiatric medication and management defer to psychiatrist. Follow lab. General nursing care. Fall precautions. Continue other medication. Care plan reviewed and discussed with staff. Nutritional Asmnt/Malnutr-PDOC - Dietary Evaluation Malnutrition Findings (Please click <Entered> for more info): Nutritional Asmnt/Malnutrition Start: 07/18/17 14: 21 Text: Status: Complete Freq: Document 07/18/17 14:21 LCLELANDG (Rec: 07/18/17 14:32 LCLELANDG [email or web address]) Nutritional Asmnt/Malnutrition Patient General Information Nutritional Screening High Risk Pertinent Medical Hx/Surgical Hx Htn, COPD, dementia, diverticulosis, GERD, Gastritis, psychotic disorder, osteoarthritis, muscle atrophy, weakness, DM Subjective Information Pt from SNF seen sitting in wheelchair during the time of visit. Pt stated she would like diabetic diet d/t DM, and reported her food preference. Per H&P, pt smoked 1 pack per day. Pertinent Medications Vit C, colace, Iron, glucotrol , novolog Pertinent Labs 07/18 Na 134L, K 4.5, Cl 97L, Glu 264, POC 250-348 since adm 07/16 A1C 7.1 Nutritional Hx/Data Height 1.8 m Height (Calculated Centimeters) 180.3 Current Weight (lbs) 90.718 kg Weight (Calculated Kilograms) 90.7 Weight (Calculated Grams) 98519.5 [place] Body Weight 155 % [place] Body Weight 129 Body Mass Index (BMI) 27.8 Weight Status Overweight GI Symptoms GI Symptoms None Last BM N/A Difficult in: None Skin Integrity/Comment: dryness Nutritional Problem 1. Problem Problem altered nutrition related lab values Etiology hx of DM Signs/Symptoms: Glu 264, POC 250-348, A1C 7.1 Malnutrition Alert Protein-Calorie Malnutrition N/A Is there a minimum of two criteria No selected? Query Text:Check all the applicable criteria. A minimum of two criteria are recommended for diagnosis of either severe or non-severe malnutrition. Intervention/Recommendation Comments 1. Recommend [facility] diet d/t DM and per pt requested. RN made aware. 2. Notified diet attendant and updated diet profile 3. Monitor PO intake, wt weekly, labs and skin integrity 4. F/U as moderate risk in 3-5 days, 07/21-07/23 Expected Outcomes/Goals Expected Outcomes/Goals 1. PO intake to meet at least 75% of nutritional needs. 2. Wt stability, skin to remain intact, labs to improve .
[2017-07-23] MEDS: Insulin Detemir 100 units/mL 10mL Vial SUBQ SCH (23:39)
--- NOTE | 2017-07-23 23:57 | Progress Notes ---
DATE: SUBJECTIVE: Chart reviewed and the patient interviewed. Also discussed the patient's condition with the staff and reviewed records and labs. The patient is still anxious and is still in irritable mood. The patient also is still resisting care and she is focused on smoking and she is demanding and restless. The patient also has difficulty following staff directions. She is complaining of pain. She also is still in angry mood. Physical exam of the patient showed no major medical problems, but patient still needs close monitoring because of agitation. PLAN: Will add Abilify in a dose of 5 mg twice a day. Also, continue to monitor her behavior and her condition closely and working on discharge plans. JOB# [id number]
[2017-07-24] MEDS: Albuterol/Ipratropium Neb 3 ML AERS HHN SCH ×3 (01:19→12:26)
[2017-07-24] MEDS: INSULIN ASPART SLIDING SCALE 100 UNITS/ML UNIT SUBQ SCH ×3 (06:53→16:55)
[2017-07-24] MEDS: Ferrous Sulfate 325 MG TAB PO SCH ×2 (08:32→16:58)
[2017-07-24] MEDS: Multivitamin w/ Minerals Tab PO SCH (08:33)
[2017-07-24] MEDS: Aspirin 81mg Chewable Tab PO SCH (08:33)
[2017-07-24] MEDS: Fluticasone Propionate 0.05mg/Actuation 16gm Nasal Spray NS SCH (08:34)
[2017-07-24] MEDS: Polyvinyl Alcohol Ophth Soln 15 mL Bottle EACH EYE SCH ×2 (08:34→16:59)
[2017-07-24] MEDS: Budesonide 0.5 Mg/2 mL Ud HHN SCH (08:53)
--- NOTE | 2017-07-24 10:32 | General Progress Note ---
Subjective - Review of Systems Subjective: Patient is seen and examined. Patient denies any chest pain, abdominal pain, nausea, vomiting, headache, seizure, syncopal episode. Patient's blood sugar reading is better. Objective - Results Result Diagrams: 07/18/17 05:50 07/18/17 05:50 Recent Labs: Laboratory Last Values WBC 4.3 Th/cmm (4.8-10.8) L 07/18/17 05:50 RBC 4.79 Mil/cmm (3.80-5.20) 07/18/17 05:50 Hgb 13.6 gm/dL (-16) 07/18/17 05:50 Hct 40.6 % (41.0-60) L 07/18/17 05:50 MCV 84.7 fl (81-100) 07/18/17 05:50 MCH 28.5 pg (27.0-31.0) 07/18/17 05:50 MCHC Differential 33.6 pg (28.0-36.0) 07/18/17 05:50 RDW 14.2 % (11.5-20.0) 07/18/17 05:50 Plt Count 163 Th/cmm (150-400) 07/18/17 05:50 MPV 7.4 fl 07/18/17 05:50 Neutrophils % 82.9 % (40.0-80.0) H 07/18/17 05:50 Lymphocytes % 11.5 % (20.0-50.0) L 07/18/17 05:50 Monocytes % 5.5 % (2.0-10.0) 07/18/17 05:50 Eosinophils % 0.0 % (0.0-5.0) 07/18/17 05:50 Basophils % 0.1 % (0.0-2.0) 07/18/17 05:50 Sodium 134 mEq/L (136-145) L 07/18/17 05:50 Potassium 4.5 mEq/L (3.5-5.1) 07/18/17 05:50 Chloride 97 mEq/L (98-107) L 07/18/17 05:50 Carbon Dioxide 31.3 mEq/L (21.0-31.0) H 07/18/17 05:50 Anion Gap 10.2 (7.0-16.0) 07/18/17 05:50 BUN 22 mg/dL (7-25) 07/18/17 05:50 Creatinine 0.8 mg/dL (0.6-1.2) 07/18/17 05:50 Est GFR ( Amer) TNP 07/18/17 05:50 Est GFR (Non-Af Amer) TNP 07/18/17 05:50 BUN/Creatinine Ratio 27.5 07/18/17 05:50 Glucose 445 mg/dL (70-105) H 07/19/17 22:06 POC Glucose 165 MG/DL (70 - 105) H 07/24/17 08:37 Hemoglobin A1c % 7.1 % (4.0-6.0) H 07/16/17 21:59 Plasma/Ser Osmolality 291 mOsmol/kg (280-301) 07/17/17 10:00 Uric Acid 3.7 mg/dL (2.3-6.6) 07/17/17 10:00 Calcium 9.6 mg/dL (8.6-10.3) 07/18/17 05:50 Total Bilirubin 0.4 mg/dL (0.3-1.0) 07/16/17 21:57 AST 14 U/L (13-39) 07/16/17 21:57 ALT 17 U/L (7-52) 07/16/17 21:57 Alkaline Phosphatase 72 U/L (34-104) 07/16/17 21:57 Total Protein 6.7 gm/dL (6.0-8.3) 07/16/17 21:57 Albumin 3.8 gm/dL (3.7-5.3) 07/16/17 21:57 Globulin 2.9 gm/dL 07/16/17 21:57 Albumin/Globulin Ratio 1.3 (1.0-1.8) 07/16/17 21:57 TSH 1.66 uIU/ml (0.34-5.60) 07/16/17 21:57 RPR NONREACTIVE (NONREACTIVE) 07/16/17 21:57 Hep Bs Antigen Negative (Negative) 07/19/17 07:37 Hep Bs Antibody Reactive 07/19/17 07:37 Hep B Core Total Ab Positive (Negative) H 07/19/17 07:37 Hepatitis C Antibody 0.1 s/co ratio (0.0-0.9) 07/19/17 07:37 HIV 1&2 Antibody Screen NEGATIVE (NEG) 07/19/17 07:37 - Physical Exam Vitals and I&O: Vital Signs Temp 98.2 F 07/24/17 06:17 Pulse 85 07/24/17 09:10 Resp 20 07/24/17 09:10 BP 121/69 07/24/17 06:17 Pulse Ox 98 07/24/17 09:10 Intake & Output 07/23/17 07/24/17 07/24/17 18:59 06:59 18:59 Intake Total 120 Balance 120 Intake: Oral 120 Other: # Voids 3 # Bowel Movements 1 Active Medications: Current Medications Acetaminophen (Tylenol) 650 mg PO Q4HR PRN PRN Reason: Mild Pain or Fever >101 Stop: 09/15/17 00:17 Last Admin: 07/18/17 08:55 Dose: 650 mg Albuterol/Ipratropium (Duoneb Neb) 3 ml HHN Q6HRT [facility] Stop: 09/15/17 12:59 Last Admin: 07/24/17 08:53 Dose: 3 ml Albuterol/Ipratropium (Duoneb Neb) 3 ml HHN Q2HR PRN PRN Reason: Shortness of Breath Stop: 09/15/17 00:17 Aripiprazole (Abilify) 5 mg PO DAILY REAL PRN Reason: Protocol Stop: 09/21/17 11:44 Last Admin: 07/24/17 08:30 Dose: 5 mg Artificial Tears (Artificial Tears Ophth Soln) 1 drop EACH EYE BID [facility] Stop: 09/15/17 16:59 Last Admin: 07/24/17 08:34 Dose: 1 drop Ascorbic Acid (Vitamin C) 500 mg PO DAILY [facility] Stop: 09/15/17 08:59 Last Admin: 07/24/17 08:33 Dose: 500 mg Aspirin (Aspirin Chewable) 81 mg PO DAILY [facility] Stop: 09/15/17 08:59 Last Admin: 07/24/17 08:33 Dose: 81 mg Bisacodyl (Dulcolax 10 Mg Supp) 10 mg RC DAILY PRN PRN Reason: Constipation Stop: 09/15/17 00:17 Budesonide (Pulmicort) 0.5 mg HHN BID [facility] Stop: 09/15/17 08:59 Last Admin: 07/24/17 08:53 Dose: 0.5 mg Docusate Sodium (Colace) 100 mg PO DAILY [facility] Stop: 09/15/17 08:59 Last Admin: 07/24/17 08:32 Dose: 100 mg Duloxetine HCl (Cymbalta) 60 mg PO BID [facility] Stop: 09/19/17 08:59 Last Admin: 07/24/17 08:31 Dose: 60 mg Ferrous Sulfate (Iron) 325 mg PO BID [facility] Stop: 09/15/17 08:59 Last Admin: 07/24/17 08:32 Dose: 325 mg Fluticasone Propionate (Flonase) 1 spr NS DAILY [facility] Stop: 09/15/17 08:59 Last Admin: 07/24/17 08:34 Dose: 1 spr Gabapentin (Neurontin) 600 mg PO TID [facility] Stop: 09/15/17 08:59 Last Admin: 07/24/17 08:32 Dose: 600 mg Glipizide (Glucotrol) 10 mg PO QDAC [facility] Stop: 09/15/17 07:29 Last Admin: 07/24/17 06:44 Dose: 10 mg Guaifenesin (Mucinex) 600 mg PO Q12HR PRN PRN Reason: Cough or Congestion Stop: 09/19/17 09:18 Guaifenesin/Dextromethorphan (Robitussin Dm) 5 ml PO TID PRN PRN Reason: Cough Stop: 09/15/17 00:17 Last Admin: 07/20/17 06:45 Dose: 5 ml Insulin Aspart (Novolog Insulin Sliding Scale) 0 units SUBQ ACHS REAL PRN Reason: Protocol Stop: 09/15/17 11:29 Last Admin: 07/24/17 06:53 Dose: Not Given Insulin Detemir (Levemir Insulin) 10 units SUBQ HS REAL PRN Reason: Protocol Stop: 09/17/17 20:59 Last Admin: 07/23/17 23:39 Dose: 10 units Ketotifen Fumarate (Zaditor 0.025% Oph Soln) 1 drop EACH EYE DAILY [facility] Stop: 09/16/17 08:59 Last Admin: 07/24/17 08:35 Dose: 1 drop Lorazepam (Ativan) 0.5 mg PO Q6H PRN; Protocol PRN Reason: Anxiety Stop: 09/15/17 00:17 Last Admin: 07/22/17 21:56 Dose: 0.5 mg Magnesium Hydroxide (Milk Of Magnesia) 30 ml PO HS PRN PRN Reason: Constipation Stop: 09/15/17 00:17 Naproxen (Naprosyn) 500 mg PO BID [facility] Stop: 09/15/17 16:59 Last Admin: 07/24/17 09:49 Dose: Not Given Prednisone (Deltasone) 10 mg PO BID REAL Stop: 09/19/17 16:59 Last Admin: 07/24/17 08:33 Dose: 10 mg Sitagliptin Phosphate (Januvia) 100 mg PO DAILY REAL Stop: 09/22/17 08:59 Last Admin: 07/24/17 08:32 Dose: 100 mg Sodium Phosphate (Fleet Enema) 135 ml RC Q48H PRN PRN Reason: Constipation Stop: 09/15/17 00:17 Tramadol HCl (Ultram) 50 mg PO Q6H PRN PRN Reason: Pain (Moderate) Stop: 09/15/17 00:17 Last Admin: 07/24/17 10:06 Dose: 50 mg Trazodone HCl (Desyrel) 150 mg PO HS REAL Stop: 09/15/17 20:59 Last Admin: 07/23/17 20:50 Dose: 150 mg Zolpidem Tartrate (Ambien) 5 mg PO HS PRN PRN Reason: Insomnia Stop: 09/15/17 02:00 Last Admin: 07/22/17 21:56 Dose: 5 mg General: Alert, Cooperative, No acute distress HEENT: Atraumatic, PERRLA, EOMI, Other (dentures present.) Neck: Supple, JVD Cardiovascular: Regular rate, Normal S1, Normal S2 Lungs: Normal air movement, Other (diffuse expiratory wheezing throughout.) Abdomen: Bowel sounds, Soft, Other (no guarding no rigidity) Extremities: Other (diffuse osteoarthritic changes involving major and minor joints) Neurological: Normal speech, Sensation intact, Cranial nerves 3-12 NL, Other ( decrease pot of both lower extremity more on right than left.) Assessment/Plan - Problem List Patient Problems: All Active Problems Arthralgia (Acute) M25.50 COPD (chronic obstructive pulmonary disease) (Acute) Dementia (Acute) F03.90 Dermatitis (Acute) L30.9 Diabetes mellitus (Acute) E11.9 Glaucoma (Acute) H40.9 Hypertension (Acute) I10 Hyponatremia (Acute) E87.1 Insomnia (Acute) G47.00 Neuralgia (Acute) M79.2 Psychosis (Acute) F29 Rheumatoid arthritis (Acute) M06.9 Schizophrenia (Acute) F20.9 - Assessment Assessment: COPD exacerbation. Psychiatric disorder exacerbation. Diabetes mellitus with elevated blood sugar. Hypertension. DJD. Smoking+. Osteoporosis. Fall risk Dementia. Debility. Declining self-care mobility. - Plan Plan: Oxygen. Nebulizer treatment. PO Antibiotics. Steroid. Basal insulin. Humabid. Diabetes management. Follow-up lab. Psychiatric medication and management defer to psychiatrist. Follow lab. General nursing care. Fall precautions. Continue other medication. Care plan reviewed and discussed with staff. Nutritional Asmnt/Malnutr-PDOC - Dietary Evaluation Malnutrition Findings (Please click <Entered> for more info): Nutritional Asmnt/Malnutrition Start: 07/18/17 14: 21 Text: Status: Complete Freq: Document 07/18/17 14:21 [facility] (Rec: 07/18/17 14:32 [id number]) Nutritional Asmnt/Malnutrition Patient General Information Nutritional Screening High Risk Pertinent Medical Hx/Surgical Hx Htn, COPD, dementia, diverticulosis, GERD, Gastritis, psychotic disorder, osteoarthritis, muscle atrophy, weakness, DM Subjective Information Pt from SNF seen sitting in wheelchair during the time of visit. Pt stated she would like diabetic diet d/t DM, and reported her food preference. Per H&P, pt smoked 1 pack per day. Pertinent Medications Vit C, colace, Iron, glucotrol , novolog Pertinent Labs 07/18 Na 134L, K 4.5, Cl 97L, Glu 264, POC 250-348 since adm 07/16 A1C 7.1 Nutritional Hx/Data Height 1.8 m Height (Calculated Centimeters) 180.3 Current Weight (lbs) 90.718 kg Weight (Calculated Kilograms) 90.7 Weight (Calculated Grams) 33047.5 [place] Body Weight 155 % [place] Body Weight 129 Body Mass Index (BMI) 27.8 Weight Status Overweight GI Symptoms GI Symptoms None Last BM N/A Difficult in: None Skin Integrity/Comment: dryness Nutritional Problem 1. Problem Problem altered nutrition related lab values Etiology hx of DM Signs/Symptoms: Glu 264, POC 250-348, A1C 7.1 Malnutrition Alert Protein-Calorie Malnutrition N/A Is there a minimum of two criteria No selected? Query Text:Check all the applicable criteria. A minimum of two criteria are recommended for diagnosis of either severe or non-severe malnutrition. Intervention/Recommendation Comments 1. Recommend [facility] diet d/t DM and per pt requested. RN made aware. 2. Notified crew clerk and updated diet profile 3. Monitor PO intake, wt weekly, labs and skin integrity 4. F/U as moderate risk in 3-5 days, 07/21-07/23 Expected Outcomes/Goals Expected Outcomes/Goals 1. PO intake to meet at least 75% of nutritional needs. 2. Wt stability, skin to remain intact, labs to improve .
--- NOTE | 2017-08-31 16:28 | Discharge Summary ---
DATE OF DISCHARGE: 07/24/2017 FINAL DIAGNOSIS AND PRIMARY DIAGNOSIS: Major depression, moderate to severe, with psychotic features. REASON FOR HOSPITALIZATION: The patient was admitted to the hospital because of increased agitation and irritable mood and suspicious and paranoia. HOSPITAL COURSE: The patient continued to be agitated, but depressed. She also was having episodes of anger and irritability. She also seems to be depressed and at times wanted to be left alone. She also was paranoid about surroundings. The patient was given Cymbalta and Abilify. Abilify was increased to 5 mg twice a day. Gradually, the patient's affect was brighter. The patient was less irritable and less agitated. The patient denied any thoughts of suicide or homicide and the patient was easier to follow directions and the patient was discharged to [facility] where she resides. PHYSICAL EXAMINATION: The patient showed no acute medical issues while in the hospital. AFTER DISCHARGE PLANS: The patient discharged from the hospital and went to [facility] with plan to follow her there. EXPECTED OUTCOME AFTER DISCHARGE: Fair if the patient continues with her treatment and compliant with taking her medications. [facility]# [id number]
== END 2017-07-24 19:15 | disposition home or self-care (01) | DRG 885 ==
LOC: ER 20:58 → GERO 22:40 → UNDOADMIN 22:40 → UNDODISIN 07-24 19:15
PROVIDERS: ADMIT Psychiatry & Neurology Psychiatry; ATTEND Psychiatry & Neurology Psychiatry
DX: F29 Unspecified psychosis not due to a substance or known physiological condition (principal); E87.1 Hypo-osmolality and hyponatremia; E11.9 Type 2 diabetes mellitus without complications; F03.90 Unspecified dementia, unspecified severity, without behavioral disturbance, psychotic disturbance, mood disturbance, and anxiety; F20.9 Schizophrenia, unspecified; J44.1 Chronic obstructive pulmonary disease with (acute) exacerbation; I10 Essential (primary) hypertension; M19.90 Unspecified osteoarthritis, unspecified site; M81.0 Age-related osteoporosis without current pathological fracture; K21.9 Gastro-esophageal reflux disease without esophagitis; F31.9 Bipolar disorder, unspecified; F17.210 Nicotine dependence, cigarettes, uncomplicated; Z88.0 Allergy status to penicillin; Z91.013 Allergy to seafood; Z91.81 History of falling; Z83.3 Family history of diabetes mellitus; Z82.49 Family history of ischemic heart disease and other diseases of the circulatory system; Z79.82 Long term (current) use of aspirin; Z79.84 Long term (current) use of oral hypoglycemic drugs
CPT/HCPCS: 36415-UA; 80048-TC; 80053-TC; 82947-TC; 82948-90; 83036-90; 83930-90; 84443-TC; 84550-TC; 85025-TC; 86592-TC; 86703-TC; 86704-90; 86706-90; 86803-90; 87340-90; 93005; 94640; 94760; 97530; J1815; X3904; Z7610